=== PATIENT | female | born 1950 | race Caucasian/White ===

== ENCOUNTER 2018-03-22 09:50 | Outpatient (CLI) | payer MEDICARE, SELFPAY ==
[2018-03-22 13:23] LABS: TSH 0.12 uIU/mL (0.358-3.74)
== END 2018-03-22 10:10 ==
PROVIDERS: PCP Nurse Practitioner Family; Visit Provider Surgery
DX: E04.1 Nontoxic single thyroid nodule (principal)
CPT/HCPCS: 36415; 84443

== ENCOUNTER 2018-10-04 14:57 | Outpatient (REF) | payer OTHER, SELFPAY ==
[2018-10-04 23:00] LABS: Anion Gap 10.2 mmol/L (3-11); BUN 9 mg/dL (7-18); CO2 27.8 mmol/L (21.0-32.0); CREATININE 0.67 mg/dL (0.55-1.02); Calculated LDL 94 mg/dL; Chloride 99 mmol/L (98-107); Cholesterol 151 mg/dL (50-200); Glucose 87 mg/dL (70-100); HDL Cholesterol 42 mg/dL (40-60); Potassium 3.6 mmol/L (3.5-5.1); Sodium 137 mmol/L (136-145); Triglyceride 75 mg/dL (30-150)
[2018-10-04 23:23] LABS: TSH 0.35 uIU/mL (0.358-3.74)
== END 2018-10-04 15:17 ==
LOC: NCHCN 14:57
PROVIDERS: PCP Nurse Practitioner Family; Visit Provider Nurse Practitioner Family
DX: I10 Essential (primary) hypertension (principal); E78.5 Hyperlipidemia, unspecified; E89.0 Postprocedural hypothyroidism
CPT/HCPCS: 80048; 80061; 83721; 84443

== ENCOUNTER 2018-10-14 11:42 | Outpatient (CLI) | payer OTHER, SELFPAY ==
--- NOTE | 2018-10-14 12:14 | DI.MAMMO_ITS ---
SYMPTOM/DIAGNOSIS: SCREENING Z12.39 BILATERAL SCREENING MAMMOGRAMS: Mammograms were interpreted according to the usual protocol including computer analysis with CAD system, tomosynthesis and C view imaging. Comparison is made with exams from 2009 and 2010. The breasts are composed of scattered fibroglandular densities, breast density category B. No suspicious masses or suspicious microcalcifications are seen. There has been no significant change. IMPRESSION: Category 1, negative mammogram. Yearly screening mammography is recommended. Breast density category B. SA ASSESSMENT OF FINDINGS: Negative. Category 1. Patient will receive a letter notifying them of these results. BI-RADS category B. There are scattered areas of fibroglandular density.
== END 2018-10-14 12:02 ==
PROVIDERS: PCP Nurse Practitioner Family; Visit Provider Nurse Practitioner Family
DX: Z12.31 Encounter for screening mammogram for malignant neoplasm of breast (principal)
CPT/HCPCS: 77063; 77067

== ENCOUNTER 2018-12-03 10:45 | Outpatient (REF) | payer OTHER, SELFPAY ==
[2018-12-03 20:31] LABS: TSH 2.22 uIU/mL (0.36-3.74)
== END 2018-12-03 11:05 ==
LOC: NCHCN 10:45
PROVIDERS: PCP Nurse Practitioner Family; Visit Provider Nurse Practitioner Family
DX: E89.0 Postprocedural hypothyroidism (principal)
CPT/HCPCS: 84443

== ENCOUNTER 2019-11-11 08:51 | Outpatient (REF) | payer OTHER, SELFPAY ==
[2019-11-11 20:14] LABS: Anion Gap 8.7 mmol/L (3-11); BUN 22 mg/dL (7-18); CO2 29.3 mmol/L (21.0-32.0); CREATININE 0.78 mg/dL (0.55-1.02); Calcium 9.1 mg/dL (8.5-10.1); Calculated LDL 121 mg/dL (<100); Chloride 95 mmol/L (98-107); Cholesterol 181 mg/dL (<200); Glucose 102 mg/dL (74-106); HDL Cholesterol 35 mg/dL (40-60); Sodium 133 mmol/L (136-145); Triglyceride 125 mg/dL (<150)
== END 2019-11-11 09:11 ==
LOC: NCHCN 08:51
PROVIDERS: PCP Nurse Practitioner Family; Visit Provider Nurse Practitioner Family
DX: I10 Essential (primary) hypertension (principal); E78.5 Hyperlipidemia, unspecified
CPT/HCPCS: 80048; 80061

== ENCOUNTER 2020-01-11 15:01 | Outpatient (REF) | payer OTHER, SELFPAY ==
[2020-01-11 21:18] LABS: ALT 23 U/L (14-59); AST 17 U/L (15-37); HDL Cholesterol 44 mg/dL (40-60); LDL CHOLESTEROL 116 mg/dL (<100)
[2020-01-11 21:36] LABS: Creatine Kinase 91 U/L (26-192)
== END 2020-01-11 15:21 ==
LOC: NCHCN 15:01
PROVIDERS: PCP Nurse Practitioner Family; Visit Provider Nurse Practitioner Family
DX: E78.5 Hyperlipidemia, unspecified (principal)
CPT/HCPCS: 82550; 83721; 83718; 84450; 84460

== ENCOUNTER 2020-03-14 17:56 | Outpatient (REF) | payer OTHER, SELFPAY ==
[2020-03-15 23:52] LABS: COVID-19 RT-PCR UVMMC Result Negative (Negative)
== END 2020-03-14 18:16 ==
LOC: NCHCN 17:56
PROVIDERS: PCP Nurse Practitioner Family; Visit Provider Nurse Practitioner Family
DX: J06.9 Acute upper respiratory infection, unspecified (principal)
CPT/HCPCS: U0003

== ENCOUNTER 2020-05-01 14:17 | Outpatient (REF) | payer OTHER, SELFPAY ==
[2020-05-01 16:04] LABS: ALT 24 U/L (14-59); AST 17 U/L (15-37); Anion Gap 7.8 mmol/L (3-11); BUN 12 mg/dL (7-18); CO2 32.2 mmol/L (21.0-32.0); CREATININE 0.7 mg/dL (0.55-1.02); Calcium 9.4 mg/dL (8.5-10.1); Chloride 97 mmol/L (98-107); Glucose 121 mg/dL (74-106); HDL Cholesterol 39 mg/dL (40-60); LDL CHOLESTEROL 61 mg/dL (<100); Potassium 3.6 mmol/L (3.5-5.1); Sodium 137 mmol/L (136-145)
[2020-05-01 16:26] LABS: Creatine Kinase 71 U/L (26-192); FREE T4 1.35 ng/dL (0.76-1.46)
[2020-05-01 17:39] LABS: TSH 2.18 uIU/mL (0.36-3.74)
== END 2020-05-01 14:18 | disposition home or self-care (01) ==
LOC: NCHCN 14:17
PROVIDERS: PCP Nurse Practitioner Family; Visit Provider Nurse Practitioner Family
DX: E78.5 Hyperlipidemia, unspecified (principal); I10 Essential (primary) hypertension; E89.0 Postprocedural hypothyroidism; M85.89 Other specified disorders of bone density and structure, multiple sites
CPT/HCPCS: 80048; 82306; 82550; 83721; 83718; 84439; 84443; 84450; 84460

== ENCOUNTER 2020-11-12 01:40 | Outpatient (CLI) | payer OTHER, SELFPAY ==
--- NOTE | 2020-11-12 | DI.MAMMO_ITS ---
Exam(s) MAMMO SCREENING EXAM: MAMMO SCREENING CLINICAL HISTORY: SCREENING, Z12.39. TECHNIQUE: Bilateral full field digital CC and MLO mammographic images were obtained with 3D tomosyn thesis and utilizing computer aided detection (CAD). COMPARISON: Prior mammogram performed September 2018. There are no other prior mammograms available for comparison. FINDINGS: In the left breast there is an asymmetric density-possible nodule measuring 5 x 6 millimeters located medial of center, approximately 6 cm in from the nipple. Require spot view. In the right breast there is a microcalcification group located posteriorly up again suggest wall, no t evident on the prior study listed above. Requires spot Mag view. More anteriorly there are benign micro and macro calcifications noted both breasts which are unchanged. There is no significant architectural distortion nor skin thickening-retraction. IMPRESSION: 1. Asymmetric density-possible left breast nodule. Spot compression view and ultrasound recommended. 2. Microcalcification group posteriorly in the right breast. Spot Mag view recommended BI-RADS Category 0 - Assessment Incomplete: Need additional imaging evaluation Breast Density - Category B - Scattered areas of fibroglandular density Breast density Category C or D implies that the patient has dense breast tissue. Dense breast tissue can make it harder to find cancer on a mammogram. Dense breast tissue is also associated with an incr eased risk of breast cancer. This information about the result of the mammogram report was provided to the patient to raise their awareness. Use this report when you speak with the patient about their risks for breast cancer, which includes their family history. At that time, you may recommend additional screening tests (Ultrasoun d or MRI) as these tests may add significant information. A negative radiographic report should not delay biopsy if a dominant or clinically suspicious mass is present. Up to ten percent of cancers are not identified on mammography. A negative report may reinforce clinical impression. Adenosis and dense breasts may obscure an underlying neoplasm. False positive reports average 6 to 10%. Patient will receive a letter notifying them of these results.
== END 2020-11-12 02:00 ==
PROVIDERS: PCP Nurse Practitioner Family; Visit Provider Nurse Practitioner Family
DX: Z12.31 Encounter for screening mammogram for malignant neoplasm of breast (principal); R92.2 Inconclusive mammogram; R92.0 Mammographic microcalcification found on diagnostic imaging of breast
CPT/HCPCS: 77063; 77067

== ENCOUNTER 2020-11-29 02:13 | Outpatient (CLI) | payer OTHER, SELFPAY ==
--- NOTE | 2020-11-29 | DI.US_ITS ---
Exam(s) US BREAST LT COMPLETE EXAM: US BREAST LT COMPLETE CLINICAL HISTORY: F/U MAMMO, LT ASYMMETRIC DENSITY,? NODULE. TECHNIQUE: Complete ultrasound of the left breast was performed including all 4 quadrants, the retro areolar region, and the ipsilateral axilla. COMPARISON: Prior mammograms were reviewed. FINDINGS: At the 9 o'clock position there is a 3 millimeter round cyst. This benign cyst corresponds to the fi nding on the mammogram. No other focal findings in all 4 quadrants nor in the retroareolar region. No significant ipsilateral axillary adenopathy IMPRESSION: There is a benign 3 millimeter microcyst in the left breast as described above which corresponds to t he finding on the mammogram. No solid lesions evident in the left breast Appropriate follow-up is repeat right breast mammogram in 6 months to restudy the microcalcification group located very posteriorly up again suggest wall in the right breast.. Recommendations discussed by myself with the patient today. BI-RADS Category 3 - 6 month - Probably Benign Finding: Recommend follow-up mammography in 6 months Breast Density - Category B - Scattered areas of fibroglandular density Breast density Category C or D implies that the patient has dense breast tissue. Dense breast tissue can make it harder to find cancer on a mammogram. Dense breast tissue is also associated with an incr eased risk of breast cancer. This information about the result of the mammogram report was provided to the patient to raise their awareness. Use this report when you speak with the patient about their risks for breast cancer, which includes their family history. At that time, you may recommend additional screening tests (Ultrasoun d or MRI) as these tests may add significant information. A negative radiographic report should not delay biopsy if a dominant or clinically suspicious mass is present. Up to ten percent of cancers are not identified on mammography. A negative report may reinforce clinical impression. Adenosis and dense breasts may obscure an underlying neoplasm. False positive reports average 6 to 10%. Patient will receive a letter notifying them of these results.
--- NOTE | 2020-11-29 | DI.MAMMO_ITS ---
Exam(s) MG MAMMO SCREEN CALL BACK BI EXAM: MG MAMMO SCREEN CALL BACK BI CLINICAL HISTORY: F/U MAMMO, LT ASYMMETRIC DENSITY, ? NODULE, RT MICROCALCIFICATION. TECHNIQUE: Right breast spot mammographic images were obtained with 2D mag technique. Left breast spot views were performed with 3D technique COMPARISON: Prior mammograms were reviewed. This additional imaging was performed due to findings described on the recent screening mammogram of 11/12/2020. FINDINGS: Additional mammographic views performed todayrevealed the small nodular density in the left breast pe rsist.This was shown to be a benign microcyst on ultrasound performed following this mammogram today. Four attempts were made to perform Mag view of microcalcification group posteriorly in the right negrito st described on 11/12/2020. However, these were not able to be imaged despite numerous attempts. I feel there is possibly that these microcalcifications may been present previously but not included on prior mammograms because they are so far back. Nevertheless, recommend follow-up right breast mammo gram in 6 months to restudy these microcalcifications. IMPRESSION: 1. Right breast microcalcification group as described above. Recommend repeat right breast mammogram in 6 months to restudy this very posteriorly located microcalcification group. 2. The nodule in the left breast is shown to be a 3-4 millimeter microcyst on today's ultrasound. The patient was informed of these findings and recommendations prior to leaving the department today. BI-RADS Category 3 - 6 month - Probably Benign Finding: Recommend follow-up mammography in 6 months Breast Density - Category B - Scattered areas of fibroglandular density Breast density Category C or D implies that the patient has dense breast tissue. Dense breast tissue can make it harder to find cancer on a mammogram. Dense breast tissue is also associated with an incr eased risk of breast cancer. This information about the result of the mammogram report was provided to the patient to raise their awareness. Use this report when you speak with the patient about their risks for breast cancer, which includes their family history. At that time, you may recommend additional screening tests (Ultrasoun d or MRI) as these tests may add significant information. A negative radiographic report should not delay biopsy if a dominant or clinically suspicious mass is present. Up to ten percent of cancers are not identified on mammography. A negative report may reinforce clinical impression. Adenosis and dense breasts may obscure an underlying neoplasm. False positive reports average 6 to 10%. Patient will receive a letter notifying them of these results.
== END 2020-11-29 02:33 ==
PROVIDERS: PCP Nurse Practitioner Family; Visit Provider Nurse Practitioner Family
DX: Z12.31 Encounter for screening mammogram for malignant neoplasm of breast (principal); R92.8 Other abnormal and inconclusive findings on diagnostic imaging of breast; R92.0 Mammographic microcalcification found on diagnostic imaging of breast; N60.02 Solitary cyst of left breast
CPT/HCPCS: 76642; 77063; 77067

== ENCOUNTER 2021-02-26 09:56 | Outpatient (REF) | payer OTHER, SELFPAY ==
[2021-02-26 15:56] LABS: Anion Gap 6.4 mmol/L (3-11); BUN 13 mg/dL (7-18); CO2 32.6 mmol/L (21.0-32.0); CREATININE 0.6 mg/dL (0.55-1.02); Calcium 9.1 mg/dL (8.5-10.1); Chloride 97 mmol/L (98-107); FREE T4 1.38 ng/dL (0.76-1.46); Glucose 97 mg/dL (74-106); Potassium 3.5 mmol/L (3.5-5.1); Sodium 136 mmol/L (136-145); TSH 1.21 uIU/mL (0.36-3.74)
[2021-02-26 16:08] LABS: Calculated LDL 74 mg/dL (<100); Cholesterol 132 mg/dL (<200); HDL Cholesterol 45 mg/dL (40-60); Triglyceride 65 mg/dL (<150)
[2021-02-28 01:41] LABS: Vitamin D 25 Total 21.9 ng/mL (30-100)
== END 2021-02-26 09:57 | disposition home or self-care (01) ==
LOC: NCHCN 09:56
PROVIDERS: PCP Nurse Practitioner Family; Visit Provider Nurse Practitioner Family
DX: E89.0 Postprocedural hypothyroidism (principal); E78.5 Hyperlipidemia, unspecified; E55.9 Vitamin D deficiency, unspecified
CPT/HCPCS: 80048; 80061; 82306; 84439; 84443

== ENCOUNTER 2021-05-03 08:17 | Emergency (ER) | payer OTHER, SELFPAY ==
[2021-05-03 08:23] VITALS: BP 149/83; PULSE 67; RESP 16; TEMP 36.2; O2SAT 98
--- NOTE | 2021-05-03 08:36 | ED.GENADUL_ITS ---
Discharge Plan Disposition Patient Disposition: HOME Condition: Stable Discharge Details Clinical Impression: Mallet deformity of right ring finger Primary Care Provider: June Andrade ED Provider: Yong Dempsey Home Meds and New Rx's Prescriptions: Continued nitroglycerin 0.4 MG tablet, sublingual 0.4 mg Sublingual ONCE 0RF Label Comments: has never used ramipril [Altace] 5 MG capsule 10 mg PO DAILY 0RF atorvastatin [Lipitor] 20 MG tablet 20 mg PO DAILY 0RF citalopram 40 MG tablet 40 mg PO HS 0RF Label Comments: no longer takes atenolol 100 MG tablet 100 mg PO DAILY 0RF hydrochlorothiazide 50 MG tablet 50 mg PO DAILY 0RF aspirin,buffd-calcium carb-mag 325 MG tablet 325 mg PO DAILY 0RF Discontinued sulfamethoxazole-trimethoprim 1 TAB tablet 1 ea PO BID Qty: 20 0RF Discharge Instructions Instructions: Jose Finger (ED) Additional Instructions: You have a tendon injury to your right ring finger. Please use splinting as discussed and it is important that you follow-up with orthopedics. You may use [id number] pain medication as needed and take as directed on packaging or as previously directed by your primary care provider. If you have any new or worsening symptoms please return to the emergency department for reevaluation. Referrals: [facility] [Provider Group] (The office should contact you for arrangement of follow-up appointment.) Discharge Data Discharge Date/Time-TO BE ENTERED AT DEPARTURE: 05/03/21 08:54 Medical Decision Making Patient presenting to the emergency department for chief complaint of right ring finger injury. While talking in a comforter she felt a pop in her right ring finger. Physical exam shows an obvious mallet finger deformity. Exam is otherwise unremarkable and patient is without other complaint. Patient placed in appropriate splint and recommended [id number] pain medication as needed. Patient to follow-up with orthopedist for further reassessment and treatment. I do not feel that radiological imaging is needed at this time. After discussion of diagnosis and plan of care patient has no further needs, questions, or concerns and states clear understanding to return to the emergency department for any worsening symptoms. HPI General Date/Time Provider Initiated Documentation: 05/03/21 08:30 . History of Present Illness 71 year old F presents to the emergency department with the chief complaint of Right ring finger injury, described as moderate, with intensity rated at 5. Quality is described as aching, and is localized to the right and upper extremity. Patient extremity. Patient started experiencing this hour(s) (1) and it has been constant. improves with No relieving factors improve symptom(s), Movement worsens symptoms . Patient notes no other symptoms.. Patient did receive the following treatments prior to arrival, none Related Data Home Medications Medication Instructions Recorded Confirmed aspirin,buffered (calcium 325 mg PO DAILY 08/09/12 05/03/21 carbonate-magnesium) 325 mg tablet atenolol 100 mg tablet 100 mg PO DAILY 08/09/12 05/03/21 atorvastatin 20 mg tablet (Lipitor) 20 mg PO DAILY 08/09/12 05/03/21 citalopram 40 mg tablet 40 mg PO HS 08/09/12 05/03/21 hydrochlorothiazide 50 mg tablet 50 mg PO DAILY 08/09/12 05/03/21 nitroglycerin 0.4 mg sublingual 0.4 mg SUBLINGUAL ONCE tab-cap 03/28/13 05/03/21 tablet ramipril 5 mg capsule (Altace) 10 mg PO DAILY tab-cap 03/28/13 05/03/21 Allergies Allergy/AdvReac Type Severity Reaction Status Date / Time furosemide [From Lasix] Allergy Intermediate FACE SWELLS Verified 05/03/21 08:27 azithromycin [From Zithromax] AdvReac Intermediate VOMITS Verified 05/03/21 08:27 ketorolac tromethamine AdvReac Intermediate VOMITS Verified 05/03/21 08:27 [From Toradol] hydrocodone bitartrate AdvReac Mild GI UPSET Verified 05/03/21 08:27 [From Vicodin] General Stated Complaint: Orthopedic GERMAIN: 4 Review of Systems Cardiovascular Cardiovascular: Denies syncope Musculoskeletal Musculoskeletal: Reports as per HPI, Denies numbness and Denies tingling Integumentary/Breasts Skin/Breast: Denies rash, Denies sores and Denies wounds Neurologic Neurologic: Denies syncope, Denies numbness and Denies tingling PFSH All Active Problems (Updated 05/03/21 @ 08:37 by Yong Dempsey NP) Mallet deformity of right ring finger (Acute) Social History Smoking/Tobacco Use Status: Former Tobacco Use Smoking risk assessment performed?: Yes Alcohol Intake: current Alcohol Intake frequency: a few times a week Drug use: Never Substance use type: does not use Do you feel safe in your relationship?: Yes Exam Const General: cooperative and no acute distress Orientation: alert, awake and oriented x3 Resp Effort & Inspection: normal respiratory effort and able to speak in complete sentences Cardio Rate: regular rate Rhythm: regular rhythm Extrem General: normal exam except as noted Right upper extremity: hand Details: abnormal to inspection Details: a deformity Location: of the 3rd digit (Mallet deformity), normal capillary refill and neurosensory exam normal Course Vital Signs Vital signs: Vital Signs Temperature 36.2 C L 05/03/21 08:23 Pulse 67 05/03/21 08:23 Respiratory Rate 16 05/03/21 08:23 Blood Pressure 149/83 H 05/03/21 08:23 Pulse Oximetry 98 05/03/21 08:23 Temperature 36.2 C L 05/03/21 08:23 Temperature Source Skin 05/03/21 08:23 Pulse 67 05/03/21 08:23 Respiratory Rate 16 05/03/21 08:23 Respiratory Effort 05/03/21 08:23 Blood Pressure 149/83 H 05/03/21 08:23 Blood Pressure Position Sitting 05/03/21 08:23 Pulse Oximetry 98 05/03/21 08:23 Oxygen Delivery Method Room Air 05/03/21 08:23 Oxygen Flow Rate 0 05/03/21 08:23 Pain Level 5 05/03/21 08:29
== END 2021-05-03 08:54 | disposition home or self-care (01) ==
PROVIDERS: Emergency Provider Nurse Practitioner Family; PCP Nurse Practitioner Family
DX: M20.011 Mallet finger of right finger(s) (principal); X50.1XXA Overexertion from prolonged static or awkward postures, initial encounter
CPT/HCPCS: 29130; 99282

== ENCOUNTER → 2021-05-13 13:55 | Outpatient (BNVA) | payer MEDICARE, OTHER, SELFPAY | PROVIDERS: PCP Nurse Practitioner Family; Referring Provider Student in an Organized Health Care Education/Training Program | DX: M20.011 Mallet finger of right finger(s) (principal) | CPT/HCPCS: 99213 ==

== ENCOUNTER 2021-05-27 03:34 | Outpatient (CLI) | payer OTHER, SELFPAY ==
--- NOTE | 2021-05-27 14:00 | DI.MAMMO_ITS ---
Exam(s) MG MAMMO DIAGNOSTIC UNI EXAM: MAMMO DIAGNOSTIC UNI CLINICAL HISTORY: 6-MO F/U ABNL MAMMO, BREAST ABNL FINDINGS, N64.59. TECHNIQUE: Craniocaudal and mediolateral oblique Full Field Digital Mammography views of the right b reast with Computer Aided Diagnosis followed by Tomosynthesis. COMPARISON: 2018 and 12 November and 29 November 2020 FINDINGS: Mammography/Tomosynthesis: Masses/Architectural Distortion: None seen. Microcalcifictions: No suspicious pleomorphic-type are seen. Stable calcifications in the lower inner quadrant of the posterior right breast near the chest wall. The calcifications were only seen on th e spot CC view. Skin Thickening/Nipple Retraction: None. IMPRESSION: 1. No evidence of malignancy is noted. 2. Unless there is more urgent need, follow-up screening mammography is recommended, as per [place] [employer] guidelines. BI-RADS Category 2 - Benign Findings Breast Density - Category B - Scattered areas of fibroglandular density A negative radiographic report should not delay biopsy if a dominant or clinically suspicious mass is present. Up to ten percent of cancers are not identified on mammography. A negative report may reinforce clinical impression. Adenosis and dense breasts may obscure an underlying neoplasm. False positive reports average 6 to 10%. Patient will receive a letter notifying them of these results.
== END 2021-05-27 03:54 ==
PROVIDERS: PCP Nurse Practitioner Family; Visit Provider Nurse Practitioner Family
DX: R92.8 Other abnormal and inconclusive findings on diagnostic imaging of breast (principal); N60.81 Other benign mammary dysplasias of right breast
CPT/HCPCS: 77061; 77065; G0279

== ENCOUNTER → 2021-06-17 13:01 | Outpatient (BNVA) | payer MEDICARE, SELFPAY | PROVIDERS: PCP Nurse Practitioner Family; Referring Provider Nurse Practitioner Family; Visit Provider Student in an Organized Health Care Education/Training Program | DX: M20.011 Mallet finger of right finger(s) (principal) | CPT/HCPCS: 99212 ==

== ENCOUNTER → 2021-10-08 15:42 | Outpatient (CLI) | payer OTHER, SELFPAY ==
--- NOTE | 2021-10-08 | DI.RAD_ITS ---
Exam(s) XR LUMBAR SPINE COMPLETE EXAM: XR LUMBAR SPINE COMPLETE CLINICAL HISTORY: LOW BACK PAIN--M54.59. TECHNIQUE: 2D digital imaging was performed. COMPARISON: CR LUMBAR SPINE COMPLETE from 04/27/2014 FINDINGS: Six views No evidence compression fracture nor listhesis. There has been progression of disc space narrowing a t L1-2 and L2-3 levels. Moderate disc height loss L3-4 again noted. There has been progression of d isc height loss at L4-5 and L5-S1 levels. No scoliosis. Facet arthropathy noted. SI joints unremar kable. Impression progression of multilevel degenerative disc disease from 2015. Mild facet degener ative changes. No compression fractures. Calcified abdominal aorta again noted IMPRESSION: DATA REPOSITORY: RADIATION DOSE DELIVERED:
--- NOTE | 2021-10-08 | DI.RAD_ITS ---
Exam(s) XR THORACIC SPINE COMPLETE EXAM: XR THORACIC SPINE COMPLETE CLINICAL HISTORY: LOW BACK PAIN-M54.595. TECHNIQUE: 2D digital imaging was performed. COMPARISON: CR THORACIC SPINE from 04/27/2014 FINDINGS: 3 views No evidence of fracture or listhesis. No thoracic scoliosis nor abnormal widening of the paraspinal lines. Multilevel disc space narrowing noted. Minimal change from 2015. IMPRESSION: DATA REPOSITORY: RADIATION DOSE DELIVERED:
== END ==
PROVIDERS: PCP Nurse Practitioner Family; Visit Provider Nurse Practitioner Family
DX: M54.59 Other low back pain (principal); M51.37 Other intervertebral disc degeneration, lumbosacral region; M47.817 Spondylosis without myelopathy or radiculopathy, lumbosacral region; M51.34 Other intervertebral disc degeneration, thoracic region
CPT/HCPCS: 72072; 72110

== ENCOUNTER 2022-01-08 20:23 | Emergency (ER) | payer OTHER, SELFPAY ==
[2022-01-08 20:33] VITALS: BP 162/82; PULSE 69; RESP 16; TEMP 36.4; O2SAT 96
--- NOTE | 2022-01-08 21:09 | ED.GENADUL_ITS ---
Discharge Plan Disposition Patient Disposition: HOME Condition: Stable Discharge Details Clinical Impression: COVID-19, Diarrhea Primary Care Provider: June Andrade ED Provider: Laura Spencer Home Meds and New Rx's Prescriptions: Continued nitroglycerin 0.4 MG tablet, sublingual 0.4 mg Sublingual ONCE Label Comments: has never used ramipril [Altace] 5 MG capsule 10 mg PO DAILY atorvastatin [Lipitor] 20 MG tablet 40 mg PO DAILY atenolol 100 MG tablet 100 mg PO DAILY hydrochlorothiazide 50 MG tablet 50 mg PO DAILY aspirin,buffd-calcium carb-mag 325 MG tablet 325 mg PO DAILY levothyroxine 125 mcg tablet 125 mcg PO DAILY Label Comments: TAKE ONE TABLET BY MOUTH ONCE DAILY omeprazole 20 mg capsule,delayed release(DR/EC) 20 mg PO DAILY Label Comments: TAKE ONE CAPSULE BY MOUTH EVERY DAY ramipril 10 mg capsule 10 mg PO DAILY Label Comments: TAKE ONE CAPSULE BY MOUTH EVERY DAY ezetimibe 10 mg tablet 10 mg PO DAILY Label Comments: TAKE ONE TABLET BY MOUTH EVERY DAY Discharge Instructions Instructions: COVID-19 (Coronavirus Disease 2019) (ED) Additional Instructions: Your symptoms are likely secondary to COVID-19 or another viral illness. Drink plenty of fluids and get plenty of rest. Alternate tylenol and motrin as needed and directed for pain. Follow-up with your primary care doctor in 1 week. Return to the emergency department with any worsening or new concerning symptoms such as difficulty breathing, worsening diarrhea, persistent vomiting or any other concerns. Discharge Data Discharge Date/Time-TO BE ENTERED AT DEPARTURE: 01/08/22 21:27 Discharge Physician: Laura Spencer Medical Decision Making 71-year-old female with a history of tobacco smoking, hypertension and ND diagnosed with COVID last week and finished Paxlovid today presents with return of her symptoms including headaches, bodyaches, nausea, generalized weakness and fatigue now with diarrhea since this afternoon. Patient appears generally fatigued but nontoxic. Her blood pressure is hypertensive but remainder of vitals are within normal limits. She is afebrile with normal respiratory rate and oxygen saturation. She has a normal heart rate and denies any complaint of chest pain or shortness of breath so history of presentation does not appear consistent with PE or pneumonia. She is hemodynamically stable, so doo not see an indication for IV, labs or fluid bolus and patient is agreeable. Patient feels comfortable going home. She is advised to continue fluids, rest and to follow-up with her primary care doctor for reevaluation. Usual and customary return precautions given prior to discharge. Medical Records Medical records reviewed: Yes I reviewed the patient's medical records. HPI General Mode of arrival: ambulatory . Date/Time Provider Initiated Documentation: 01/08/22 20:25 . Limitations to Documentation: no limitations . Information obtained by: patient . HPI Narrative: Pt is a 71yo F with a h/o tobacco smoking, hypertension and ND who was diagnosed with Covid last week and finished her last dose of Paxlovid ricki presents for return of headaches, bodyaches, nausea, generalized weakness and fatigue now with diarrhea since this afternoon. She states she thought she was getting better and then symptoms returned and now with multiple episodes of diarrhea and she was concerned about dehydration. Related Data Home Medications Medication Instructions Recorded Confirmed aspirin,buffered (calcium 325 mg PO DAILY 08/09/12 01/08/22 carbonate-magnesium) 325 mg tablet atenolol 100 mg tablet 100 mg PO DAILY 08/09/12 01/08/22 atorvastatin 20 mg tablet (Lipitor) 40 mg PO DAILY 08/09/12 01/08/22 hydrochlorothiazide 50 mg tablet 50 mg PO DAILY 08/09/12 01/08/22 nitroglycerin 0.4 mg sublingual 0.4 mg sublingual ONCE 03/28/13 01/08/22 tablet ramipril 5 mg capsule (Altace) 10 mg PO DAILY 03/28/13 01/08/22 ezetimibe 10 mg tablet 10 mg PO DAILY 01/08/22 01/08/22 levothyroxine 125 mcg tablet 125 mcg PO DAILY 01/08/22 01/08/22 omeprazole 20 mg capsule,delayed 20 mg PO DAILY 01/08/22 01/08/22 release ramipril 10 mg capsule 10 mg PO DAILY 01/08/22 01/08/22 Allergies Allergy/AdvReac Type Severity Reaction Status Date / Time furosemide [From Lasix] Allergy Intermediate FACE SWELLS Verified 01/08/22 20:38 azithromycin [From Zithromax] AdvReac Intermediate VOMITS Verified 01/08/22 20:38 ketorolac tromethamine AdvReac Intermediate VOMITS Verified 01/08/22 20:38 [From Toradol] hydrocodone bitartrate AdvReac Mild GI UPSET Verified 01/08/22 20:38 [From Vicodin] General Stated Complaint: GenMedical GERMAIN: 3 Review of Systems All systems reviewed & are unremarkable except as noted in HPI and below Constitutional Constitutional: Reports as per HPI, Reports body ache(s), Denies chills, Denies fever(s), Reports headache(s) and Reports weakness Eyes Eyes: Denies blurry vision ENT Ears, Nose, Mouth, and Throat: Denies dizziness, Reports headache(s), Denies sore throat and Denies throat swelling Cardiovascular Cardiovascular: Denies chest pain and Denies dyspnea Respiratory Respiratory: Denies cough and Denies dyspnea Gastrointestinal Gastrointestinal: Denies abdominal pain, Reports diarrhea, Reports nausea and Denies vomiting Genitourinary Genitourinary: Denies hematuria and Denies dysuria Musculoskeletal Musculoskeletal: Denies back pain and Denies numbness Integumentary/Breasts Skin/Breast: Denies lesions and Denies rash Neurologic Neurologic: Denies dizziness, Reports headache(s), Denies localized weakness, Denies numbness and Reports weakness Allergic/Immunologic Allergic/Immunologic: Denies throat swelling PFSH All Active Problems (Updated 01/08/22 @ 21:43 by Laura Spencer DO) COVID-19 (Acute) Diarrhea (Acute) Medical History (Updated 01/08/22 @ 21:43 by Laura Spencer DO) HTN (hypertension) Myocardial infarction Surgical History (Updated 01/08/22 @ 21:13 by Laura Spencer DO) History of hysterectomy Social History Smoking/Tobacco Use Status: Current-Occasional Tobacco Type: cigarettes Smoking risk assessment performed?: Yes Alcohol Intake: current Alcohol Intake frequency: a few times a week Drug use: Never Substance use type: does not use Do you feel safe in your relationship?: Yes Exam Const General: cooperative and no acute distress Orientation: alert, awake and oriented x3 HENMT Head: normal to inspection Ears: hearing grossly normal bilaterally, external ears normal and TM's normal bilaterally General nose exam: external nose normal Face and sinus: normal facial exam Mouth: oral mucosae normal Throat: posterior oropharynx normal Eyes General: appearance normal, both eyes and all related structures EOM: EOM intact bilaterally Neck Neck: normal visual inspection Lymphatic: no lymphadenopathy noted Chest Chest: normal inspection of the chest and no tenderness Resp Effort & Inspection: normal respiratory effort and able to speak in complete sentences Auscultation: clear to auscultation bilaterally Cardio Rate: regular rate Rhythm: regular rhythm GI Inspection: normal to inspection Palpation: soft, not firm, not rigid and nontender Auscultation: hypoactive bowel sounds Skin General skin exam: no rashes or lesions noted Neuro General: patient alert, patient awake, patient oriented x3, moves all extremities and no meningeal signs Cognition: normal cognition Speech: speech normal Motor: muscle tone normal throughout Sensory Exam: no sensory deficits noted Extrem General: normal to inspection and full ROM Psych Appearance: grossly normal Mental Status: mental status grossly normal Speech and Movement: speech and movement normal Affect: normal affect Course Vital Signs Vital signs: Vital Signs Temperature 97.5 F L 01/08/22 20:33 Pulse 69 01/08/22 20:33 Respiratory Rate 16 01/08/22 20:33 Blood Pressure 162/82 H 01/08/22 20:33 Pulse Oximetry 96 01/08/22 20:33 Temperature 97.5 F L 01/08/22 20:33 Temperature Source Tympanic 01/08/22 20:33 Pulse 69 01/08/22 20:33 Respiratory Rate 16 01/08/22 20:33 Respiratory Effort 01/08/22 20:33 Blood Pressure 162/82 H 01/08/22 20:33 Blood Pressure Position Sitting 01/08/22 20:33 Pulse Oximetry 96 01/08/22 20:33 Oxygen Delivery Method Room Air 01/08/22 20:33 Oxygen Flow Rate 0 01/08/22 20:33 Pain Level 5 01/08/22 20:33
[2022-01-08 21:25] VITALS: RESP 16
== END 2022-01-08 21:27 | disposition home or self-care (01) ==
PROVIDERS: Emergency Provider Physician Assistant; PCP Nurse Practitioner Family
DX: U07.1 COVID-19 (principal); I10 Essential (primary) hypertension
CPT/HCPCS: 99281; 99284

== ENCOUNTER 2022-03-11 18:04 | Outpatient (REF) | payer OTHER, SELFPAY ==
[2022-03-11 16:33] LABS: ALT 24 U/L (14-59); AST 22 U/L (15-37); Alkaline Phosphatase 81 U/L (46-116); BUN 14 mg/dL (7-18); Bilirubin, Total 0.8 mg/dL (0.2-1.0); CREATININE 0.8 mg/dL (0.55-1.02); Calcium 9.6 mg/dL (8.5-10.1); Chloride 98 mmol/L (98-107); Estimated GFR 79.22 (mL/min/1.73m2); Glucose 102 mg/dL (74-106); HDL Cholesterol 45 mg/dL (40-60); LDL CHOLESTEROL 56 mg/dL (<100); Potassium 4.4 mmol/L (3.5-5.1); Sodium 136 mmol/L (136-145); TSH 5.39 uIU/mL (0.36-3.74); Total Protein 7.5 g/dL (6.4-8.2)
[2022-03-11 16:53] LABS: Creatine Kinase 99 U/L (26-192); FREE T4 1.37 ng/dL (0.76-1.46)
== END 2022-03-11 18:05 | disposition home or self-care (01) ==
LOC: NCHCN 18:04
PROVIDERS: PCP Nurse Practitioner Family; Visit Provider Nurse Practitioner Family
DX: E78.5 Hyperlipidemia, unspecified (principal); F41.9 Anxiety disorder, unspecified; I10 Essential (primary) hypertension; E89.0 Postprocedural hypothyroidism
CPT/HCPCS: 80053; 82550; 83721; 83718; 84439; 84443

== ENCOUNTER 2022-03-31 08:56 | Emergency (ER) | payer OTHER, SELFPAY ==
[2022-03-31 08:59] VITALS: BP 159/83; PULSE 68; RESP 17; TEMP 36.2; O2SAT 98
--- NOTE | 2022-03-31 09:20 | ED.GENADUL_ITS ---
Discharge Plan Disposition Patient Disposition: Home Condition: Stable Discharge Details Clinical Impression: Abscess of back Primary Care Provider: June Andrade ED Provider: Nkechi Edgar Home Meds and New Rx's Prescriptions: Continued nitroglycerin 0.4 MG tablet, sublingual 0.4 mg Sublingual ONCE Label Comments: has never used ramipril [Altace] 5 MG capsule 10 mg PO DAILY atorvastatin [Lipitor] 20 MG tablet 40 mg PO DAILY atenolol 100 MG tablet 100 mg PO DAILY hydrochlorothiazide 50 MG tablet 50 mg PO DAILY aspirin,buffd-calcium carb-mag 325 MG tablet 325 mg PO DAILY levothyroxine 125 mcg tablet 125 mcg PO DAILY Label Comments: TAKE ONE TABLET BY MOUTH ONCE DAILY omeprazole 20 mg capsule,delayed release(DR/EC) 20 mg PO DAILY Label Comments: TAKE ONE CAPSULE BY MOUTH EVERY DAY ramipril 10 mg capsule 10 mg PO DAILY Label Comments: TAKE ONE CAPSULE BY MOUTH EVERY DAY ezetimibe 10 mg tablet 10 mg PO DAILY Label Comments: TAKE ONE TABLET BY MOUTH EVERY DAY Discharge Instructions Instructions: Abscess (ED) Additional Instructions: Your imaging and labs were signficant for abscess on your back. This was localized to your skin. This was open and drained. Please keep your dressing in place until reevaluated by your primary care. If this comes off, wash and apply clean dressing. If you develop fevers/chills, increased pain, spreading of the redness or other new/worsening symptoms please seek care urgently once again. Please continue with the antibiotics. This has been sent to your local pharmacy. Please continue with tylenol and/or ibuprofen as needed for discomfort. If you develop fevers/chills, increased pain, redness spreading beyond the borders of the dressing or other new/worsening symptoms please seek care urgently once again. You have follow up with primary care on at 4pm. Referrals: June Andrade [Primary Care Provider] - 04/03/22 4:00 pm Discharge Data Discharge Date/Time-TO BE ENTERED AT DEPARTURE: 03/31/22 14:59 Medical Decision Making Patient is a pleasant 72 year old female presenting today with c/c of pain, redness, swelling to back. STates that she first noted some discomfort about 2 weeks ago. The area has been increasing in size. She has been using hydrogen peroxide and warm showers. Despite this, she has had worsening symptoms. States she has expressed some discharge but that it is intermittent. Low grade fevers. UTD on immunizations. No trauma. No radiattion of pain. No change in urinary or bowel habits. PMH signficant for HTN, [place]. On exam, patient appears nontoxic. She has 4cm abscess on midline thoracic spine. Erythema is localized to the area of swelling and fluctuance. She does have point tenderness over midline 2 veertebrae above and one below. No neurologic deficit. Lungs are clear. No nuchal rigidity. I am concerned that she has possible osteomyelitis associated with abscess spreading into the deeper tissues. Will begin on IV abx. Will obrtain MRI of spine. Labs reviewed. No leukocytosis. Appears concentrated on CBC. Lactate WNL. Spoke with radiologist about MRI. She advised that patient does have some enhancement but more consistent with known degenerative changes. Shee initially advised that osteomyelitis could not be ruled out completely with the MRI bu tthat the tissues under the visible abscess, between the bone and abscess, do not appear consistent with infection. This, coupled with the reassuring lab evaluation and lack of nuchal irritation, leads me to have very low suspicision for deep space infection. Discussed at length with the patient. She and I discussed risks/benefits, alternatives, and expected procedural steps associated with I&D of the abscess. She voices understanding and wishes to proceed. Please see proceed note. This was preformed using standard, sterile technique. Patient tolerated procedure well. Thick, purulunt, foul smelling discharge was expressed. Loculations broken up. Irrigated. Wound was packed. Patient and I discussed wound care at [facility]. She will continue on oral antibiotics. Called PCP, she has f/u scheduled in 2 days. Strict return precautions were discussed. All of her questions and concerns were addressed, she is in agreement with this plan. HPI General Mode of arrival: ambulatory . Date/Time Provider Initiated Documentation: 03/31/22 09:20 . Limitations to Documentation: no limitations . Information obtained by: patient, family (daughter) and RN notes reviewed . History of Present Illness 72 year old F presents to the emergency department with the chief complaint of oozing, swollen area on back, described as moderate, with intensity rated at 5. Quality is described as burning and aching, and is localized to the back. Patient reports no radiation. Patie nt started experiencing this week(s) (8 days) and it has been constant. Immobilization improves symptom(s), Movement worsens symptoms . Patient notes loss of appetite, malaise, nausea/vomiting (nausea, no vomiting) and rash; denies chest pain, cough, fever/chills (has been taking APAP Q6 for pain), shortness of breath and weakness. Patient did receive the following treatments prior to arrival, other (APAP, heating pad) Related Data Home Medications Medication Instructions Recorded Confirmed aspirin,buffered (calcium 325 mg PO DAILY 08/09/12 03/31/22 carbonate-magnesium) 325 mg tablet atenolol 100 mg tablet 100 mg PO DAILY 08/09/12 03/31/22 atorvastatin 20 mg tablet (Lipitor) 40 mg PO DAILY 08/09/12 03/31/22 hydrochlorothiazide 50 mg tablet 50 mg PO DAILY 08/09/12 03/31/22 nitroglycerin 0.4 mg sublingual 0.4 mg sublingual ONCE 03/28/13 03/31/22 tablet ramipril 5 mg capsule (Altace) 10 mg PO DAILY 03/28/13 03/31/22 ezetimibe 10 mg tablet 10 mg PO DAILY 01/08/22 03/31/22 levothyroxine 125 mcg tablet 125 mcg PO DAILY 01/08/22 03/31/22 omeprazole 20 mg capsule,delayed 20 mg PO DAILY 01/08/22 03/31/22 release ramipril 10 mg capsule 10 mg PO DAILY 01/08/22 03/31/22 Allergies Allergy/AdvReac Type Severity Reaction Status Date / Time furosemide [From Lasix] Allergy Intermediate FACE SWELLS Verified 03/31/22 09:05 azithromycin [From Zithromax] AdvReac Intermediate VOMITS Verified 03/31/22 09:05 ketorolac tromethamine AdvReac Intermediate VOMITS Verified 03/31/22 09:05 [From Toradol] hydrocodone bitartrate AdvReac Mild GI UPSET Verified 03/31/22 09:05 [From Vicodin] General Stated Complaint: RashLesion GERMAIN: 4 Review of Systems Constitutional Constitutional: Reports as per HPI and Denies headache(s) ENT Ears, Nose, Mouth, and Throat: Denies headache(s) Cardiovascular Cardiovascular: Denies chest pain and Denies dyspnea Respiratory Respiratory: Denies cough and Denies dyspnea Gastrointestinal Gastrointestinal: Denies abdominal pain, Denies change in bowel habits and Denies fecal incontinence Genitourinary Genitourinary: Reports as per HPI, Denies urinary incontinence and Denies urinary hesitancy Musculoskeletal Musculoskeletal: Reports as per HPI, Reports back pain, Denies muscle weakness, Denies numbness, Denies radiating pain into limb and Denies tingling Integumentary/Breasts Skin/Breast: Reports as per HPI Neurologic Neurologic: Reports as per HPI, Denies headache(s), Denies localized weakness, Denies numbness, Denies radicular pain, Denies sensory deficit, Denies tingling and Denies paresthesias PFSH All Active Problems (Updated 03/31/22 @ 14:40 by CARISA Green) Abscess of back (Acute) COVID-19 (Acute) Medical History (Updated 03/31/22 @ 14:40 by CARISA Green) HTN (hypertension) Myocardial infarction Surgical History (Updated 01/08/22 @ 21:13 by Laura Spencer DO) History of hysterectomy Social History Smoking/Tobacco Use Status: Current-Occasional Tobacco Type: cigarettes Smoking risk assessment performed?: Yes Alcohol Intake: current Alcohol Intake frequency: a few times a week Drug use: Never Substance use type: does not use Do you feel safe in your relationship?: Yes Exam Const General: cooperative, healthy appearing, uncomfortable, no acute distress, well developed and well groomed Nutritional Appearance: average body habitus and well nourished Orientation: alert and awake Eyes General: appearance normal, both eyes and all related structures Neck Neck: full ROM and no meningeal signs Resp Effort & Inspection: normal respiratory effort and able to speak in complete sentences Auscultation: clear to auscultation bilaterally, no rales, no rhonchi and no wheezes Cardio Rate: regular rate Rhythm: regular rhythm Heart Sounds: S1 normal and S2 normal Back/Spine/Pelvis Back/spine/pelvis image: 1. Area of pain, erythema, warmth, and fluctuance. Centrally, scabbing is noted with no discharge able to be expressed. Erythema is focal to the area of swelling/fluctuance. Point tender over the midline spine 2 above and one below area. No pain laterally. Skin General skin exam: no rashes or lesions noted Neuro General: patient alert and patient awake Cognition: normal cognition Speech: speech normal Gait: normal gait Motor: muscle tone normal throughout, strength 5/5 throughout, no movement abnormalities noted and no fasciculations Sensory Exam: no sensory deficits noted (no saddle paresthesias) DTR's: Rt Patellar: 2+, Lt Patellar: 2+, Rt Ankle: 2+ and Lt Ankle: 2+ Extrem General: normal to inspection, full ROM, capillary refill normal, no joint enlargement, no pedal edema, no calf tenderness and normal gait Psych Appearance: grossly normal and well kempt Mental Status: mental status grossly normal Speech and Movement: speech and movement normal Course Vital Signs Vital signs: Vital Signs Temperature 36.2 C L 03/31/22 08:59 Pulse 68 03/31/22 08:59 Respiratory Rate 17 03/31/22 08:59 Blood Pressure 159/83 H 03/31/22 08:59 Pulse Oximetry 98 03/31/22 08:59 Temperature 36.2 C L 03/31/22 08:59 Temperature Source Temporal Artery Scan 03/31/22 08:59 Pulse 68 03/31/22 08:59 Respiratory Rate 17 03/31/22 08:59 Respiratory Effort 03/31/22 09:03 Blood Pressure 159/83 H 03/31/22 08:59 Blood Pressure Position Sitting 03/31/22 08:59 Pulse Oximetry 98 03/31/22 08:59 Oxygen Delivery Method Room Air 03/31/22 08:59 Oxygen Flow Rate 0 03/31/22 08:59 Pain Level 5 03/31/22 08:59 Procedures Abscess I/D Site: Back Local Anesthetic: Lidocaine 1% and With Epi Amount of anesthesia used (mL): 8 Technique: Incised with #11 Blade Amount of fluid expressed (mL): 10 Irrigation: Yes Packing used?: None Complications: Other (none)
--- NOTE | 2022-03-31 09:45 | DI.MRI_ITS ---
Exam(s) MR THORACIC SPINE WO/W EXAM: MR THORACIC SPINE WO/W CLINICAL HISTORY: skin abscess, concern for deeper pain. TECHNIQUE: Multiplanar multisequence MRI of the Thoracic spine was performed. CONTRAST MATERIAL: IV Contrast: 17 mL of Dotarem contrast administered. COMPARISON: CR THORACIC SPINE from 04/27/2014 CT CHEST - LUNG CANCER SCREENING from 10/07/2017 CR XR THORACIC SPINE COMPLETE from 10/08/2021 FINDINGS: There is a superficial fluid collection within the subcutaneous fat at the lower thoracic level, T11- 12, in the midline with enhancing rim measuring 2.4 x 1.0 by 3.5 cm. There is no deep extension. There are degenerative disc changes T7-8, T8-9 and T9-10 there are mild disc osteophytes projecting c ircumferentially at T7-8. Are more prominent osteophytes at T8-9. There are prominent osteophytes a t T9-10 as well as a small focal disc protrusion slightly eccentric toward the right. There is no si gnificant central canal stenosis. There is no significant neural foraminal narrowing. The remaining disc levels show minimal degenerative changes. There are degenerative signal changes in the endplat es. There is some increased enhancement around these degenerative levels which may represent degener ative enhancement however osteomyelitis is not definitely excluded especially given the presence of a subcutaneous abscess. IMPRESSION: Superficial abscess, 3.5 cm maximal dimension, lower back. Prominent degenerative changes from T7 through T10. Small disc protrusion at T9-10. No impingement on the thoracic cord or significant central canal stenosis. Contrast enhancement is seen in these areas which may be degenerative. Osteomyelitis not completely excluded. DATA REPOSITORY:
[2022-03-31 09:49] LABS: Abs Immature Grans 0.02 10^3/uL (0.0-0.06); Absolute Basophil Count 0.06 10^3/uL (0.0-0.2); Absolute Eosinophil Count 0.14 10^3/uL (0.0-0.7); Absolute Lymphocyte Count 2.38 10^3/uL (1.2-3.4); Absolute Monocyte Count 0.88 10^3/uL (0.1-0.8); Absolute Neutrophil Count 6.49 10^3/uL (1.2-6.7); Basophils % 0.6; Eosinophils % 1.4; HCT 46.8 % (36.0-46.0); Immature Grans % 0.2; Lactate 1.4 mmol/L (0.6-1.4); Lymphocytes % 23.9; MCH 30.5 pg (27.0-33.0); MCHC 34.2 % (32.0-36.0); MCV 89 fL (80-95); MPV 10.6 fL (8.0-11.0); Monocytes % 8.8; Neutrophils % 65.1; Platelet Count 256 10^3/uL (130-400); RBC 5.25 10^6/uL (3.93-5.22); RDW 13.8 % (11.7-14.6); RDW-SD 45.7 fL; WBC 9.97 10^3/uL (4.4-10.8)
[2022-03-31] MEDS: Normal Saline 1,000 ML 500 ML IV (09:50)
[2022-03-31] MEDS: CLINDAMYCIN 600 MG/50 ML BAG 100 MG IVPB (09:55)
[2022-03-31] MEDS: ACETAMINOPHEN 1,000 MG/100 ML BTL 400 MG IVPB (09:59)
[2022-03-31 10:13] LABS: ALT 23 U/L (14-59); AST 18 U/L (15-37); Alkaline Phosphatase 82 U/L (46-116); Anion Gap 7.9 mmol/L (3-11); BUN 11 mg/dL (7-18); Bilirubin, Total 0.7 mg/dL (0.2-1.0); CO2 32.1 mmol/L (21.0-32.0); CREATININE 0.7 mg/dL (0.55-1.02); Calcium 9.2 mg/dL (8.5-10.1); Chloride 94 mmol/L (98-107); Estimated GFR 92.98 (mL/min/1.73m2); Glucose 104 mg/dL (74-106); Magnesium 1.8 mg/dL (1.8-2.4); Potassium 4.1 mmol/L (3.5-5.1); Sodium 134 mmol/L (136-145)
[2022-03-31] MEDS: Normal Saline Flush 10 ML SYR IVP (12:05)
[2022-03-31] MEDS: Gadoterate meglumine 20 ML SYRINGE 17 ML IVP (12:06)
== END 2022-03-31 14:59 | disposition home or self-care (01) ==
PROVIDERS: Emergency Provider Physician Assistant; PCP Nurse Practitioner Family
DX: L02.212 Cutaneous abscess of back [any part, except buttock and flank] (principal); I10 Essential (primary) hypertension; I25.2 Old myocardial infarction; Z79.82 Long term (current) use of aspirin
CPT/HCPCS: 10060; 36410; 36415; 80053; 87040; 96365; 96368; 99285; 72157; 83605; 83735; 85025; 99284; J0131

== ENCOUNTER 2022-04-03 16:40 | Outpatient (REF) | payer OTHER, SELFPAY | END 2022-04-03 16:41 | disposition home or self-care (01) | LOC: NCHCN 16:40 | PROVIDERS: PCP Nurse Practitioner Family; Visit Provider Nurse Practitioner Family | DX: L72.8 Other follicular cysts of the skin and subcutaneous tissue (principal) | CPT/HCPCS: 87070; 87205 ==

== ENCOUNTER 2022-04-10 11:11 | Outpatient (REF) | payer OTHER, SELFPAY ==
[2022-04-10 15:28] LABS: ESR 11 mm/hr (0-30)
[2022-04-10 15:52] LABS: C-Reactive Protein 0.21 mg/dL (0.0-0.3); TSH 2.11 uIU/mL (0.36-3.74)
== END 2022-04-10 11:12 | disposition home or self-care (01) ==
LOC: NCHCN 11:11
PROVIDERS: PCP Nurse Practitioner Family; Visit Provider Nurse Practitioner Family
DX: F41.8 Other specified anxiety disorders (principal); L02.212 Cutaneous abscess of back [any part, except buttock and flank]; E89.0 Postprocedural hypothyroidism; M85.89 Other specified disorders of bone density and structure, multiple sites
CPT/HCPCS: 85652; 84439; 84443; 86140

== ENCOUNTER 2022-09-24 16:21 | Emergency (ER) | payer OTHER, SELFPAY ==
[2022-09-24 16:26] VITALS: BP 179/89; PULSE 72; RESP 15; TEMP 36.2; O2SAT 97
[2022-09-24 16:46] LABS: Bilirubin Negative (Negative); Blood Large (Negative); Clarity Cloudy (Clear); Glucose Negative (Negative); Ketones Negative (Negative); Leukocyte Esterase Negative (Negative); Nitrite Negative (Negative); Urobilinogen 0.2 mg/dL (Up to 0.2)
[2022-09-24 16:59] LABS: Bacteria Few HPF (Negative); C & S Indicated? Yes; Casts Negative LPF (Negative); Crystals Negative HPF (Negative); Epithelial Cells Few HPF (Negative); Mucus Trace (Negative); RBC >50 HPF (0-2)
--- NOTE | 2022-09-24 17:45 | DI.CT_ITS ---
Exam(s) CT ABDOMEN PELVIS WO EXAM: CT ABDOMEN PELVIS WO CLINICAL HISTORY: Hematuria, Flank pain. TECHNIQUE: Imaging Protocol: Axial computed tomography images with coronal and sagittal reformatted images were created and reviewed. Oral:no COMPARISON: None FINDINGS: ABDOMEN: Lung Bases: Normal where visualized. Liver: Normal density. No measurable mass. Gallbladder and biliary tract: Status post cholecystectomy. No radiodense calculus or dilation. Pancreas: Normal density, no abnormal calcifications or inflammatory process. Spleen: Normal. Kidneys: Normal size, contour and axis. No radiodense stones or obstructive uropathy. No masses seen. Adrenal glands: No masses seen. Lymph nodes: Within normal limits. Abdominal Aorta: Abdominal portion non-dilated. Severe atherosclerotic changes. PELVIS: Bladder: Symmetric distention, no gross wall thickening. 10 millimeter rounded mass seen along the ri ght lateral bladder. No stones. Bowel: Severe lundberg diverticulosis. No obstruction or bowel wall thickening. Peritoneal cavity: No ascites, collection or mesenteric inflammatory response. Reproductive organs: Status post hysterectomy. Bones: Degenerative changes in the spine. Soft tissues: Fatty containing left inguinal hernia. IMPRESSION: 10 millimeter mass along the right bladder wall. Cystoscopy recommended. No hydronephrosis or urina ry tract calculi. Severe diverticulosis. No definite evidence of diverticulitis. RADIATION DOSE DELIVERED: 1,180.81mGy.cm Total DLP DATA REPOSITORY: All CT scans at this facility are submitted to the National Radiology Data Registry (NRDR) Dose Index Registry (DIR) with the [employer] (A[employer]). RADIATION OPTIMIZATION: All CT scans at this facility use at least one of these dose optimization te chniques: automated exposure control; mA and/or kV adjustment per patient size (includes targeted exa ms where dose is matched to clinical indication); or iterative reconstruction.
--- NOTE | 2022-09-24 17:48 | W.ED.GENAD ---
Discharge Plan Disposition Patient Disposition: Home Condition: Stable Discharge Details Clinical Impression: Bladder mass, Diverticulitis Primary Care Provider: June Andrade ED Provider: Saumya Broussard Home Meds and New Rx's Prescriptions: New amoxicillin-pot clavulanate 875-125 mg tablet 1 tab PO BID 7 Days Qty: 14 0RF Rx Instructions: Please take 1 tablet by mouth twice daily for the next 7 days. Continued nitroglycerin 0.4 MG tablet, sublingual 0.4 mg Sublingual ONCE Patient Comments: has never used ramipril [Altace] 5 MG capsule 10 mg PO DAILY atorvastatin [Lipitor] 20 MG tablet 40 mg PO DAILY atenolol 100 MG tablet 100 mg PO DAILY hydrochlorothiazide 50 MG tablet 50 mg PO DAILY aspirin,buffd-calcium carb-mag 325 MG tablet 325 mg PO DAILY levothyroxine 125 mcg tablet 125 mcg PO DAILY Patient Comments: TAKE ONE TABLET BY MOUTH ONCE DAILY omeprazole 20 mg capsule,delayed release(DR/EC) 20 mg PO DAILY Patient Comments: TAKE ONE CAPSULE BY MOUTH EVERY DAY ramipril 10 mg capsule 10 mg PO DAILY Patient Comments: TAKE ONE CAPSULE BY MOUTH EVERY DAY ezetimibe 10 mg tablet 10 mg PO DAILY Patient Comments: TAKE ONE TABLET BY MOUTH EVERY DAY Discharge Instructions Instructions: Diverticulitis (ED), Hematuria (ED), Diverticulitis Diet (ED) Additional Instructions: There are some concerning findings on the CT for a possible mass on the bladder wall. You do need close follow-up with urology. You were placed on the care management list to help get a follow-up with them. You may also consult urology at [facility]. They also note some infection in your bowels called diverticulitis. Please take the antibiotics for this. Take it with a yogurt or probiotic. Follow up with primary care provider in 3-5 days. Return to ED sooner if any worsening or concerns. Increase oral fluids. Referrals: Amanuel Gallegos MD [ [facility] STAFF PHYSICIAN] - 1 week June Andrade [Primary Care Provider] - 1 week Medical Decision Making 72-year-old female presents to the ER with a chief complaint of blood in her urine which began this morning. She also reports low back pain which she attributed to doing some yard work yesterday. She also reports she is has arthritis. She did not take anything other than her normal medications prior to arrival. She also endorses mild amount of nausea no vomiting no diarrhea no dysuria. Urinalysis shows large blood, 30 protein greater than 50 RBCs. Culture is pending. No leukocytes no nitrites. Due to the low back pain and slight nausea CT abdomen pelvis without contrast ordered to rule out kidney stone. I did offer patient analgesic which she denied at this time. Spoke with radiologist with [facility] your concern for possible mass on the right side of the bladder wall please see result of CT below. No evidence of kidney stone. This could explain the blood in her urine. Of note also has some diverticulitis. We will give patient some to go Zofran and antibiotics and discussed with her the findings and discussed that she needs close follow-up with urology. Patient was placed on the care management list to follow-up with urology here. I will also encourage follow-up with [facility]. Discussed CT results she verbalized understanding. This text was generated using [employer] dictation system, please disregard any oddities of phrase or misspellings. Medical Records Medical records reviewed: Yes I reviewed the patient's medical records. Imaging Data Radiologic Study: Imaging: CT Scan Radiologist's impression: FINDINGS: Lungs: Lung bases are clear with no consolidation. No suspicious pulmonary masses. Pleural spaces: No pleural effusion or pneumothorax. Heart: Heart size is normal. No pericardial effusion. Liver: Normal. No mass. Gallbladder and bile ducts: Cholecystectomy. Pancreas: Normal. No ductal dilation. Spleen: Normal. No splenomegaly. Adrenal glands: Normal. No mass. Kidneys and ureters: Kidneys appear normal with no masses or stones. There are no right or left ureteral stones or hydronephrosis. Stomach and bowel: Stomach, small bowel loops and colon demonstrate a nonobstructive bowel gas pattern. Scattered colonic diverticulosis. Scattered wall thickening in the colon, most severe in the rectosigmoid region with surrounding fat stranding consistent with diverticulitis. Appendix: The appendix is not seen. Intraperitoneal space: Unremarkable. No free air. No significant fluid collection. Vasculature: There is aortoiliac, mesenteric and renal vascular calcification but no visible aneurysm. There are bilateral pelvic phleboliths. Lymph nodes: Unremarkable. No enlarged lymph nodes. Urinary bladder: No bladder stones. Reproductive: Unremarkable as visualized. Bones/joints: Degenerative disc disease L1-L2 through L4-L5. Soft tissues: 10.2 x 9.5 mm soft tissue mass along the right lateral bladder wall, projecting into the lumen, seen best on series 3, image 68 and series 4, image 67. Small fat containing left femoral hernia measuring 2.5 x 1.5 cm. IMPRESSION: 1. 10.2 x 9.5 mm soft tissue mass along the right lateral bladder wall, projecting into the lumen, seen best on series 3, image 68 and series 4, image 67. Consider further workup to rule out a bladder carcinoma. 2. Scattered colonic diverticulosis. Scattered wall thickening in the colon, most severe in the rectosigmoid region with surrounding fat stranding consistent with diverticulitis. 3. No renal or ureteral stones or hydronephrosis. Thank you for allowing us to participate in the care of your patient. Dictated and Authenticated by: Casie Avitia MD Lab Data Lab results reviewed: Yes I reviewed the patient's lab results. Labs: 09/24/22 16:38 Urine - Reflex from Ua Urine Culture - Pending Laboratory Tests Range/Units 09/24/22 16:38 Urine Color (Yellow) [place] Urine Clarity (Clear) Cloudy Urine pH (5-8) 7.0 Ur Specific [place] (1.005-1.025) 1.010 Urine Protein (Negative) mg/dL 30 H Urine Ketones (Negative) mg/dL Negative Urine Blood (Negative) Large H Urine Nitrite (Negative) Negative Urine Bilirubin (Negative) Negative Urine Urobilinogen (Up to 0.2) mg/dL 0.2 Ur Leukocyte Esterase (Negative) Negative Urine RBC (0-2) HPF >50 H Urine WBC (0-5) HPF 3-5 Ur Epithelial Cells (Negative) HPF Few Urine Crystals (Negative) HPF Negative Urine Bacteria (Negative) HPF Few Urine Casts (Negative) LPF Negative Urine Mucus (Negative) Trace Ur Culture Indicated? Yes Urine Glucose (Negative) mg/dL Negative HPI General Mode of arrival: ambulatory. Date/Time Provider Initiated Documentation: 09/24/22 16:39. Limitations to Documentation: no limitations. Information obtained by: patient, RN notes reviewed and old records reviewed. HPI Narrative: 72-year-old female presents to the ER with a chief complaint of blood in her urine which began this morning. She also reports low back pain which she attributed to doing some yard work yesterday. She also reports she is has arthritis. She did not take anything other than her normal medications prior to arrival. She also endorses mild amount of nausea no vomiting no diarrhea no dysuria. Related Data Home Medications Medication Instructions Recorded Confirmed aspirin,buffered (calcium 325 mg PO DAILY 08/09/12 03/31/22 carbonate-magnesium) 325 mg tablet atenolol 100 mg tablet 100 mg PO DAILY 08/09/12 03/31/22 atorvastatin 20 mg tablet (Lipitor) 40 mg PO DAILY 08/09/12 03/31/22 hydrochlorothiazide 50 mg tablet 50 mg PO DAILY 08/09/12 03/31/22 nitroglycerin 0.4 mg sublingual 0.4 mg sublingual ONCE 03/28/13 03/31/22 tablet ramipril 5 mg capsule (Altace) 10 mg PO DAILY 03/28/13 03/31/22 ezetimibe 10 mg tablet 10 mg PO DAILY 01/08/22 03/31/22 levothyroxine 125 mcg tablet 125 mcg PO DAILY 01/08/22 03/31/22 omeprazole 20 mg capsule,delayed 20 mg PO DAILY 01/08/22 03/31/22 release ramipril 10 mg capsule 10 mg PO DAILY 01/08/22 03/31/22 amoxicillin 875 mg-potassium 1 tab PO BID Diverticulitis 7 days 09/24/22 clavulanate 125 mg tablet #14 tabs Previous Rx's Medication Instructions Recorded amoxicillin 875 mg-potassium 1 tab PO BID Diverticulitis 7 days 09/24/22 clavulanate 125 mg tablet #14 tabs Allergies Allergy/AdvReac Type Severity Reaction Status Date / Time furosemide [From Lasix] Allergy Intermediate FACE SWELLS Verified 03/31/22 09:05 azithromycin [From Zithromax] AdvReac Intermediate VOMITS Verified 03/31/22 09:05 ketorolac tromethamine AdvReac Intermediate VOMITS Verified 03/31/22 09:05 [From Toradol] hydrocodone bitartrate AdvReac Mild GI UPSET Verified 03/31/22 09:05 [From Vicodin] General Stated Complaint: Urinary GER[place]: 3 Review of Systems All systems reviewed & are unremarkable except as noted in HPI and below Genitourinary Genitourinary: Reports hematuria Musculoskeletal Musculoskeletal: Reports back pain PFSH All Active Problems (Updated 07/05/23 @ 18:43 by Saumya Broussard NP) Bladder mass (Acute) Diverticulitis (Chronic) COVID-19 (Acute) Medical History HTN (hypertension) Myocardial infarction Surgical History History of hysterectomy Social History Smoking/Tobacco Use Status: Current-Occasional Tobacco Type: cigarettes Smoking risk assessment performed?: Yes Alcohol Intake: current Alcohol Intake frequency: a few times a week Drug use: Never Substance use type: does not use Do you feel safe in your relationship?: Yes Exam Narrative Exam Narrative: Constitutional: Alert and oriented x3. Appears stated age. Normal body habitus. Head: Normocephalic, no trauma. Eyes: Pupils PERRL, Red reflex noted, EOM's intact. Eyelids symmetrical without lesions, discharge, or swelling. ENT: Bilateral TM's WNL, External ear normal to inspection, no mastoid TTP, swelling, or erythema, Nasal turbinates WNL, no nasal discharge. Normal dentition, Posterior pharynx WNL, no exudate. Chest: RRR, Normal S1, S2, distal pulses intact. Resp: Lungs clear to auscultation bilaterally, no wheezes, rales, or rhonchi. Abdomen: Soft, non-distended, Normoactive bowel sounds all 4 quads. Musculoskeletal: Normal gait, 5/5 strength to all four extremities. Skin: No suspicious rashes or lesions. Capillary refill less than 2 sec. Neurologic: Cranial nerves II-XII intact. Alert and oriented x 3. Motor: No deficits noted. Sensory: Intact bilaterally all 4 extremities. Reflexes: DTR's intact bilaterally.. Hematologic/Lymphatic: No ecchymosis, no lymphadenopathy. Course Vital Signs Vital signs: Vital Signs Temperature 36.2 C L 09/24/22 16:26 Pulse 72 09/24/22 16:26 Respiratory Rate 15 09/24/22 16:26 Blood Pressure 179/89 H 09/24/22 16:26 Pulse Oximetry 97 09/24/22 16:26 Temperature 36.2 C L 09/24/22 16:26 Temperature Source Temporal Artery Scan 09/24/22 16:26 Pulse 72 09/24/22 16:26 Respiratory Rate 15 09/24/22 16:26 Blood Pressure 179/89 H 09/24/22 16:26 Blood Pressure Position Sitting 09/24/22 16:26 Pulse Oximetry 97 09/24/22 16:26 Oxygen Delivery Method Room Air 09/24/22 16:26 Oxygen Flow Rate 0 09/24/22 16:26 Pain Level 0 09/24/22 16:26 Lab/Test Results Lab/Test Results: 09/24/22 16:38 Urine - Reflex from Ua Urine Culture - Pending Laboratory Tests Range/Units 09/24/22 16:38 Urine Color (Yellow) [place] Urine Clarity (Clear) Cloudy Urine pH (5-8) 7.0 Ur Specific [place] (1.005-1.025) 1.010 Urine Protein (Negative) mg/dL 30 H Urine Ketones (Negative) mg/dL Negative Urine Blood (Negative) Large H Urine Nitrite (Negative) Negative Urine Bilirubin (Negative) Negative Urine Urobilinogen (Up to 0.2) mg/dL 0.2 Ur Leukocyte Esterase (Negative) Negative Urine RBC (0-2) HPF >50 H Urine WBC (0-5) HPF 3-5 Ur Epithelial Cells (Negative) HPF Few Urine Crystals (Negative) HPF Negative Urine Bacteria (Negative) HPF Few Urine Casts (Negative) LPF Negative Urine Mucus (Negative) Trace Ur Culture Indicated? Yes Urine Glucose (Negative) mg/dL Negative
--- NOTE | 2022-09-24 18:32 | DI.VRAD_ITS ---
Addendum created by Casie Avitia MD on 09/24/2022 6:37:53 PM EDT: THIS REPORT CONTAINS FINDINGS THAT MAY BE CRITICAL TO PATIENT CARE. The findings were verbally communicated via telephone conference at 6:37 PM EDT on 09/24/2022 with CONOR SIM. The findings were acknowledged and understood. Initial report created on 09/24/2022 6:31:29 PM EDT: PROCEDURE INFORMATION: Exam: CT Abdomen And Pelvis Without Contrast Exam date and time: 09/24/2022 5:59 PM Age: 72 years old Clinical indication: Other: Hematuria, flank pain TECHNIQUE: Imaging protocol: Computed tomography of the abdomen and pelvis without contrast. Total images: 1247 COMPARISON: MR THORACIC SPINE WO/W 03/31/2022 11:53 AM FINDINGS: Lungs: Lung bases are clear with no consolidation. No suspicious pulmonary masses. Pleural spaces: No pleural effusion or pneumothorax. Heart: Heart size is normal. No pericardial effusion. Liver: Normal. No mass. Gallbladder and bile ducts: Cholecystectomy. Pancreas: Normal. No ductal dilation. Spleen: Normal. No splenomegaly. Adrenal glands: Normal. No mass. Kidneys and ureters: Kidneys appear normal with no masses or stones. There are no right or left ureteral stones or hydronephrosis. Stomach and bowel: Stomach, small bowel loops and colon demonstrate a nonobstructive bowel gas pattern. Scattered colonic diverticulosis. Scattered wall thickening in the colon, most severe in the rectosigmoid region with surrounding fat stranding consistent with diverticulitis. Appendix: The appendix is not seen. Intraperitoneal space: Unremarkable. No free air. No significant fluid collection. Vasculature: There is aortoiliac, mesenteric and renal vascular calcification but no visible aneurysm. There are bilateral pelvic phleboliths. Lymph nodes: Unremarkable. No enlarged lymph nodes. Urinary bladder: No bladder stones. Reproductive: Unremarkable as visualized. Bones/joints: Degenerative disc disease L1-L2 through L4-L5. Soft tissues: 10.2 x 9.5 mm soft tissue mass along the right lateral bladder wall, projecting into the lumen, seen best on series 3, image 68 and series 4, image 67. Small fat containing left femoral hernia measuring 2.5 x 1.5 cm. IMPRESSION: 1. 10.2 x 9.5 mm soft tissue mass along the right lateral bladder wall, projecting into the lumen, seen best on series 3, image 68 and series 4, image 67. Consider further workup to rule out a bladder carcinoma. 2. Scattered colonic diverticulosis. Scattered wall thickening in the colon, most severe in the rectosigmoid region with surrounding fat stranding consistent with diverticulitis. 3. No renal or ureteral stones or hydronephrosis. Dictated and Authenticated by: Casie Avitia MD. Ordering:ART Kerns MD
--- NOTE | 2022-09-24 18:41 | NUR.NOTE ---
Nursing Note:referral faxed to uro
[2022-09-24] MEDS: Amox. 875/Clav. 125, 2 TABS/BTL 1 TAB PO (19:05)
[2022-09-24] MEDS: Ondansetron O.D.T. 4 MG TABEF, 3 TABS/BTL PO (19:05)
== END 2022-09-24 19:09 | disposition home or self-care (01) ==
PROVIDERS: Emergency Provider Registered Nurse Emergency; PCP Nurse Practitioner Family
DX: N32.89 Other specified disorders of bladder (principal); K57.92 Diverticulitis of intestine, part unspecified, without perforation or abscess without bleeding; R31.9 Hematuria, unspecified
CPT/HCPCS: 99283; 74176; 81003; 81015; 87086; 99284

== ENCOUNTER 2022-09-29 14:55 | Outpatient (REF) | payer OTHER, SELFPAY ==
[2022-09-29 16:41] LABS: HCT 42.4 % (36.0-46.0); MCHC 35.4 % (32.0-36.0); MCV 85 fL (80-95); MPV 11.7 fL (8.0-11.0); Platelet Count 214 10^3/uL (130-400); RDW 14.8 % (11.7-14.6); RDW-SD 46.7 fL; WBC 10.55 10^3/uL (4.4-10.8)
[2022-09-29 17:03] LABS: ALT 20 U/L (14-59); AST 20 U/L (15-37); Albumin 3.7 g/dL (3.4-5.0); Alkaline Phosphatase 90 U/L (46-116); Anion Gap 6.6 mmol/L (3-11); BUN 10 mg/dL (7-18); Bilirubin, Total 1.1 mg/dL (0.2-1.0); CO2 31.4 mmol/L (21.0-32.0); CREATININE 0.8 mg/dL (0.55-1.02); Calcium 9.2 mg/dL (8.5-10.1); Chloride 92 mmol/L (98-107); Estimated GFR 78.72 (mL/min/1.73m2); Glucose 91 mg/dL (74-106); Potassium 3.4 mmol/L (3.5-5.1); Sodium 130 mmol/L (136-145); Total Protein 7.3 g/dL (6.4-8.2)
== END 2022-09-29 14:56 | disposition home or self-care (01) ==
LOC: NCHCN 14:55
PROVIDERS: PCP Nurse Practitioner Family; Visit Provider Nurse Practitioner Family
DX: K57.92 Diverticulitis of intestine, part unspecified, without perforation or abscess without bleeding (principal); N32.89 Other specified disorders of bladder; R19.09 Other intra-abdominal and pelvic swelling, mass and lump
CPT/HCPCS: 80053; 85027

== ENCOUNTER → 2022-09-29 15:03 | Outpatient (BNVA) | payer OTHER, SELFPAY | PROVIDERS: PCP Nurse Practitioner Family; Referring Provider Nurse Practitioner Family; Visit Provider Urology | DX: N32.89 Other specified disorders of bladder (principal); F17.210 Nicotine dependence, cigarettes, uncomplicated | CPT/HCPCS: 99215 ==

== ENCOUNTER 2022-10-09 06:00 | Day surgery (SDC) | payer OTHER, SELFPAY ==
[2022-10-09] VITALS (7 sets, daily range): BP systolic 93–152; BP diastolic 48–84; PULSE 56–65; RESP 16–27; TEMP 36.2–36.5; O2SAT 93–100; BMI 31.1
[2022-10-09] MEDS: Lactated Ringers 1,000 ML 80 ML IV (06:33)
--- NOTE | 2022-10-09 06:47 | HPE_ITS ---
Date of service: 10/09/22 Time of Service: 06:47 Assessment and Plan Assessment and plan (1) Bladder mass: Status: Acute Assessment and plan: For cystoscopy with TUR Bladder tumor History of Present Illness History of Present Illness Chief Complaint: Bladder mass Narrative: This is a 72-year-old woman who recently presented to the emergency department with gross hematuria.? She had a urine culture done which showed no bacterial growth.? She had a noncontrast CT of the abdomen and pelvis which showed no renal masses, no hydronephrosis but there did appear to be a bladder mass present. This was her first instance of gross hematuria.? She had no other urinary sympto ms.? She presents for cystoscopy with TURBT. She has been a fdc smoker (> 50 years) averaging 1 pack per day. Review of Systems Narrative: No fevers or chills No vision change or dysphasia Hypothyroidism. No diabetes No shortness of breath, cough or hemoptysis Hx DE. No palpitations GERD. No nausea, vomiting, hepatitis, ulcers, jaundice No seizures, strokes or peripheral neuropathy No bleeding disorders or anemia No gout PFSH All Active Problems COVID-19 (Acute) Bladder mass (Acute) Diverticulitis (Chronic) Medical History HTN (hypertension) Myocardial infarction Per pt. states it was 20+ years ago Surgical History H/O thyroidectomy History of cholecystectomy History of hysterectomy Social History Smoking/Tobacco Use Status: Current-Occasional Tobacco Type: cigarettes Smoking risk assessment performed?: Yes Alcohol Intake: current Alcohol Intake frequency: a few times a week Drug use: Never Substance use type: does not use Housing: house Do you feel safe at home: Yes Do you feel safe in your relationship?: Yes Meds Allergies and Home Medications Allergies Allergy/AdvReac Type Severity Reaction Status Date / Time furosemide [From Lasix] Allergy Intermediate FACE SWELLS Verified 10/09/22 06:34 azithromycin [From Zithromax] AdvReac Intermediate VOMITS Verified 10/09/22 06:34 ketorolac tromethamine AdvReac Intermediate VOMITS Verified 10/09/22 06:34 [From Toradol] hydrocodone bitartrate AdvReac Mild GI UPSET Verified 10/09/22 06:34 [From Vicodin] Home Medications Medication Instructions Recorded Confirmed Type aspirin,buffered (calcium 325 mg PO DAILY 08/09/12 10/08/22 History carbonate-magnesium) 325 mg tablet atenolol 100 mg tablet 200 mg PO BID 08/09/12 10/09/22 History atorvastatin 20 mg tablet (Lipitor) 40 mg PO DAILY 08/09/12 10/09/22 History hydrochlorothiazide 50 mg tablet 50 mg PO DAILY 08/09/12 10/09/22 History nitroglycerin 0.4 mg sublingual 0.4 mg sublingual ONCE 03/28/13 10/08/22 History tablet ezetimibe 10 mg tablet 10 mg PO DAILY 01/08/22 10/09/22 History omeprazole 20 mg capsule,delayed 20 mg PO DAILY 01/08/22 10/09/22 History release ramipril 10 mg capsule 10 mg PO DAILY 01/08/22 10/09/22 History buspirone 7.5 mg tablet 7.5 mg PO BID 09/29/22 10/09/22 History cholecalciferol (vitamin D3) 50 50 mcg PO DAILY 09/29/22 10/09/22 History mcg (2,000 unit) capsule levothyroxine 137 mcg capsule 137 mcg PO DAILY 09/29/22 10/09/22 History melatonin 10 mg capsule 10 mg PO HS PRN 09/29/22 10/09/22 History meloxicam 15 mg tablet 15 mg PO DAILY 09/29/22 10/09/22 History Exam Const General: cooperative and no acute distress Neck Neck: supple Resp Effort & Inspection: normal respiratory effort Auscultation: clear to auscultation bilaterally Cardio Rate: regular rate Rhythm: regular rhythm GI Palpation: soft and no masses Neuro General: patient alert, patient awake and patient oriented x3 Results Last Vital Signs Temp 36.5 C 10/09/22 06:18 Pulse 58 L 10/09/22 06:18 Resp 16 10/09/22 06:18 BP 152/84 H 10/09/22 06:18 Pulse Ox 100 10/09/22 06:18 Time Spent Time spent with Patient: <40 minutes Time was spent: other
--- NOTE | 2022-10-09 06:58 | ANES.PREOP_ITS ---
General Info Date of Service Date Performed: 10/09/22 Height: 5 ft 3 in Weight: 79.8 kg Body Mass Index (BMI): 31.1 Surgical Procedure: Operation Date: 10/09/22 07:40 Proposed Procedure Side Surgeon p Cystoscopy/Transurethral Resection Bladder Tumor Amanuel Gallegos MD Meds Allergies and Home Medications Allergies Allergy/AdvReac Type Severity Reaction Status Date / Time furosemide [From Lasix] Allergy Intermediate FACE SWELLS Verified 10/09/22 06:34 azithromycin [From Zithromax] AdvReac Intermediate VOMITS Verified 10/09/22 06:34 ketorolac tromethamine AdvReac Intermediate VOMITS Verified 10/09/22 06:34 [From Toradol] hydrocodone bitartrate AdvReac Mild GI UPSET Verified 10/09/22 06:34 [From Vicodin] Home Medication Medication Instructions Recorded aspirin,buffered (calcium 325 mg PO DAILY 08/09/12 carbonate-magnesium) 325 mg tablet atenolol 100 mg tablet 200 mg PO BID 08/09/12 atorvastatin 20 mg tablet (Lipitor) 40 mg PO DAILY 08/09/12 hydrochlorothiazide 50 mg tablet 50 mg PO DAILY 08/09/12 nitroglycerin 0.4 mg sublingual 0.4 mg sublingual ONCE 03/28/13 tablet ezetimibe 10 mg tablet 10 mg PO DAILY 01/08/22 omeprazole 20 mg capsule,delayed 20 mg PO DAILY 01/08/22 release ramipril 10 mg capsule 10 mg PO DAILY 01/08/22 buspirone 7.5 mg tablet 7.5 mg PO BID 09/29/22 cholecalciferol (vitamin D3) 50 50 mcg PO DAILY 09/29/22 mcg (2,000 unit) capsule levothyroxine 137 mcg capsule 137 mcg PO DAILY 09/29/22 melatonin 10 mg capsule 10 mg PO HS PRN 09/29/22 meloxicam 15 mg tablet 15 mg PO DAILY 09/29/22 Current Visit Medications: Current Medications Generic Name Dose Route Start Last Admin Trade Name Freq PRN Reason Stop Dose Admin Ringer's Solution 1,000 mls @ 80 mls/hr 10/09/22 06:00 10/09/22 06:33 IV 11/07/22 23:59 80 mls/hr INFUSION LILLIAN Administration Cefazolin Sodium/Dextrose 2 gm in 50 mls @ 100 mls/hr 10/09/22 06:00 Ancef Duplex IVPB 10/09/22 16:00 PREOP LILLIAN IV Miscellaneous Supplies 1 each 10/09/22 06:00 Iv Access IV 11/07/22 23:59 DIRECTED LILLIAN Sodium Chloride 0 ml 10/09/22 06:00 Normal Saline Flush 10 Ml Syr IV 11/07/22 23:59 PRN PRN Sodium Chloride 0 ml 10/09/22 06:00 Normal Saline 10 Ml Vial IJ 11/07/22 23:59 DIRECTED PRN Sterile Water 0 ml 10/09/22 06:00 Water,Injection,Sterile 10 Ml Vial IJ 11/07/22 23:59 DIRECTED PRN PFSH Active Problems Active Problems: Problem Status Onset Code COVID-19 U07.1 Bladder mass N32.89 Diverticulitis K57.92 Medical History Medical History HTN (hypertension) Myocardial infarction Per pt. states it was 20+ years ago Surgical History Surgical History H/O thyroidectomy History of cholecystectomy History of hysterectomy Tobacco Smoking/Tobacco Use Status: Current-Occasional Tobacco Type: cigarettes Alcohol Alcohol Intake: current Alcohol intake frequency: a few times a week Substance Use Substance use: Never Substance use type: does not use Vital Signs and Lab Results Vital Signs Most Recent Vital Signs in EMR: Most Recent Vital Signs Temp Pulse Resp BP Pulse Ox 36.5 C 58 L 16 152/84 H 100 10/09/22 06:18 10/09/22 06:18 10/09/22 06:18 10/09/22 06:18 10/09/22 06:18 Lab Results Blood Type / Crossmatch: No Data to Display Complete Blood Count: White Blood Count 10.55 10^3/uL (4.4-10.8) 09/29/22 12:00 Red Blood Count 5.00 10^6/uL (3.93-5.22) 09/29/22 12:00 Hemoglobin 15.0 g/dL (11.2-15.7) 09/29/22 12:00 Hematocrit 42.4 % (36.0-46.0) 09/29/22 12:00 Platelet Count 214 10^3/uL (130-400) 09/29/22 12:00 Complete Metabolic Panel: Sodium 130 mmol/L (136-145) L 09/29/22 12:00 Potassium 3.4 mmol/L (3.5-5.1) L 09/29/22 12:00 Chloride 92 mmol/L (98-107) L 09/29/22 12:00 Carbon Dioxide 31.4 mmol/L (21.0-32.0) 09/29/22 12:00 BUN 10 mg/dL (7-18) 09/29/22 12:00 Creatinine 0.8 mg/dL (0.55-1.02) 09/29/22 12:00 Est GFR (CKD-EPI 2020) 78.72 (mL/min/1.73m2) 09/29/22 12:00 Calcium 9.2 mg/dL (8.5-10.1) 09/29/22 12:00 Albumin 3.7 g/dL (3.4-5.0) 09/29/22 12:00 Glucose 91 mg/dL (74-106) 09/29/22 12:00 Liver Function Panel: Alanine Aminotransferase (ALT/SGPT) 20 U/L (14-59) 09/29/22 12: 00 Aspartate Amino Transf (AST/SGOT) 20 U/L (15-37) 09/29/22 12:00 Coagulation Panel: 2 No Data to Display Cardiac Panel: No Data to Display Arterial Blood Gas: No Data to Display Venous Blood Gas: No Data to Display Pancreas Panel: No Data to Display Thyroid Panel: No Data to Display Infectious Disease: No Data to Display Blood Cultures: No Data to Display Toxicology Panel: No Data to Display Anesthesia Assessment and Plan Anesthesia History Personal History: No History of Anesthesia Complications Family History: No Family History of Anesthesia Complications Exercise Tolerance Exercise Tolerance: Metabolic Equivalents>4 Cardiac & Pulmonary Exam Cardiac Exam: Normal S1/S2 Heart Sounds Pulmonary Exam: Clear Bilateral Breath Sounds Implantable Cardiac Device Does patient have a Pacemaker or an ICD?: No Airway Exam Known Difficult Airway: No Mallampati Class: 2 Mouth Opening: Normal (> 3cm) Thyromental Distance: Greater than 3 cm Neck Range of Motion: Full ROM Neck Circumference: Normal Teeth Condition: Generalized Poor Dentition ASA Classification ASA Score: ASA 2 Emergency Case?: No NPO Status NPO Status: NPO Clears >2 hours, Solids >8 hours Anesthesia Plan Resuscitation Status: Full Code Anesthesia Technique: General Anesthesia Airway Planned: LMA Monitors Used: Standard Monitors
[2022-10-09] MEDS: ceFAZolin 2 GM/50 ML BAG IVPB (07:34)
[2022-10-09] MEDS: Lidocaine 2% Jelly 6 ML SYR (08:00)
--- NOTE | 2022-10-09 08:12 | ROE_ITS ---
Date of service: 10/09/22 Time of Service: 08:12 Operative Note Operative Note DATE OF PROCEDURE: 10/09/22 PRE-OP DIAGNOSIS: Bladder mass POST-OP DIAGNOSIS: same PROCEDURE: cystoscopy with TUR Bladder tumor (less than 2 cm) SURGEON: Amanuel Gallegos ANESTHESIA TYPE: Local By Surgeon and General LMA/ETT Refer to Anesthesia Record ESTIMATED BLOOD LOSS: 10 PATHOLOGY: other (bladder tumor) COMPLICATIONS: None Patient was transported to: PACU Patient's condition: stable Implants: 16 Jordanian pinto catheter with 10 cc sterile water in balloon Indications: This is a 72-year-old woman who presented to the emergency room recently with gross hematuria. She was evaluated with a noncontrast CT and a mass in the bladder was identified. She presents now for cystoscopy and possible transurethral resection of any bladder mass Findings: 2 cm papillary mass right lateral bladder wall additional papillary mucosa right trigone Procedure Description: The patient was given preoperative IV antibiotics. She was then brought to the operating room. After successful induction of general anesthesia, she was placed in the dorsal lithotomy position. Her genitalia was prepped and draped. 2% Xylocaine jelly was instilled into the urethra to act as a local anesthetic. A 24 Jordanian resectoscope sheath was passed through the urethra into the bladder. The bladder was inspected with a 30 degree lens. Both ureteral orifices appeared normal. No blood was seen coming from either side. Posterior and lateral to the right ureteral orifice, there was a papillary lesion extending into the lumen of the bladder. The lesion measured approximately 2 cm in largest dimension. More medial to the right ureteral orifice there was a patch of mucosa that had papillary changes. The left side of the bladder showed no such mucosal abnormalities. The dome and bladder neck appeared normal. I then utilized an [employer] resectoscope and bipolar cautery to perform transurethral resection of both the 2 cm lesion and of the papillary appearing mucosa. All resected tissue was evacuated and sent to pathology for permanent section. All bleeding points were cauterized. The resection did not involve the right ureteral orifice. The bladder was then filled with irrigant and the resectoscope was removed. A 16 Jordanian Pinto catheter was passed back through the urethra into the bladder. The catheter balloon was inflated with 10 cc of sterile water and the catheter was hooked to gravity drainage. The patient tolerated the procedure well with no complications.
--- NOTE | 2022-10-09 08:15 | BLADDER_PTH ---
PATIENT: Bonnie Marks LOC: [facility] U#:[id number] AGE/SX: 72/F ROOM: RE10/09/[address]: Amanuel Gallegos MD : [id number] BED: DIS: 10/09/2022 SPEC #: [id number] RECD: 10/09/22 12:02 STATUS: [facility] #: [id number] KASSANDRA: 10/09/22 08:[address]: Amanuel Gallegos DEPT: Surgical Specimen RECD BY: Mary Levy ENTERED: 10/09/22 12:03 SP TYPE: Bladder OTHR DR: June Andrade Tissues: 1 - BLADDER BIOPSY Procedures: GROSS AND MICRO LEVEL 4 Comments: [id number]
--- NOTE | 2022-10-09 08:16 | W.PM.DSUDISC ---
Date of service: 10/09/22 Time of Service: 08:16 Discharge Plan Disposition Patient Disposition: Home Condition: Stable Discharge Details Reason For Visit: bladder mass Attending Provider: Amanuel Gallegos Primary Care Provider: June Anrdade Home Meds and New Rx's Prescriptions: No Action melatonin 10 mg capsule 10 mg PO HS PRN cholecalciferol (vitamin D3) 50 mcg (2,000 unit) capsule 50 mcg PO DAILY levothyroxine 137 mcg capsule 137 mcg PO DAILY buspirone 7.5 mg tablet 7.5 mg PO BID meloxicam 15 mg tablet 15 mg PO DAILY nitroglycerin 0.4 MG tablet, sublingual 0.4 mg Sublingual ONCE Patient Comments: has never used atorvastatin [Lipitor] 20 MG tablet 40 mg PO DAILY atenolol 100 MG tablet 200 mg PO BID hydrochlorothiazide 50 MG tablet 50 mg PO DAILY aspirin,buffd-calcium carb-mag 325 MG tablet 325 mg PO DAILY omeprazole 20 mg capsule,delayed release(DR/EC) 20 mg PO DAILY Patient Comments: TAKE ONE CAPSULE BY MOUTH EVERY DAY ramipril 10 mg capsule 10 mg PO DAILY Patient Comments: TAKE ONE CAPSULE BY MOUTH EVERY DAY ezetimibe 10 mg tablet 10 mg PO DAILY Patient Comments: TAKE ONE TABLET BY MOUTH EVERY DAY Discharge Instructions Additional Instructions: followup early next week for catheter removal followup 2 weeks for pathology results catheter to leg bag or larger drainage bag (pt preference) Activity:: Activity as Tolerated Shower/Bathe:: 24 hours Diet:: As Tolerated Discharge Orders Discharge Orders: Discharge Order (Routine); Ordered 10/09/22 Ordered By: Amanuel Gallegos DS: Diagnosis Discharge Diagnosis (1) Bladder mass: Status: Acute
[2022-10-09] MEDS: fentaNYL 100 MCG/2 ML VIAL IVP (08:33)
[2022-10-09] MEDS: Phenazopyridine 200 MG TAB PO (09:13)
--- NOTE | 2022-10-09 09:25 | W.ANESPOSTOP ---
Postoperative Evaluation Date, Time and Location Date Performed: 10/09/22 Time Performed: 09:15 Patient Location: Day Surgery Unit Vital Signs Most Recent Imported Vital Signs: Most Recent Vital Signs Temp Pulse Resp BP Pulse Ox 36.3 C L 59 L 16 107/66 94 10/09/22 09:00 10/09/22 09:00 10/09/22 09:00 10/09/22 09:00 10/09/22 09:00 Pain Score Most Recent Pain Score: Most Recent Pain Score Pain Level 3 10/09/22 09:00 Assessment Mental Status: Awake (Alert & Oriented to Patient Baseline) Airway and Respiratory Function: Patent airway with normal (patient baseline) respiratory exam Cardiovascular Function: Hemodynamically Stable Hydration Status: Adequately Hydrated Nausea & Vomiting: No Nausea or Vomiting Pain: Pain is tolerable per patient Peripheral Nerve Block: Patient did not receive a nerve block
== END 2022-10-09 10:05 | disposition home or self-care (01) ==
PROVIDERS: PCP Nurse Practitioner Family; Visit Provider Urology
PROC: 0TBB8ZZ Excision of Bladder, Via Natural or Artificial Opening Endoscopic (ICD-10-PCS; CPT 52234; principal; 2022-10-09 07:30)
DX: C67.9 Malignant neoplasm of bladder, unspecified (principal); R31.0 Gross hematuria; F17.210 Nicotine dependence, cigarettes, uncomplicated
CPT/HCPCS: 52234; 88305; J0690; J1100; J2001; J2250; J2405; J3010

== ENCOUNTER → 2022-10-14 07:46 | Outpatient (BNVA) | payer OTHER, SELFPAY | PROVIDERS: PCP Nurse Practitioner Family; Referring Provider Nurse Practitioner Family; Visit Provider Nurse Practitioner Gerontology | DX: Z48.816 Encounter for surgical aftercare following surgery on the genitourinary system (principal); Z96.0 Presence of urogenital implants ==

== ENCOUNTER 2022-10-15 10:57 | Outpatient (REF) | payer OTHER, SELFPAY ==
[2022-10-15 15:48] LABS: Anion Gap 6.8 mmol/L (3-11); BUN 11 mg/dL (7-18); CO2 31.2 mmol/L (21.0-32.0); CREATININE 0.7 mg/dL (0.55-1.02); Calcium 9.5 mg/dL (8.5-10.1); Chloride 92 mmol/L (98-107); Estimated GFR 92.41 (mL/min/1.73m2); Glucose 91 mg/dL (74-106); Potassium 3.4 mmol/L (3.5-5.1); Sodium 130 mmol/L (136-145)
== END 2022-10-15 10:58 | disposition home or self-care (01) ==
LOC: NCHCN 10:57
PROVIDERS: PCP Nurse Practitioner Family; Visit Provider Nurse Practitioner Family
DX: I10 Essential (primary) hypertension (principal)
CPT/HCPCS: 80048

== ENCOUNTER 2022-10-18 10:38 | Emergency (ER) | payer OTHER, SELFPAY ==
[2022-10-18 10:43] VITALS: BP 138/69; PULSE 70; RESP 18; TEMP 37.1; O2SAT 99
--- NOTE | 2022-10-18 11:00 | DI.CT_ITS ---
Exam(s) CT ABDOMEN PELVIS W EXAM: CT ABDOMEN PELVIS W CLINICAL HISTORY: LLQ pain, hx civertic, hx bladder ca. TECHNIQUE: Imaging Protocol: Axial computed tomography images with coronal and sagittal reformatted images were created and reviewed CONTRAST MATERIAL: Intravenous: Omnipaque-350 100cc Oral: None COMPARISON: CT CT ABDOMEN PELVIS WO from 09/24/2022 FINDINGS: VISUALIZED LUNG BASES: No nodules nor pleural effusions evident. ABDOMEN: There is no ascites. LIVER: There are no focal hepatic lesions evident. Fatty parenchymal replacement noted in the right hepatic lobe adjacent to the inter lobar fissure. No dilated intrahepatic ducts. GALLBLADDER/BILIARY: Gallbladder surgically absent. CBD is not dilated. PANCREAS: No evidence of pancreatic mass nor dilatation of the pancreatic duct. SPLEEN: Spleen is not enlarged. No obvious intrasplenic lesions. Splenic and portal veins are paten t. ADRENALS: There are no significant adrenal masses. KIDNEYS:Right kidney unremarkable. There is mild left-sided hydronephrosis and hydroureter. There i s also some mural opacification of the ureter. There appears to be an enhancing possible mass versus clot in the left ureteral pelvic junction-upper left ureter. There is also a very faint 2 millimete r density at the left ureteropelvic junction which may be a very faint calculus at this level. Howev er, there does not appear to be in a calculus in the left collecting system on the recent noninfused CT scan of 09/24/2022. The urinary bladder appears somewhat different than the recent CT scan. Suspect that the bladder wal l mass has been resected. The wall is presently uniformly thickened/trabeculated. ABDOMINAL AORTA: Heavily calcified but not enlarged. Iliac arteries not enlarged. LYMPH NODES:There is no retroperitoneal nor paraaortic adenopathy. ABDOMINAL WALL: No evidence of significant anterior abdominal wall nor inguinal hernia. GI: There is no evidence of bowel obstruction, free air, nor abscess. PELVIS: GI: No evidence of appendicitis.There is diverticulosis throughout the entire colon. Most severe at the level of the sigmoid where there is circumferential muscular hypertrophy over a distance of 10 cm again noted. No obvious acute diverticulitis. No free fluid. No abscess. LYMPH NODES: There is no intrapelvic nor inguinal adenopathy. REPRODUCTIVE: Uterus is surgically absent. No ovarian masses evident. URINARY BLADDER: As above. OSSEOUS: No fractures and no significant osseous lesions. Degenerative disc disease, most evident at L2-3 level. IMPRESSION: 1. Previous cholecystectomy and hysterectomy. There is no evidence of bowel obstruction. 2. Extensive diverticulosis of the entire colon, most prominent at the level of the sigmoid. There i s no evidence of obvious acute diverticulitis. Subtle case of diverticulitis of the sigmoid can be m issed given the extensive involvement. 3. There has been interval resection of the bladder mass. Mild left-sided hydronephrosis. There is a suggestion of a possible enhancing mass versus clot in the upper left ureter at the ureteropelvic junction level. There is also enhancement of the left ureter below this level. Extremely subtle den sity in the wall of the bladder a at the left ureterovesical junction may represent a tiny calculus o r clot although calculus at this level is somewhat doubtful given that there are no calculi seen in t he left collecting system on the recent noninfused CT in scan of 09/24/2022. The bladder wall is dif fusely trabeculated as described above. No diverticuli. Discussed by phone with ER physician. RADIATION DOSE DELIVERED: 1,102.13mGy.cm Total DLP DATA REPOSITORY: All CT scans at this facility are submitted to the National Radiology Data Registry (NRDR) Dose Index Registry (DIR) with the [employer] (ACR). RADIATION OPTIMIZATION: All CT scans at this facility use at least one of these dose optimization te chniques: automated exposure control; mA and/or kV adjustment per patient size (includes targeted exa ms where dose is matched to clinical indication); or iterative reconstruction.
--- NOTE | 2022-10-18 11:06 | ED.GENADUL_ITS ---
Discharge Plan Disposition Patient Disposition: Home Condition: Good Discharge Details Clinical Impression: Hematuria, Hydronephrosis, Acute pyelonephritis Primary Care Provider: June Andrade ED Provider: Judy Gallegos Home Meds and New Rx's Prescriptions: New ampicillin 500 mg capsule 1 g PO QID Qty: 56 0RF No Action melatonin 10 mg capsule 10 mg PO HS PRN cholecalciferol (vitamin D3) 50 mcg (2,000 unit) capsule 50 mcg PO DAILY levothyroxine 137 mcg capsule 137 mcg PO DAILY buspirone 7.5 mg tablet 7.5 mg PO BID meloxicam 15 mg tablet 15 mg PO DAILY oxybutynin chloride 5 mg tablet 5 mg PO Q8H PRN (Reason: bladder spasms) Qty: 15 0RF Patient Comments: PT stopped taking nitroglycerin 0.4 MG tablet, sublingual 0.4 mg Sublingual ONCE Patient Comments: has never used atorvastatin [Lipitor] 20 MG tablet 40 mg PO DAILY atenolol 100 MG tablet 200 mg PO BID hydrochlorothiazide 50 MG tablet 50 mg PO DAILY aspirin,buffd-calcium carb-mag 325 MG tablet 325 mg PO DAILY omeprazole 20 mg capsule,delayed release(DR/EC) 20 mg PO DAILY Patient Comments: TAKE ONE CAPSULE BY MOUTH EVERY DAY ramipril 10 mg capsule 10 mg PO DAILY Patient Comments: TAKE ONE CAPSULE BY MOUTH EVERY DAY ezetimibe 10 mg tablet 10 mg PO DAILY Patient Comments: TAKE ONE TABLET BY MOUTH EVERY DAY Discharge Instructions Instructions: Hematuria (ED) Additional Instructions: Call your urologist on Thursday to schedule an appointment to be seen as soon as possible to follow up on your visit here. Return to the emergency department for new or worsening symptoms including fever, abdominal pain, clots in your urine, inability to urinate, worsening pain, or if you have any other concerns. Referrals: UROLOGY,[facility] [OTHER] - June Andrade [Primary Care Provider] - Discharge Data Discharge Date/Time-TO BE ENTERED AT DEPARTURE: 10/18/22 15:02 Medical Decision Making 72yo F not on anticoagulation presenting with hx of diverticulitis presenting with left sided flank/abdominal pain and gross hematuria after recent bladder resection. History from patient and urology notes. On 09/29/22 had transurethral bladder resection for bladder mass; pinto catheter was left in place until 7/25 when it was removed. After pinto removal had some lower abdominal cramping and hematuria which resolved. This morning awoke with left sided flank/abdominal pain and scott hematuria. Vital signs reassuring, minimal LLQ abdominal tenderness on exam and + CVA tenderness on the left. Given IV morphine for pain. Labs as below, CBC with leukocytosis at 18.65, no anemia. CMP reassuring, Cr 0.9. UA with gross hematuria to the degree that it is otherwise unable to be interpreted. Urine sent for culture. Given CVA tenderness and leukocytosis in the setting of recent instrumentation/catheter, will treat empirically for pyelonephritis with ampicillin. CT abd/pelvis discussed with radiology; concerning for possible clot at the left UVJ with mild left sided hydrone prhosis. This may be the cause of the patient's pain. On reassessment she reports feeling much improved and is requesting discharge home. Vital signs remain reassuring, repeat abdominal exam with no LLQ tenderness, less concerned for diverticulitis. Discussed [facility] [place] on-call urology at [facility] Dr. Munoz who also reviewed CT imaging, no emergent urologic intervention indicated based on patient's symptoms, labs, or imaging. Advised outpatient followup, return precautions to include passage of clots, inability to urinate, or worsening pain. Discussed with patient who is amenable to this plan. Discharged home on PO antibitoics to close outpatient followup with urology. Discharge instructions including return precautions were reviewed with patient who verbalized understanding. All questi ons were answered and they are in full agreement with the plan. Medical Records Medical records reviewed: Yes I reviewed the patient's medical records. Medical records narrative: Reviewed available urology clinic visit notes Imaging Data Radiologic Study: Imaging: CT Scan Radiologist's impression: IMPRESSION: 1. Previous cholecystectomy and hysterectomy.? There is no evidence of bowel obstruction. 2. Extensive diverticulosis of the entire colon, most prominent at the level of the sigmoid.? There is no evidence of obvious acute diverticulitis.? Subtle case of diverticulitis of the sigmoid can be missed given the extensive involvement. 3.? There has been interval resection of the bladder mass.? Mild left-sided hydronephrosis.? There is a suggestion of a possible enhancing mass versus clot in the upper left ureter at the ureteropelvic junction level.? There is also enhancement of the left ureter below this level.? Extremely subtle density in the wall of the bladder a at the left ureterovesical junction may represent a tiny calculus or clot although calculus at this level is somewhat doubtful given that there are no calculi seen in the left collecting system on the recent noninfused CT in scan of 09/24/2022.? The bladder wall is diffusely trabeculated as described above.? No diverticuli. Lab Data Lab results reviewed: Yes I reviewed the patient's lab results. Labs: 10/18/22 10:50 Urine - Voided Urine Culture - Pending Laboratory Tests Range/Units 10/18/22 10/18/22 10/18/22 10:50 11:48 11:48 WBC (4.4-10.8) 10^3/uL 18.65 H RBC (3.93-5.22) 10^6/uL 4.94 Hgb (11.2-15.7) g/dL 14.8 Hct (36.0-46.0) % 41.8 MCV (80-95) fL 85 MCH (27.0-33.0) pg 30.0 MCHC (32.0-36.0) % 35.4 RDW (11.7-14.6) % 14.7 H Plt Count (130-400) 10^3/uL 280 MPV (8.0-11.0) fL 9.5 Immature Gran % 0.6 Neutrophils % 86.5 Lymphocytes % 6.8 Monocytes % 5.6 Eosinophils % 0.2 Basophils % 0.3 Nucleated RBC % (0.0-0.3) % 0.0 Absolute Neutrophils (1.2-6.7) 10^3/uL 16.13 H Absolute Lymphocytes (1.2-3.4) 10^3/uL 1.27 Absolute Monocytes (0.1-0.8) 10^3/uL 1.04 H Absolute Eosinophils (0.0-0.7) 10^3/uL 0.04 Absolute Basophils (0.0-0.2) 10^3/uL 0.06 Sodium (136-145) mmol/L 132 L Potassium (3.5-5.1) mmol/L 3.7 Chloride (98-107) mmol/L 92 L Carbon Dioxide (21.0-32.0) mmol/L 30.6 Anion Gap (3-11) mmol/L 9.4 BUN (7-18) mg/dL 14 Creatinine (0.55-1.02) mg/dL 0.9 Est GFR (CKD-EPI 2020) (mL/min/1.73m2) 68.35 Glucose (74-106) mg/dL 108 H Calcium (8.5-10.1) mg/dL 9.3 Total Bilirubin (0.2-1.0) mg/dL 1.1 H AST (15-37) U/L 16 ALT (14-59) U/L 23 Alkaline Phosphatase (46-116) U/L 91 Total Protein (6.4-8.2) g/dL 7.7 Albumin (3.4-5.0) g/dL 3.7 Urine Color (Yellow) Red Urine Clarity (Clear) Sl Cloudy Urine pH TNP Ur Specific [place] (1.005-1.025) 1.015 Urine Protein (Negative) mg/dL Color Interference Urine Ketones (Negative) mg/dL Color Interference Urine Blood (Negative) Color Interference Urine Nitrite (Negative) Color Interference Urine Bilirubin (Negative) Color Interference Urine Urobilinogen (Up to 0.2) mg/dL Color Interference Ur Leukocyte Esterase (Negative) Color Interference Urine RBC (0-2) HPF >50 H Urine WBC Not Applicable Ur Epithelial Cells Not Applicable Urine Crystals Not Applicable Urine Bacteria Not Applicable Urine Mucus Not Applicable Ur Culture Indicated? C&S Done As Ordered Urine Glucose (Negative) mg/dL Color Interference HPI General Mode of arrival: ambulatory . Date/Time Provider Initiated Documentation: 10/18/22 10:49 . Limitations to Documentation: no limitations . Information obtained by: patient and old records reviewed . HPI Narrative: 72yo F not on anticoagulation presenting with hx of diverticulitis presenting with left sided flank/abdominal pain and gross hematuria after recent bladder resection. Pain is dull, left flank and abdomen, no alleviating or aggravating factors. Pinto was removed earlier this week and she initially had abdominal cramping and hematuria, this initially improved. This morning woke with left sided pain and gross hematuria, no clots. Otherwise well with no fevers, chills, rash, nausea, vomiting, diarrhea, dysuria, lightheadedness, presycnope, palpatations, or other concerns. Related Data Home Medications Medication Instructions Recorded Confirmed aspirin,buffered (calcium 325 mg PO DAILY 08/09/12 10/18/22 carbonate-magnesium) 325 mg tablet atenolol 100 mg tablet 200 mg PO BID 08/09/12 10/18/22 atorvastatin 20 mg tablet (Lipitor) 40 mg PO DAILY 08/09/12 10/18/22 hydrochlorothiazide 50 mg tablet 50 mg PO DAILY 08/09/12 10/18/22 nitroglycerin 0.4 mg sublingual 0.4 mg sublingual ONCE 03/28/13 10/18/22 tablet ezetimibe 10 mg tablet 10 mg PO DAILY 01/08/22 10/18/22 omeprazole 20 mg capsule,delayed 20 mg PO DAILY 01/08/22 10/18/22 release ramipril 10 mg capsule 10 mg PO DAILY 01/08/22 10/18/22 buspirone 7.5 mg tablet 7.5 mg PO BID 09/29/22 10/18/22 cholecalciferol (vitamin D3) 50 50 mcg PO DAILY 09/29/22 10/18/22 mcg (2,000 unit) capsule levothyroxine 137 mcg capsule 137 mcg PO DAILY 09/29/22 10/18/22 melatonin 10 mg capsule 10 mg PO HS PRN 09/29/22 10/18/22 meloxicam 15 mg tablet 15 mg PO DAILY 09/29/22 10/18/22 oxybutynin chloride 5 mg tablet 5 mg PO Q8H PRN bladder spasms #15 10/09/22 10/14/22 tabs ampicillin 500 mg capsule 1 g PO QID #56 caps 10/18/22 Previous Rx's Medication Instructions Recorded oxybutynin chloride 5 mg tablet 5 mg PO Q8H PRN bladder spasms #15 10/09/22 tabs ampicillin 500 mg capsule 1 g PO QID #56 caps 10/18/22 Allergies Allergy/AdvReac Type Severity Reaction Status Date / Time furosemide [From Lasix] Allergy Intermediate FACE SWELLS Verified 10/18/22 10:46 azithromycin [From Zithromax] AdvReac Intermediate VOMITS Verified 10/18/22 10:46 ketorolac tromethamine AdvReac Intermediate VOMITS Verified 10/18/22 10:46 [From Toradol] hydrocodone bitartrate AdvReac Mild GI UPSET Verified 10/18/22 10:46 [From Vicodin] General Stated Complaint: Urinary GERMAIN: 3 Review of Systems Narrative: see HPI PFSH All Active Problems (Updated 10/18/22 @ 19:51 by Judy Gallegos MD) Hematuria (Acute) Hydronephrosis (Acute) Acute pyelonephritis (Acute) COVID-19 (Acute) Bladder mass (Acute) Diverticulitis (Chronic) Medical History (Updated 10/18/22 @ 19:51 by Judy Gallegos MD) HTN (hypertension) Myocardial infarction Per pt. states it was 20+ years ago Surgical History H/O thyroidectomy History of cholecystectomy History of hysterectomy Social History Smoking/Tobacco Use Status: Current-Occasional Tobacco Type: cigarettes Smoking risk assessment performed?: Yes Alcohol Intake: current Alcohol Intake frequency: a few times a week Drug use: Never Substance use type: does not use Housing: house Do you feel safe at home: Yes Do you feel safe in your relationship?: Yes Exam Narrative Exam Narrative: General: Alert, well appearing, well nourished, in no acute distress. Head: Normocephalic, atraumatic Neck: Trachea midline, Neck supple. ENT: MMM. No oropharygeal lesions or exudate. Cardiac: RRR, no murmurs appreciated Resp: No respiratory distress. CTAB. Abd: Soft, non-distended, mild LLQ tenderness with no peritoneal signs. : No suprapubic tenderness. Left CVA tenderness. Extremities: No deformities. No peripheral edema. Neurologic: GCS 15. Moves all extremities freely against gravity Course Vital Signs Vital signs: Vital Signs Temperature 37.1 C 10/18/22 10:43 Pulse 70 10/18/22 10:43 Respiratory Rate 18 10/18/22 10:43 Blood Pressure 138/69 10/18/22 10:43 Pulse Oximetry 99 10/18/22 10:43 Temperature 37.1 C 10/18/22 10:43 Temperature Source Skin 10/18/22 10:43 Pulse 70 10/18/22 10:43 Respiratory Rate 18 10/18/22 10:43 Respiratory Effort Normal 10/18/22 10:47 Blood Pressure 138/69 10/18/22 10:43 Blood Pressure Position Sitting 10/18/22 10:43 Pulse Oximetry 99 10/18/22 10:43 Oxygen Delivery Method Room Air 10/18/22 10:43 Oxygen Flow Rate 0 10/18/22 10:43 Pain Level 5 10/18/22 10:43 Comment Prior to tylenol pain was a 7 10/18/22 10:43
[2022-10-18 11:26] LABS: Clarity Sl Cloudy (Clear); Leukocyte Esterase Color Interference (Negative); Specific Gravity 1.015 (1.005-1.025)
[2022-10-18 11:27] LABS: Bilirubin Color Interference (Negative); Blood Color Interference (Negative); Glucose Color Interference mg/dL (Negative); Ketones Color Interference mg/dL (Negative); Nitrite Color Interference (Negative); Urobilinogen Color Interference mg/dL (Up to 0.2)
[2022-10-18 11:39] LABS: C & S Indicated? C&S Done As Ordered; RBC >50 HPF (0-2)
[2022-10-18 11:52] LABS: Abs Immature Grans 0.11 10^3/uL (0.0-0.06); Absolute Basophil Count 0.06 10^3/uL (0.0-0.2); Absolute Lymphocyte Count 1.27 10^3/uL (1.2-3.4); Absolute Monocyte Count 1.04 10^3/uL (0.1-0.8); Basophils % 0.3; Eosinophils % 0.2; HCT 41.8 % (36.0-46.0); HGB 14.8 g/dL (11.2-15.7); Immature Grans % 0.6; Lymphocytes % 6.8; MCHC 35.4 % (32.0-36.0); MCV 85 fL (80-95); MPV 9.5 fL (8.0-11.0); Monocytes % 5.6; Neutrophils % 86.5; Platelet Count 280 10^3/uL (130-400); RBC 4.94 10^6/uL (3.93-5.22); RDW 14.7 % (11.7-14.6); RDW-SD 45.5 fL; WBC 18.65 10^3/uL (4.4-10.8)
[2022-10-18 11:55] LABS: Absolute Eosinophil Count 0.04 10^3/uL (0.0-0.7); Absolute Neutrophil Count 16.13 10^3/uL (1.2-6.7)
[2022-10-18] MEDS: MORPHine 4 MG/ML SYR IVP (11:59)
[2022-10-18 12:08] LABS: ALT 23 U/L (14-59); AST 16 U/L (15-37); Albumin 3.7 g/dL (3.4-5.0); Alkaline Phosphatase 91 U/L (46-116); Anion Gap 9.4 mmol/L (3-11); BUN 14 mg/dL (7-18); Bilirubin, Total 1.1 mg/dL (0.2-1.0); CO2 30.6 mmol/L (21.0-32.0); CREATININE 0.9 mg/dL (0.55-1.02); Calcium 9.3 mg/dL (8.5-10.1); Chloride 92 mmol/L (98-107); Estimated GFR 68.35 (mL/min/1.73m2); Glucose 108 mg/dL (74-106); Potassium 3.7 mmol/L (3.5-5.1); Sodium 132 mmol/L (136-145); Total Protein 7.7 g/dL (6.4-8.2)
[2022-10-18 12:27] VITALS: BP 138/66; PULSE 71; RESP 14; TEMP 36.9; O2SAT 94; O2SAT 95
[2022-10-18 12:28] VITALS: BP 138/66; PULSE 69; O2SAT 94
[2022-10-18] MEDS: Normal Saline - Diluent 50 ML VIAL IJ (12:51)
[2022-10-18] MEDS: Omnipaque 350 MG/ML 100 ML BTL IJ (12:52)
[2022-10-18] MEDS: AMPICILLIN SODIUM 2 GM in Normal Saline 100 ML IVPB (13:11)
[2022-10-18 13:49] VITALS: BP 114/64; PULSE 72; RESP 14; TEMP 36.9; O2SAT 94
[2022-10-18 13:51] VITALS: BP 114/64; PULSE 72
[2022-10-18 14:55] VITALS: BP 114/64; PULSE 72; RESP 16; TEMP 36.7; O2SAT 94
== END 2022-10-18 15:02 | disposition home or self-care (01) ==
PROVIDERS: Emergency Provider Student in an Organized Health Care Education/Training Program; PCP Nurse Practitioner Family
DX: N10 Acute pyelonephritis (principal); K57.30 Diverticulosis of large intestine without perforation or abscess without bleeding; R31.9 Hematuria, unspecified; C67.9 Malignant neoplasm of bladder, unspecified; I10 Essential (primary) hypertension; I25.2 Old myocardial infarction; F17.210 Nicotine dependence, cigarettes, uncomplicated; Z90.710 Acquired absence of both cervix and uterus; Z90.49 Acquired absence of other specified parts of digestive tract
CPT/HCPCS: 36415; 80053; 87077; 96365; 96375; 99285; 74177; 81003; 81015; 85025; 87086; 87186; 99284; J0290; J2270; J3490

== ENCOUNTER → 2022-10-24 10:44 | Outpatient (BNVA) | payer OTHER, SELFPAY | PROVIDERS: PCP Nurse Practitioner Family; Referring Provider Nurse Practitioner Family; Visit Provider Urology | DX: D09.0 Carcinoma in situ of bladder (principal); C67.9 Malignant neoplasm of bladder, unspecified | CPT/HCPCS: 99214 ==

== ENCOUNTER 2022-10-27 13:04 | Emergency (ER) | payer OTHER, SELFPAY ==
[2022-10-27 13:13] VITALS: BP 144/90; PULSE 63; RESP 18; TEMP 36.7; O2SAT 97
--- NOTE | 2022-10-27 13:30 | DI.CT_ITS ---
Exam(s) CT ABDOMEN PELVIS W EXAM: CT ABDOMEN PELVIS W CLINICAL HISTORY: bilateral flank pain. TECHNIQUE: Imaging Protocol: Axial computed tomography images with coronal and sagittal reformatted images were created and reviewed CONTRAST MATERIAL: Intravenous: Omnipaque 350 Contrast volume:100 ml Oral: no COMPARISON: CT CT ABDOMEN PELVIS W from 10/18/2022 FINDINGS: ABDOMEN: Lung Bases: Normal where visualized. Liver: Normal density. No measurable mass. Gallbladder and biliary tract: Status post cholecystectomy. No radiodense calculus or dilation. Pancreas: Normal density, no abnormal calcifications or inflammatory process. Spleen: Normal. Kidneys: Normal size, contour and axis. No radiodense stones . No suspicious masses seen. Mild prom inence of the right renal collecting system, not changed from the prior exam. Decrease in prominence of the left renal collecting system previously noted urothelial enhancement is not evident on today' s exam. Adrenal glands: No masses seen. Abdominal Aorta: Abdominal portion non-dilated. Heavily calcified. Soft tissues: Small fatty containing left inguinal hernia. PELVIS: Bladder: Small bladder volume. Mild diffuse wall thickening. No calculi.No focal mass. Bowel: Diverticulosis. No obstruction. No bowel wall thickening. Appendix normal. Peritoneal cavity: No ascites, collection or mesenteric inflammatory response. Bones: Degenerative changes. Reproductive organs: Status post hysterectomy. Lymph nodes: Unremarkable. Impression: stable mild prominence of the right renal pelvis. No findings to suggest obstruction. Improvement i n the previously mild dilatation of the left collecting system and urothelial enhancement. Mild bladder wall thickening. RADIATION DOSE DELIVERED: 914.37mGy.cm Total DLP DATA REPOSITORY: All CT scans at this facility are submitted to the National Radiology Data Registry (NRDR) Dose Index Registry (DIR) with the [employer] ([employer]). RADIATION OPTIMIZATION: All CT scans at this facility use at least one of these dose optimization te chniques: automated exposure control; mA and/or kV adjustment per patient size (includes targeted exa ms where dose is matched to clinical indication); or iterative reconstruction.
[2022-10-27 13:31] VITALS: BP 112/75; PULSE 61
[2022-10-27 13:46] VITALS: BP 129/49; PULSE 58
[2022-10-27 14:01] VITALS: BP 123/74; PULSE 56
[2022-10-27] MEDS: HYDROmorphone 2 MG/ML SYR 0.5 MG IVP (14:01)
[2022-10-27] MEDS: Normal Saline 500 ML IV (14:02)
[2022-10-27] MEDS: Ondansetron 4 MG/2 ML VIAL IVP (14:02)
[2022-10-27 14:05] LABS: Abs Immature Grans 0.05 10^3/uL (0.0-0.06); Absolute Eosinophil Count 0.13 10^3/uL (0.0-0.7); Absolute Lymphocyte Count 0.96 10^3/uL (1.2-3.4); Absolute Monocyte Count 1.02 10^3/uL (0.1-0.8); Absolute Neutrophil Count 4.35 10^3/uL (1.2-6.7); Basophils % 1.5; HCT 40.8 % (36.0-46.0); HGB 14.7 g/dL (11.2-15.7); Immature Grans % 0.8; Lymphocytes % 14.5; MCH 29.8 pg (27.0-33.0); MCV 83 fL (80-95); Monocytes % 15.4; Neutrophils % 65.8; Platelet Count 184 10^3/uL (130-400); RBC 4.93 10^6/uL (3.93-5.22); RDW 14.5 % (11.7-14.6); RDW-SD 43.8 fL; WBC 6.61 10^3/uL (4.4-10.8)
[2022-10-27 14:16] VITALS: BP 137/59; PULSE 56
[2022-10-27 14:21] LABS: ALT 27 U/L (14-59); AST 22 U/L (15-37); Albumin 3.8 g/dL (3.4-5.0); Alkaline Phosphatase 91 U/L (46-116); Anion Gap 12.4 mmol/L (3-11); BUN 13 mg/dL (7-18); Bilirubin, Total 0.4 mg/dL (0.2-1.0); CO2 26.6 mmol/L (21.0-32.0); CREATININE 1.3 mg/dL (0.55-1.02); Calcium 9.1 mg/dL (8.5-10.1); Chloride 88 mmol/L (98-107); Estimated GFR 43.96 (mL/min/1.73m2); Glucose 90 mg/dL (74-106); Potassium 3.5 mmol/L (3.5-5.1); Sodium 127 mmol/L (136-145); Total Protein 7.7 g/dL (6.4-8.2)
[2022-10-27 14:31] VITALS: BP 135/98; PULSE 54
--- NOTE | 2022-10-27 14:57 | ED.GENADUL_ITS ---
Discharge Plan Disposition Patient Disposition: Home Discharge Details Clinical Impression: Hematuria Primary Care Provider: June Andrade ED Provider: George Church Meds and New Rx's Prescriptions: Continued melatonin 10 mg capsule 10 mg PO HS PRN cholecalciferol (vitamin D3) 50 mcg (2,000 unit) capsule 50 mcg PO DAILY levothyroxine 137 mcg capsule 137 mcg PO DAILY buspirone 7.5 mg tablet 7.5 mg PO BID meloxicam 15 mg tablet 15 mg PO DAILY oxybutynin chloride 5 mg tablet 5 mg PO Q8H PRN (Reason: bladder spasms) Qty: 15 0RF Patient Comments: PT stopped taking nitroglycerin 0.4 MG tablet, sublingual 0.4 mg Sublingual ONCE Patient Comments: has never used sulfamethoxazole-trimethoprim 800-160 mg tablet 1 tab PO BID Qty: 14 0RF atorvastatin [Lipitor] 20 MG tablet 40 mg PO DAILY atenolol 100 MG tablet 200 mg PO BID hydrochlorothiazide 50 MG tablet 50 mg PO DAILY aspirin,buffd-calcium carb-mag 325 MG tablet 325 mg PO DAILY omeprazole 20 mg capsule,delayed release(DR/EC) 20 mg PO DAILY Patient Comments: TAKE ONE CAPSULE BY MOUTH EVERY DAY ramipril 10 mg capsule 10 mg PO BID Patient Comments: TAKE ONE CAPSULE BY MOUTH EVERY DAY ezetimibe 10 mg tablet 10 mg PO DAILY Patient Comments: TAKE ONE TABLET BY MOUTH EVERY DAY Discharge Instructions Instructions: Hematuria (ED) Referrals: June Andrade [Primary Care Provider] - 1 week Discharge Data Discharge Date/Time-TO BE ENTERED AT DEPARTURE: 10/27/22 18:46 Discharge Physician: George Church Medical Decision Making Patient presenting the emergency department for worsening flank pain, nausea vomiting. Patient states recent diagnosis of bladder cancer with tumor removal then she developed a urinary tract infection that then became a kidney infection. She states that she had been feeling okay but then on Thursday she noticed significant worsening of flank pain and developed some nausea vomiting. Patient states she has been taking her antibiotic as prescribed and did not denies any chest pain shortness of breath or other symptoms. Physical exam shows stable but uncomfortable appearing patient with normal cardiac and respiratory exam, normal abdominal exam but patient does have significant CVA tenderness with more on the right than the left. Will plan on checking labs and CT imaging. Will give slight amount of fluids Zofran and hydromorphone pending results. Reviewed patient's labs and CBC is overall nondiagnostic with no significant leukocytosis or shift, CMP shows slightly low sodium at 127, chloride 88, increased anion gap at 12.4 and a creatinine of 1.3 with GFR is 43.96 today feel okay continuing with CT imaging. All other labs are nondiagnostic. Will give patient a dose of Rocephin because I am concerned about hydronephrosis given CT imaging that shows bladder wall thickening. We are still pending a urinalysis. Patient signed out pending reassessment and completion of antibiotics along with review of urinalysis. Imaging Data Radiologic Study: Imaging: CT Scan Radiologist's impression: EXAM: CT ABDOMEN PELVIS W CLINICAL HISTORY: bilateral flank pain. TECHNIQUE: Imaging Protocol: Axial computed tomography images with coronal and sagittal reformatted images were created and reviewed CONTRAST MATERIAL: Intravenous: Omnipaque 350 Contrast volume:100 ml Oral: no COMPARISON: CT CT ABDOMEN PELVIS W from 10/18/2022 FINDINGS: ABDOMEN: Lung Bases: Normal where visualized. Liver: Normal density. No measurable mass. Gallbladder and biliary tract: Status post cholecystectomy. No radiodense calculus or dilation. Pancreas: Normal density, no abnormal calcifications or inflammatory process. Spleen: Normal. Kidneys: Normal size, contour and axis. No radiodense stones . No suspicious masses seen. Mild prominence of the right renal collecting system, not changed from the prior exam. Decrease in prominence of the left renal collecting system previously noted urothelial enhancement is not evident on today's exam. Adrenal glands: No masses seen. Abdominal Aorta: Abdominal portion non-dilated. Heavily calcified. Soft tissues: Small fatty containing left inguinal hernia. PELVIS: Bladder: Small bladder volume. Mild diffuse wall thickening. No calculi.No focal mass. Bowel: Diverticulosis. No obstruction. No bowel wall thickening. Appendix normal. Peritoneal cavity: No ascites, collection or mesenteric inflammatory response. Bones: Degenerative changes. Reproductive organs: Status post hysterectomy. Lymph nodes: Unremarkable. Impression: stable mild prominence of the right renal pelvis. No findings to suggest obstruction. Improvement in the previously mild dilatation of the left collecting system and urothelial enhancement. Mild bladder wall thickening. Lab Data Lab results reviewed: Yes I reviewed the patient's lab results. HPI General Mode of arrival: ambulatory . Date/Time Provider Initiated Documentation: 10/27/22 13:27 . Limitations to Documentation: no limitations . Information obtained by: patient, family and RN notes reviewed . History of Present Illness 72 year old F presents to the emergency department with the chief complaint of Severe flank pain, nausea vomiting, described as moderate and severe, with intensity rated at 8. Quality is described as aching, and is localized to the back. Patient reports no radiation. Patient started expe riencing this day(s) (10) and it has been constant. No relieving factors improve symptom(s), No exacerbating factors reported . Patient notes nausea/vomiting. Patient did receive the following treatments prior to arrival, none Related Data Home Medications Medication Instructions Recorded Confirmed aspirin,buffered (calcium 325 mg PO DAILY 08/09/12 10/27/22 carbonate-magnesium) 325 mg tablet atenolol 100 mg tablet 200 mg PO BID 08/09/12 10/27/22 atorvastatin 20 mg tablet (Lipitor) 40 mg PO DAILY 08/09/12 10/27/22 hydrochlorothiazide 50 mg tablet 50 mg PO DAILY 08/09/12 10/27/22 nitroglycerin 0.4 mg sublingual 0.4 mg sublingual ONCE 03/28/13 10/27/22 tablet ezetimibe 10 mg tablet 10 mg PO DAILY 01/08/22 10/18/22 omeprazole 20 mg capsule,delayed 20 mg PO DAILY 01/08/22 10/27/22 release ramipril 10 mg capsule 10 mg PO BID 01/08/22 10/27/22 buspirone 7.5 mg tablet 7.5 mg PO BID 09/29/22 10/27/22 cholecalciferol (vitamin D3) 50 50 mcg PO DAILY 09/29/22 10/27/22 mcg (2,000 unit) capsule levothyroxine 137 mcg capsule 137 mcg PO DAILY 09/29/22 10/27/22 melatonin 10 mg capsule 10 mg PO HS PRN 09/29/22 10/27/22 meloxicam 15 mg tablet 15 mg PO DAILY 09/29/22 10/27/22 oxybutynin chloride 5 mg tablet 5 mg PO Q8H PRN bladder spasms #15 10/09/22 10/14/22 tabs sulfamethoxazole 800 1 tab PO BID #14 tabs 10/22/22 10/27/22 mg-trimethoprim 160 mg tablet Previous Rx's Medication Instructions Recorded oxybutynin chloride 5 mg tablet 5 mg PO Q8H PRN bladder spasms #15 10/09/22 tabs sulfamethoxazole 800 1 tab PO BID #14 tabs 10/22/22 mg-trimethoprim 160 mg tablet Allergies Allergy/AdvReac Type Severity Reaction Status Date / Time furosemide [From Lasix] Allergy Intermediate FACE SWELLS Verified 10/27/22 13:17 azithromycin [From Zithromax] AdvReac Intermediate VOMITS Verified 10/27/22 13 :17 ketorolac tromethamine AdvReac Intermediate VOMITS Verified 10/27/22 13:17 [From Toradol] hydrocodone bitartrate AdvReac Mild GI UPSET Verified 10/27/22 13:17 [From Vicodin] General Stated Complaint: FlankPain GERMAIN: 3 Review of Systems Constitutional Constitutional: Reports chills, Denies fever(s) and Reports malaise ENT Ears, Nose, Mouth, and Throat: Denies dizziness Cardiovascular Cardiovascular: Denies chest pain, Denies syncope and Denies dyspnea Respiratory Respiratory: Denies cough and Denies dyspnea Gastrointestinal Gastrointestinal: Reports abdominal pain, Reports nausea and Reports vomiting Genitourinary Genitourinary: Reports hematuria and Reports flank pain Musculoskeletal Musculoskeletal: Reports back pain Integumentary/Breasts Skin/Breast: Denies rash Neurologic Neurologic: Denies dizziness and Denies syncope PFSH All Active Problems (Updated 10/27/22 @ 18:32 by George Church MD) Bladder cancer (Acute) Carcinoma in situ of bladder (Acute) Hematuria (Acute) Hydronephrosis (Acute) Acute pyelonephritis (Acute) COVID-19 (Acute) Medical History Bladder mass HTN (hypertension) Myocardial infarction Per pt. states it was 20+ years ago Surgical History H/O thyroidectomy History of cholecystectomy History of hysterectomy Social History Smoking/Tobacco Use Status: Current-Occasional Tobacco Type: cigarettes Smoking risk assessment performed?: Yes Alcohol Intake: current Alcohol Intake frequency: a few times a week Drug use: Never Substance use type: does not use Housing: house Do you feel safe at home: Yes Do you feel safe in your relationship?: Yes Exam Const General: cooperative Orientation: alert, awake and oriented x3 Resp Effort & Inspection: normal respiratory effort and able to speak in complete sentences Auscultation: clear to auscultation bilaterally Cardio Rate: regular rate Rhythm: regular rhythm Heart Sounds: S1 normal and S2 normal GI Palpation: soft, no hepatosplenomegaly, not firm, no guarding, no masses, no pulsatile masses, not rigid, no splenomegaly and nontender Auscultation: normal bowel sounds General: CVA tenderness bilaterally (Worse on right than left) Back/Spine/Pelvis Back: CVA tenderness Neuro General: patient alert, patient awake, patient oriented x3, gait normal and moves all extremities Course Vital Signs Vital signs: Vital Signs Temperature 36.7 C 10/27/22 13:13 Pulse 63 10/27/22 13:13 Respiratory Rate 18 10/27/22 13:13 Blood Pressure 144/90 H 10/27/22 13:13 Pulse Oximetry 97 10/27/22 13:13 Temperature 36.7 C 10/27/22 13:13 Temperature Source Oral 10/27/22 13:13 Pulse 63 10/27/22 13:13 Respiratory Rate 18 10/27/22 13:13 Respiratory Effort Normal, Non-Labored 10/27/22 13:24 Blood Pressure 144/90 H 10/27/22 13:13 Blood Pressure Position Supine 10/27/22 13:13 Pulse Oximetry 97 10/27/22 13:13 Oxygen Delivery Method Room Air 10/27/22 13:13 Oxygen Flow Rate 0 10/27/22 13:13 Pain Level 5 10/27/22 13:13 Lab/Test Results Lab/Test Results: Laboratory Tests Range/Units 10/27/22 10/27/22 13:30 13:30 WBC (4.4-10.8) 10^3/uL 6.61 RBC (3.93-5.22) 10^6/uL 4.93 Hgb (11.2-15.7) g/dL 14.7 Hct (36.0-46.0) % 40.8 MCV (80-95) fL 83 MCH (27.0-33.0) pg 29.8 MCHC (32.0-36.0) % 36.0 RDW (11.7-14.6) % 14.5 Plt Count (130-400) 10^3/uL 184 MPV (8.0-11.0) fL 11.0 Immature Gran % 0.8 Neutrophils % 65.8 Lymphocytes % 14.5 Monocytes % 15.4 Eosinophils % 2.0 Basophils % 1.5 Nucleated RBC % (0.0-0.3) % 0.0 Absolute Neutrophils (1.2-6.7) 10^3/uL 4.35 Absolute Lymphocytes (1.2-3.4) 10^3/uL 0.96 L Absolute Monocytes (0.1-0.8) 10^3/uL 1.02 H Absolute Eosinophils (0.0-0.7) 10^3/uL 0.13 Absolute Basophils (0.0-0.2) 10^3/uL 0.10 Sodium (136-145) mmol/L 127 L Potassium (3.5-5.1) mmol/L 3.5 Chloride (98-107) mmol/L 88 L Carbon Dioxide (21.0-32.0) mmol/L 26.6 Anion Gap (3-11) mmol/L 12.4 H BUN (7-18) mg/dL 13 Creatinine (0.55-1.02) mg/dL 1.3 H Est GFR (CKD-EPI 2020) (mL/min/1.73m2) 43.96 Glucose (74-106) mg/dL 90 Calcium (8.5-10.1) mg/dL 9.1 Total Bilirubin (0.2-1.0) mg/dL 0.4 AST (15-37) U/L 22 ALT (14-59) U/L 27 Alkaline Phosphatase (46-116) U/L 91 Total Protein (6.4-8.2) g/dL 7.7 Albumin (3.4-5.0) g/dL 3.8 Sign Out Sign Out Data: Sign Out Comment: Patient pending urinalysis and disposition. Patient ordered Rocephin for suspected pyelonephritis. Not improving on oral antibiotics. Last updated by Yong Dempsey NP at 10/27/22 15:40
[2022-10-27] MEDS: Omnipaque 350 MG/ML 100 ML BTL IJ (15:06)
[2022-10-27] MEDS: Normal Saline - Diluent 50 ML VIAL IJ (15:06)
[2022-10-27] MEDS: cefTRIAXone 1 GM/50 ML BAG IVPB (15:58)
[2022-10-27 18:07] LABS: Bilirubin Negative (Negative); Blood Small (Negative); Clarity Clear (Clear); Glucose Negative (Negative); Ketones Negative (Negative); Leukocyte Esterase Small (Negative); Nitrite Negative (Negative); Specific Gravity <= 1.005 (1.005-1.025); Urobilinogen 0.2 mg/dL (Up to 0.2); pH 5.5 (5-8)
[2022-10-27 18:15] LABS: Bacteria Few HPF (Negative); Crystals Negative HPF (Negative); Epithelial Cells Moderate HPF (Negative)
[2022-10-27 18:16] LABS: C & S Indicated? No/Sq. Contamination; Casts Negative LPF (Negative); Mucus Negative (Negative)
--- NOTE | 2022-10-27 19:15 | W.EDPROG ---
Date of service: 10/27/22 Time of Service: 15:00 Medical Decision Making MDM: Summary: Patient was signed out to me by the previous provider who comes with bilateral flank pain. Patient had labs done which does not show a white count and a CT of the abdomen pelvis that was reported as improvement from previous study but no hydronephrosis or perinephric stranding seen. Patient was signed out to me to review the urinalysis. Urinalysis does improve with 3-5 white blood cells. Is currently on antibiotics and the previous urinalysis a week ago was worse in the sense that had more pyuria. Data Review Analysis All the data on this patient was reviewed by me including laboratory and imaging studies as well as bedside studies performed by me Independent review of Studies Imaging Lab: Urinalysis shows 3-5 white blood cells Risk Stratification: Patient who has a history of bladder cancer and had hydronephrosis previously on CAT scans who comes in with flank pain which has improved and almost resolved completely. Labs as advised by the patient Unremarkable CT scan does not show up hydronephrosis or progressive symptoms. There is no evidence of hydronephrosis and diarrhea has decreased that she will be continued with the antibiotics that she is supposed to finish in the next 5 days Differential Diagnosis: 1. Hematuria 2.pyuria 3.renal colic 4. 5. Consultants: Shared disposition: Patient states he feels better wants to be discharged home Impression: hematuria Medical Records Medical records reviewed: Yes I reviewed the patient's medical records. Lab Data Lab results reviewed: Yes I reviewed the patient's lab results. Exam Narrative Exam Narrative: Exam is unchanged as when done by the previous provider Sign Out Sign Out Data: Sign Out Comment: Patient pending urinalysis and disposition. Patient ordered Rocephin for suspected pyelonephritis. Not improving on oral antibiotics. Last updated by Yong Dempsey NP at 10/27/22 15:40 Discharge Plan Disposition Patient Disposition: Home Discharge Details Clinical Impression: Hematuria Primary Care Provider: June Andrade ED Provider: George Church Home Meds and New Rx's Prescriptions: Continued melatonin 10 mg capsule 10 mg PO HS PRN cholecalciferol (vitamin D3) 50 mcg (2,000 unit) capsule 50 mcg PO DAILY levothyroxine 137 mcg capsule 137 mcg PO DAILY buspirone 7.5 mg tablet 7.5 mg PO BID meloxicam 15 mg tablet 15 mg PO DAILY oxybutynin chloride 5 mg tablet 5 mg PO Q8H PRN (Reason: bladder spasms) Qty: 15 0RF Patient Comments: PT stopped taking nitroglycerin 0.4 MG tablet, sublingual 0.4 mg Sublingual ONCE Patient Comments: has never used sulfamethoxazole-trimethoprim 800-160 mg tablet 1 tab PO BID Qty: 14 0RF atorvastatin [Lipitor] 20 MG tablet 40 mg PO DAILY atenolol 100 MG tablet 200 mg PO BID hydrochlorothiazide 50 MG tablet 50 mg PO DAILY aspirin,buffd-calcium carb-mag 325 MG tablet 325 mg PO DAILY omeprazole 20 mg capsule,delayed release(DR/EC) 20 mg PO DAILY Patient Comments: TAKE ONE CAPSULE BY MOUTH EVERY DAY ramipril 10 mg capsule 10 mg PO BID Patient Comments: TAKE ONE CAPSULE BY MOUTH EVERY DAY ezetimibe 10 mg tablet 10 mg PO DAILY Patient Comments: TAKE ONE TABLET BY MOUTH EVERY DAY Discharge Instructions Instructions: Hematuria (ED) Referrals: June Andrade [Primary Care Provider] - 1 week Discharge Data Discharge Physician: George Church
== END 2022-10-27 18:46 | disposition home or self-care (01) ==
PROVIDERS: Nurse Practitioner Family; Emergency Provider Emergency Medicine Emergency Medical Services; PCP Nurse Practitioner Family
DX: R31.9 Hematuria, unspecified (principal)
CPT/HCPCS: 80053; 96361; 96365; 96375; 99285; 74177; 81003; 81015; 85025; 99284; J0696; J1170; J2405; J3490

== ENCOUNTER → 2022-11-14 10:40 | Outpatient (BNVA) | payer OTHER, SELFPAY | PROVIDERS: PCP Nurse Practitioner Family; Referring Provider Nurse Practitioner Family; Visit Provider Urology | DX: C67.9 Malignant neoplasm of bladder, unspecified (principal); D09.0 Carcinoma in situ of bladder | CPT/HCPCS: 51720; 81003; J9030 ==

== ENCOUNTER → 2022-11-21 14:38 | Outpatient (BNVA) | payer OTHER, SELFPAY | PROVIDERS: PCP Nurse Practitioner Family; Visit Provider Urology | DX: C67.9 Malignant neoplasm of bladder, unspecified (principal); D09.0 Carcinoma in situ of bladder | CPT/HCPCS: 51720; 81003; J9030 ==

== ENCOUNTER → 2022-11-26 12:24 | Outpatient (BNVA) | payer OTHER, SELFPAY | PROVIDERS: PCP Nurse Practitioner Family; Visit Provider Nurse Practitioner Gerontology | DX: C67.9 Malignant neoplasm of bladder, unspecified (principal); D09.0 Carcinoma in situ of bladder | CPT/HCPCS: 51720; 81003; J9030 ==

== ENCOUNTER → 2022-12-05 10:49 | Outpatient (BNVA) | payer OTHER, SELFPAY | PROVIDERS: PCP Nurse Practitioner Family; Visit Provider Urology | DX: C67.9 Malignant neoplasm of bladder, unspecified (principal); D09.0 Carcinoma in situ of bladder | CPT/HCPCS: 51720; 81003; J9030 ==

== ENCOUNTER → 2022-12-12 11:11 | Outpatient (BNVA) | payer OTHER, SELFPAY | PROVIDERS: PCP Nurse Practitioner Family; Visit Provider Urology | DX: C67.9 Malignant neoplasm of bladder, unspecified (principal) | CPT/HCPCS: 51720; 81003; J9030 ==

== ENCOUNTER → 2022-12-19 10:39 | Outpatient (BNVA) | payer OTHER, SELFPAY | PROVIDERS: PCP Nurse Practitioner Family; Visit Provider Urology | DX: C67.9 Malignant neoplasm of bladder, unspecified (principal) | CPT/HCPCS: 51720; 81003; J9030 ==

== ENCOUNTER 2023-01-28 16:00 | Emergency (ER) | payer OTHER, SELFPAY ==
[2023-01-28 16:05] VITALS: BP 200/88; PULSE 63; RESP 18; TEMP 36.3; O2SAT 99
--- NOTE | 2023-01-28 16:14 | W.ED.GENAD ---
Discharge Plan Disposition Patient Disposition: Home Discharge Details Clinical Impression: Enlarged aorta, Acute right flank pain, Hx of falling Primary Care Provider: June Andrade ED Provider: Robert Yeung Home Meds and New Rx's Prescriptions: New lidocaine [Lidoderm] 5 % adhesive patch,medicated 1 patch topical DAILY Qty: 15 0RF Rx Instructions: leave on most painful area for up to 12 hrs Continued melatonin 10 mg capsule 10 mg PO HS PRN cholecalciferol (vitamin D3) 50 mcg (2,000 unit) capsule 50 mcg PO DAILY levothyroxine 137 mcg capsule 137 mcg PO DAILY buspirone 7.5 mg tablet 7.5 mg PO BID meloxicam 15 mg tablet 15 mg PO DAILY nitroglycerin 0.4 MG tablet, sublingual 0.4 mg Sublingual ONCE Patient Comments: has never used atorvastatin [Lipitor] 20 MG tablet 40 mg PO DAILY atenolol 100 MG tablet 200 mg PO BID hydrochlorothiazide 50 MG tablet 50 mg PO DAILY aspirin,buffd-calcium carb-mag 325 MG tablet 325 mg PO DAILY omeprazole 20 mg capsule,delayed release(DR/EC) 20 mg PO DAILY Patient Comments: TAKE ONE CAPSULE BY MOUTH EVERY DAY ramipril 10 mg capsule 10 mg PO BID Patient Comments: TAKE ONE CAPSULE BY MOUTH EVERY DAY ezetimibe 10 mg tablet 10 mg PO DAILY Patient Comments: TAKE ONE TABLET BY MOUTH EVERY DAY Discharge Instructions Instructions: Flank Pain (ED) Additional Instructions: You are seen in the emergency department for your fall. Your CAT scan, as we discussed showed that you had a mildly enlarged aorta which is a blood vessel running through your stomach. A message has been sent to your primary care team requesting an outpatient ultrasound to ensure that this is not enlarging. If you develop sudden onset stomach pain or if you pass out please return to the emergency department. Your flank pain was most likely the result of your fall. If you develop any blood in your urine cannot eat or drink as result of nausea or vomiting or if you have any other concerns please return to the emergency department. For your pain please take medications as follows: 1. Take acetaminophen (Tylenol), 1,000 mg (two 500 mg tabs) every 6 hours A patch has been sent to your pharmacy which you can use as needed for flank pain. Discharge Data Discharge Date/Time-TO BE ENTERED AT DEPARTURE: 01/28/23 19:39 HPI General Date/Time Provider Initiated Documentation: 01/28/23 16:14. HPI Narrative: MDM This is an overall very well-appearing afebrile and not tachycardic 72-year-old female with history of bladder malignancy now with right flank pain concerning for advancement of her bladder cancer versus nephrolithiasis versus atypical diverticulitis. Patient has a history of remote appendectomy and so my suspicion for appendicitis is low. No right upper quadrant tenderness and remote cholecystectomy so doubt acute cholecystitis. No history of recent vomiting so doubt SBO. No rash to abdomen to suggest zoster. No pain out of proportion to suggest necrotizing soft tissue infection. No dysuria nor frequency so doubt UTI. No left upper quadrant tenderness to suggest splenic arterial aneurysm. Will complete CT urogram to assess for any nephrolithiasis and any recurrence of bladder malignancy. Patient is 5 weeks status postchemotherapy but has not febrile nor hypotensive and my suspicion for sepsis is extremely low so I did not empirically start IV antibiotics draw blood cultures nor check a lactate. We will treat pain with fentanyl. Patient is not hypotensive however does have a history of smoking 1 pack/day so AAA remains in the differential. 5 PM Urinalysis nitrite leukoesterase negative with no hematuria. CBC showing no anemia no thrombocytopenia no leukocytosis. 6 PM Comprehensive metabolic panel showing no RONNY. Very mild hyponatremia. Normal reassuring LFTs. 7:[address] scan showing extensive diverticulosis but no diverticulitis. Mildly dilated aorta but no rupture. I updated the patient on this incidental finding. I asked health refinery operator helper crude unit Sheyla to have the patient seen within the week by her primary care provider for follow-up for likely surveillance ultrasounds. Given only mild dilatation will defer vascular consultation at this point time. When I reassessed the patient she did recall that she had indeed fallen earlier this week from a truck landing on her right side. She had no midline thoracic nor lumbar spinal tenderness. I gave her a Lidoderm patch and advised acetaminophen. I advised that she return to the emergency department if she developed worsening pain nausea vomiting or any other concerns. We will proceed with empiric trial of expectant outpatient management. Chronic conditions affecting the care of the patient: Bladder malignancy History obtained from an outside historian: N/A [place] [facility] [place] [place] Medications: Acetaminophen & lidocaine Social determinants of health affecting disposition: N/A Management discussed with: Radiology Treatment/interventions considered: N/A Response to therapies provided: N/A HPI This is a 72-year-old female with a history of bladder malignancy 5 weeks status postchemotherapy arriving to the emergency department via private vehicle in the setting of right lower quadrant pain that began yesterday afternoon. Radiates up into her right flank. She has intermittently been nauseous but has not been vomiting or had any diarrhea. She denies taking any recent falls. She has no history of nephrolithiasis. She remotely had a hysterectomy and appendectomy and a cholecystectomy. She denies fevers chest pain and shortness of breath. She took acetaminophen at 1 PM this afternoon. She denies routine tobacco, ethanol, and illicits. She describes her pain as a constant ache. She has no prior history of similar symptoms. Exam General: Well-appearing in no acute distress speaking in complete sentences. Head: Normocephalic, atraumatic. Eye: Extraocular eye movements intact. No conjunctival injection. No scleral icterus. Ear, nose, mouth, throat: Grossly normal inspection. Normal voice, handling secretions normally. Neck: Trachea midline. Cardiovascular: Well-perfused distal extremities. Regular rate and rhythm Respiratory: Nonlabored respiration.Clear lungs bilaterally. Back: No midline thoracic or lumbar spinal tenderness. Gastrointestinal: Nondistended abdomen. Right lower quadrant tenderness. No rebound. No guarding. Right CVA tenderness. Musculoskeletal: No edema. Moving all 4 extremities spontaneously. Skin: Normal for age and race, grossly normal temperature and turgor. No acute rash. Neurologic: Alert and appropriate, no apparent acute deficits. Psychiatric: Mood and manner are appropriate. Grooming and personal hygiene are appropriate. Related Data Home Medications Medication Instructions Recorded Confirmed aspirin,buffered (calcium 325 mg PO DAILY 08/09/12 01/28/23 carbonate-magnesium) 325 mg tablet atenolol 100 mg tablet 200 mg PO BID 08/09/12 01/28/23 atorvastatin 20 mg tablet (Lipitor) 40 mg PO DAILY 08/09/12 01/28/23 hydrochlorothiazide 50 mg tablet 50 mg PO DAILY 08/09/12 01/28/23 nitroglycerin 0.4 mg sublingual 0.4 mg sublingual ONCE 03/28/13 01/28/23 tablet ezetimibe 10 mg tablet 10 mg PO DAILY 01/08/22 01/28/23 omeprazole 20 mg capsule,delayed 20 mg PO DAILY 01/08/22 01/28/23 release ramipril 10 mg capsule 10 mg PO BID 01/08/22 01/28/23 buspirone 7.5 mg tablet 7.5 mg PO BID 09/29/22 01/28/23 cholecalciferol (vitamin D3) 50 50 mcg PO DAILY 09/29/22 01/28/23 mcg (2,000 unit) capsule levothyroxine 137 mcg capsule 137 mcg PO DAILY 09/29/22 01/28/23 melatonin 10 mg capsule 10 mg PO HS PRN 09/29/22 01/28/23 meloxicam 15 mg tablet 15 mg PO DAILY 09/29/22 01/28/23 lidocaine 5 % topical patch 1 patch topical DAILY #15 ea 01/28/23 (Lidoderm) Previous Rx's Medication Instructions Recorded lidocaine 5 % topical patch 1 patch topical DAILY #15 ea 01/28/23 (Lidoderm) Allergies Allergy/AdvReac Type Severity Reaction Status Date / Time furosemide [From Lasix] Allergy Intermediate FACE SWELLS Verified 01/28/23 17:18 azithromycin [From Zithromax] AdvReac Intermediate VOMITS Verified 01/28/23 17:18 ketorolac tromethamine AdvReac Intermediate VOMITS Verified 01/28/23 17:18 [From Toradol] hydrocodone bitartrate AdvReac Mild GI UPSET Verified 01/28/23 17:18 [From Vicodin] General Stated Complaint: Abd Prob GERMAIN: 3 PFSH All Active Problems (Updated 01/28/23 @ 19:27 by Robert Yeung MD) Hx of falling (Acute) Acute right flank pain (Acute) Enlarged aorta (Acute) Bladder cancer (Acute) Carcinoma in situ of bladder (Acute) COVID-19 (Acute) Medical History Bladder mass HTN (hypertension) Myocardial infarction Per pt. states it was 20+ years ago Surgical History H/O thyroidectomy History of cholecystectomy History of hysterectomy Social History Smoking/Tobacco Use Status: Current-Occasional Tobacco Type: cigarettes Smoking risk assessment performed?: Yes Alcohol Intake: current Alcohol Intake frequency: a few times a week Drug use: Never Substance use type: does not use Housing: house Do you feel safe at home: Yes Do you feel safe in your relationship?: Yes Course Vital Signs Vital signs: Vital Signs Temperature 36.3 C L 01/28/23 16:05 Pulse 63 01/28/23 16:05 Respiratory Rate 18 01/28/23 16:05 Blood Pressure 200/88 H 01/28/23 16:05 Pulse Oximetry 99 01/28/23 16:05 Temperature 36.3 C L 01/28/23 16:05 Pulse 63 01/28/23 16:05 Respiratory Rate 18 01/28/23 16:05 Blood Pressure 200/88 H 01/28/23 16:05 Blood Pressure Position Sitting 01/28/23 16:05 Pulse Oximetry 99 01/28/23 16:05 Oxygen Delivery Method Room Air 01/28/23 16:05 Oxygen Flow Rate 0 01/28/23 16:05
--- NOTE | 2023-01-28 16:39 | DI.CT_ITS ---
Exam(s) CT ABDOMEN PELVIS WO/W EXAM: CT ABDOMEN PELVIS WO/W CLINICAL HISTORY: Right flank pain history of bladder malignancy. TECHNIQUE: Imaging Protocol: Axial computed tomography images with coronal and sagittal reformatted images were created and reviewed CONTRAST MATERIAL: Intravenous: Omnipaque-350 100cc Oral: None COMPARISON: CT CT ABDOMEN PELVIS W from 10/27/2022 FINDINGS: VISUALIZED LUNG BASES: No nodules nor pleural effusions evident. ABDOMEN: There is no ascites. LIVER: There are no focal hepatic lesions evident. No dilated intrahepatic ducts. GALLBLADDER/BILIARY: Gallbladder is again noted be surgically absent. CBD is not dilated. PANCREAS: No evidence of pancreatic mass nor dilatation of the pancreatic duct. SPLEEN: Spleen is not enlarged. No obvious intrasplenic lesions. Splenic and portal veins are paten t. ADRENALS: There are no significant adrenal masses. KIDNEYS:No cysts evident. No solid renal masses. No calculi nor hydronephrosis.. ABDOMINAL AORTA: Peripherally calcified. Mild fusiform enlargement. Calcified common iliac arteries without aneurysmal dilatation. LYMPH NODES:There is no retroperitoneal nor paraaortic adenopathy. ABDOMINAL WALL: Fat only containing left inguinal hernia is again noted. GI: There is no evidence of bowel obstruction, free air, nor abscess. PELVIS: GI: No evidence of appendicitis.There is diverticulosis throughout the entire colon but no evidence o f obvious acute diverticulitis. LYMPH NODES: There is no intrapelvic nor inguinal adenopathy. REPRODUCTIVE: Uterus is surgically absent. No abnormal adnexal masses. URINARY BLADDER: Unremarkable in appearance on today's study, significant improvement from previous b ladder wall thickening. OSSEOUS: No fractures and no significant osseous lesions. Chronic degenerative disc disease L1-2, L2-3 and L3-4 levels. Mild degenerative anterolisthesis L4 u cleo L5. IMPRESSION: 1. There is extensive diverticulosis throughout the entire length of the colon but no evidence of obv ious acute diverticulitis. 2. The urinary bladder appears unremarkable on today's study the previously present uniform abnormal thickening of the wall from probable prior cystitis appears to have resolved. 3. No significant findings in the kidneys. No hydronephrosis nor hydroureter. 4. Atherosclerotic and calcified abdominal aorta. Mild fusiform dilatation but maximum diameter is o nly 2.3 cm. Common iliac arteries are also calcified but not enlarged. Previous cholecystectomy and hysterectomy. Appendix is not seen and is also presumed to be surgicall y absent. Discussed with ER physician. RADIATION DOSE DELIVERED: Total DLP DATA REPOSITORY: All CT scans at this facility are submitted to the National Radiology Data Registry (NRDR) Dose Index Registry (DIR) with the [employer] (ACR). RADIATION OPTIMIZATION: All CT scans at this facility use at least one of these dose optimization te chniques: automated exposure control; mA and/or kV adjustment per patient size (includes targeted exa ms where dose is matched to clinical indication); or iterative reconstruction.
[2023-01-28 16:59] LABS: Bilirubin Negative (Negative); Blood Negative (Negative); Clarity Clear (Clear); Glucose Negative (Negative); Ketones Negative (Negative); Leukocyte Esterase Negative (Negative); Nitrite Negative (Negative); Urobilinogen 0.2 mg/dL (Up to 0.2); pH 6.5 (5-8)
[2023-01-28 17:01] LABS: Abs Immature Grans 0.04 10^3/uL (0.0-0.06); Absolute Basophil Count 0.04 10^3/uL (0.0-0.2); Absolute Eosinophil Count 0.14 10^3/uL (0.0-0.7); Absolute Monocyte Count 0.76 10^3/uL (0.1-0.8); Absolute Neutrophil Count 6.38 10^3/uL (1.2-6.7); Basophils % 0.4; Eosinophils % 1.4; HCT 43.6 % (36.0-46.0); HGB 14.9 g/dL (11.2-15.7); Immature Grans % 0.4; Lymphocytes % 26.8; MCHC 34.2 % (32.0-36.0); MCV 85 fL (80-95); MPV 10.2 fL (8.0-11.0); Monocytes % 7.6; Neutrophils % 63.4; Platelet Count 211 10^3/uL (130-400); RBC 5.13 10^6/uL (3.93-5.22); RDW 14.7 % (11.7-14.6); RDW-SD 46.4 fL; WBC 10.06 10^3/uL (4.4-10.8)
[2023-01-28 17:16] LABS: ALT 21 U/L (14-59); AST 16 U/L (15-37); Alkaline Phosphatase 81 U/L (46-116); BUN 13 mg/dL (7-18); Bilirubin, Total 0.8 mg/dL (0.2-1.0); CREATININE 0.9 mg/dL (0.55-1.02); Calcium 9.3 mg/dL (8.5-10.1); Chloride 95 mmol/L (98-107); Estimated GFR 68.35 (mL/min/1.73m2); Glucose 93 mg/dL (74-106); Potassium 3.8 mmol/L (3.5-5.1); Sodium 133 mmol/L (136-145); Total Protein 7.8 g/dL (6.4-8.2)
[2023-01-28 17:19] VITALS: BP 200/88; PULSE 63; RESP 18; TEMP 36.3; O2SAT 99
[2023-01-28] MEDS: fentaNYL 100 MCG/2 ML VIAL 50 MCG IVP (17:30)
[2023-01-28] MEDS: Normal Saline - Diluent 50 ML VIAL IJ (18:06)
[2023-01-28] MEDS: Omnipaque 350 MG/ML 100 ML BTL IJ (18:07)
[2023-01-28] MEDS: Normal Saline Flush 10 ML SYR IVP (18:18)
[2023-01-28 18:47] VITALS: BP 154/89; PULSE 67; RESP 18; O2SAT 97
[2023-01-28] MEDS: Acetaminophen 500 MG TAB 1000 MG PO (19:34)
[2023-01-28] MEDS: Lidocaine 5% Patch 1 PATCH TP (19:35)
--- NOTE | 2023-01-28 21:09 | NUR.NOTE ---
Referral faxed to [facility] June nAdrade to f/u within a week for mildly enlarged aorta.Nursing Note:
== END 2023-01-28 19:39 | disposition home or self-care (01) ==
PROVIDERS: Emergency Provider Emergency Medicine; PCP Nurse Practitioner Family
DX: R10.31 Right lower quadrant pain (principal); Z91.81 History of falling
CPT/HCPCS: 80053; 82962; 96374; 99284; 74178; 81003; 85025; J3010; J3490

== ENCOUNTER 2023-03-10 19:24 | Outpatient (REF) | payer OTHER, SELFPAY ==
[2023-03-10 15:44] LABS: Anion Gap 8.4 mmol/L (3-11); BUN 15 mg/dL (7-18); CO2 28.6 mmol/L (21.0-32.0); CREATININE 0.9 mg/dL (0.55-1.02); Calcium 9.4 mg/dL (8.5-10.1); Chloride 93 mmol/L (98-107); Estimated GFR 68.35 (mL/min/1.73m2); Glucose 107 mg/dL (74-106); Potassium 3.6 mmol/L (3.5-5.1); Sodium 130 mmol/L (136-145)
== END 2023-03-10 19:25 | disposition home or self-care (01) ==
LOC: NCHCN 19:24
PROVIDERS: PCP Nurse Practitioner Family; Visit Provider Nurse Practitioner Family
DX: I10 Essential (primary) hypertension (principal)
CPT/HCPCS: 80048

== ENCOUNTER → 2023-03-11 03:13 | Outpatient (CLI) | payer OTHER, SELFPAY ==
--- NOTE | 2023-03-11 | DI.US_ITS ---
Exam(s) US AAA SCREENING EXAM: US AAA SCREENING CLINICAL HISTORY: SCREENING FOR AAA,DISORDER OF ARTERIES,I77.9,ECTASIA ON CT 01/28/23 COMPARISON: CT CT ABDOMEN PELVIS WO/W from 01/28/2023 FINDINGS: Abdominal Aorta: Proximal: 2.5 x 2.1 cm Mid: 1.8 x 1.9 cm Distal: 1.7 x 1.9 cm Iliac's: Right: 0.8 x 1.1 cm Left: 1.1 x 1.3 cm Atherosclerosis is present. IMPRESSION: No evidence of abdominal aortic aneurysm. DATA REPOSITORY:
== END ==
PROVIDERS: PCP Nurse Practitioner Family; Visit Provider Nurse Practitioner Family
DX: Z13.6 Encounter for screening for cardiovascular disorders (principal)
CPT/HCPCS: 76706

== ENCOUNTER → 2023-05-01 08:39 | Outpatient (BNVA) | payer OTHER, SELFPAY | PROVIDERS: PCP Nurse Practitioner Family; Referring Provider Nurse Practitioner Family; Visit Provider Urology | DX: C67.9 Malignant neoplasm of bladder, unspecified (principal); D09.0 Carcinoma in situ of bladder | CPT/HCPCS: 52000; 81003 ==

== ENCOUNTER 2023-05-01 09:21 | Outpatient (REF) | payer OTHER, SELFPAY ==
--- NOTE | 2023-05-01 09:30 | PAPNONF_PTH ---
PATIENT: Bonnie Marks LOC: [facility] U#:[id number] AGE/SX: 73/F ROOM: RE05/01/[address]: Amanuel Gallegos MD : 1950 BED: DIS: 05/01/2023 SPEC #: [id number] RECD: 05/01/23 12:54 STATUS: RYAN RECamille #: [id number] KASSANDRA: 05/01/23 09:[address]: Amanuel Gallegos DEPT: [facility] Cytology RECD BY: Mary Levy ENTERED: 05/01/23 12:55 SP TYPE: AMBER TOBAR DR: June Andrade Tissues: 1 - BODY FLUID CYTO(SPUTUM/URINE)[facility] Procedures: BODY FLUID CYTO(URINE/SPUTUM) Comments: [id number] (TV = 40 ml, 30 ml CYTOLYT ADDED) (REFRIGERATED)
== END 2023-05-01 09:22 | disposition home or self-care (01) ==
LOC: LBN 09:21
PROVIDERS: PCP Nurse Practitioner Family; Visit Provider Urology
DX: R82.998 Other abnormal findings in urine (principal); Z85.51 Personal history of malignant neoplasm of bladder
CPT/HCPCS: 88104

== ENCOUNTER 2023-05-28 08:10 | Day surgery (SDC) | payer OTHER, SELFPAY ==
[2023-05-28] VITALS (8 sets, daily range): BP systolic 100–175; BP diastolic 67–94; PULSE 64–69; RESP 16–20; TEMP 36–36.5; O2SAT 97–100; BMI 31.4
--- NOTE | 2023-05-28 08:47 | W.ANESPRE ---
General Info Date of Service Date Performed: 05/28/23 Height: 5 ft 2 in Weight: 77.9 kg Body Mass Index (BMI): 31.4 Surgical Procedure: Operation Date: 05/28/23 09:40 Proposed Procedure Side Surgeon p Cystoscopy/ Bladder Biopsy w/Fulguration Amanuel Gallegos MD Actual Procedure Side Surgeon p Cystoscopy/ Bladder Biopsy w/Fulguration Not Applicable Amanuel Gallegos MD Meds Allergies and Home Medications Allergies Allergy/AdvReac Type Severity Reaction Status Date / Time furosemide [From Lasix] Allergy Intermediate FACE SWELLS Verified 05/28/23 08:30 azithromycin [From Zithromax] AdvReac Intermediate VOMITS Verified 05/28/23 08:30 ketorolac tromethamine AdvReac Intermediate VOMITS Verified 05/28/23 08:30 [From Toradol] hydrocodone bitartrate AdvReac Mild GI UPSET Verified 05/28/23 08:30 [From Vicodin] Home Medication Medication Instructions Recorded aspirin,buffered (calcium 325 mg PO DAILY 08/09/12 carbonate-magnesium) 325 mg tablet atenolol 100 mg tablet 200 mg PO BID 08/09/12 atorvastatin 20 mg tablet (Lipitor) 40 mg PO DAILY 08/09/12 hydrochlorothiazide 50 mg tablet 50 mg PO DAILY 08/09/12 nitroglycerin 0.4 mg sublingual 0.4 mg sublingual ONCE 03/28/13 tablet ezetimibe 10 mg tablet 10 mg PO DAILY 01/08/22 omeprazole 20 mg capsule,delayed 20 mg PO DAILY 01/08/22 release ramipril 10 mg capsule 10 mg PO BID 01/08/22 buspirone 7.5 mg tablet 7.5 mg PO BID 09/29/22 cholecalciferol (vitamin D3) 50 50 mcg PO DAILY 09/29/22 mcg (2,000 unit) capsule levothyroxine 137 mcg capsule 137 mcg PO DAILY 09/29/22 melatonin 10 mg capsule 10 mg PO HS PRN 09/29/22 meloxicam 15 mg tablet 15 mg PO DAILY 09/29/22 lidocaine 5 % topical patch 1 patch topical DAILY #15 ea 01/28/23 (Lidoderm) Current Visit Medications: Current Medications Generic Name Dose Route Start Last Admin Trade Name Freq PRN Reason Stop Dose Admin Ringer's Solution 1,000 mls @ 80 mls/hr 05/28/23 06:00 IV 05/28/23 23:59 INFUSION LILLIAN Cefazolin Sodium/Dextrose 2 gm in 50 mls @ 100 mls/hr 05/28/23 06:00 Ancef Duplex IVPB 05/28/23 23:59 PREOP LILLIAN IV Miscellaneous Supplies 1 each 05/28/23 06:00 Iv Access IV 05/28/23 23:59 DIRECTED LILLIAN Sodium Chloride 0 ml 05/28/23 06:00 Normal Saline Flush 10 Ml Syr IV 05/28/23 23:59 PRN PRN Sodium Chloride 0 ml 05/28/23 06:00 Normal Saline 10 Ml Vial IJ 05/28/23 23:59 DIRECTED PRN Sterile Water 0 ml 05/28/23 06:00 Water,Injection,Sterile 10 Ml Vial IJ 05/28/23 23:59 DIRECTED PRN PFSH Active Problems Active Problems: Problem Status Onset Code Bladder cancer C67.9 Carcinoma in situ of bladder D09.0 COVID-19 U07.1 Medical History Medical History Acid reflux High cholesterol Hx of anxiety disorder Bladder mass Myocardial infarction Per pt. states it was 20+ years ago HTN (hypertension) Medical History Comments:: States her daughter has an issue with anesthesia (pt. states she has MS), they have a hard time waking her up Surgical History Surgical History History of cholecystectomy H/O thyroidectomy History of hysterectomy Tobacco Smoking/Tobacco Use Status: Current every day Tobacco Type: cigarettes Alcohol Alcohol Intake: current Alcohol intake frequency: a few times a week Alcohol type: beer Substance Use Substance use: Never Substance use type: does not use Vital Signs and Lab Results Vital Signs Most Recent Vital Signs in EMR: Most Recent Vital Signs Temp Pulse Resp BP Pulse Ox 36 C L 64 16 175/87 H 97 05/28/23 08:20 05/28/23 08:20 05/28/23 08:20 05/28/23 08:20 05/28/23 08:20 Lab Results Blood Type / Crossmatch: No Data to Display Complete Blood Count: No Data to Display Complete Metabolic Panel: No Data to Display Liver Function Panel: No Data to Display Coagulation Panel: No Data to Display Cardiac Panel: No Data to Display Arterial Blood Gas: No Data to Display Venous Blood Gas: No Data to Display Pancreas Panel: No Data to Display Thyroid Panel: No Data to Display Infectious Disease: No Data to Display Blood Cultures: No Data to Display Toxicology Panel: No Data to Display Anesthesia Assessment and Plan Anesthesia History Personal History: No History of Anesthesia Complications Family History: Other Exercise Tolerance Exercise Tolerance: Metabolic Equivalents>4 Pertinent Negatives Pertinent Negatives: No Symptoms of GERD and No Major Pulmonary Symptoms or Complaints Cardiac & Pulmonary Exam Cardiac Exam: Normal S1/S2 Heart Sounds Pulmonary Exam: Clear Bilateral Breath Sounds Implantable Cardiac Device Does patient have a Pacemaker or an ICD?: No Airway Exam Known Difficult Airway: No Mallampati Class: 2 Mouth Opening: Normal (> 3cm) Thyromental Distance: Greater than 3 cm Neck Range of Motion: Full ROM Neck Circumference: Normal Teeth Condition: Generalized Poor Dentition ASA Classification ASA Score: ASA 3 Emergency Case?: No NPO Status NPO Status: NPO Clears >2 hours, Solids >8 hours Anesthesia Plan Resuscitation Status: Full Code Anesthesia Technique: General Anesthesia Airway Planned: Natural Airway Monitors Used: Standard Monitors
[2023-05-28] MEDS: Lactated Ringers 1,000 ML 80 ML IV (08:58)
--- NOTE | 2023-05-28 09:20 | HPE_ITS ---
Date of service: 05/28/23 Time of Service: 09:20 Assessment and Plan Assessment and plan (1) Bladder cancer: Status: Acute (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 Assessment and plan: For cystoscopy and bladder biopsy/resection/fulguration. Our followup will depend on the surgical pathology. History of Present Illness History of Present Illness Chief Complaint: Bladder cancer Narrative: This is a 73-year-old woman who has a history of bladder cancer. Her initial tumor was high-grade and involved the lamina propria. There was also carcinoma in situ associated with the initial specimen. She was treated with a tr ansurethral resection followed by intravesical BCG (both induction series and maintenance doses). On follow-up cystoscopy, we found an erythematous patch of mucosa on the right posterior bladder wall. Her urine cytology shows atypical cells. She presents now for cystoscopy, biopsy and fulguration of the area. Review of Systems Narrative: No fevers or chills No vision change or dysphasia Hypothyroidism. No diabetes No shortness of breath, cough or hemoptysis No chest pain or palpitations GERD. No hepatitis, ulcers, jaundice, diarrhea or constipation No seizures, strokes or peripheral neuropathy No bleeding disorders or anemia No gout PFSH All Active Problems Bladder cancer (Acute) Carcinoma in situ of bladder (Acute) COVID-19 (Acute) Medical History Acid reflux High cholesterol Hx of anxiety disorder Bladder mass Myocardial infarction Per pt. states it was 20+ years ago HTN (hypertension) Surgical History History of cholecystectomy H/O thyroidectomy History of hysterectomy Social History Smoking/Tobacco Use Status: Current every day Tobacco Type: cigarettes Smoking risk assessment performed?: Yes Alcohol Intake: current Alcohol Intake frequency: a few times a week Alcohol type: beer Drug use: Never Substance use type: does not use Housing: house Do you feel safe at home: Yes Do you feel safe in your relationship?: Yes Meds Allergies and Home Medications Allergies Allergy/AdvReac Type Severity Reaction Status Date / Time furosemide [From Lasix] Allergy Intermediate FACE SWELLS Verified 05/28/23 08:30 azithromycin [From Zithromax] AdvReac Intermediate VOMITS Verified 05/28/23 08:30 ketorolac tromethamine AdvReac Intermediate VOMITS Verified 05/28/23 08:30 [From Toradol] hydrocodone bitartrate AdvReac Mild GI UPSET Verified 05/28/23 08:30 [From Vicodin] Home Medications Medication Instructions Recorded Confirmed Type aspirin,buffered (calcium 325 mg PO DAILY 08/09/12 05/28/23 History carbonate-magnesium) 325 mg tablet atenolol 100 mg tablet 200 mg PO BID 08/09/12 05/28/23 History atorvastatin 20 mg tablet (Lipitor) 40 mg PO DAILY 08/09/12 05/28/23 History hydrochlorothiazide 50 mg tablet 50 mg PO DAILY 08/09/12 05/28/23 History nitroglycerin 0.4 mg sublingual 0.4 mg sublingual ONCE 03/28/13 05/28/23 History tablet ezetimibe 10 mg tablet 10 mg PO DAILY 01/08/22 05/28/23 History omeprazole 20 mg capsule,delayed 20 mg PO DAILY 01/08/22 05/28/23 History release ramipril 10 mg capsule 10 mg PO BID 01/08/22 05/28/23 History buspirone 7.5 mg tablet 7.5 mg PO BID 09/29/22 05/28/23 History cholecalciferol (vitamin D3) 50 50 mcg PO DAILY 09/29/22 05/28/23 History mcg (2,000 unit) capsule levothyroxine 137 mcg capsule 137 mcg PO DAILY 09/29/22 05/28/23 History melatonin 10 mg capsule 10 mg PO HS PRN 09/29/22 05/28/23 History meloxicam 15 mg tablet 15 mg PO DAILY 09/29/22 05/28/23 History lidocaine 5 % topical patch 1 patch topical DAILY #15 ea 01/28/23 05/28/23 Rx (Lidoderm) Exam Const General: cooperative and not in acute distress Neck Neck: supple Resp Effort & Inspection: normal respiratory effort Auscultation: clear to auscultation bilaterally Cardio Rate: regular rate Rhythm: regular rhythm GI Palpation: soft and no masses Neuro General: patient alert, patient awake and patient oriented x3 Results Last Vital Signs Temp 36 C L 05/28/23 08:20 Pulse 64 05/28/23 08:20 Resp 16 05/28/23 08:20 BP 175/87 H 05/28/23 08:20 Pulse Ox 97 05/28/23 08:20 Time Spent Time spent with Patient: <40 minutes Time was spent: other
[2023-05-28] MEDS: ceFAZolin 2 GM/50 ML BAG IVPB (09:37)
[2023-05-28] MEDS: Lidocaine 2% Jelly 6 ML SYR (09:53)
--- NOTE | 2023-05-28 10:00 | BLADDER_PTH ---
PATIENT: Bonnie Marks LOC: [facility] U#:[id number] AGE/SX: 73/F ROOM: RE05/28/[address]: Amanuel Gallegos MD : 1950 BED: DIS: 05/28/2023 SPEC #: [id number] RECD: 05/28/23 12:52 STATUS: RYAN REQ #: [id number] KASSANDRA: 05/28/23 10:[address]: Amanuel Gallegos DEPT: Surgical Specimen RECD BY: Mary Levy ENTERED: 05/28/23 12:53 SP TYPE: Bladder OTHR DR: June Andrade Tissues: 1 - BLADDER BIOPSY Procedures: GROSS AND MICRO LEVEL 4 Comments: [id number]
--- NOTE | 2023-05-28 10:10 | W.PM.DSUDISC ---
Date of service: 05/28/23 Time of Service: 10:10 Discharge Plan Disposition Patient Disposition: Home Discharge Details Reason For Visit: bladder biopsy Attending Provider: Amanuel Gallegos Primary Care Provider: June Andrade Home Meds and New Rx's Prescriptions: No Action melatonin 10 mg capsule 10 mg PO HS PRN cholecalciferol (vitamin D3) 50 mcg (2,000 unit) capsule 50 mcg PO DAILY levothyroxine 137 mcg capsule 137 mcg PO DAILY buspirone 7.5 mg tablet 7.5 mg PO BID meloxicam 15 mg tablet 15 mg PO DAILY nitroglycerin 0.4 MG tablet, sublingual 0.4 mg Sublingual ONCE Patient Comments: has never used atorvastatin [Lipitor] 20 MG tablet 40 mg PO DAILY atenolol 100 MG tablet 200 mg PO BID hydrochlorothiazide 50 MG tablet 50 mg PO DAILY aspirin,buffd-calcium carb-mag 325 MG tablet 325 mg PO DAILY omeprazole 20 mg capsule,delayed release(DR/EC) 20 mg PO DAILY Patient Comments: TAKE ONE CAPSULE BY MOUTH EVERY DAY ramipril 10 mg capsule 10 mg PO BID Patient Comments: TAKE ONE CAPSULE BY MOUTH EVERY DAY ezetimibe 10 mg tablet 10 mg PO DAILY Patient Comments: TAKE ONE TABLET BY MOUTH EVERY DAY lidocaine [Lidoderm] 5 % adhesive patch,medicated 1 patch topical DAILY Qty: 15 0RF Rx Instructions: leave on most painful area for up to 12 hrs Discharge Instructions Additional Instructions: followup 1 to 2 weeks for surgical pathology results Discharge Orders Discharge Orders: Discharge Order (Routine); Ordered 05/28/23 Ordered By: Amanuel Gallegos DS: Diagnosis Discharge Diagnosis (1) Bladder cancer: Status: Acute (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
--- NOTE | 2023-05-28 10:12 | ROE_ITS ---
Date of service: 05/28/23 Time of Service: 10:13 Operative Note Operative Note DATE OF PROCEDURE: 05/28/23 PRE-OP DIAGNOSIS: Bladder cancer POST-OP DIAGNOSIS: same Carcinoma in situ of the bladder PROCEDURE: cystoscopy with bladder biopsy and fulguration SURGEON: Amanuel Gallegos ANESTHESIA TYPE: Local By Surgeon and General:No Airway Refer to Anesthesia Record ESTIMATED BLOOD LOSS: 5 PATHOLOGY: other (bladder biopsies) COMPLICATIONS: None Patient was transported to: same day Patient's condition: stable Implants: none Indications: This is a 73-year-old woman who has a history of bladder cancer. She was initially treated with transurethral resection. Her tumor was identified as being high-grade and involving the lamina propria. There was also carcinoma in situ. She has completed her induction series of intravesical BCG. On her first surveillance cystoscopy, we did not see any papillary or nodular bladder tumors, but there was a flat erythematous area of mucosa on the right posterior bladder wall. We were concerned about the possibility of carcinoma in situ. She presents now for biopsy of the erythematous mucosa Findings: Erythematous, flat mucosa on the posterior bladder wall (right greater than left) Procedure Description: The patient was given preoperative antibiotics and brought to the operating room on 05/28/2023. After successful induction of general anesthesia without intubation, she was placed in the dorsal lithotomy position. Her genitalia was prepped and draped. 2% Xylocaine jelly was instilled into the urethra to act as a local anesthetic. A 22 [place]ian rigid cystoscope was then passed through the urethra into the bladder. The bladder was inspected using both a 30 and a 70 degree lens. Along the posterior bladder wall, the mucosa transition from a pink appearance to a more erythematous appearance. There was no sign of a papillary or nodular lesion. The erythema seemed greater on the right side of the bladder compared to the left. Both ureteral orifices appeared normal with no blood seen coming from either side. The remainder of the bladder showed no papillary or nodular lesions. We utilized cold cup biopsy forcep and took biopsies of the bladder mucosa through the cystoscope. Each of the biopsies was sent to pathology for permanent section. The cystoscope was then withdrawn and a 24 [place]ian resectoscope sheath was passed through the urethra into the bladder. Using a resectoscope loop and an North resectoscope, we cauterized all the erythematous mucosa in the biopsy sites. We used bipolar cautery. The bladder was then emptied and the resectoscope was removed. The patient tolerated the procedure well with no complications.
[2023-05-28] MEDS: Phenazopyridine 200 MG TAB PO (10:24)
[2023-05-28] MEDS: traMADol 50 MG TAB PO (10:49)
[2023-05-28] MEDS: fentaNYL 100 MCG/2 ML VIAL IVP ×3 (10:56→11:27)
--- NOTE | 2023-05-28 11:25 | W.ANESPOSTOP ---
Postoperative Evaluation Date, Time and Location Date Performed: 05/28/23 Time Performed: 11:25 Patient Location: Day Surgery Unit Vital Signs Most Recent Imported Vital Signs: Most Recent Vital Signs Temp Pulse Resp BP Pulse Ox 36.3 C L 66 16 167/67 H 97 05/28/23 11:13 05/28/23 11:13 05/28/23 11:13 05/28/23 11:13 05/28/23 11:13 Pain Score Most Recent Pain Score: Most Recent Pain Score Pain Level 3 05/28/23 11:13 Assessment Mental Status: Awake (Alert & Oriented to Patient Baseline) Airway and Respiratory Function: Patent airway with normal (patient baseline) respiratory exam Cardiovascular Function: Hemodynamically Stable Hydration Status: Adequately Hydrated Nausea & Vomiting: No Nausea or Vomiting Pain: Pain is tolerable per patient Peripheral Nerve Block: Patient did not receive a nerve block
[2023-05-28] MEDS: Acetaminophen 500 MG TAB 1000 MG PO (11:50)
== END 2023-05-28 12:50 | disposition home or self-care (01) ==
PROVIDERS: PCP Nurse Practitioner Family; Visit Provider Urology
PROC: 0TBB8ZX Excision of Bladder, Via Natural or Artificial Opening Endoscopic, Diagnostic (ICD-10-PCS; CPT 52204; principal; 2023-05-28 09:30)
DX: D09.0 Carcinoma in situ of bladder (principal); I25.2 Old myocardial infarction; E89.0 Postprocedural hypothyroidism; D09.19 Carcinoma in situ of other urinary organs
CPT/HCPCS: 52204; 88305; J0690; J1100; J2001; J2405; J2704; J3010

== ENCOUNTER → 2023-06-08 14:44 | Outpatient (BNVA) | payer OTHER, SELFPAY | PROVIDERS: PCP Nurse Practitioner Family; Referring Provider Nurse Practitioner Family; Visit Provider Urology | DX: D09.0 Carcinoma in situ of bladder (principal) | CPT/HCPCS: 99214 ==

== ENCOUNTER → 2023-07-14 08:40 | Outpatient (BNVA) | payer OTHER, SELFPAY | PROVIDERS: PCP Nurse Practitioner Family; Referring Provider Nurse Practitioner Family; Visit Provider Nurse Practitioner Gerontology | DX: C67.9 Malignant neoplasm of bladder, unspecified (principal); D09.0 Carcinoma in situ of bladder | CPT/HCPCS: 51720; 81003; J9201 ==

== ENCOUNTER → 2023-07-21 08:45 | Outpatient (BNVA) | payer OTHER, SELFPAY | PROVIDERS: PCP Nurse Practitioner Family; Visit Provider Nurse Practitioner Gerontology | DX: C67.9 Malignant neoplasm of bladder, unspecified (principal); D09.0 Carcinoma in situ of bladder | CPT/HCPCS: 51720; 81003; J9030 ==

== ENCOUNTER → 2023-07-28 08:53 | Outpatient (BNVA) | payer OTHER, SELFPAY | PROVIDERS: PCP Nurse Practitioner Family; Visit Provider Nurse Practitioner Gerontology | DX: C67.9 Malignant neoplasm of bladder, unspecified (principal); D09.0 Carcinoma in situ of bladder | CPT/HCPCS: 51720; 81003; J9201 ==

== ENCOUNTER → 2023-08-04 08:34 | Outpatient (BNVA) | payer OTHER, SELFPAY | PROVIDERS: PCP Nurse Practitioner Family; Visit Provider Nurse Practitioner Gerontology | DX: C67.9 Malignant neoplasm of bladder, unspecified (principal); D09.0 Carcinoma in situ of bladder | CPT/HCPCS: 51720; 81003; J9201 ==

== ENCOUNTER → 2023-08-11 08:38 | Outpatient (BNVA) | payer OTHER, SELFPAY | PROVIDERS: PCP Nurse Practitioner Family; Visit Provider Nurse Practitioner Gerontology | DX: C67.9 Malignant neoplasm of bladder, unspecified (principal); D09.0 Carcinoma in situ of bladder | CPT/HCPCS: 51720; 81003; J9201 ==

== ENCOUNTER → 2023-08-18 09:10 | Outpatient (BNVA) | payer OTHER, SELFPAY | PROVIDERS: PCP Nurse Practitioner Family; Visit Provider Urology | DX: D09.0 Carcinoma in situ of bladder (principal); C67.9 Malignant neoplasm of bladder, unspecified | CPT/HCPCS: 51720; 81003; J9201 ==

== ENCOUNTER → 2023-10-06 08:44 | Outpatient (BNVA) | payer OTHER, SELFPAY | PROVIDERS: PCP Physician Assistant Medical; Referring Provider Nurse Practitioner Family; Visit Provider Urology | DX: C67.9 Malignant neoplasm of bladder, unspecified (principal); D09.0 Carcinoma in situ of bladder | CPT/HCPCS: 52000; 81003 ==

== ENCOUNTER 2023-10-13 16:09 | Outpatient (REF) | payer OTHER, SELFPAY ==
[2023-10-13 16:05] LABS: ALT 30 U/L (14-59); AST 19 U/L (15-37); Albumin 3.7 g/dL (3.4-5.0); Alkaline Phosphatase 83 U/L (46-116); Anion Gap 8.7 mmol/L (3-11); BUN 12 mg/dL (7-18); CO2 31.3 mmol/L (21.0-32.0); CREATININE 0.9 mg/dL (0.55-1.02); Calcium 9.4 mg/dL (8.5-10.1); Calculated LDL 63 mg/dL (<100); Chloride 96 mmol/L (98-107); Cholesterol 123 mg/dL (<200); Estimated GFR 67.92 (mL/min/1.73m2); Glucose 107 mg/dL (74-106); HDL Cholesterol 47 mg/dL (40-60); Potassium 3.9 mmol/L (3.5-5.1); Sodium 136 mmol/L (136-145); TSH (W/Ref FT4) 1.43 uIU/mL (0.36-3.74); Total Protein 7.6 g/dL (6.4-8.2); Triglyceride 68 mg/dL (<150)
--- OUTSIDE RECORDS SUMMARY | 2023-10-13 16:10 | XMS_ITS | Encounter Summary ---
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 Name Role Phone None Primary Care Provider Unavailabl e Reason for Visit * Auth/Cert Specialty Diagnoses / Procedures Referred By Surekha t Referred To Contact Diagnoses Follicular neoplasm of thyroid THYROID NODULE Procedures PRO THYROID LOBECTOMY, UNILAT PRG EMG, LARYNX THYROIDECTOMY, LOBECTOMY, TOTAL, UNILATERAL (WRVU 11.19) FACIAL NERVE MONITORING, SETUP LARYNGEAL (WRVU 1.57) Referral ID Status Reason Start Date Expiration Date Visits Re quested Visits Authorized [id number] 1 Encounter Details Date Type Department Care Team (Late st Contact Info) Description 02/15/2018 2:06 PM EST - 02/15/2018 4:34 PM EST Surgery [place] [id number] Tobin Callaway MD [facility] [place] [address] THYROIDECTOMY, LOBECTOMY, TOTAL, UNILATERAL (WRVU 11.19) Social History Tobacco Use Types Packs/Day Years Used Date Smoking Tobacco: Every Day Cigarettes 1 30 Smokeless Tobacco: Never Alcohol Use Standard Drinks/Week Comments Yes 2 (1 standard drink = 0.6 oz pur e alcohol) Sex and Gender Information Value Date Recorded Sex Assigned at Not on file Gender Identity Not on file Sexual Orientation Not on file documented as of this encounter Last Filed Vital Signs Vital Sign Reading Time Taken Comments Blood Pressure 149/86 02/15/2018 1:47 PM EST Pulse 62 02/15/2018 1:47 PM EST Temperature 36.8 ??C (98.2 ??F) 02/15/2018 1:47 PM ES T Respiratory Rate 14 02/15/2018 1:47 PM EST Oxygen Saturation 98% 02/15/2018 1:47 PM EST Inhaled Oxygen Concentration - - Weight 84.8 kg (187 lb) 02/15/2018 1:47 PM EST Height 160 cm (5' 3) 02/15/2018 1:47 PM EST Body Mass Index 33.13 02/15/2018 1:47 PM EST documented in this encounter Discharge Summaries * Reyna Cortez MD - 02/16/2018 7:24 AM EST General Surgery Inpatient - Discharge Summary Patient Name: Bonnie Marks Patient Age: 67 y.o. Birthdate: 1950 Admit date: 02/15/2018 Discharge date: 02/16/18 Admitting Physician: Tobin Callaway MD Primary Diagnosis: follicular neoplasm of the thyroid Secondary Diagnosis: Active Hospital Problems Diagnosis ??? Follicular neoplasm of thyroid Resolved Hospital Problems No resolved problems to display. Active Non-Hospital Problems Diagnosis ??? Trigger finger (acquired) ??? Hand joint pain ??? CTS (carpal tunnel syndrome) ??? Hand arthritis HPI: Patient is a 67 year old female who was found to have a right thyroid nodule on exam, FNA demonstrated follicular tissue. Total thyroidectomy was elected. Operations/Major Procedures: Operations: 02/15/2018 Surgeon(s) and Role: * Tobin Callaway MD - Primary * Reyna Cortez MD - Resident-Surgeon Justin: Procedure(s): THYROIDECTOMY, LOBECTOMY, TOTAL, UNILATERAL (WRVU 11.19) FACIAL NERVE MONITORING, SETUP LARYNGEAL (WRVU 1.57) Operative Findings: Large R lobe nodule with small nodules in L lobe. Tan. RLN, LUBNA and RU PT glandsidentified and preserved. Hospital Course: Bonnie Marks was taken to the operating room where the above procedures were performed. She tolerated the operation well and without complication. She was admitted post-operatively for clinical monitoring and further management. The patient's hospital course was uncomplicated and she was deemed stable for discharge on post-operative day 1. Important Studies and Lab Data: See below. Pathology: pending Discharge Exam: Last value Range last 12 hrs Temperature Temp: 36.6 ??C (97.9 ??F) Temp: [36.5 ??C (97.7 ??F)-36.6 ??C (97.9 ??F)] Heart Rate Heart Rate: 83 Heart Rate: [76-88] Blood Pressure BP: 116/60 BP: (110-129)/(58-72) Respiratory Rate Resp: 20 Resp: [14-24] SpO2 SpO2: 97 % SpO2: [92 %-97 %] I/O last 3 completed shifts: In: 630 [P.O.:580; I.V.:50] Out: 465 [Urine:450; Other:15] No intake/output data recorded. Gen: NAD, alert & oriented x3 HEENT: no courtney-incisional ecchymosis, approximated by dermabond, drain removed at bedside this AM Pulm: CTAB, no crackles/wheezes Card: RRR, no m/r/g Wound: incision clean, dry, intact, no purulent drainage Discharge Plans: Discharge to: Home VNA: No Discharge Conditions/Prognosis: Stable Discharge Medications: The following medications have been prescribed for you. If you notice any adverse reactions to your medications, please contact your primary care physician immediately or go tothe nearest Emergency Department. Your Medications New Medications Dose Details calcium citrate 200 mg (950 mg) Tab Commonly known as: CALCITRATE Take 1 tablet by mouth 3 times daily. 950 mg Refills: 0 cholecalciferol (Vitamin D3) 400 unit Tab Take 2 tablets by mouth 3 times daily. 800 Units Quantity: 90 tablet Refills: 3 levothyroxine 137 mcg Tab Commonly known as: SYNTHROID Take 1 tablet by mouth every morning. 135 mcg Quantity: 90 tablet Refills: 0 oxyCODONE 5 mg Tab Commonly known as: ROXICODONE Take 1-2 tablets by mouth every 4 hours as needed for Pain (moderate pain (4-6)). 5-10 mg Quantity: 5 tablet Refills: 0 Continued medications, unchanged Dose Details aspirin 325 mg Tab Take 325 mg by mouth daily. 325 mg Refills: 0 atenolol 100 mg Tab Commonly known as: TENORMIN daily. Refills: 0 atorvastatin 20 mg Tab Commonly known as: LIPITOR Take 20 mg by mouth daily. 20 mg Refills: 0 citalopram 40 mg Tab Commonly known as: CeleXA daily. Refills: 0 FLEXERIL 10 mg Tab Take 10 mg by mouth 3 times daily as needed. Generic drug: cyclobenzaprine 10 mg Refills: 0 hydroCHLOROthiazide 50 mg Tab Commonly known as: HYDRODIURIL Take 50 mg by mouth daily. 50 mg Refills: 0 IBU 800 mg Tab take 1 tablet by mouth three times a day if needed Generic drug: ibuprofen Refills: 0 ramipril 10 mg Cap Commonly known as: ALTACE daily. Refills: 0 Updated Allergies/ADRs: No Known Allergies Scheduled Appointments: Future Appointments Date Time Provider Department Center 03/19/2018 12:30 PM LAB, THREE L Lab 3L [facility] 03/19/2018 1:30 PM Tobin Callaway MD [facility] Outpatient Services/Studies: No discharge procedures on file. Instructions Given to Patient at Discharge:. An After Visit Summary was printed and given to the patient. Patient Instructions TOTAL THYROIDECTOMY PATIENT DISCHARGE INSTRUCTIONS What to Expect Following Surgery: Swelling and/or bruising under and around the incision is normal. It is usually greatest on the second or third day following surgery. You may also feel the sensation of swelling or firmness that canlast for a month or more Your scar will be most visible for 1-2 months following your operation and will gradually fade overthe next 6-8 months. As it heals, a scar often looks more pink or red than the skin around it. You may feel a ???healing ridge?? directly under the incision. This is completely normal and is the result of swelling, healing, and scar formation. Usually, this will go away when healing is complete in 3-6 months. The skin just above and below your incision will feel numb. This will improve over several months but some patients may have a long-term decrease in sensation over these areas. You may notice minor difficulty in swallowing which will improve over time. Your voice may be hoarse or weak at first--this is normal and does not mean there was damage done to the nerves that make the vocal cords move. Your voice will usually go back to normal after severaldays to a few weeks. Incision Care: Neck incisions heal rapidly--usually within a week or two. The incision can get wet in the shower 24 hours after surgery. However, do not submerge the incision underwater (i.e. bath tub, swimming pool, hot tub, etc.) for at least 2 weeks after your operation. Pat the incision dry immediately following your shower. Do not scrub the area vigorously for the next 2 weeks. You have a skin glue closure. You may notice tiny pieces of yellow/white material on your washclothor there may be a thin clear or whitish crust around the edges of the incision. This is normal. Theglue will start to come off about a week after surgery. Do not pull off the skin glue in order to allow time for the incision to heal completely. Do not use any ointments/salves/Vitamin E on the incision until after your first follow-up appointment as these may impair early wound healing Incisions are sensitive to sunlight. For at least 1 year after surgery you should use sunscreen when outdoors for long periods of time to prevent permanent darkening of the scar. This includes tanning booths. Pain Management: You may apply ice or cold packs to the incision for 15-20 minutes several times a day for the first2-3 days following surgery to help with discomfort. You may feel some stiffness/soreness in your shoulders, back, and neck. This may take a few days orweeks to go away completely. You may use moist warm heat, a heating pad, or massage to these areas for 15-20 minutes several times a day. Do not be afraid to move your neck - gently flexing and stretching your neck muscles and light massage will help prevent stiffness NSAIDs (non-steroidal anti-inflammatory drugs) such as ibuprofen (Motrin, Advil) and naproxen (Naprosyn, Aleve) or acetaminophen (Tylenol) are most helpful for the pain experienced after surgery. Generally, these are even more effective than the stronger pain medications (narcotics or opioids) after thyroid surgery. Take NSAIDS and/or Tylenol every 6 hours [id number] for the first 3-5 days following surgery to help minimize pain. Use opioid (oxycodone) pain medications for severe pain, and never take with alcohol. Opioid medications typically cause constipation, so we suggest using a stool softener in addition (metamucil, colace...etc.). Diet & Activity: No restrictions in your diet are necessary. Activity as tolerated by your comfort level. You may return to work as soon as you would like. However, if your job requires heavy lifting or strenuous physical activity, your surgeon may ask you to wait to return to work for two weeks. NO DRIVING for at least 8 hours following any dose of an opioid pain medication if one was prescribed for you. Calcium Supplementation: Your body???s calcium levels may fall following a total thyroidectomy, which usually lasts only a few days. Therefore, you should take calcium supplementation if you had your entire thyroid removed. (If you had a thyroid lobectomy or hemithyroidectomy, you do not need to take calcium.) We recommend that you purchase your calcium supplement from a pharmacy or grocery store, as it is available [id number] and does not require a prescription. The cost is approximately $10-$15 perbottle. The calcium supplement we recommend is Citrical Maxium (calcium citrate 630mg with 500IU Vit pineda D3) or the generic equivalent. You need to take 2 tabs (to equal a dose of 630 mg calcium and 500 IU of Vitamin D3) three times daily unless instructed differently by your surgeon. You should start this tonight. When Dr. Toledo calls with your pathology report, she will discuss how to taper off the calcium. If you notice a tingling sensation in your hands, feet, around your mouth, or develop muscle spasms, please call the General Surgery nurse at [phone], since this may mean that you need more calcium. Thyroid Hormone: If you had a total thyroid operation, you will be prescribed thyroid hormone replacement (levothyroxine, synthroid, levothroid) to take daily. Take this at the same time each day. You should take your thyroid hormone on an empty stomach and by itself. If possible, avoid taking your calcium supplementation or any other medication within one hour of taking your thyroid hormone pill. A blood test will performed in 6-8 weeks (the same day as your follow-up visit) to ensure dosing iscorrect for you. Pathology Report: All specimens removed at surgery are analyzed by a pathologist. This report usually takes approximately 4-5 business days to be ready. Dr. Callaway will call you with this report as soon as it is available. Follow-up Appointment: Will be scheduled with Dr. Callaway in 6 weeks Date and time as well as any required labs will be mailed to you Please call [phone] to confirm the date and time of your appointment if you do not hear from us in the next 2 weeks Call Doctor for: Call if you have trouble talking or breathing (call 911 if this is severe) Call if you develop numbness or tingling around your mouth/lips or on the tips of your fingers or your hands, as this may mean your calcium is low. This may also be related to pain medication, where the breathing tube was positioned against your lips, the positioning of your arms and hands in the operating room, or how you were positioned when sleeping. If the sensation does not go away within a half hour, or if it worsens prior to that, call us immediately so we can discuss increasing your calcium if we think you need it. Call if your incision becomes red or begins to drain fluid. Call if you have fevers greater than 101 degrees F Call if you have persistent nausea or vomiting (this may be related to opioid pain medications). Call if you begin feeling worse, rather than better, several days after surgery. Phone number for questions: [phone] before 5 PM on weekdays [phone] after 5 PM and on weekends/holidays. Ask for the general surgery resident medical receptionist. General Instructions None Follow-up Recommendations for Providers: Standard post-operative care Signed: Reyna Cortez MD Surgical Oncology Service 02/16/2018, 7:25 AM documented in this encounter Discharge Instructions * Patient Instructions* Reyna Cortez MD - 02/16/2018 7:22 AM EST TOTAL THYROIDECTOMY PATIENT DISCHARGE INSTRUCTIONS What to Expect Following Surgery: Swelling and/or bruising under and around the incision is normal. It is usually greatest on the second or third day following surgery. You may also feel the sensation of swelling or firmness that canlast for a month or more Your scar will be most visible for 1-2 months following your operation and will gradually fade overthe next 6-8 months. As it heals, a scar often looks more pink or red than the skin around it. You may feel a ???healing ridge?? directly under the incision. This is completely normal and is the result of swelling, healing, and scar formation. Usually, this will go away when healing is complete in 3-6 months. The skin just above and below your incision will feel numb. This will improve over several months but some patients may have a long-term decrease in sensation over these areas. You may notice minor difficulty in swallowing which will improve over time. Your voice may be hoarse or weak at first--this is normal and does not mean there was damage done to the nerves that make the vocal cords move. Your voice will usually go back to normal after severaldays to a few weeks. Incision Care: Neck incisions heal rapidly--usually within a week or two. The incision can get wet in the shower 24 hours after surgery. However, do not submerge the incision underwater (i.e. bath tub, swimming pool, hot tub, etc.) for at least 2 weeks after your operation. Pat the incision dry immediately following your shower. Do not scrub the area vigorously for the next 2 weeks. You have a skin glue closure. You may notice tiny pieces of yellow/white material on your washclothor there may be a thin clear or whitish crust around the edges of the incision. This is normal. Theglue will start to come off about a week after surgery. Do not pull off the skin glue in order to allow time for the incision to heal completely. Do not use any ointments/salves/Vitamin E on the incision until after your first follow-up appointment as these may impair early wound healing Incisions are sensitive to sunlight. For at least 1 year after surgery you should use sunscreen when outdoors for long periods of time to prevent permanent darkening of the scar. This includes tanning booths. Pain Management: You may apply ice or cold packs to the incision for 15-20 minutes several times a day for the first2-3 days following surgery to help with discomfort. You may feel some stiffness/soreness in your shoulders, back, and neck. This may take a few days orweeks to go away completely. You may use moist warm heat, a heating pad, or massage to these areas for 15-20 minutes several times a day. Do not be afraid to move your neck - gently flexing and stretching your neck muscles and light massage will help prevent stiffness NSAIDs (non-steroidal anti-inflammatory drugs) such as ibuprofen (Motrin, Advil) and naproxen (Naprosyn, Aleve) or acetaminophen (Tylenol) are most helpful for the pain experienced after surgery. Generally, these are even more effective than the stronger pain medications (narcotics or opioids) after thyroid surgery. Take NSAIDS and/or Tylenol every 6 hours [id number] for the first 3-5 days following surgery to help minimize pain. Use opioid (oxycodone) pain medications for severe pain, and never take with alcohol. Opioid medications typically cause constipation, so we suggest using a stool softener in addition (metamucil, colace...etc.). Diet & Activity: No restrictions in your diet are necessary. Activity as tolerated by your comfort level. You may return to work as soon as you would like. However, if your job requires heavy lifting or strenuous physical activity, your surgeon may ask you to wait to return to work for two weeks. NO DRIVING for at least 8 hours following any dose of an opioid pain medication if one was prescribed for you. Calcium Supplementation: Your body???s calcium levels may fall following a total thyroidectomy, which usually lasts only a few days. Therefore, you should take calcium supplementation if you had your entire thyroid removed. (If you had a thyroid lobectomy or hemithyroidectomy, you do not need to take calcium.) We recommend that you purchase your calcium supplement from a pharmacy or grocery store, as it is available [id number] and does not require a prescription. The cost is approximately $10-$15 perbottle. The calcium supplement we recommend is Citrical Maxium (calcium citrate 630mg with 500IU Vit pineda D3) or the generic equivalent. You need to take 2 tabs (to equal a dose of 630 mg calcium and 500 IU of Vitamin D3) three times daily unless instructed differently by your surgeon. You should start this tonight. When Dr. Toledo calls with your pathology report, she will discuss how to taper off the calcium. If you notice a tingling sensation in your hands, feet, around your mouth, or develop muscle spasms, please call the General Surgery nurse at [phone], since this may mean that you need more calcium. Thyroid Hormone: If you had a total thyroid operation, you will be prescribed thyroid hormone replacement (levothyroxine, synthroid, levothroid) to take daily. Take this at the same time each day. You should take your thyroid hormone on an empty stomach and by itself. If possible, avoid taking your calcium supplementation or any other medication within one hour of taking your thyroid hormone pill. A blood test will performed in 6-8 weeks (the same day as your follow-up visit) to ensure dosing iscorrect for you. Pathology Report: All specimens removed at surgery are analyzed by a pathologist. This report usually takes approximately 4-5 business days to be ready. Dr. Callaway will call you with this report as soon as it is available. Follow-up Appointment: Will be scheduled with Dr. Callaway in 6 weeks Date and time as well as any required labs will be mailed to you Please call [phone] to confirm the date and time of your appointment if you do not hear from us in the next 2 weeks Call Doctor for: Call if you have trouble talking or breathing (call 911 if this is severe) Call if you develop numbness or tingling around your mouth/lips or on the tips of your fingers or your hands, as this may mean your calcium is low. This may also be related to pain medication, where the breathing tube was positioned against your lips, the positioning of your arms and hands in the operating room, or how you were positioned when sleeping. If the sensation does not go away within a half hour, or if it worsens prior to that, call us immediately so we can discuss increasing your calcium if we think you need it. Call if your incision becomes red or begins to drain fluid. Call if you have fevers greater than 101 degrees F Call if you have persistent nausea or vomiting (this may be related to opioid pain medications). Call if you begin feeling worse, rather than better, several days after surgery. Phone number for questions: [phone] before 5 PM on weekdays [phone] after 5 PM and on weekends/holidays. Ask for the general surgery resident medical receptionist. documented in this encounter Medications at Time of Discharge Medication Sig Dispensed Refills Start Date End Date calcium citrate (CALCITRATE) 200 mg (950 mg) Tablet Take 1 tablet by mouth 3 times daily. 02/16/2018 IBU 800 mg Tablet take 1 tablet by mouth three times a day if needed 0 12/14/2017 atenolol (TENORMIN) 100 mg Tablet daily. 0 08/12/2016 ramipril (ALTACE) 10 mg Capsule daily. 0 08/12/2016 hydrochlorothiazide (HYDRODIURIL) 50 mg tablet Take 50 mg by mouth daily. aspirin 325 mg tablet Take 325 mg by mouth daily. cholecalciferol, Vitamin D3, 400 unit Tablet Take 2 tablets by mouth 3 times daily. 90 tablet 3 02/16/2018 06/24/2021 levothyroxine (SYNTHROID) 137 mcg Tablet Take 1 tablet by mouth every morning. 90 tablet 02/17/2018 03/29/2018 oxyCODONE (ROXICODONE) 5 mg Tablet Take 1-2 tablets by mouth every 4 hours as needed for Pain (moderate pain (4-6)). 5 tablet 02/16/2018 06/24/2021 citalopram (CELEXA) 40 mg Tablet daily. 0 08/12/2016 06/24/2021 cyclobenzaprine (FLEXERIL) 10 mg tablet Take 10 mg by mouth 3 times daily as needed. 06/24/2021 atorvastatin (LIPITOR) 20 mg tablet Take 20 mg by mouth daily. 06/24/2021 documented as of this encounter Progress Notes * Homero Turcios MD - 02/15/2018 10:30 PM EST Post-Operative Check Bonnie Marks is a 67 y.o. female s/p Procedure(s): THYROIDECTOMY, LOBECTOMY, TOTAL, UNILATERAL (WRVU 11.19) FACIAL NERVE MONITORING, SETUP LARYNGEAL (WRVU 1.57) S: No nausea/vomiting, chest pain, SOB, pain reasonably well controlled. No parasthesias or voice changes. Offers no complaints O: Temp: [36.6 ??C (97.9 ??F)-36.9 ??C (98.4 ??F)] Heart Rate: [76-87] Resp: [14-24] BP: (110-129)/(58-71) SpO2: [92 %-97 %] Heart Rate from SPO2: -- No intake/output data recorded. I/O this shift: In: 250 [P.O.:200; I.V.:50] Out: 100 [Urine:100] Recent Results (from the past 24 hour(s)) Surgical Pathology Report Result Value Ref Range Surgical Pathology Report [id number] Location: OR; OR22; A The signing pathologist has (i) examined the relevant preparation(s) for the specimen(s) and (ii) rendered or confirmed the diagnosis(es). . Frozen Section FROZEN SECTION DIAGNOSIS AFS. Right lobe of thyroid lesion: Follicular lesion. 02/15/18 18:39 Electronically signed by: Janell Quintana MD Verified: 02/15/2018 Pathologist Performed at: [place] [place], [place], [place] This intraoperative consultation should be interpreted as a preliminary diagnosis pending review of the entire specimen and special studies, if any. Physical Exam Gen: A0x3, NAD, resting comfortably CVS: RRR, no murmurs/rubs/gallops Neck: CHRISSY drain in place, holding suction, and with minimal serosanguinous fluid. Incision is C/D/I without evidence of hematoma. Resp: CTAB, breathing comfortably on 2L NC Abd: soft, non-tender, non-distended Ext: SCDs in place, WWP AP Bonnie Marks is a 67 y.o. female s/p total thyroidectomy currently in stable condition and recovering well - continue post operative plan per primary team - pain well controlled - hemodynamically stable Homero Turcios MD General Surgery PGY-1 [id number] * Carlos, Aileen Jung RN - 02/15/2018 10:25 PM EST Patient Name: Bonnie Marks Patient Age: 67 y.o. Birthdate: 1950 Admit date: 02/15/2018 Attending Physician: Tobin Callaway MD Arrivied 2100 from PACU s/p total thyroidectomy. VSS. Anterior transverse neck incision CDI , dermabond and CHRISSY drain with drain dsg intact. CHRISSY patent output sanguinous WDL Pt's major complaint is pain. Pt treated in PACU and has been treated per MAR with oxycodone 5mg and ibuprofen. Swallow intact. Denies nausea at this time. Oriented to room/unit and call pena within reach. * Mary Lou Barrientos RN - 02/15/2018 8:16 PM EST 1944- Ice pack applied to pt's neck. Pt started on ice chips. documented in this encounter H&P Notes * Tobin Callaway MD - 02/15/2018 7:23 AM EST Patient Name: Bonnie Marks Patient Age: 67 y.o. Birthdate: 1950 Admit date: (Not on file) Attending Physician: Tobin Callaway MD H&P INTERVAL NOTE - 24 HOUR UPDATE I have reviewed the pre-procedure H&P completed by me on 02/12/18. Condition unchanged since H&P originally performed. documented in this encounter Miscellaneous Notes * Plan of Care - Leah Howell RN - 02/16/2018 12:52 PM EST Problem: Patient Care Overview Goal: Plan of Care Review Outcome: Outcome (s) achieved Date Met: 02/16/18 02/16/18 1243 Coping/Psychosocial Plan Of Care Reviewed With patient Plan of Care Review Progress improving OUTCOME EVALUATION NOTE: OUTCOME SUMMARY: Pt remained stable with good pain control, surgical site clean dry and intact with Dermabond; [employer]. Discharge instructions reviewed, questions answered, new prescriptions filled at out-pt pharmacy. PLAN MOVING FORWARD: Pt discharged to home. INDIVIDUALIZED FALL PREVENTION INTERVENTIONS: Patient-specific fall risk factors per assessment: [current deficits]: no Assistance [level of assistance required for transfers and ambulation]: Self. Supervision [direct monitoring required during toileting and ADLs]: no Surveillance [continuous indirect monitoring]: no Patient-specific fall prevention interventions for sensory deficits provided, if applicable: [X] N/A Goal: Individualization & Mutuality Outcome: Outcome (s) achieved Date Met: 02/16/18 02/16/18 124 Individualization Patient Specific Goals discharge to home Patient Specific Interventions assess surgical site, pain management, mobilize, d/c teaching. Goal: Fall Prevention-Safe Patient Handling Outcome: Outcome (s) achieved Date Met: 02/16/18 02/15/18 2300 02/16/18 0900 02/16/18 0945 Daily Care Interventions Self-Care Promotion -- -- independence encouraged Crow Fall Risk History of Falling -- 0 -- Secondary Diagnosis -- 15 -- Ambulatory Aids -- 0 -- Intravenous Therapy/Heparin/Saline Lock -- 0 -- Gait/Transferring -- 0 -- Mental Status -- 0 -- Score -- 15 -- OTHER Crow Fall Risk Low -- -- Restraint Interventions Safety Promotion/Fall Prevention -- fall prevention program maintained;nonskid shoes/slippers when out of bed;safety round/check completed;toileting scheduled;activity supervised -- Positioning Body Position -- supine, head elevated -- Activity Activity Type -- -- ambulated in martinez Activity Assistance Provided -- -- assistance, 1 person Assistive Device Utilized -- -- standard walker Goal: Infection Control Outcome: Outcome (s) achieved Date Met: 02/16/18 02/16/18 0900 Safety Interventions Isolation Precautions standard precautions maintained Infection Prevention personal protective equipment utilized;rest/sleep promoted Coping Strategies Supportive Measures active listening utilized;decision-making supported;positive reinforcement provided;self-care encouraged;self-responsibility promoted;verbalization of feelings encouraged Goal: Discharge Needs Assessment Outcome: Outcome (s) achieved Date Met: 02/16/18 02/16/18 0144 02/16/18 124 Discharge Needs Assessment Concerns To Be Addressed no discharge needs identified -- Readmission Within The Last 30 Days no previous admission in last 30 days -- Provider Choice List(s) Given yes -- Equipment Needed After Discharge none -- Discharge Disposition -- home or self-care Current Health Anticipated Changes Related to Illness none -- Activity/Self Care Review of Systems Equipment Currently Used at Home none -- Living Environment Transportation Available family or friend will provide -- * Plan of Care - Aileen Gonzalez RN - 02/16/2018 1:54 AM EST Problem: Patient Care Overview Goal: Plan of Care Review Outcome: Ongoing (Interventions Implemented as Appropriate) 02/16/18 0148 Coping/Psychosocial Plan Of Care Reviewed With patient Plan of Care Review Progress progress toward functional goals as expected S/P: Thyroidectomy - anterior transverse neck incision - dermabond. CHRISSY drain in place Outcome Summary: VSS. Surg site CDI. CHRISSY intact, patent, has been stripped. CHRISSY output sanguinous amtWDL, see I;O. Pt states high level of pain since arriving from PACU. MD notified and pain med adjusted. Pt's swallow intact, throat sore, asad small amts liquid sips/chips. Denies nausea. Denies numbness/tingling around mouth, or hands/fingers. Ambulated in SSU martinez with one assist. Voiding WDL. Plan: Ongoing monitoring / assessments. I/O. Continue to mobilize. Pain tx. Encourage PO. INDIVIDUALIZED FALL PREVENTION: 1 Assist Assistance: Assisted with bed mobility to find comfortable position, will assist when OOB as needed. Supervision: Stand-by assist with initial ambulation and supervised activity as needed. Surveillance: Continuous pulse ox, call pena within reach, purposeful rounding * Op Note - Reyna Cortez MD - 02/15/2018 7:37 PM EST [facility] [place] Patient Name: Bonnie Marks : [id number] MR#: [id number] Case Date: 02/15/2018 Surgeon: Surgeon(s) and Role: * Tobin Callaway MD - Primary * Reyna Cortez MD - Resident-Surgeon Justin Preoperative diagnosis: THYROID NODULE Postoperative diagnosis: THYROID NODULE Procedure(s) (LRB): THYROIDECTOMY, LOBECTOMY, TOTAL, UNILATERAL (WRVU 11.19) (Right) FACIAL NERVE MONITORING, SETUP LARYNGEAL (WRVU 1.57) (N/A) Findings: Large R lobe nodule with small nodules in L lobe. Tan. RLN, LUBNA and RU PT glands identified and preserved. Anesthesia: General Estimated Blood Loss: * No values recorded between 02/15/2018 4:48 PM and 02/15/2018 7:20 PM * Specimens removed during surgery: right lobe of thyroid, left lobe of thyroid Drains: kassy rios in paratracheal space Surgical Closure: Primary Closure - skin incision is completely closed without any wires, toan, drains or other devices Disposition: awakened from anesthesia, extubated and taken to the recovery room in a stable condition, having suffered no apparent untoward event. Condition: doing well without problems (Please see the Surgical Encounter Summary for any Implant and Specimen details pertinent to this patient.) HPI/Surgical Indications: Patient is a 67 year old female who was found to have a right thyroid nodule on exam, FNA demonstrated follicular tissue. Total thyroidectomy was elected. Procedure Description: The patient was correctly identified in the preoperative holding area. The risks, benefits, and indications of a thyroidectomy were reviewed with the patient. She was then taken to the operating roomand placed on the operating table in the supine position and an identification procedure was performed. Adequate general anesthesia was achieved by anesthesiology with the [employer] recurrent laryngeal nerve monitoring system. A natural crease in the anterior neck was marked with a marking pen. This area was infiltrated with 0.25% Sensorcaine with epinephrine. The patient's anterior neck was thenprepped and draped in sterile fashion. A timeout procedure was done and all members of the OR team were in agreement. We made a curvilinear incision along the previously marked crease with a scalpel. The incision was carried down through the subcutaneous tissue and platysma muscle using electrocautery. Subplatysmal flaps were created in the cranial and caudal directions. The median raphe of the strap muscles was id entified and this was divided in vertical fashion using electrocautery. This exposed the thyroid gland, which was from its lateral attachments to the strap muscles on the right side using electrocautery. The middle thyroidal veins were ligated with silk sutures and Harmonic scalpel. The inferior thyroid vessels were identified and divided using a combination of hand ties and harmonic scalpel. We then identified the recurrent laryngeal nerve as it ran in the tracheoesophageal groove and followed this up to ligament of Preciado, ligating vessels to expose the nerve's anterior surface. Yoni took down the upper pole thyroid vessels with a combination of silk sutures and Harmonic scalpel. The right upper parathyroid glands were seen and preserved on their vascular pedicles. We then divided the attachments of the ligament of Preciado with sharp dissection and silk sutures and divided the attachments of the thyroid off the pretracheal fascia past the midline with electrocautery. We divided the thyroid through its isthmus using the Harmonic scalpel, marked it and sent the specimen topathology. The recurrent laryngeal nerve remained intact throughout. Upon palpation of the left lobe, there were multiple hard nodules and the decision was made to proceed with a total thyroidectomy and remove the left lobe. Again, the left upper parathyroid glands were identified and preserved. The recurrent laryngeal nerve was fully functional upon completion. Thethyroid specimen was removed and sent to pathology. A Valsalva to 30 millimeters of mercury was accomplished by Anesthesia. Hemostasis was assured. A kassy rios drain was placed in the paratracheal space and secured at the level of the skin. We then closed the strap muscles using running, locked, monocryl suture, the platysma with running, locked monocryl suture, and the skin with running 5-0 Prolene subcuticular suture, followed by placement of Dermabond and removal of the Prolene suture. The patient tolerated the procedure well. Sponge and needle counts were correct upon completion of the procedure. Dr. Callaway was present and scrubbed throughout the entire procedure Infection Bundle used? No Reyna Cortez MD 02/15/2018 * Brief Op Note - Tobin Callaway MD - 02/15/2018 7:25 PM EST Brief Operative Note Patient Name: Bonnie Marks : [id number] MR#: [id number] Case Date: 02/15/2018 Surgeon: Surgeon(s) and Role: * Tobin Callaway MD - Primary * Reyna Cortez MD - Resident-Surgeon Justin Preoperative diagnosis: THYROID NODULE Postoperative diagnosis: THYROID NODULE Procedure(s) (LRB): THYROIDECTOMY, LOBECTOMY, TOTAL, UNILATERAL (WRVU 11.19) (Right) FACIAL NERVE MONITORING, SETUP LARYNGEAL (WRVU 1.57) (N/A) Anesthesia: General Findings: Large R lobe nodule with small nodules in L lobe. Tan. RLN, LUBNA and RU PT glands identified and preserved. Complications: none Intake: Intraprocedure Crystalloid Total None Transfusion No data found. Output: Estimated Blood Loss: * No values recorded between 02/15/2018 4:48 PM and 02/15/2018 7:20 PM * Urine Output:: (no urine output recorded) Other Output: (no other output recorded) Drains: 7mm CHRISSY Specimens removed during surgery: Order Name Source Comment Collection Info Order Time SPECIMEN TO PATHOLOGY Please call OR 22 with results (ext: [id number]). Thank you. Thyroid nodule Right lobe of thyroid excision YES, Please perform frozen section No 02/15/2018 6:01 PM Number of tissue samples (in container) 1 Time specimen removed from patient: 6:00 PM Biospecimen to store? No SPECIMEN TO PATHOLOGY THYROID NODULE left lobe of thyroid excision 02/15/2018 6:57 PM Number of tissue samples (in container) 1 Time specimen removed from patient: 6:57 PM Disposition: awakened from anesthesia, extubated and taken to the recovery room in a stable condition, having suffered no apparent untoward event. Condition: doing well without problems Attestation: Case Date: 02/15/2018 I was present and I participated during the entire procedure (does not need to include opening and closing). (Please see the Surgical Encounter Summary for any Implant and Specimen details pertinent to this patient.) documented in this encounter Plan of Treatment Not on file documented as of this encounter Procedures Procedure Name Priority Date/Time Associated Diagnosis Comments SPECIMEN TO PATHOLOGY Routine 02/15/2018 6:58 PM EST SPECIMEN TO PATHOLOGY STAT 02/15/2018 6:01 PM EST SURGICAL PATHOLOGY REPORT Routine 02/15/2018 6:00 PM EST FACIAL NERVE MONITORING, SETUP LARYNGEAL (WRVU 1.57) Yes 02/15/2018 4:22 PM EST THYROID NODULE THYROIDECTOMY, LOBECTOMY, TOTAL, UNILATERAL (WRVU 11.19) Yes 02/15/2018 4:22 PM EST THYROID NODULE documented in this encounter Results * Specimen to Pathology (02/15/2018 6:58 PM EST) AP Specimen 02/15/2018 6:58 PM EST 02/15/2018 7:03 PM EST Narrative [facility] - 02/15/2018 7:03 PM EST Specimen requisition ordered. ??Separate Pathology report to follow Resulting Agency Comment Spec In Lab Tobin Callaway MD PATHOLOGY/CYTOLOGY ORDERABLES Performing Organization Address [facility] [place] [address] * Specimen to Pathology (02/15/2018 6:01 PM EST) AP Specimen 02/15/2018 6:01 PM EST 02/15/2018 6:01 PM EST Narrative [facility] - 02/15/2018 6:01 PM EST Specimen requisition ordered. ??Separate Pathology report to follow Tobin Callaway MD PATHOLOGY/CYTOLOGY ORDERABLES Performing Organization Address [facility] [place] [address] * Surgical Pathology Report (02/15/2018 6:00 PM EST) FINAL DIAGNOSIS (AP) [id number] ? Location: [facility]; [facility]; A The signing pathologist has (i) examined the relevant preparation(s) for the specimen(s) and (ii) rendered or confirmed the diagnosis(es). . 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 B - Thryoid, left hemithyroidectomy : Multiple adenomatous nodules, up to 0.4 cm. Electronically signed by: ??Linda Miller MD Verified: ??02/24/2018 ?Pathologist Performed at: ??[facility] [place], [place], [place] CLINICAL INFORMATION Specimen Submitted: A - Right lobe of thyroid for frozen section B - Left lobe of thyroid Clinical History and Diagnosis: Thyroid nodule SPECIMEN PROCESSING A - Labeled/Fixative: Right lobe of thyroid, fresh for frozen section. Quantity/Size/Jacky ght: Single, 4.5 x 4.3 x 2.5 cm, 19 g. SPECIMEN DESCRIPTION: Resection Specimen: Intact, mack-thyroidectom y, consisting of right thyroid lobe External Surface: Focally cauterized. Symmetrical/Asymm etrical Enlargement: Asymmetrical. ??LESION ?Location: Mid-pole, lateral. ?Description: Nodule with heterogenous cut surfaces demonstrating white, yellow, and brown areas. ?Size: 3.7 x 2.5 x 2.0 cm. ?Contour/capsule : Well-circumscribe d but unencapsulated, abuts the capsule. Parenchyma: Red-brown. Inking: The isthmic margin is inked blue, the thyroid capsule is inked black. Sections/Processi ng: The following tissue is submitted for frozen section: A apparel trimmings sales representative section of the nodule. Industrial Designer sections in 15 cassettes as follows: ? A1: ??Frozen section remnant, apparel trimmings sales representative nodule ? A2-A14: ??Remaining nodule submitted entirely from superior to inferior ? A15: ??Uninvolved parenchyma B - Labeled/Fixative: Left lobe of thyroid, fresh. Quantity/Size/Jacky ght: Single, 4.1 x 3.5 x 2.1 cm, 7.8 g. SPECIMEN DESCRIPTION: Resection Specimen: Intact, mack-thyroidectom y, consisting of left thyroid lobe External Surface: Focally cauterized. Symmetrical/Asymm etrical Enlargement: Asymmetrical. Parenchyma: Firm, red-brown, with multiple scattered colloid nodules up to 0.4 cm in greatest dimension. Inking: The isthmic margin is inked blue, the thyroid capsule is inked black. Sections/Processi ng: Industrial Designer sections are submitted sequentially from superior to inferior in 5 cassettes labeled B1-B5. . SPECIMEN PROCESSING ??vishal ?Frozen Section FROZEN SECTION DIAGNOSIS AFS. Right lobe of thyroid lesion: Follicular lesion. 02/15/18 18:39 Electronically signed by: ??Janell Quintana MD Verified: ??02/15/2018 ?Pathologist Performed at: ??[facility] [place], [place], [place] This intraoperative consultation should be interpreted as a preliminary diagnosis pending review of the entire specimen and special studies, if any. 02/24/2018 1:29 PM EST [facility] 02/15/2018 6:00 PM EST Tobin Callaway MD PATHOLOGY/CYTOLOGY ORDERABLES Performing Organization Address City/State/[facility] Co de Phone Number [facility] [place] [address] documented in this encounter Visit Diagnoses Not on filedocumented in this encounter Administered Medications Inactive Administered Medications - up to 3 most recent administrations Medication Order MAR Action Action Date Dose Rate Site acetaminophen (TYLENOL) tablet 1,000 mg 1,000 mg, Oral, ONCE, 1 dose, On Thu02/15/18 at 1415, Administer with SIP of H2O only., Day of Surgery (Day of Procedure), Routine Given 02/15/2018 1:55 PM EST 1,000 mg acetaminophen (TYLENOL) tablet 1,000 mg 1,000 mg, Oral, EVERY 6 HOURS, First dose on Thu02/15/18 at 2045, Until Discontinued, Do not exceed 4,000 mg in 24 hours, Routine Given 02/16/2018 10:04 AM EST 1,000 mg Given 02/16/2018 3:14 AM EST 1,000 mg Given 02/15/2018 8:26 PM EST 1,000 mg aspirin tablet 325 mg 325 mg, Oral, DAILY, First dose on Thu02/15/18 at 2045, Until Discontinued, Routine Given 02/16/2018 8:4 6 AM EST 325 mg Given 02/15/2018 8:26 PM EST 325 mg atenolol (TENORMIN) tablet 100 mg 100 mg, Oral, DAILY, First dose on Thu02/16/18 at 0900, Until Discontinued, Routine Given 02/16/2018 8:45 AM EST 100 mg atorvastatin (LIPITOR) tablet 20 mg 20 mg, Oral, DAILY, First dose on Thu02/16/18 at 0900, Until Discontinued, Routine Given 02/16/2018 8:46 AM EST 20 mg BUpivacaine-EPINEPHrine 0.25 %-1:200,000 injection ONCE PRN, Starting on Thu02/15/18 at 1635, Until Thu02/16/18 at 1540, Intra-Operative (Intra-Procedure), Routine Given 02/15/2018 4:35 PM EST 8 mLs 19- Surgical Site calcium citrate (CALCITRATE) tablet 950 mg 950 mg, Oral, 3 TIMES DAILY, First dose on Thu02/15/18 at 2145, Until Discontinued, Routine Given 02/16/2018 10:03 AM EST 950 mg Given 02/15/2018 9:45 PM EST 950 mg cholecalciferol (Vitamin D3) tablet 800 Units 800 Units, Oral, 3 TIMES DAILY, First dose on Thu02/15/18 at 2145, Until Discontinued, Routine Given 02/16/2018 8:45 AM EST 800 Units Given 02/15/2018 10:06 PM EST 800 Units citalopram (CeleXA) tablet 40 mg 40 mg, Oral, DAILY, First dose on Thu02/16/18 at 0900, Until Discontinued, Routine Given 02/16/2018 8:4 6 AM EST 40 mg hydroCHLOROthiazide (HYDRODIURIL) tablet 50 mg 50 mg, Oral, DAILY, First dose on Thu02/16/18 at 0900, Until Discontinued, Routine Given 02/16/2018 8:4 6 AM EST 50 mg HYDROmorphone (DILAUDID) injection 0.2-0.4 mg 0.2-0.4 mg, Intravenous, EVERY 5 MIN PRN, Starting on Thu02/15/18 at 1917, Until Thu02/15/18 at 2046, Pain, Give 0.2 mg every 5 minutes PRN for mild to moderate pain (1-5) Give 0.4 mg every 5 minutes PRN for moderate to severe pain (6-10). Hold for respiratory rate less than 10 per minute. Maximum dose 4 mg over one hour. If multiple pain medications are ordered, start with hydromorphone or morphine and use fentanyl for breakthrough pain., PACU Recovery, Routine Given 02/15/2018 8:15 PM EST 0.4 mg Given 02/15/2018 8:06 PM EST 0.4 mg Given 02/15/2018 8:01 PM EST 0.4 mg ibuprofen (ADVIL;MOTRIN) tablet 800 mg 800 mg, Oral, EVERY 6 HOURS, First dose on Thu02/15/18 at 2200, Until Discontinued, Do not administer with ketorolac, Routine Given 02/15/2018 10:00 PM EST 8 00 mg lactated Ringers infusion 1,000 mL 1,000 mL, at 100 mL/hr, Intravenous, CONTINUOUS, Starting on Thu02/15/18 at 1415, Until Thu02/15/18 at 2047, Day of Surgery (Day of Procedure) New Bag 02/15/2018 4:23 PM EST New Bag 02/15/2018 2:09 PM EST 1,000 mLs 100 mL/hr levothyroxine (SYNTHROID) tablet 137 mcg 137 mcg (rounded from 135 mcg), Oral, EVERY MORNING, First dose on Thu02/16/18 at 0600, Until Discontinued, Routine Given 02/16/2018 6:11 AM EST 137 mcg ondansetron (ZOFRAN) injection 4 mg 4 mg, Intravenous, EVERY 8 HOURS PRN, Starting on Thu02/15/18 at 2119, Until Thu02/16/18 at 1540, Nausea, May repeat times one in 30 minutes if ineffective. If multiple antiemetics are ordered, use ondansetron first, Recovery (Recovery-Hospital Unit) ondansetron (ZOFRAN) tablet 4 mg 4 mg, Oral, EVERY 8 HOURS PRN, Starting on Thu02/15/18 at 2119, Until Thu02/16/18 at 1540, Nausea, Vomiting, If multiple antiemetics are ordered, use ondansetron first. PO Preferred. If patient unable to take PO, may give IV if ordered. May repeat times one in 45 minutes if ineffective., Recovery (Recovery-Hospital Unit), Routine oxyCODONE (ROXICODONE) immediate release tablet 10-15 mg 10-15 mg, Oral, EVERY 3 HOURS PRN, Starting on Thu02/16/18 at 0005, Until Thu02/16/18 at 1540, Pain, severe pain (7-10), Initial dose 10mg. If pain control not adequate in 60 minutes, give additional 5mg, Routine oxyCODONE (ROXICODONE) immediate release tablet 5 mg 5 mg, Oral, EVERY 4 HOURS PRN, Starting on Thu02/15/18 at 2119, Until Thu02/16/18 at 0005, Pain, for MILD pain, Start with 5 mg. If pain control not adequate in 60 minutes, may give additional 5 mg., Routine Given 02/15/2018 9:46 PM EST 5 mg oxyCODONE (ROXICODONE) immediate release tablet 5-10 mg 5-10 mg, Oral, EVERY 3 HOURS PRN, Starting on Thu02/16/18 at 0005, Until Thu02/16/18 at 1540, Pain, moderate pain (4-6), Initial dose 5mg. If pain control not adequate in 60 minutes, give additional 5mg, Routine Given 02/16/2018 8:50 AM EST 10 mg Given 02/16/2018 3:14 AM EST 10 mg Given 02/16/2018 12:15 AM EST 10 mg ramipril (ALTACE) capsule 10 mg 10 mg, Oral, DAILY, First dose on Thu02/16/18 at 0900, Until Discontinued Given 02/16/2018 8:45 AM EST 10 mg sodium chloride 0.9 % flush 5 mL 5 mL, Intravenous, 2 TIMES DAILY, First dose on Thu02/15/18 at 2145, Until Discontinued, Recovery (Recovery-Hospital Unit), Routine Given 02/15/2018 9:54 PM EST 5 mLs documented in this encounter Active and Recently Administered Medications Times are shown in EST. Scheduled Medication Order 02/14/2018 02/15/2018 02/16/2018 acetaminophen (TYLENOL) tablet 1,000 mg (COMPLETED) 1,000 mg, Oral, ONCE, 1 dose, On Thu02/15/18 at 1415, Administer with SIP of H2O only., Day of Surgery (Day of Procedure), Routine 1355 (Given - Provider: Delmy Juan RN) acetaminophen (TYLENOL) tablet 1,000 mg 1,000 mg, Oral, EVERY 6 HOURS, First dose on Thu02/15/18 at 204, Until Discontinued, Do not exceed 4,000 mg in 24 hours, Routine 2025 (Given - Provider: Mary Lou Barrientos RN) 0314 (Given - Provider: Aileen Gonzalez RN)1004 (Given - Provider: Leah Howell RN) aspirin tablet 325 mg 325 mg, Oral, DAILY, First dose on Thu02/15/18 at 2045, Until Discontinued, Routine 2025 (Given - Provider: Mary Lou Barrientos RN) 0846 (Given - Provider: Leah Howell RN) atenolol (TENORMIN) tablet 100 mg 100 mg, Oral, DAILY, First dose on Thu02/16/18 at 0900, Until Discontinued, Routine 0845 (Given - Provid er: Leah Howell RN) atorvastatin (LIPITOR) tablet 20 mg 20 mg, Oral, DAILY, First dose on Thu02/16/18 at 0900, Until Discontinued, Routine 0846 (Given - Provid er: Leah Howell RN) calcium citrate (CALCITRATE) tablet 950 mg(Linked Group 1) 950 mg, Oral, 3 TIMES DAILY, First dose on Thu02/15/18 at 2145, Until Discontinued, Routine 2144 (Given - Provider: Aileen Gonzalez RN) 1003 (Given - Provider: Leah Howell RN) cholecalciferol (Vitamin D3) tablet 800 Units(Linked Group 1) 800 Units, Oral, 3 TIMES DAILY, First dose on Thu02/15/18 at 2145, Until Discontinued, Routine 2205 (Given - Provider: Aileen Gonzalez RN) 0845 (Given - Provider: Leah Howell RN) citalopram (CeleXA) tablet 40 mg 40 mg, Oral, DAILY, First dose on Thu02/16/18 at 0900, Until Discontinued, Routine 0846 (Given - Provid er: Leah Howell RN) hydroCHLOROthiazide (HYDRODIURIL) tablet 50 mg 50 mg, Oral, DAILY, First dose on Thu02/16/18 at 0900, Until Discontinued, Routine 0846 (Given - Provid er: Leah Howell RN) ibuprofen (ADVIL;MOTRIN) tablet 800 mg 800 mg, Oral, EVERY 6 HOURS, First dose on Thu02/15/18 at 2200, Until Discontinued, Do not administer with ketorolac, Routine 2200 (Given - Provider: Aileen Gonzalez RN) 0400 (Not Given - Provider: Aileen Gonzalez RN - Reason: Patient/family refused - Comment: very hard to swallow)1000 (Not Given - Provider: Leah Howell RN - Reason: Patient/family refused) levothyroxine (SYNTHROID) tablet 137 mcg 137 mcg (rounded from 135 mcg), Oral, EVERY MORNING, First dose on Thu02/16/18 at 0600, Until Discontinued, Routine 0611 (Given - Provid er: Aileen Gonzalez RN) ramipril (ALTACE) capsule 10 mg 10 mg, Oral, DAILY, First dose on Thu02/16/18 at 0900, Until Discontinued 0845 (Given - Provid er: Leah Howell RN) sodium chloride 0.9 % flush 5 mL 5 mL, Intravenous, 2 TIMES DAILY, First dose on Thu02/15/18 at 2145, Until Discontinued, Recovery (Recovery-Hospital Unit), Routine 2154 (Given - Provider: Aileen Gonzalez RN) 0900 (Not Given - Provider: Leah Howell RN - Reason: Loss of access) Continuous Medication Order 02/14/2018 02/15/2018 02/16/2018 lactated Ringers infusion 1,000 mL (CANCELED) 1,000 mL, at 100 mL/hr, Intravenous, CONTINUOUS, Starting on Thu02/15/18 at 1415, Until Thu02/15/18 at 2047, Day of Surgery (Day of Procedure) 1409 (New Bag - Provider: Delmy Juan, TRAY)1623 (New Bag - Provider: Priyanka Cid) PRN Medication Order 02/14/2018 02/15/2018 02/16/2018 BUpivacaine-EPINEPHrine 0.25 %-1:200,000 injection (CANCELED) ONCE PRN, Starting on Thu02/15/18 at 1635, Until Thu02/16/18 at 1540, Intra-Operative (Intra-Procedure), Routine 1635 (Given - Provider: Tobin Callaway MD) cyclobenzaprine (FLEXERIL) tablet 10 mg 10 mg, Oral, 3 TIMES DAILY PRN, Starting on Thu02/16/18 at 0000, Until Thu02/16/18 at 1540, Muscle spasms, Routine HYDROmorphone (DILAUDID) injection 0.2-0.4 mg (CANCELED) 0.2-0.4 mg, Intravenous, EVERY 5 MIN PRN, Starting on Thu02/15/18 at 1917, Until Thu02/15/18 at 2047, Pain, Give 0.2 mg every 5 minutes PRN for mild to moderate pain (1-5) Give 0.4 mg every 5 minutes PRN for moderate to severe pain (6-10). Hold for respiratory rate less than 10 per minute. Maximum dose 4 mg over one hour. If multiple pain medications are ordered, start with hydromorphone or morphine and use fentanyl for breakthrough pain., PACU Recovery, Routine 1955 (Given - Provider: Mary Lou Barrientos RN)2000 (Given - Provider: Mary Lou Barrientos RN)2005 (Given - Provider: Mary Lou Barrientos, RN)2014 (Given - Provider: Mary Lou Barrientos, RN) lidocaine (XYLOCAINE) 10 mg/mL (1 %) injection 3 mg 3 mg (0.3 mL), Subcutaneous, ONCE PRN, 1 dose, Starting on Thu02/15/18 at 2119, Until Thu02/16/18 at 1540, for discomfort with PIV insertion, Recovery (Recovery-Hospital Unit), Routine ondansetron (ZOFRAN) injection 4 mg(Linked Group 2) 4 mg, Intravenous, EVERY 8 HOURS PRN, Starting on Thu02/15/18 at 2119, Until Thu02/16/18 at 1540, Nausea, May repeat times one in 30 minutes if ineffective. If multiple antiemetics are ordered, use ondansetron first, Recovery (Recovery-Hospital Unit) ondansetron (ZOFRAN) tablet 4 mg(Linked Group 2) 4 mg, Oral, EVERY 8 HOURS PRN, Starting on Thu02/15/18 at 2119, Until Thu02/16/18 at 1540, Nausea, Vomiting, If multiple antiemetics are ordered, use ondansetron first. PO Preferred. If patient unable to take PO, may give IV if ordered. May repeat times one in 45 minutes if ineffective., Recovery (Recovery-Hospital Unit), Routine oxyCODONE (ROXICODONE) immediate release tablet 10-15 mg(Linked Group 3) 10-15 mg, Oral, EVERY 3 HOURS PRN, Starting on Thu02/16/18 at 0005, Until Thu02/16/18 at 1540, Pain, severe pain (7-10), Initial dose 10mg. If pain control not adequate in 60 minutes, give additional 5mg, Routine 0015 (See Alternativ e - Provider: Aileen Gonzalez RN)031 (See Alternative - Provider: Aileen Gonzalez RN)0850 (See Alternative - Provider: Leah Howell, TRAY) oxyCODONE (ROXICODONE) immediate release tablet 5 mg (CANCELED) 5 mg, Oral, EVERY 4 HOURS PRN, Starting on Thu02/15/18 at 2119, Until Thu02/16/18 at 0005, Pain, for MILD pain, Start with 5 mg. If pain control not adequate in 60 minutes, may give additional 5 mg., Routine 2145 (Given - Provider: Aileen Gonzalez, TRAY) oxyCODONE (ROXICODONE) immediate release tablet 5-10 mg(Linked Group 3) 5-10 mg, Oral, EVERY 3 HOURS PRN, Starting on Thu02/16/18 at 0005, Until Thu02/16/18 at 1540, Pain, moderate pain (4-6), Initial dose 5mg. If pain control not adequate in 60 minutes, give additional 5mg, Routine 0015 (Given - Provid er: Aileen Gonzalez RN)0314 (Given - Provider: Aileen Gonzalez, RN)0850 (Given - Provider: Leah Howell, TRAY) sodium chloride 0.9 % flush 5-20 mL 5-20 mL, Intravenous, EVERY 1 MIN PRN, Starting on Thu02/15/18 at 2119, Until Thu02/16/18 at 1540, flush, Flush pertains to all indwelling lines. Flush per protocol found in the job aid using the link provided on this medication record., Recovery (Recovery-Hospital Unit), Routine Linked Groups Order Group 1: calcium citrate (CALCITRATE) tablet 950 mgJump to med 950 mg, Oral, 3 TIMES DAILY, First dose on Thu02/15/18 at 2145, Until Discontinued, Routine And cholecalciferol (Vitamin D3) tablet 800 UnitsJump to med 800 Units, Oral, 3 TIMES DAILY, First dose on Thu02/15/18 at 2145, Until Discontinued, Routine Group 2: ondansetron (ZOFRAN) tablet 4 mgJump to med 4 mg, Oral, EVERY 8 HOURS PRN, Starting on Thu02/15/18 at 2119, Until Thu02/16/18 at 1540, Nausea, Vomiting, If multiple antiemetics are ordered, use ondansetron first. PO Preferred. If patient unable to take PO, may give IV if ordered. May repeat times one in 45 minutes if ineffective., Recovery (Recovery-Hospital Unit), Routine Or ondansetron (ZOFRAN) injection 4 mgJump to med 4 mg, Intravenous, EVERY 8 HOURS PRN, Starting on Thu02/15/18 at 2119, Until Thu02/16/18 at 1540, Nausea, May repeat times one in 30 minutes if ineffective. If multiple antiemetics are ordered, use ondansetron first, Recovery (Recovery-Hospital Unit) Group 3: oxyCODONE (ROXICODONE) immediate release tablet 5-10 mgJump to med 5-10 mg, Oral, EVERY 3 HOURS PRN, Starting on Thu02/16/18 at 0005, Until Thu02/16/18 at 1540, Pain, moderate pain (4-6), Initial dose 5mg. If pain control not adequate in 60 minutes, give additional 5mg, Routine Or oxyCODONE (ROXICODONE) immediate release tablet 10-15 mgJump to med 10-15 mg, Oral, EVERY 3 HOURS PRN, Starting on Thu02/16/18 at 0005, Until Thu02/16/18 at 1540, Pain, severe pain (7-10), Initial dose 10mg. If pain control not adequate in 60 minutes, give additional 5mg, Routine documented in this encounter Care Teams Brake Operator Heavy Duty Relationship Specialty Start Date End Date None None PCP - General 02/12/18 04/09/22 documented as of this encounter
--- OUTSIDE RECORDS SUMMARY | 2023-10-13 16:10 | XMS_ITS | Encounter Summary ---
Author Organization [facility] Address [address] [place] [address] Care Team Providers Care Speck Dyer Name Role Phone Unknown, Provider Primary Care Provider [phone] Encounter Details Date Type Department Care Team (Late st Contact Info) Description 05/28/[address] [facility] Pathology & Laboratory Medicine - [address] [address] Amanuel Gallegos MD [address] [place] [address] [place] [address] Carcinoma in situ of bladder; Malignant neoplasm of bladder, unspecified ([facility]) Social History Tobacco Use Types Packs/Day Years Used Date Smoking Tobacco: Never Assessed Interpersonal Safety Answer Date Record ed Physically Hurt Never 10/23/2019 Verbally Threaten Not on file 10/23/2019 Sex and Gender Information Value Date Recorded Sex Assigned at Not on file Gender Identity Not on file Sexual Orientation Not on file documented as of this encounter Plan of Treatment Not on file documented as of this encounter Procedures Procedure Name Priority Date/Time Associated Diagnosis Comments SURGICAL PATHOLOGY Today 05/28/2023 10 :00 EST 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 Please allow time for your provider to receive these results and explore management options, if applicable. 06/01/2023 9:09 EDT [facility] Final Diagnosis A. 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 - Muscularis propria is present, and is uninvolved by tumor. - See synoptic report. - Deeper levels examined. 06/01/2023 9:09 [facility] Diagnosis Comment Deeper sections have been examined. 06/01/2023 9:09 [facility] Attestation There was significant resident/fellow involvement in the diagnostic evaluation of this case. By the signature below, the attending physician certifies that they have personally conducted a gross and/or microscopic examination of the described specimens and rendered or confirmed the above diagnosis. 06/01/2023 9:09 [facility] at 0909 Synoptic URINARY BLADDER: Biopsy and Transurethral Resection of Bladder Tumor (TURBT) URINARY BLADDER: BIOPSY AND TRANSURETHRAL RESECTION OF BLADDER TUMOR (TURBT) - All Specimens Protocol posted: 12/10/2022 SPECIMEN ?? Procedure: ?Biopsy TUMOR ?? Tumor Site: ?Not specified ?? Histologic Type: ?Urothelial carcinoma, in situ ?? Histologic Grade: ?High-grade ?? Tumor Extent: ?Flat carcinoma in situ ?? Lymphatic and / or Vascular Invasion: ?Not identified ?? Tumor Configuration: ?Flat ?? Muscularis Propria (detrusor muscle): ?Present in specimen ADDITIONAL FINDINGS ?? Additional Findings: ?Inflammation / regenerative changes 06/01/2023 9:09 [facility] Clinical History Bladder CA; clinical diagnosis code: C67.9, D09.0 06/01/2023 9:09 [facility] Gross Description A. Received in formalin labelled with proper patient identification (initials S, N) and bladder Bx are 3 anderson-brown tissues (0.4 x 0.2 x 0.1 cm to 0.2 x 0.2 x 0.1 cm). Entirely submitted in in A1. Jenny Moraes 05/29/2023 7:49 06/01/2023 9:09 [facility] Resident/Stuart w: Rebeca Franklin MD 06/01/2023 9:09 EDT [facility] Performing Lab [facility] 06/01/2023 9:09 EDT [facility] Scanned Images 06/01/2023 9:09 EDT [facility] Tissue SPECIMEN FROM URINARY BLADDER / Unknown 05/28/2023 10:00 EST 05/28/2023 16:41 EST Amanuel Gallegos MD PATHOLOGY ORDERAB LES [facility] [address] [place] [address] documented in this encounter Visit Diagnoses Diagnosis 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
--- OUTSIDE RECORDS SUMMARY | 2023-10-13 16:10 | XMS_ITS | Encounter Summary ---
Author Organization [facility] Address [facility] [place] [address] Care Team Providers Care Child Custody Evaluator Name Role Phone None Primary Care Provider Unavailabl e Encounter Details Date Type Department Care Team (Late st Contact Info) Description 03/17/2018 Telephone [place] [phone] Fabiola Alvarado Social History Tobacco Use Types Packs/Day Years Used Date Smoking Tobacco: Every Day Cigarettes 1 30 Smokeless Tobacco: Never Alcohol Use Standard Drinks/Week Comments Yes 2 (1 standard drink = 0.6 oz pur e alcohol) Sex and Gender Information Value Date Recorded Sex Assigned at Not on file Gender Identity Not on file Sexual Orientation Not on file documented as of this encounter Miscellaneous Notes * Telephone Encounter - Fabiola Alvarado - 03/17/2018 9:13 AM EST Bonnie called to reschedule her post op appointment with Dr Callwaay from 03/12, which was cancelled due to the weather. She said she is feeling well, incision looks good and not having any concerns from surgery. She asked if her labs could be done locally? I have mailed the lab order to her. I said either Dr Callawayor Dr Toledo would be in touch with her about the results once available. documented in this encounter Plan of Treatment Not on file documented as of this encounter Visit Diagnoses Not on filedocumented in this encounter Care Teams Child Custody Evaluator Relationship Specialty Start Date End Date None None PCP - General 02/12/18 04/09/22 documented as of this encounter
--- OUTSIDE RECORDS SUMMARY | 2023-10-13 16:10 | XMS_ITS | Encounter Summary ---
Author Organization [facility] Address [facility] [place] [address] Care Team Providers Care Product Test Engineer Name Role Phone None Primary Care Provider Unavailabl e Encounter Details Date Type Department Care Team (Late st Contact Info) Description 03/30/2018 Orders Only [place] [address] Dalia Herr, RN Social History Tobacco Use Types Packs/Day Years [...] on filedocumented in this encounter Care Teams Product Test Engineer Relationship Specialty Start Date End Date None None PCP - General 02/12/18 04/09/22 documented as of this encounter
--- OUTSIDE RECORDS SUMMARY | 2023-10-13 16:10 | XMS_ITS | Encounter Summary ---
Author Organization [facility] Address [facility] [place] [address] Care Team Providers Care Manufacturing Technology Professor Name Role Phone June Andrade APRN Primary Care Provider [phone] Encounter Details Date Type Department Care Team (Late st Contact Info) Description 10/18/2022 Telephone Urology at [facility] [place] [phone] Chante Munoz MD [facility] [place] [address] Social History Tobacco Use Types Packs/Day Years [...] encounter Miscellaneous Notes * Telephone Encounter - Chante Munoz MD - 10/18/2022 2:36 PM EDT Received a call from [facility] emergency department regarding patient there is status post TURBT for bladder tumor with local urologist a few weeks ago with blood-tinged urine and left flank pain. No associated fevers or chills. She is afebrile with normal vital signs, UA is notable for blood, CBC witha white blood cell count of 18 otherwise hemoglobin within normal limits, BMP notable for normal creatinine. A CT of the abdomen pelvis was obtained demonstrating mild left hydronephrosis to the level of the bladder, symmetric nephrograms, there is no obvious stone, question of blood clot at the UVJ. Additionally notable for inflammation in sigmoid colon, she does have a history of diverticulitis. Her flank pain is now controlled. Recommend continue observation for now, she has follow-up with her local urologist. Additionally recommend evaluation by general surgery versus gastroenterology fordiverticulitis. Recommend counseling that she should be transferred to a facility with urology should she develop uncontrolled flank pain or flank pain with fevers. All questions answered. They will call back with additional. Ms. documented in this encounter Plan of Treatment Not on file documented as of this encounter Visit Diagnoses Not on filedocumented in this encounter Care Teams Manufacturing Technology Professor Relationship Specialty Start Date End Date June Andrade APRN PCP - General Family Medicine 04/10/22 documented as of this encounter
--- OUTSIDE RECORDS SUMMARY | 2023-10-13 16:10 | XMS_ITS | Encounter Summary ---
Author Organization [facility] Address [address] [place] [address] Care Team Providers Care Online Communications Manager Name Role Phone Unknown, Provider Primary Care Provider [phone] Encounter Details Date Type Department Care Team (Latest Contact Info) Description 01/26/2018 13:23 EST - 01/26/2018 23:59 EST Hospital Encounter [address] [address] Unknown, Provider, Discharge Disposition: Home or Self Care Social History Tobacco Use Types Packs/Day Years Used Date Smoking Tobacco: Never Assessed Sex and Gender Information Value Date Recorded Sex Assigned at Not on file Gender Identity Not on file Sexual Orientation Not on file documented as of this encounter Discharge Disposition Disposition Code Departure Means Destination Home or Self [facility] documented in this encounter Plan of Treatment Not on file documented as of this encounter Visit Diagnoses Not on filedocumented in this encounter Care Teams Online Communications Manager Relationship Specialty Start Date End Date Unknown, Provider, PCP - General 01/25/15 documented as of this encounter
--- OUTSIDE RECORDS SUMMARY | 2023-10-13 16:10 | XMS_ITS | Encounter Summary ---
Author Organization [facility] Address [address] [place] [address] Care Team Providers Care Mental Hygienist Name Role Phone Unknown, Provider Primary Care Provider [phone] Encounter Details Date Type Department Care Team (Late st Contact Info) Description 03/15/2020 Lab Requisition [facility] Pathology & Laboratory Medicine - [address] [address] Outr Resulting Lab, Provider Social History Tobacco Use Types Packs/Day Years [...] Procedure Name Priority Date/Time Associated Diagnosis Comments ZZCOVID-19 TEST [facility] PCR Today 03/14/2020 13:05 EST COVID-19 TESTING Routine 03/14/2020 13:0 5 EST documented in this encounter Results * COVID-19 TEST [facility] PCR (03/14/2020 13:05 EST) Swab ENTIRE NASOPHARYNX / Unknown 03/14/2020 13:05 EST 03/15/2020 18:41 EST Provider Outr Resulting Lab MICROBIOLOGY - GENERAL ORDERABLES [facility] [address] [place] [address] * COVID-19 TESTING (03/14/2020 13:05 EST) COVID-19 rt-PCR Result Negative Negative 03/15/2020 23:48 EST [facility] Comment: This test has not been FDA cleared or approved. This test has been authorized by FDA under an EUA for use by authorized laboratories. This test has been authorized only for detection of nucleic acid from 2019-nCoV, not for any other viruses or pathogens. This test is only authorized for the duration of the declaration that circumstances exist justifying the authorization of emergency use of in vitro diagnostic tests for detection and/or diagnosis of 2019-nCoV under section 564(b)(1) of Act, 21 U.S.C ?? 360bbb-3(b) (1), unless the authorization is terminated or revoked sooner. Negative results do not preclude 2019-nCoV infection and should not be used as the sole basis for treatment or other patient management decisions. Negative results must be combined with clinical observations, patient history, and epidemiological information. Performed on the [employer] Fusion instrument Performing Lab [facility] 03/15/2020 23:48 EST [facility] Swab 03/14/2020 13:0 5 EST 03/15/2020 18:41 EST Provider Outr Resulting Lab MICROBIOLOGY - GENERAL ORDERABLES [facility] [address] [place] [address] documented in this encounter Visit Diagnoses Not on filedocumented in this encounter Care Teams Mental Hygienist Relationship Specialty Start Date End Date Unknown, Provider, PCP - General 01/25/15 documented as of this encounter
--- OUTSIDE RECORDS SUMMARY | 2023-10-13 16:10 | XMS_ITS | Encounter Summary ---
Author Organization [facility] Address [address] [place] [address] Care Team Providers Care Railroad Crane Operator Name Role Phone Unavailable Primary Care Provider Unavailabl e Encounter Details Date Type Department Care Team (Late st Contact Info) Description 06/16/2008 Before PRISM Converted Visit (Maple) [facility] - Maple conversion [address] [place] [address] Kimberley Armando MD [address] [place], [place] [id number] Social History Tobacco Use Types Packs/Day Years Used Date Smoking Tobacco: Never Assessed Sex and Gender Information Value Date Recorded Sex Assigned at Not on file Gender Identity Not on file Sexual Orientation Not on file documented as of this encounter Plan of Treatment Not on file documented as of this encounter Procedures Procedure Name Priority Date/Time Associated Diagnosis Comments SURGICAL PATHOLOGY Routine 06/16/2008 0:00 EDT documented in this encounter Results * SURGICAL PATHOLOGY (06/16/2008 0:00 EDT) Pathology Report: SURGICAL PATHOLOGY REPORT ? Reports generated via electronic interface contain original data; ? however they are lacking the format of the original report. ? Caution should be taken when reading/interpreti ng unformatted reports. ? Name: ? STONE, XIOMARA J ? Accession #: ? [id number] ? : ? 1950 (Age: 58) ??F ? Collect Date: ? 06/16/2008 ? Location: ? [facility] ? Receive Date: ? 06/19/2008 ? Provider: KIMBERLEY BERRIAN MD ? Copy to: MEAGHAN VEGA MINE ENGINEERING SUPERINTENDENT ? Final Pathologic Diagnosis: ? A. ?Skin of breast, right, shave biopsy: ? 1. ?Seborrheic keratosis. ? B. ?Skin of forehead, left, shave biopsy: ? 1. ?Melanocytic nevus, intradermal type. ? Microscopic Description: ? (A) ??The stratum corneum is thickened by compact and basketweave ? orthokeratosis with formation of horn pseudocysts. ??The epidermis is acanthotic with formation of broad and anastomosing trabeculae. ??The trabeculae are ? composed of basaloid keratinocytes with round uniform nuclei. ??The keratinocytes have a variable amount of melanin pigment. ? (B) ??Sections are of a papule with mild epidermal hyperplasia and ? hyperkeratosis. ??There is a proliferation of melanocytes within the dermis. ??The proliferation consists of nests, cords, and strands that diminish in size with ?? descent into the dermis. ??The melanocytes are slightly enlarged but generally ?? have round-oval nuclei and a moderate amount of cytoplasm. ??The melanocytes show acute care nursing assistant maturation. ??There is neurotization of the melanocytes at the depth of ?? the proliferation. ??The papule is associated with fat infiltration of the ? dermis. ??(Dr. Rowan)/[facility] ? Document reviewed and electronically signed by: ? Noemy Rowan MD ? Report ??Date: 06/21/2008 16:52 ? By the signature above, the attending physician certifies that he/she has ? personally conducted a gross and/or microscopic examination of the described ? specimens and rendered or confirmed the above diagnosis. ? Specimen(s) Received: ? A. ?R breast ? B. ? L forehead ? Clinical History: ? A. Seborrheic keratosis approximately 1.2 cm in diameter; B. pedunculated ?? fleshy mole (part approximately 1 cm diameter of it - part lost somehow) ? Gross Description: ? Received in formalin labelled Kendrick, Xiomara and mole under R breast is a shave biopsy of a anderson-marsh, smooth, slightly lobular skin lesion which measure ?? 1.8 x 1.2 x 0.5 cm. ??The margin is black-inked. ??The specimen is sectioned into 6 parts and entirely submitted as (A1) and (A2). ? Received in formalin labelled Kendrick, Xiomara and mole face is a shave biopsy ?? of a anderson-white, firm, smooth to wrinkled nodule which measures 0.6 x 0.6 x 0.4 ?? cm. ??The margins are black-inked. ??Also received in the container is a ? anderson-white, irregular soft tissue measuring 0.3 x 0.2 x 0.2 cm. ??The nodule is ?? trisected and submitted entirely as (B1). ??The irregular tissue is submitted ? intact as (B2). ??(Jody. Mireles)/mpl ? End of Report ? RICHIE KOEHLER 06/16/2008 06/19/2008 9:0 1 EDT Kimberley Armando MD PATHOLOGY ORDERABLES RICHIE KOEHLER [address] [place] [address] documented in this encounter Visit Diagnoses Not on filedocumented in this encounter
--- OUTSIDE RECORDS SUMMARY | 2023-10-13 16:10 | XMS_ITS | Clinical Summary ---
Author Organization [facility] Address [address] [place] [address] Care Team Providers Care Gate Supervisor Name Role Phone Unknown, Provider Primary Care Provider Social History Tobacco Use Types Packs/Day Years Used Date Smoking Tobacco: Never Assessed Interpersonal Safety Answer Date Record ed Physically Hurt Never 10/23/2019 Verbally Threaten Not on file 10/23/2019 Sex and Gender Information Value Date Recorded Sex Assigned at Not on file Gender Identity Not on file Sexual Orientation Not on file Plan of Treatment Health Maintenance Due Date Last Done Comments Hepatitis C Screen 1950 RSV Immunization ( o r 60+ Years) (1 - 1-dose 60+ series) 2011 Fall Risk Screening 2016 COVID-19 Vaccine (24 season) 2022 Care Teams Gate Supervisor Relationship Specialty Start Date End Date Unknown, Provider, PCP - General 01/25/15
--- OUTSIDE RECORDS SUMMARY | 2023-10-13 16:10 | XMS_ITS | Encounter Summary ---
Author Organization [facility] Address [facility] [place] [address] Care Team Providers Care Production Zone Leader Name Role Phone June Andarde APRN Primary Care Provider [phone] Encounter Details Date Type Department Care Team (Late st Contact Info) Description 10/18/2022 2:05 PM EDT Ancillary Procedure Radiology Library at [facility] [place] [address] [address] Mun[address] MD [facility] [place] [address] Social History Tobacco Use Types Packs/Day Years [...] Procedure Name Priority Date/Time Associated Diagnosis Comments FILM LIBRARY STORAGE ONLY CT ABDOMEN AND PELVIS Routine 10/18/2022 2:02 PM EDT documented in this encounter Results * Film Library- Storage Only CT Abdomen & Pelvis (10/18/2022 2:02 PM EDT) Narrative [facility] - 10/18/2022 2:02 PM EDT This exam is auto-finalizing. It's purpose is for storage only. Chante Munoz MD IMG FILM LIBRARY ORD ERABLES [place], [place] documented in this encounter Visit Diagnoses Not on filedocumented in this encounter Care Teams Production Zone Leader Relationship Specialty Start Date End Date June Andrade APRN PCP - General Family Medicine 04/10/22 documented as of this encounter
--- OUTSIDE RECORDS SUMMARY | 2023-10-13 16:10 | XMS_ITS | Encounter Summary ---
Author Organization [facility] Address [address] [place] [address] Care Team Providers Care Lunchroom Monitor Name Role Phone Unavailable Primary Care Provider Unavailabl e Encounter Details Date Type Department Care Team (Late st Contact Info) Description 06/11/2005 Results Only [facility] - Maple conversion [address] [place] [address] Demetra Vega, PRINTING MECHANIST [facility] [address] [place], [place] [id number] Social History Tobacco Use Types Packs/Day Years Used Date Smoking Tobacco: Never Assessed Sex and Gender Information Value Date Recorded Sex Assigned at Not on file Gender Identity Not on file Sexual Orientation Not on file documented as of this encounter Plan of Treatment Not on file documented as of this encounter Procedures Procedure Name Priority Date/Time Associated Diagnosis Comments CYTOPATHOLOGY Routine 06/11/2005 0:00 EST documented in this encounter Results * CYTOPATHOLOGY (06/11/2005 0:00 EST) Pathology Report: CYTOPATHOLOGY REPORT Reports generated via electronic interface contain original data; however they are lacking the format of the original report. Caution should be taken when reading/interpreti ng unformatted reports. Name: ? BETTINA XIOMARA J ? Accession #: ? [id number] : ? 1950 (Age: 55) ??F ?Collect Date: ? 06/11/2005 Location: ? [facility] ? Receive Date: ? 06/13/2005 Provider: ?DEMETRA VEGA PRINTING MECHANIST Copy to: ? Specimen/Source: ?ThinPrep Pap Test, Cervix,Scar ??processed on StupeflixPrep Imaging System, with manual evaluation Last Menstrual Period: ? Treatment History: ? Hysterectomy ? SPECIMEN ADEQUACY ? Satisfactory for Evaluation - assessment of transformation zone component not applicable ( e.g. atrophy, vaginal sample, hysterectomy) GENERAL CATEGORIZATION ? Negative for Intraepithelial Lesion or Malignancy INTERPRETATION ? Shift in tres present suggestive of bacterial vaginosis. ? Document reviewed and electronically signed by: ? RANULFO Clemente(ASCP) ? Report Date: ??06/16/2005 13:48 End of Report RICHIE KOEHLER 06/11/2005 06/13/2005 Demetra Vega NP PATHOLOGY ORDERABLES RICHIE KOEHLER [address] [place] [address] documented in this encounter Visit Diagnoses Not on filedocumented in this encounter
--- OUTSIDE RECORDS SUMMARY | 2023-10-13 16:10 | XMS_ITS | Encounter Summary ---
Author Organization [facility] Address [facility] [place] [address] Care Team Providers Care Diver'S Tender Name Role Phone None Primary Care Provider Unavailabl e Encounter Details Date Type Department Care Team (Late st Contact Info) Description 03/29/2018 Telephone [place] [address] Judy Shaffer RN Social History Tobacco Use Types Packs/Day [...] encounter Miscellaneous Notes * Telephone Encounter - Judy Shaffer RN - 03/29/2018 12:37 PM EST Ms. Marks is s/p thyroidectomy on 02/15/[address] Callaway. She cancelled her f/u appt d/t weather conditions and had her TSH checked locally at [facility]. She calls today to ask about results. Call [facility] lab and got faxed TSH = 0.12. Per Dr. Callaway, pt to remain on current dose of levothyroxineand have this checked annually by her PCP. Advised pt, and she agrees. Will call in script to get her to 1 yr post-op. documented in this encounter Plan of Treatment Not on file documented as of this encounter Visit Diagnoses Not on filedocumented in this encounter Care Teams Diver'S Tender Relationship Specialty Start Date End Date None None PCP - General 02/12/18 04/09/22 documented as of this encounter
--- OUTSIDE RECORDS SUMMARY | 2023-10-13 16:10 | XMS_ITS | Encounter Summary ---
Author Organization [facility] Address [facility] [place] [address] Care Team Providers Care Informix Developer Name Role Phone None Primary Care Provider Unavailabl e Encounter Details Date Type Department Care Team (Late st Contact Info) Description 03/31/2022 Ancillary Procedure Radiology Library at [facility] [place] [phone] June Andrade, EUSE[place] [address] [place] [address] Social History Tobacco Use Types Packs/Day Years [...] Associated Diagnosis Comments FILM LIBRARY STORAGE ONLY MR SPINE Routine 03/31/2022 12:00 AM EST documented in this encounter Results * Film Library- Storage Only MR Spine (03/31/2022 12:00 AM EST) Narrative [facility] - 04/10/2022 2:40 PM EST This exam is auto-finalizing. It's purpose is for storage only. June Andrade PAN PUSHER IMG FILM LIBRARY ORD ERABLES [facility] [place] documented in this encounter Visit Diagnoses Not on filedocumented in this encounter Care Teams Informix Developer Relationship Specialty Start Date End Date None None PCP - General 02/12/18 04/09/22 documented as of this encounter
--- OUTSIDE RECORDS SUMMARY | 2023-10-13 16:10 | XMS_ITS | Encounter Summary ---
Author Organization [facility] Address [address] [place] [address] Care Team Providers Care Auto Damage Estimator Name Role Phone Unknown, Provider Primary Care Provider [phone] Encounter Details Date Type Department Care Team (Late st Contact Info) Description 05/04/2023 Lab Requisition [facility] Pathology & Laboratory Medicine - [address] [address] Amanuel Gallegos MD [address] [place] [address] [place] [phone] Malignant neoplasm of bladder, unspecified (HCC-CMS) Social History Tobacco Use Types Packs/Day Years [...] Procedure Name Priority Date/Time Associated Diagnosis Comments NON KNIFE CHANGER/FNA CYTOLOGY Today 05/01/2023 9:30 EST Malignant neoplasm of bladder, unspecified (HCC-CMS) documented in this encounter Results * NON KNIFE CHANGER/FNA CYTOLOGY (05/01/2023 9:30 EST) Note to Patient The following pathology results have been interpreted by your pathologist and may be available to you before your health provider has had the opportunity to review them. Please allow time for your provider to receive these results and explore management options, if applicable. 05/04/2023 16:[address] [facility] Final Diagnosis A. URINE, BARBOTAGE, CYTOLOGIC EVALUATION: - Atypical urothelial cells. See comment. 05/04/2023 16:00 [facility] Diagnosis Comment In the background of degenerated urothelial cells are rare single cells with high nuclear to cytoplasmic ratios, hyperchromatic chromatin and nuclear membrane irregularities. Based on these atypical findings, a significant urologic abnormality cannot be excluded. Plant Mechanic slides of this case were reviewed at the intradepartmental consultation conference. 05/04/2023 16:00 [facility] Attestation There was significant resident/fellow involvement in the diagnostic evaluation of this case. By the signature below, the attending physician certifies that they have personally conducted a gross and/or microscopic examination of the described specimens and rendered or confirmed the above diagnosis. 05/04/2023 16:00 [facility] at 1600 Clinical History Bladder cancer. C67.9 05/04/2023 16:00 [facility] Gross Description A. 80cc's of clear yellow fluid (Cytolyt added) were received and processed by selective cellular enhancement technique. 05/04/2023 16:00 [facility] Resident/Fell ow: Carolyn Hansen MD 05/04/2023 16:00 [facility] Performing Lab [facility] 05/04/2023 16:00 [facility] Scanned Images 05/04/2023 16:00 [facility] Urine URINE / Unknown 05/01/2023 9 :30 EST 05/04/2023 7:31 EST Amanuel Gallegos MD PATHOLOGY ORDERAB LES [facility] [address] [place] [address] documented in this encounter Visit Diagnoses Diagnosis Malignant neoplasm of bladder, unspecified (HCC-CMS) documented in this encounter Care Teams Auto Damage Estimator Relationship Specialty Start Date End Date Unknown, Provider, PCP - General 01/25/15 documented as of this encounter
--- OUTSIDE RECORDS SUMMARY | 2023-10-13 16:10 | XMS_ITS | Encounter Summary ---
Author Organization [facility] Address [address] [place] [address] Care Team Providers Care Tipple Greaser Name Role Phone Unknown, Provider Primary Care Provider [phone] Encounter Details Date Type Department Care Team (Late st Contact Info) Description 01/26/2018 Results Only [facility] [phone] Chapincito Thompson MD [address] [place] [address] Social History Tobacco Use Types Packs/Day Years Used Date Smoking Tobacco: Never Assessed Sex and Gender Information Value Date Recorded Sex Assigned at Not on file Gender Identity Not on file Sexual Orientation Not on file documented as of this encounter Plan of Treatment Not on file documented as of this encounter Procedures Procedure Name Priority Date/Time Associated Diagnosis Comments SURGICAL PATHOLOGY Routine 01/26/2018 21 :32 EST documented in this encounter Results * SURGICAL PATHOLOGY (01/26/2018 21:32 EST) Pathology Report: SURGICAL PATHOLOGY REPORT Reports generated via electronic interface contain original data; however they are lacking the format of the original report. Caution should be taken when reading/interpretin g unformatted reports. Name: ? KENDRICK XIOMARA Erich ? Accession #: ? [id number] ? : ? 1950 (Age: 67) ??F ? Collect Date: ? 01/26/2018 ? Location: ? [facility] ? Receive Date: ? 01/26/2018 ? Provider: CHAPINCITO THOMPSON MD Copy to: ? Final Pathologic Diagnosis: THYROID, RIGHT, NODULE, CORE NEEDLE BIOPSY: - Thyroid tissue with mild interfollicular fibrosis. See comment. Comment: Sections feature thyroid tissue with a slightly microfollicular architecture and interfollicular fibrosis/sclerosis. Nuclear features of papillary thyroid carcinoma are not appreciated. This may represent a benign hyperplastic nodule, but a follicular neoplasm cannot be excluded. Definitive characterization is deferred to resection. Dr. Strange 01/28/2018 8:34 AM Document reviewed and electronically signed by: ILANA PINON MD Report ??Date: 01/28/2018 13:26 By the signature above, the attending physician certifies that he/she has personally conducted a gross and/or microscopic examination of the described specimens and rendered or confirmed the above diagnosis. Specimen(s) Received: Rt thyroid nodule core bx Clinical History: Not listed Gross Description: ? Received in formalin labelled with proper patient identification (initials S, N) and Rt thyroid bx are two anderson-white tissue cores (0.2 cm and 0.5 cm in length, and each 0.1 cm in diameter). Entirely submitted in 1. CARISA Lizama (ASCP) 01/27/2018 8:24 AM End of Report [facility] 01/26/2018 21:3 2 EST 01/26/2018 21:32 EST Chapincito Thompson MD PATHOLOGY ORDERABLES [facility] [address] [place] [address] documented in this encounter Visit Diagnoses Not on filedocumented in this encounter Care Teams Tipple Greaser Relationship Specialty Start Date End Date Unknown, Provider, PCP - General 01/25/15 documented as of this encounter
--- OUTSIDE RECORDS SUMMARY | 2023-10-13 16:10 | XMS_ITS | Encounter Summary ---
Author Organization [facility] Address [address] [place] [address] Care Team Providers Care Welder Plastic Name Role Phone Unavailable Primary Care Provider Unavailabl e Encounter Details Date Type Department Care Team (Late st Contact Info) Description 09/08/2007 Results Only [facility] - Maple conversion [address] [place] [address] Demetra Vega, COMMERCIAL CENSUS TAKER [facility] [address] [place], [place] [address] Social History Tobacco Use Types Packs/Day Years Used Date Smoking Tobacco: Never Assessed Sex and Gender Information Value Date Recorded Sex Assigned at Not on file Gender Identity Not on file Sexual Orientation Not on file documented as of this encounter Plan of Treatment Not on file documented as of this encounter Procedures Procedure Name Priority Date/Time Associated Diagnosis Comments CYTOPATHOLOGY Routine 09/08/2007 0:00 EDT documented in this encounter Results * CYTOPATHOLOGY (09/08/2007 0:00 EDT) Pathology Report: CYTOPATHOLOGY REPORT Reports generated via electronic interface contain original data; however they are lacking the format of the original report. Caution should be taken when reading/interpreti ng unformatted reports. Name: ? XIOMARA DUNBAR ? Accession #: ? [id number] : ? 1950 (Age: 57) ??F ?Collect Date: ? 09/08/2007 Location: ? [facility] ? Receive Date: ? 09/10/2007 Provider: ?DEMETRA VEGA COMMERCIAL CENSUS TAKER Copy to: ? Specimen/Source: ?ThinPrep Pap Test, Vagina, processed on BluespecPrep Imaging System, with manual evaluation Last Menstrual Period: ? 30 yrs Treatment History: ? Hysterectomy: 30 yrs ago ? SPECIMEN ADEQUACY ? Satisfactory for Evaluation - assessment of transformation zone component not applicable ( e.g. atrophy, vaginal sample, hysterectomy) GENERAL CATEGORIZATION ? Negative for Intraepithelial Lesion or Malignancy INTERPRETATION ? Shift in tres present suggestive of bacterial vaginosis. ? Document reviewed and electronically signed by: ? RANULFO Clemente(ASCP) ? Report Date: ??09/13/2007 14:14 End of Report RICHIE KOEHLER 09/08/2007 09/10/2007 Demetra Vega NP PATHOLOGY ORDERABLES RICHIE KOEHLER [address] [place] [address] documented in this encounter Visit Diagnoses Not on filedocumented in this encounter
--- OUTSIDE RECORDS SUMMARY | 2023-10-13 16:10 | XMS_ITS | Referral Summary ---
Author Organization [facility] Address [address] [place] [address] Care Team Providers Care Tray Packer Name Role Phone Unknown, Provider Primary Care Provider [phone] Social History Tobacco Use Types Packs/Day Years Used Date Smoking Tobacco: Never Assessed Interpersonal Safety Answer Date Record ed Physically Hurt Never 10/23/2019 Verbally Threaten Not on file 10/23/2019 Sex and Gender Information Value Date Recorded Sex Assigned at Not on file Gender Identity Not on file Sexual Orientation Not on file Plan of Treatment Not on file Care Teams Tray Packer Relationship Specialty Start Date End Date Unknown, ProviderMD PCP - General 01/25/15
--- OUTSIDE RECORDS SUMMARY | 2023-10-13 16:10 | XMS_ITS | Encounter Summary ---
Author Organization [facility] Address [address] [place] [address] Care Team Providers Care Fabrication And Assembly Supervisor Name Role Phone Unknown, Provider Primary Care Provider [phone] Encounter Details Date Type Department Care Team (Late st Contact Info) Description 10/09/2022 Lab Requisition [facility] Pathology & Laboratory Medicine - [address] [address] Amanuel Gallegos MD [address] [place] [address] [place] [address] Other specified disorders of bladder Social History Tobacco Use Types Packs/Day Years [...] Date/Time Associated Diagnosis Comments SURGICAL PATHOLOGY Today 10/09/2022 8:15 EDT Other specified disorders of bladder documented in this encounter Results * SURGICAL PATHOLOGY (10/09/2022 8:15 EDT) Note to Patient The following pathology results have been interpreted by your pathologist and may be available to you before your health provider has had the opportunity to review them. Please allow time for your provider to receive these results and explore management options, if applicable. 10/17/2022 15:37 EDT [facility] Final Diagnosis A. URINARY BLADDER, MASS, TRANSURETHRAL RESECTION (TURBT): - Papillary urothelial carcinoma, suspicious for subepithelial lamina propria involvement, high-grade. - Negative for lymph-vascular invasion. - Muscularis propria identified; negative for tumor involvement. 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 - Cautery changes. 10/17/2022 15:37 [facility] Diagnosis Comment Deeper levels of (A1) and (A2) have been examined. 10/17/2022 15:37 [facility] Attestation There was significant resident/fellow involvement in the diagnostic evaluation of this case. By the signature below, the attending physician certifies that they have personally conducted a gross and/or microscopic examination of the described specimens and rendered or confirmed the above diagnosis. 10/17/2022 15:37 [facility] at 1537 Synoptic URINARY BLADDER: Biopsy and Transurethral Resection of Bladder Tumor (TURBT) URINARY BLADDER: BIOPSY AND TURBT - All Specimens 8th Edition - Protocol posted: 09/19/2020 SPECIMEN ?? Procedure: ?Transurethral resection of bladder (TURBT) TUMOR ?? Tumor Site: ?Not specified ?? Histologic Type: ?Papillary urothelial carcinoma, invasive ?? Histologic Type: ?Urothelial carcinoma, in situ ?? Histologic Grade: ?High-grade ?? Tumor Extent: ?Invades lamina propria (subepithelial connective tissue) ?? Lymphovascular Invasion: ?Not identified ?? Tumor Configuration: ?Papillary ?? Muscularis Propria (detrusor muscle): ?Present ADDITIONAL FINDINGS ?? Additional Findings: ?Inflammation / regenerative changes ?? Additional Findings: ?Cautery artifact 10/17/2022 15:37 [facility] Clinical History Bladder mass 10/17/2022 15:37 [facility] Gross Description A. Received in formalin labelled with proper patient identification (initials S, N) and bladder are multiple anderson-marsh soft tissue fragments (0.8 g, 1.7 x 1.4 x 0.5 cm in aggregate). The specimen is entirely submitted as A1-A2. Flora Jones MD 10/10/2022 14:45 10/17/2022 15:37 EDT [facility] Resident/Stuart w: Flora Jones MD 10/17/2022 15:37 EDT [facility] Performing Lab [facility] 10/17/2022 15:37 EDT [facility] Scanned Images 10/17/2022 15:37 EDT [facility] Tissue URINARY BLADDER BIOPSY SPECIMEN / Unknown 10/09/2022 8:15 EDT 10/09/2022 20:16 EDT Amanuel Gallegos MD PATHOLOGY ORDERAB LES [facility] [address] [place] [address] documented in this encounter Visit Diagnoses Diagnosis Other specified disorders of bladder documented in this encounter Care Teams Fabrication And Assembly Supervisor Relationship Specialty Start Date End Date Unknown, Provider, PCP - General 01/25/15 documented as of this encounter
--- OUTSIDE RECORDS SUMMARY | 2023-10-13 16:10 | XMS_ITS | Encounter Summary ---
Author Organization [facility] Address [address] [place] [address] Care Team Providers Care Roller Man Name Role Phone Unknown, Provider Primary Care Provider [phone] Encounter Details Date Type Department Care Team (Latest Contact Info) Description 12/15/2017 15:54 EDT - 12/15/2017 23:59 EDT Hospital Encounter [address] [address] Unknown, Provider, Discharge Disposition: Home or Self Care Social History Tobacco Use Types Packs/Day Years Used Date Smoking Tobacco: Never Assessed Sex and Gender Information Value Date Recorded Sex Assigned at Not on file Gender Identity Not on file Sexual Orientation Not on file documented as of this encounter Discharge Disposition Disposition Code Departure Means Destination Home or Self Longterm documented in this encounter Plan of Treatment Not on file documented as of this encounter Visit Diagnoses Not on filedocumented in this encounter Care Teams Roller Man Relationship Specialty Start Date End Date Unknown, Provider, PCP - General 01/25/15 documented as of this encounter
--- OUTSIDE RECORDS SUMMARY | 2023-10-13 16:10 | XMS_ITS | Encounter Summary ---
Author Organization [facility] Address [facility] [place] [address] Care Team Providers Care Pension Adviser Name Role Phone None Primary Care Provider [...] Expiration Date Visits Re quested Visits Authorized [id number] 1 Encounter Details Date Type Department Care Team (Latest Contact Info) Description 02/15/2018 10:59 AM EST - 02/16/2018 1:15 PM EST Hospital Encounter [place] [id number] Tobin Callaway MD [facility] [place] [address] Discharge Disposition: Home Social History Tobacco Use Types Packs/Day Years [...] Sign Reading Time Taken Comments Blood Pressure 118/64 02/16/2018 7:52 AM EST Pulse 83 02/16/2018 3:21 AM EST Temperature 37 ??C (98.6 ??F) 02/16/2018 7:52 AM EST Respiratory Rate 18 02/16/2018 7:52 AM EST Oxygen Saturation 94% 02/16/2018 7:52 AM EST Inhaled Oxygen Concentration - - Weight [...] PM LAB, THREE L Lab 3L TAMIKA MENDEZMO 03/19/2018 1:30 PM Tobin Callaway MD [facility] Outpatient Services/Studies: No discharge procedures on [...] Take NSAIDS and/or Tylenol every 6 hours [id number] for the first 3-5 days following surgery [...] or grocery store, as it is available yzis-hne-hmnrhpr and does not require a prescription. The [...] please call the General Surgery nurse at [phone], since this may mean that you need [...] will be mailed to you Please call [phone] to confirm the date and time of [...] days after surgery. Phone number for questions: [phone] before 5 PM on weekdays [phone] after 5 PM and on weekends/holidays. Ask for the general surgery resident cone picker. General Instructions None Follow-up Recommendations for Providers: [...] Take NSAIDS and/or Tylenol every 6 hours trdxhw-ews-ugvje for the first 3-5 days following surgery [...] or grocery store, as it is available xkaz-zyc-iqoreiz and does not require a prescription. The [...] please call the General Surgery nurse at [phone], since this may mean that you need [...] will be mailed to you Please call [phone] to confirm the date and time of [...] days after surgery. Phone number for questions: [phone] before 5 PM on weekdays [phone] after 5 PM and on weekends/holidays. Ask for the general surgery resident cone picker. documented in this encounter Medications at Time [...] Result Value Ref Range Surgical Pathology Report [id number] Location: OR; OR22; A The signing pathologist has (i) examined the relevant preparation(s) for the specimen(s) and (ii) rendered or confirmed the diagnosis(es). . Frozen Section FROZEN SECTION DIAGNOSIS AFS. Right lobe of thyroid lesion: Follicular lesion. 02/15/18 18:39 Electronically signed by: Janell Quintana MD Verified: 02/15/2018 Pathologist Performed at: -[facility] Dept. of Pathology, [place], [place] This intraoperative consultation should be interpreted [...] Turcios MD General Surgery PGY-1 [id number] * Power, Aileen Jung RN - 02/15/2018 10:25 PM [...] Barrientos RN - 02/15/2018 8:16 PM EST 194- Ice pack applied to pt's neck. Pt [...] site clean dry and intact with Dermabond; KWAKU. Discharge instructions reviewed, questions answered, new prescriptions [...] (s) achieved Date Met: 02/16/18 02/16/18 1243 Individualization Patient Specific Goals discharge to home [...] achieved Date Met: 02/16/18 02/16/18 0144 02/16/18 1243 Discharge Needs Assessment Concerns To Be Addressed [...] -- * Plan of Care - Aileen Goznalez RN - 02/16/2018 1:54 AM EST Problem: [...] Cortez MD - 02/15/2018 7:37 PM EST [facility] Operative Note Patient Name: Bonnie Marks : [id number] MR#: [id number] Case Date: 02/15/2018 Surgeon: Surgeon(s) and Role: [...] anesthesia was achieved by anesthesiology with the GrouPAYtronic recurrent laryngeal nerve monitoring system. A natural [...] tracheoesophageal groove and followed this up to Dimitry, ligating vessels to expose the nerve's anterior [...] Operative Note Patient Name: Bonnie Marks : [id number] MR#: [id number] Case Date: 02/15/2018 Surgeon: Surgeon(s) and Role: [...] Please call OR 22 with results (ext: [id number]). Thank you. Thyroid nodule Right lobe of [...] PM EST 02/15/2018 7:[address] [facility] - 02/15/2018 7:03 PM EST Specimen requisition ordered. ??Separate Pathology report to follow Resulting Agency Comment Spec In Lab Tobin Callaway MD PATHOLOGY/CYTOLOGY ORDERABLES Performing Organization Address [facility] Co de Phone Number [facility] [place] [address] * Specimen to Pathology (02/15/2018 6:01 PM EST) AP Specimen 02/15/2018 6:01 PM EST 02/15/2018 6:[address] [facility] - 02/15/2018 6:01 PM EST Specimen requisition ordered. ??Separate Pathology report to follow Tobin Callaway MD PATHOLOGY/CYTOLOGY ORDERABLES Performing Organization Address [facility] Co de Phone Number [facility] [place] [phone] * Surgical Pathology Report (02/15/2018 6:00 PM EST) FINAL DIAGNOSIS (AP) [id number] ? Location: [facility]; The signing pathologist has (i) examined the relevant preparation(s) for the specimen(s) and (ii) rendered or confirmed the diagnosis(es). . 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 B - Thryoid, left hemithyroidectomy : Multiple adenomatous nodules, up to 0.4 cm. Electronically signed by: ??Linda Mliler MD Verified: ??02/24/2018 ?Pathologist Performed at: ??-[facility] Dept. of Pathology, [place], [place] CLINICAL INFORMATION Specimen Submitted: A - [...] tissue is submitted for frozen section: A airport representative section of the nodule. Detonator Maker sections in 15 cassettes as follows: ? A1: ??Frozen section remnant, airport representative nodule ? A2-A14: ??Remaining nodule submitted [...] thyroid capsule is inked black. Sections/Processi ng: Detonator Maker sections are submitted sequentially from superior to inferior in 5 cassettes labeled B1-B5. . SPECIMEN PROCESSING ??vishal ?Frozen Section FROZEN SECTION DIAGNOSIS AFS. Right lobe of thyroid lesion: Follicular lesion. 02/15/18 18:39 Electronically signed by: ??Janell Quintana MD Verified: ??02/15/2018 ?Pathologist Performed at: ??-[facility] Dept. of Pathology, [place], [place] This intraoperative consultation should be interpreted as a preliminary diagnosis pending review of the entire specimen and special studies, if any. 02/24/2018 1:[address] [facility] 02/15/2018 6:00 PM EST Tobin Callaway MD PATHOLOGY/CYTOLOGY ORDERABLES Performing Organization Address City/State/[facility] Co de Phone Number [facility] [place] [address] documented in this encounter Visit Diagnoses Diagnosis Follicular neoplasm of thyroid Neoplasm of unspecified nature of endocrine glands and other parts of nervous system documented in this encounter Administered Medications Inactive Administered [...] Given 02/16/2018 8:46 AM EST 20 mg calcium citrate (CALCITRATE) tablet 950 mg 950 [...] exceed 4,000 mg in 24 hours, Routine 2026 (Given - Provider: Mary Lou Barrientos RN) [...] Discontinued, Do not administer with ketorolac, Routine 220 (Given - Provider: Aileen Gonzalez RN) 0400 [...] Discontinued 0845 (Given - Provid er: Leah Howell, TRAY) sodium chloride 0.9 % flush 5 mL [...] Procedure) 1409 (New Bag - Provider: Delmy Juan RN)1623 (New Bag - Provider: Priyanka Cid) PRN [...] Routine 1955 (Given - Provider: Mary Lou Barrientos, RN)2000 (Given - Provider: Mary Lou Barrientos, RN)2005 (Given - Provider: Mary Lou Barrientos, [...] (See Alternativ e - Provider: Aileen Gonzalez RN)0314 (See Alternative - Provider: Aileen Gonzalez RN)0850 (See Alternative - Provider: Leah Howell RN) oxyCODONE (ROXICODONE) immediate release tablet 5 mg (CANCELED) 5 mg, Oral, EVERY 4 HOURS PRN, Starting on Thu02/15/18 at 2119, Until Thu02/16/18 at 0005, Pain, for MILD pain, Start with 5 mg. If pain control not adequate in 60 minutes, may give additional 5 mg., Routine 2145 (Given - Provider: Aileen Gonzalez RN) oxyCODONE (ROXICODONE) immediate release tablet 5-10 mg(Linked Group 3) 5-10 mg, Oral, EVERY 3 HOURS PRN, Starting on Thu02/16/18 at 0005, Until Thu02/16/18 at 1540, Pain, moderate pain (4-6), Initial dose 5mg. If pain control not adequate in 60 minutes, give additional 5mg, Routine 0015 (Given - Provid er: Aileen Gonzalez RN)0314 (Given - Provider: Aileen Gonzalez RN)0850 (Given - Provider: Leah Howell RN) sodium chloride 0.9 % flush 5-20 mL [...] Routine documented in this encounter Care Teams Pension Adviser Relationship Specialty Start Date End Date None None PCP - General 02/12/18 04/09/22 documented as of this encounter
--- OUTSIDE RECORDS SUMMARY | 2023-10-13 16:10 | XMS_ITS | Encounter Summary ---
Author Organization [facility] Address [address] [place] [address] Care Team Providers Care Carton Making Machinist Name Role Phone Unknown, Provider Primary Care Provider [phone] Encounter Details Date Type Department Care Team (Late st Contact Info) Description 12/15/[address] [facility] [phone] Chapincito Thompson MD [address] [place] [id number] Social History Tobacco Use Types Packs/Day Years Used Date Smoking Tobacco: Never Assessed Sex and Gender Information Value Date Recorded Sex Assigned at Not on file Gender Identity Not on file Sexual Orientation Not on file documented as of this encounter Plan of Treatment Not on file documented as of this encounter Procedures Procedure Name Priority Date/Time Associated Diagnosis Comments CYTOPATHOLOGY Routine 12/15/2017 0:00 EDT documented in this encounter Results * CYTOPATHOLOGY (12/15/2017 0:00 EDT) Pathology Report: CYTOPATHOLOGY REPORT Reports generated via electronic interface contain original data; however they are lacking the format of the original report. Caution should be taken when reading/interpret ing unformatted reports. Name: ? XIOMARA DUNBAR ? Accession #: ? [id number] : ? 1950 (Age: 67) ??F ?Collect Date: ? 12/15/2017 Location: ? [facility] ? Receive Date: ? 12/16/2017 Provider: ? CHAPINCITO THOMPSON MD Copy to: ? CYTOLOGIC DIAGNOSIS: THYROID, RIGHT, FINE NEEDLE ASPIRATION: - Nondiagnostic; insufficient cellularity. ??See comment. ? COMMENT: The specimen consists of blood and only rare follicular cells. ??A repeat aspiration following an appropriate interval may be clinically indicated. Document reviewed and electronically signed by: ? MAG CARY MD Report Date: ??12/16/2017 17:22 By the signature above, the attending physician certifies that he/she has personally conducted a gross and/or microscopic examination of the described specimens and rendered or confirmed the above diagnosis. Specimen Type: ? Thyroid, Fine Needle Aspiration, Right Clinical History: ? Clinical diagnosis code: ??E04.1. ? Gross Description: ? One vial of Cytolyt was received and processed by selective cellular enhancement technique. ? End of Report [facility] 12/15/2017 12/16/2017 6:5 7 EDT Chapincito Thompson MD PATHOLOGY ORDERABLES Performing Organization Address City/State/[facility] Co de Phone Number [facility] [address] [place] [address] documented in this encounter Visit Diagnoses Not on filedocumented in this encounter Care Teams Carton Making Machinist Relationship Specialty Start Date End Date Unknown, Provider, PCP - General 01/25/15 documented as of this encounter
--- OUTSIDE RECORDS SUMMARY | 2023-10-13 16:10 | XMS_ITS | Clinical Summary ---
Author Organization [facility] Address [facility] [place] [address] Care Team Providers Care Learning Solutions Specialist Name Role Phone June Andrade APRN Primary Care Provider [phone] Allergies No known active allergies Medications Medication Sig Dispensed Refills Start Date End Date Status hydrochlorothiazide (HYDRODIURIL) 50 mg tablet Take 50 mg by mouth daily. Active aspirin 325 mg tablet Take 325 mg by mouth daily. Active atenolol (TENORMIN) 100 mg Tablet daily. 0 08/12/2016 Active ramipril (ALTACE) 10 mg Capsule daily. 0 08/12/2016 Active IBU 800 mg Tablet take 1 tablet by mouth three times a day if needed 0 12/14/2017 Active calcium citrate (CALCITRATE) 200 mg (950 mg) Tablet Take 1 tablet by mouth 3 times daily. 02/16/2018 Active ezetimibe (Zetia) 10 mg Tablet Take 10 mg by mouth daily. 05/28/2021 Active omeprazole (PriLOSEC) 20 mg Capsule, Delayed Release(E.C.) Take 20 mg by mouth daily. 06/12/2021 Active atorvastatin (Lipitor) 40 mg Tablet Take 40 mg by mouth nightly. 05/28/2021 Active cholecalciferol, Vitamin D3, (Vitamin D3) 1,000 unit Tablet Take 2,000 Units by mouth daily. 03/04/2021 Active citalopram (CeleXA) 20 mg Tablet Take 20 mg by mouth daily. 06/01/2021 Active levothyroxine (Synthroid) 125 mcg Tablet 06/23/2021 Active Active Problems Problem Noted Date Diagnosed Date Follicular neoplasm of thyroid 02/15/2018 Trigger finger (acquired) 08/27/2010 Hand joint pain 07/01/2010 CTS (carpal tunnel syndrome) 07/01/2010 Hand arthritis 07/01/2010 Social History Tobacco Use Types Packs/Day Years Used Date Smoking Tobacco: Every Day Cigarettes 1 30 Smokeless Tobacco: Never Tobacco Cessation:Ready to Q uit: Yes Alcohol Use Standard Drinks/Week Comments Yes 2 (1 standard drink = 0.6 oz pur e alcohol) Sex and Gender Information Value Date Recorded Sex Assigned at Not on file Gender Identity Not on file Sexual Orientation Not on file Last Filed Vital Signs Vital Sign Reading [...] Mass Index 33.13 02/15/2018 1:47 PM EST Plan of Treatment Health Maintenance Due Date Last Done Comments CT Colonography 1950 Colonoscopy 1950 Colorectal Cancer Screening 1950 FIT DNA 1950 FIT 1950 Sigmoidoscopy (10 year) with FIT yearly 1950 Sigmoidoscopy 1950 Pneumoccocal Vaccine: 65+ (1 of 2 - PCV) 1957 Hepatitis C Screening 1969 Tdap adult 1970 Tetanus vaccine 1970 Breast Cancer Share Decision Needed 1991 Breast Cancer screening 1991 Zoster vaccine (1 of 2) 2001 Advance Directive 2006 Bone Density Scan 2016 Covid-19 Vaccine ( - 2022-24 season) 2022 Influenza (Flu) vaccine (1 o f 1 - Influenza standard series) 11/22/2023 Advance Directives * Full Code (Latest Code Status on File) Date Activated Date Inactivated Comments 02/15/2018 8:22 PM 02/16/2018 3:40 PM Question Answer Comments Does patient have capacity to make decision: Yes * Full Code Date Activated Date Inactivated Comments 02/15/2018 7:28 PM 02/15/2018 8:22 PM Question Answer Comments Does patient have capacity to make decision: Yes Care Teams Learning Solutions Specialist Relationship Specialty Start Date End Date June Andrade APRN PCP - General Family Medicine 04/10/22
--- OUTSIDE RECORDS SUMMARY | 2023-10-13 16:10 | XMS_ITS | Encounter Summary ---
Author Organization [facility] Address [facility] [place] [address] Care Team Providers Care Advertising Sales Associate Name Role Phone None Primary Care Provider Unavailabl e Reason for Visit * Reason Comments Follow-up Encounter Details Date Type Department Care Team (Late st Contact Info) Description 06/24/2021 2:30 PM EDT Office Visit Dermatology at [address] [phone] Zach Meek MD [address] [place] [address] [place] [address] Verruca vulgaris; Seborrheic keratosis Social History Tobacco Use Types Packs/Day Years Used Date Smoking Tobacco: Every Day Cigarettes 1 30 Smokeless Tobacco: Never Alcohol Use Standard Drinks/Week Comments Yes 2 (1 standard drink = 0.6 oz pur e alcohol) Sex and Gender Information Value Date Recorded Sex Assigned at Not on file Gender Identity Not on file Sexual Orientation Not on file documented as of this encounter Progress Notes * Zach Meek MD - 06/24/2021 2:30 PM EDT Problem: 1. Scalp lesion 2. History of verruca vulgaris posterior parietal scalp 2017 Bonnie follows up and is now 71. She states that she has a recurrence of the previously treated wartsite on her mid parietal scalp, and additionally has noted to further sites that have developed. Her hairdresser noted these and urged her to have these sites checked. Physical examination reveals a pleasant 71-year-old woman who has a verrucous keratotic papule on the posterior parietal scalp, 1 on the mid parietal scalp, and 1 in the anterior parietal scalp, all 3 in a line for anterior/anterior. There is no underlying erythema. They are not tender to palpation. Assessment and plan: Verrucous keratoses, scalp 1. Probable verruca vulgaris right 2. Patient reassured about their benign nature. 3. LN 2 x 2 applied each of the sites 4. Return to clinic as needed for new lesions concerns, or if lesions do not resolve from today's LN2 therapy documented in this encounter Plan of Treatment Not on file documented as of this encounter Visit Diagnoses Diagnosis Verruca vulgaris Viral warts, unspecified Seborrheic keratosis Other seborrheic keratosis documented in this encounter Care Teams Advertising Sales Associate Relationship Specialty Start Date End Date None None PCP - General 02/12/18 04/09/22 documented as of this encounter
--- OUTSIDE RECORDS SUMMARY | 2023-10-13 16:10 | XMS_ITS | Encounter Summary ---
[place] [address] Care Team Providers Care Or Manager Name Role Phone June Andrade APRN Primary Care Provider [phone] Reason for Referral * Consultation (Urgent) - Canceled Specialty Diagnoses / Procedures Referred By Surekha khan Referred To Contact Neurosurgery Diagnoses Abscess of back June Andrade APRN [address] [place] [address] [facility] [address] [place] [phone] Referral ID Status Reason Start Date Expiration Date Visits Requested Visits Authorized [id number] Canceled Consult, Test & Treat PCP Updated and/or Approved 04/10/2022 04/10/2023 12 12 Encounter Details Date Type Department Care Team (Late st Contact Info) Description 04/10/2022 Transcribe Orders eD Incoming Referrals [phone] June Andrade APRN [address] [place], [place] [id number] Abscess of back Social History Tobacco Use Types Packs/Day Years [...] as of this encounter Plan of Treatment Scheduled Referrals Name Type Priority Associated Diagnoses Order Schedule Referral to Neurosurgery Outpatient Referral Urgent Abscess of back Ordered: 04/10/2022 documented as of this encounter Visit Diagnoses Diagnosis Abscess of back Cellulitis and abscess of trunk documented in this encounter Care Teams Or Manager Relationship Specialty Start Date End Date June Andrade APRN PCP - General Family Medicine 04/10/22 documented as of this encounter
--- OUTSIDE RECORDS SUMMARY | 2023-10-13 16:10 | XMS_ITS | Encounter Summary ---
Author Organization [facility] Address [facility] [place] [address] Care Team Providers Care Communication Clerk Name Role Phone None Primary Care Provider [...] Expiration Date Visits Re quested Visits Authorized [id number] 1 1 Encounter Details Date Type Department Care Team (Late st Contact Info) Description 02/15/2018 4:24 PM EST Anesthesia Event [place] [id number] David Tijerina MD [facility] [place] [address] Priyanka Cid MD [facility] [place] [address] Anesthesia Record Procedure Summary Procedure Name Responsible Anesthesiologist Anesthesia Start Time Anesthesia Stop Time THYROIDECTOMY, LOBECTOMY, TOTAL, UNILATERAL (WRVU 11.19) (Right: Neck) David Tijerina MD 02/15/18 1624 02/15/18 1945 Events Date Time Event Comment 02/15/2018 1345 1623 AN Verify 1624 Start 1624 An Start Data 1627 An Induction 1631 An Intubation 1636 Anesthesia Ready 1647 Quick Note ETT suctioned, white secretions 1649 Procedure Start 1707 Handoff Intra-procedure anesthesia care was transferred after review of the patient's history, current anesthetic/surgical status and plan, according to the ANES Provider Handoff Checklist. 183 Break/Relief In Shannan Piña om, MD 1857 Quick Note Left lobe out 1901 Break/Relief Out 1917 Extubation/LMA Out 1941 an stop data 1944 Recovery or ICU Handoff Jessica ent care was transferred to the destination unit staff after review of the patient's medical history, current anesthetic/surgical status and plan, according to the Provider Handoff Checklist. 1944 Stop Meds Name Total fentaNYL 150 mcg Propofol 250 mg Rocuronium 25 mg ePHEDrine 35 mg Dexamethasone 4 mg Propofol INF 910.33 mg Dexmedetomidine 12 mcg lactated Ringers infusion 1,000 mL 0 mL * Agents Name O2 Air N2O Sevoflurane (et) * Blood No blood administrations on file. Lines, Drains, and Airways Type Details Placement Removal Incision 1035; wrist; 8; 191609/04/10 1035 by 02/15/181916 by Mary Lou Barrientos, TRAY (RETIRED) Peripheral IV Line - Single Lumen 02/15/18; 1409; cephalic vein (lateral side of arm), right; [id number]-[id number] catheter system; 20 gauge; intradermal injection, tolerated well; no longer indicated; 02/16/18; 1230 02/15/18 1409 by Delmy Juan RN 02/16/18 1230 by Denisse Dickerson RN ETT Mask Ventilation: Ea sy (1); ETT Type: Cuffed, NIM; ETT Size: 6 mm; Mac Blade: 3; Notes: Asleep, Pre-O2, Cricoid Pressure, Stylette; Attempts: 1; Laryngoscopy Grade: 1; ETT Placement Verified By: Auscultation, Capnometry, Visual; Secured at Teeth: 20 cm; Inserted by: eleno; Removal Date: 02/15/18; Removal Time: 191702/15/18 163 by Priyanka Cid MD 02/15/181917 by Luciano Sarkar MD Incision 02/15/18; 1648; neck ; 11/18/21 (LDA cleanup utility RA#[id number]); 1715 (LDA cleanup utility RA#[id number]) 02/15/18 1648 by Denisse Stephens RN 11/18/21 1715 by Veronica Marshall Drain/Device Site 02/15/18; 1852; neck ; (Bard 7 mm hubless silicone drain); Dr. Callaway; (pt under general anesthesia); 02/16/18; 0630 02/15/18 1852 by Lakia Nettles RN 02/16/18 0630 by Leah Howell RN documented in this encounter Social History Tobacco Use Types Packs/Day Years Used Date Smoking Tobacco: Every Day Cigarettes 1 30 Smokeless Tobacco: Never Alcohol Use Standard Drinks/Week Comments Yes 2 (1 standard drink = 0.6 oz pur e alcohol) Sex and Gender Information Value Date Recorded Sex Assigned at Not on file Gender Identity Not on file Sexual Orientation Not on file documented as of this encounter OR Notes * Anesthesia Postprocedure Evaluation - David Tijerina MD - 02/16/2018 2:09 AM EST [facility] Department of Anesthesiology Post-procedure Note Patient: Bonnie Marks Procedure Summary Date: 02/15/18 Room / Location: [address] MAIN OR Anesthesia Start: 1623 Anesthesia Stop: 1944 Procedures: THYROIDECTOMY, LOBECTOMY, TOTAL, UNILATERAL (WRVU 11.19) (Right Neck) FACIAL NERVE MONITORING, SETUP LARYNGEAL (WRVU 1.57) (N/A Neck) Diagnosis: (THYROID NODULE) Surgeon: Tobin Callaway MD Responsible Provider: David Tijerina MD Anesthesia Type: general ASA Status: 2 All Anesthesia Providers: Anesthesiologist: David Tijerina MD Lens Grinder And Polisher: Priyanka Cid MD; Shannan Gonzalez MD Most Recent Vitals: 02/16/18 0100 BP: Pulse: Resp: Temp: SpO2: 94% Pain 4 (02/16/18 0115) Patient Location: PACU/[facility] Level of Consciousness: Awake and Alert Pain Management: Satisfactory Analgesia PONV: None Cardiovascular Status: At Baseline and Hemodynamically Stable Respiratory Status: At Baseline and Room Air Postoperative Fluid Status: Intravascular EUvolemia Possible Anesthetic Complications: NONE apparent at time of evaluation Final Primary Anesthesia Type: General (The anesthetic type performed was the same as planned.) Comments: David Tijerina MD * Anesthesia Preprocedure Evaluation - Robert Ashley MD - 02/14/2018 2:51 PM EST Pre-Anesthesia Evaluation for: Bonnie Marks a 67 y.o. female. Procedure(s): THYROIDECTOMY, LOBECTOMY, TOTAL, UNILATERAL (WRVU 11.19) FACIAL NERVE MONITORING, SETUP LARYNGEAL (WRVU 1.57) Patient Active Problem List Diagnosis ??? Trigger finger (acquired) ??? Hand joint pain ??? CTS (carpal tunnel syndrome) ??? Hand arthritis Past Medical History: Diagnosis Date ??? Antiplatelet or antithrombotic long-term use aspirin ??? Gastroesophageal reflux ??? High blood pressure ??? Myocardial infarction treated here at [facility]-greater than 20 yeears ago Past Surgical History: Procedure Laterality Date ??? PRO INCISE FINGER TENDON SHEATH 09/04/2010 TENDON SHEATH INCISION (TRIGGER FINGER) performed by YURI ZHANG at [facility] ??? PRO WRIST ARTHROSCOP, RELEASE XVERS LIG 09/04/2010 ENDOSCOPY WRIST W/ RELEASE TRANSVERSE CARPAL LIGAMENT performed by YURI ZHANG at [facility] ??? PRO WRIST ARTHROSCOP, RELEASE XVERS LIG 10/16/2010 ENDOSCOPY WRIST W/ RELEASE TRANSVERSE CARPAL LIGAMENT-LULI performed by YURI ZHANG at [facility] Social History Tobacco Use ??? Smoking status: Current Every Day Smoker Packs/day: 1.00 Years: 30.00 Pack years: 30.00 Types: Cigarettes ??? Smokeless tobacco: Never Used Substance Use Topics ??? Alcohol use: Yes Alcohol/week: 1.2 oz Types: 2 Cans of beer per week Social History Substance and Sexual Activity Drug Use No No Known Allergies Medications: MAR and/or home medications have been reviewed. Physical Exam: There were no vitals filed for this visit. There is no height or weight on file to calculate BMI. Airway Assessment: Mallampati: I TM distance: >3 FB Neck ROM: full Cardiovascular Assessment: cardiovascular exam normal Pulmonary Assessment: pulmonary exam normal Dental Assessment: (+) upper dentures Misc Assessment: IV access: Peripheral line Anesthesia Plan: ASA 2 general, with a(n) intravenous induction 67 y.o., 85 kg female with thyroid nodule presenting for RIGHT thyroidectomy PMH significant for - GERD - HTN on HCTZ, atenolol, ramipril - prior CA (?) - depression on celexa - current smoker Anesthetic hx: No reported prior complications with anesthesia. Has tolerated propofol MAC in the past Airway hx: no records EKG 2018 - Normal sinus rhythm No results for input(s): ABORH in the last 7068 hours. Allergies: No Known Allergies NPO Status: Appropriate Anesthetic Plan: GA with Nim tube Region - Other Informed Consent: Anesthetic plan and risks discussed with patient. Plan discussed with resident. PAT Staff Note documented in this encounter Plan of Treatment Not on file documented as of this encounter Visit Diagnoses Not on filedocumented in this encounter Administered Medications Inactive Administered Medications - up to 3 most recent administrations Medication Order MAR Action Action Date Dose Rate Site dexamethasone (DECADRON) injection PRN, Starting on Thu02/15/18 at 1627, Until Thu02/15/18 at 1945, Anesthesia Intra-op, Routine Given 02/15/2018 4:27 PM EST 4 mg dexmedetomidine (PRECEDEX) injection PRN, Starting on Thu02/15/18 at 1705, Until Thu02/15/18 at 1945, Anesthesia Intra-op, Routine Given 02/15/2018 7:04 PM EST 4 mcg Given 02/15/2018 6:16 PM EST 4 mcg Given 02/15/2018 5:05 PM EST 4 mcg ePHEDrine 5 mg/mL multi-dose injection PRN, Starting on Thu02/15/18 at 1636, Until Thu02/15/18 at 1945, Anesthesia Intra-op, Routine Given 02/15/2018 6:21 PM EST 5 mg Given 02/15/2018 5:14 PM EST 10 mg Given 02/15/2018 4:58 PM EST 5 mg fentaNYL 50 mcg/mL multi-dose injection PRN, Starting on Thu02/15/18 at 1627, Until Thu02/15/18 at 1945, Anesthesia Intra-op, Routine Given 02/15/2018 7:13 PM EST 25 mcg Given 02/15/2018 7:10 PM EST 25 mcg Given 02/15/2018 4:50 PM EST 50 mcg lactated Ringers infusion 1,000 mL 1,000 mL, at 100 mL/hr, Intravenous, CONTINUOUS, Starting on Thu02/15/18 at 1415, Until Thu02/15/18 at 2047, Day of Surgery (Day of Procedure) New Bag 02/15/2018 4:23 PM EST New Bag 02/15/2018 2:09 PM EST 1,000 mLs 100 mL/hr propofol (DIPRIVAN) 10 mg/mL bolus injection (Anesthesia) PRN, Starting on Thu02/15/18 at 1627, Until Thu02/15/18 at 1945, Anesthesia Intra-op Given 02/15/2018 7:00 PM EST 30 mg Given 02/15/2018 5:04 PM EST 20 mg Given 02/15/2018 4:27 PM EST 200 mg propofol (DIPRIVAN) infusion CONTINUOUS PRN, Starting on Thu02/15/18 at 1636, Until Thu02/15/18 at 1945, Anesthesia Intra-op, Routine Rate/Dose Change 02/15/2018 7:05 PM EST 10 mcg/kg/min 5.1 mL/hr Rate/Dose Change 02/15/2018 7:02 PM EST 25 mcg/kg/min 12.7 mL/hr Rate/Dose Change 02/15/2018 5:36 PM EST 75 mcg/kg/min 38.2 mL/hr rocuronium (ZEMURON) multi-dose injection PRN, Starting on Thu02/15/18 at 1627, Until Thu02/15/18 at 1945, Anesthesia Intra-op, Routine Given 02/15/2018 4:27 PM EST 25 mg documented in this encounter Care Teams Communication Clerk Relationship Specialty Start Date End Date None None PCP - General 02/12/18 04/09/22 documented as of this encounter
--- OUTSIDE RECORDS SUMMARY | 2023-10-13 16:11 | XMS_ITS | Encounter Summary ---
Author Organization [facility] Address [facility] [place] [address] Care Team Providers Care Dj Instructor Name Role Phone Manuel Elkins MD Primary Care Provider [phone] Encounter Details Date Type Department Care Team (Late st Contact Info) Description 06/28/2010 [place] [address] Eren Holley MD [facility] [place] [address] Social History Tobacco Use Types Packs/Day Years Used Date Smoking Tobacco: Never Assessed Sex and Gender Information Value Date Recorded Sex Assigned at Not on file Gender Identity Not on file Sexual Orientation Not on file documented as of this encounter Plan of Treatment Not on file documented as of this encounter Visit Diagnoses Not on filedocumented in this encounter Care Teams Dj Instructor Relationship Specialty Start Date End Date Manuel Elkins MD PCP - General 02/12/10 06/30/10 documented as of this encounter
--- OUTSIDE RECORDS SUMMARY | 2023-10-13 16:11 | XMS_ITS | Encounter Summary ---
Author Organization [facility] Address [facility] [place] [address] Care Team Providers Care Supervisor Respiratory Name Role Phone Demetra Vega EUSEBIA Primary Care Provider [phone] Encounter Details Date Type Department Care Team (Late st Contact Info) Description 09/04/2010 10:45 AM EDT - 09/04/2010 11:43 AM EDT Surgery [facility] [place] [id number] Yuri Holley MD [facility] DR [place] [address] ENDOSCOPY WRIST W/ RELEASE TRANSVERSE CARPAL LIGAMENT (WRVU 6.39) Social History Tobacco Use Types Packs/Day Years Used Date Smoking Tobacco: Every Day Cigarettes Smokeless Tobacco: Never Alcohol Use Standard Drinks/Week Comments Yes 1.7 (1 standard drink = 0.6 oz p ure alcohol) Sex and Gender Information Value Date Recorded Sex Assigned at Not on file Gender Identity Not on file Sexual Orientation Not on file documented as of this encounter Last Filed Vital Signs Vital Sign Reading Time Taken Comments Blood Pressure 124/62 09/04/2010 11:16 AM EDT Pulse 71 09/04/2010 11:16 AM EDT Temperature 36.4 ??C (97.5 ??F) 09/04/2010 11:16 AM E DT Respiratory Rate 20 09/04/2010 11:16 AM EDT Oxygen Saturation 97% 09/04/2010 9:02 AM EDT Inhaled Oxygen Concentration - - Weight 83.9 kg (185 lb) 09/04/2010 9:02 AM EDT Height 160 cm (5' 3) 09/04/2010 9:02 AM EDT Body Mass Index 32.77 09/04/2010 9:02 AM EDT documented in this encounter Discharge Instructions * Discharge Instructions* Lizette Vilchis RN - 09/04/2010 11:30 AM EDT Moderate Sedation You may have received medication before and/or during your procedure, which affects judgement and reaction time. Do not drive, operate machinery, drink alcoholic beverages, or make important decisions for 24 hours. Be careful on stairs, as you may be unsteady on your feet. You mat eat a regular diet as tolerated. Do not smoke if you are alone. IV site -- slight redness, or tenderness is normal, you can use a warm compress. If tenderness and redness increases or foul drainage occurs, please contact your M. D. * Patient Instructions* Amarilys Holland MD - 09/04/2010 10:38 AM EDT ORTHOPAEDIC SURGERY DISCHARGE INSTRUCTIONS Activity: Do not bear weight through your right wrist and hand. Keep the affected extremity elevated and use ice as needed. Driving: No driving while you are on narcotic pain medication. No driving until you are instructed by your orthopedic physician. Call the office if you have questions. Medications: Vicodin 1-2 tabs every 6 hours as needed for pain. You may also take Acetaminophen as needed for pain. Do not take more than 3000 mg of Acetaminophen per day. Dressing: Keep the compression wrap in place for 72 hours then remove with the white surgical dressing. You may shower then. Replace with waterproof bandaids. Keep the incision clean and dry until you are seen in follow-up. When you bathe, protect the incision with a plastic bag and secured with adhesive tape. DO NOT submerge the wound until sutures removed. CALL YOUR SURGEON IF YOU HAVE: Fevers greater than 101.5* Fahrenheit Chills or night sweats Nausea or vomiting Wound redness or discharge Numbness or tingling Increased pain Calf pain or swelling Any questions or concerns Follow up: [facility], in the Orthopaedic Department clinic 3A, on 09/16/2010 at 1:00PM. Contact Information: Your orthopaedic surgeon:Yuri Holley MD: [phone] If it is after 5:00PM on a weekday or a weekend and it is of an urgent nature please call [phone] and ask for the on-call orthopaedic resident. Your Primary Care Physician: DEMETRA VEGA, ALL SOURCE INTELLIGENCE ANALYST [phone] documented in this encounter Medications at Time of Discharge Medication Sig Dispensed Refills Start Date End Date hydrochlorothiazide (HYDRODIURIL) 50 mg tablet Take 50 mg by mouth daily. aspirin 325 mg tablet Take 325 mg by mouth daily. hydroCODone-acetaminoph en (NORCO) 5-325 mg per tablet Take 1-2 tablets by mouth every 6 hours as needed for Pain. 30 tablet 0 09/04/2010 10/16/2010 ramipril (ALTACE) 5 mg capsule Take 10 mg by mouth daily. 09/17/2016 atorvastatin (LIPITOR) 20 mg tablet Take 20 mg by mouth daily. 06/24/2021 atenolol (TENORMIN) 50 mg tablet Take 100 mg by mouth daily. 09/17/2016 citalopram (CELEXA) 20 mg tablet Take 20 mg by mouth daily. 09/17/2016 documented as of this encounter Miscellaneous Notes * Miscellaneous - Provider, Scanning - 09/04/2010 10:12 PM EDT * Miscellaneous - Provider, Scanning - 09/04/2010 1:47 PM EDT * OR Attestation - Yuri Holley MD - 09/04/2010 11:26 AM EDT I was present and I participated during all portions of this procedure. YURI HOLLEY * Op Note - Yuri Holley MD - 09/04/2010 11:20 AM EDT [facility] [place] [place] Operative Note Patient Name: Bonnie Marks : [id number] MR#: [id number] Case Date: 09/04/2010 Surgeon: Surgeon(s) and Role: * YURI HOLLEY MD - Primary * AMARILYS HOLLAND MD - Surgeon Justin Preoperative diagnosis: carpal tunnel syndrome right and right long trigger finger Postoperative diagnosis: carpal tunnel syndrome right and right long trigger finger Procedure(s): ENDOSCOPY WRIST W/ RELEASE TRANSVERSE CARPAL LIGAMENT TENDON SHEATH INCISION (TRIGGER FINGER) MAC PREOPERATIVE DIAGNOSIS: Right carpal tunnel syndrome and right long trigger finger. POSTOPERATIVE DIAGNOSIS: Right carpal tunnel syndrome and right long trigger finger. PROCEDURE PERFORMED: Endoscopic right carpal tunnel decompression and A1 soha release right long finger. ANESTHESIA: Local with sedation. OPERATIVE INDICATION: The patient is a 60 y.o.-year-old Female with EMG proven right carpal syndrome and a right long trigger finger. They were refractory to conservative treatment. She was brought to the operating room for endoscopic right carpal tunnel decompression and A1 soha release of her right long finger. SUMMARY OF PROCEDURE: After 1 gm of intravenous Vancomycin was administered, the patient's right upper extremity was prepped with Hibiclens scrub and ChloraPrep. Her right arm was draped in a sterilefashion. A preoperative time-out was performed as per [facility] [place] [place] protocol. 11 mL of 1% lidocaine with epinephrine buffered with sodium bicarbonate was injected over the median nerve at the level of the wrist as well as over the palmar side of the patient's right hand over the A1 Soha of the long finger. Her right arm was then exsanguinated with an Esmarch bandage. A brachial tourniquet was inflated to 250 mmHg. A transverse incision was made at the palmar wrist crease in line with the ring finger ray. Subcutaneous spreading was performed in a blunt fashion down to the level of the investing fascia of the palmar surface of the forearm. Throughout this dissection, care was taken to avoid injury to subcutaneous neurovascular structures. The investing fascia was incised. It was elevated as a distally based flap which allowed for entry into the carpal tunnel. A synovial elevator was then used to dissect synovium from the undersurface of the transverse carpal ligament. Small and large hamate finders were inserted into the carpal tunnel to confirm the proper level of entry. The Mateo endoscopic carpal tunnel release device was inserted into the carpal tunnel. It was passed distally until the distal edge of the transverse carpal ligament was well visualized. The blade was elevated. The device was withdrawn, transecting the transverse carpal ligament. The device was reinserted and complete release of the transverse carpal ligament was confirmed. Under direct vision, the investing fascia at of the palmar surface of forearm was released well proximal to the wrist incision site using tenotomy scissors. The incision was irrigated and was closed with 4-0 nylon suture. An incision was made through an existing crease overlying the A1 soha of her right long finger. Subcutaneous spreading was performed in the palmar midline over the flexor sheath at the A1 soha level. Great care was taken throughout this procedure to avoid injury to the digital neurovascular bundles. The A1 soha was exposed. It was sharply transected over its entire course under direct vision with tenotomy scissors. The FDP and FDS tendons were brought into the incision site. Synovium was debrided from the flexor tendons. The site was now copiously irrigated. The patient was asked to move the long finger and she could do so freely without triggering or locking. The incision site was photocopy operator iously irrigated. The skin was closed with 4-0 nylon suture. A sterile soft dressing was applied. The tourniquet was released with a total tourniquet time of 16minutes. All digits rapidly became pink and warm with brisk capillary refill. She was then transferred to the recovery room in stable condition. Estimated blood loss was minimal. IV fluid replacement was 400 mL of crystalloid. She tolerated the procedure well without apparent complications. * Brief Op Note - Yuri Holley MD - 09/04/2010 11:19 AM EDT Brief Operative Note Patient Name: Bonnie Marks : [id number] MR#: [id number] Case Date: 09/04/2010 Surgeon: Surgeon(s) and Role: * YURI HOLLEY MD - Primary * AMARILYS HOLLAND MD - Surgeon Justin Preoperative diagnosis: carpal tunnel syndrome right and right long trigger finger Postoperative diagnosis: carpal tunnel syndrome right and right long trigger finger Procedure(s): ENDOSCOPY WRIST W/ RELEASE TRANSVERSE CARPAL LIGAMENT TENDON SHEATH INCISION (TRIGGER FINGER) MAC Estimated Blood Loss: None Disposition: aroused from sedation, and taken to the recovery room in a stable condition Condition: doing well without problems documented in this encounter Plan of Treatment Not on file documented as of this encounter Procedures Procedure Name Priority Date/Time Associated Diagnosis Comments TENDON SHEATH INCISION (TRIGGER FINGER) Routine 09/05/2010 8:19 AM EDT TENDON SHEATH INCISION (TRIGGER FINGER) (WRVU 3.11) 09/04/2010 10:36 AM EDT carpal tunnel syndrome right and right long trigger finger ENDOSCOPY WRIST W/ RELEASE TRANSVERSE CARPAL LIGAMENT (WRVU 6.39) 09/04/2010 10:36 AM EDT carpal tunnel syndrome right and right long trigger finger documented in this encounter Visit Diagnoses Not on filedocumented in this encounter Administered Medications Inactive Administered Medications - up to 3 most recent administrations Medication Order MAR Action Action Date Dose Rate Site fentaNYL 50mcg/mL injection 25-50 mcg, Intravenous, EVERY 5 MIN PRN, Starting on Thu09/04/10 at 1128, Until Thu09/04/10 at 1421, Pain, for breakthrough pain, Hold for respiratory rate less than 10 per minute. Maximum dose: 250 mcg over one hour., PACU Recovery, Routine Given 09/04/2010 11:39 AM EDT 50 mcg Given 09/04/2010 11:33 AM EDT 50 mcg Given 09/04/2010 11:25 AM EDT 50 mcg hydroCODone-acetaminophen (VICODIN) 5-500 mg per tablet 1 tablet 1 tablet, Oral, EVERY 6 HOURS PRN, Starting on Thu09/04/10 at 1115, Until Thu09/04/10 at 1421, Pain, Maximum dose of acetaminophen is 4000 mg from all sources in 24 hours., Routine Given 09/04/2010 11:47 AM EDT 2 tablets lidocaine-epiNEPHrine 1 %-1:200,000 injection ONCE PRN, 1 dose, Starting on Thu09/04/10 at 1049, Until Thu09/04/10 at 1049, Intra-Operative (Intra-Procedure), Routine Given 09/04/2010 10:49 AM EDT 10 mLs 19- Surgical Site documented in this encounter Active and Recently Administered Medications Times are shown in EDT. PRN Medication Order 09/02/2010 09/03/2010 09/04/2010 fentaNYL 50mcg/mL injection (CANCELED) 25-50 mcg, Intravenous, EVERY 5 MIN PRN, Starting on Thu09/04/10 at 1128, Until Thu09/04/10 at 1421, Pain, for breakthrough pain, Hold for respiratory rate less than 10 per minute. Maximum dose: 250 mcg over one hour., PACU Recovery, Routine 1125 (Given - Provid er: Lizette Vilchis RN)1133 (Given - Provider: Lizette Vilchis RN)1139 (Given - Provider: Lizette Vilchis RN) hydroCODone-acetaminophen (VICODIN) 5-500 mg per tablet 1 tablet (CANCELED) 1 tablet, Oral, EVERY 6 HOURS PRN, Starting on Thu09/04/10 at 1115, Until Thu09/04/10 at 1421, Pain, Maximum dose of acetaminophen is 4000 mg from all sources in 24 hours., Routine 1147 (Given - Provid er: Lizette Vilchis RN) lidocaine-epiNEPHrine 1 %-1:200,000 injection (COMPLETED) ONCE PRN, 1 dose, Starting on Thu09/04/10 at 1049, Until Thu09/04/10 at 1049, Intra-Operative (Intra-Procedure), Routine 1049 (Given - Provid er: Yuri Holley MD) documented in this encounter Care Teams Supervisor Respiratory Relationship Specialty Start Date End Date Demetra Vega APRN PCP - General 07/01/10 02/11/18 documented as of this encounter
--- OUTSIDE RECORDS SUMMARY | 2023-10-13 16:11 | XMS_ITS | Encounter Summary ---
Author Organization [facility] Address [facility] [place] [address] Care Team Providers Care Manpower Development Specialist Manager Name Role Phone Demetra Bear APRN Primary Care Provider [phone] Encounter Details Date Type Department Care Team (Late st Contact Info) Description 02/08/2018 External Results Medical Records [facility] [place] [id number] Provider, Scanning Social History Tobacco Use Types Packs/Day Years [...] Priority Date/Time Associated Diagnosis Comments SURGICAL PATHOLOGY SCAN Routine 02/08/2018 documented in this encounter Results * Scan Doc: Surgical Pathology (02/08/2018) Tobin Callaway MD MEDIA MGR SCAN EXT ORDR/RSLT documented in this encounter Visit Diagnoses Not on filedocumented in this encounter Care Teams Manpower Development Specialist Manager Relationship Specialty Start Date End Date Demetra Bear APRN PCP - General 07/01/10 02/11/18 documented as of this encounter
--- OUTSIDE RECORDS SUMMARY | 2023-10-13 16:11 | XMS_ITS | Encounter Summary ---
Author Organization [facility] Address [facility] [place] [address] Care Team Providers Care Clinical Operations Specialist Name Role Phone Demetra Bear APRN Primary Care Provider [phone] Encounter Details Date Type Department Care Team (Late st Contact Info) Description 08/02/2012 Telephone [place] [address] Layton Corral, OT [facility] [place] [address] Social History Tobacco Use Types Packs/Day Years Used Date Smoking Tobacco: Former Cigarettes Q uit: 05/03/2012 Smokeless Tobacco: Never Alcohol Use Standard Drinks/Week Comments Yes 2 (1 standard drink = 0.6 oz pur e alcohol) Sex and Gender Information Value Date Recorded Sex Assigned at Not on file Gender Identity Not on file Sexual Orientation Not on file documented as of this encounter Miscellaneous Notes * Telephone Encounter - Layton Corral, OT - 08/02/2012 5:17 PM EDT Contacted patient regarding [facility] referral [facility]. Bonnie reports that she needsthe Assessment to show that her thumb arthritis was caused by her work. She was informed that and FCE can not show that nor can I state that on the report. She declined the FCE considering this. documented in this encounter Plan of Treatment Not on file documented as of this encounter Visit Diagnoses Not on filedocumented in this encounter Care Teams Clinical Operations Specialist Relationship Specialty Start Date End Date Demetra Bear APRN PCP - General 07/01/10 02/11/18 documented as of this encounter
--- OUTSIDE RECORDS SUMMARY | 2023-10-13 16:11 | XMS_ITS | Encounter Summary ---
Author Organization [facility] Address [facility] [place] [address] Care Team Providers Care Associate Professor Of Forestry Name Role Phone DeshaDemetra brewer Albert LAWS Primary Care Provider [phone] Encounter Details Date Type Department Care Team (Late st Contact Info) Description 05/31/2012 1:25 PM EDT - 05/31/2012 11:59 PM EDT Hospital Encounter XRay at [address] [place] [address] Hand arthritis Social History Tobacco Use Types Packs/Day Years Used Date Smoking Tobacco: Former Cigarettes Q uit: 05/03/2012 Smokeless Tobacco: Never Alcohol Use Standard Drinks/Week Comments Yes 2 (1 standard drink = 0.6 oz pur e alcohol) Sex and Gender Information Value Date Recorded Sex Assigned at Not on file Gender Identity Not on file Sexual Orientation Not on file documented as of this encounter Medications at Time of Discharge Medication Sig Dispensed Refills Start Date End Date hydrochlorothiazide (HYDRODIURIL) 50 mg tablet Take 50 mg by mouth daily. aspirin 325 mg tablet Take 325 mg by mouth daily. cyclobenzaprine (FLEXERIL) 10 mg tablet Take 10 mg by mouth 3 times daily as needed. 06/24/2021 ramipril (ALTACE) 5 mg capsule Take 10 mg by mouth daily. 09/17/2016 atorvastatin (LIPITOR) 20 mg tablet Take 20 mg by mouth daily. 06/24/2021 atenolol (TENORMIN) 50 mg tablet Take 100 mg by mouth daily. 09/17/2016 citalopram (CELEXA) 20 mg tablet Take 20 mg by mouth daily. 09/17/2016 documented as of this encounter Procedure Notes * Elizabeth Acosta MD - 05/31/2012 5:20 PM EDTProcedure(s): ARTHROCENTESIS,DRAIN/INJECT JOINT/BURSA Pre-Procedure Diagnose(s): Thumb pain Bonnie Marks [id number] HISTORY: Pain bilaterally 1 CMC joint 1 CMC JOINT INJECTION UNDER FLUOROSCOPY TECHNIQUE: After an extensive conversation with the patient regarding risks and benefits, oral and written consent were obtained. The patient was placed supine on the fluoroscopic table. The same technique was used for both thumbs. The left thumb was first injected. The skin overlying the 1 CMC joint was prepped and draped in the usual aseptic manner. 1% Lidocainewas used to achieve local anesthesia. Under fluoroscopic guidance, a 25 gauge needle was advanced into the joint space. Small amount of contrast was injected to the document needle placement. A mixture of Ropivacaine, Lidocaine and depomedrol was injected. All needles removed at end of procedure. FINDINGS: 1. Small amount of injected contrast in the 1 CMC joint space. 2. PAIN SCORE: Left Before: 5 /10 After: 3 /10 Right Before: 3 /10 After: 3 /10 3. Medications (total amount for both joints): Lidocaine 1% - <5 ml, for subcutaneous anesthesia Ropivacaine HCL 0.5% - 2 cc (5mg), vial size= 30 ml; discarded 28ml Depomedrol: 30 mg, vial size 40 mg discarded 10 mg Omnipaque 300 - 1ml; vial size : 10 ml discarded: 9ml Fluoroscopy time: 31 sec COMPLICATIONS: None immediate. POST-PROCEDURE CARE: Information regarding monitor of infection, post- procedural pain and management of steroid flare were reviewed with patient. IMPRESSION: Uneventful bilateral 1 CMC joint injection under fluoroscopy. Attending: ELIZABETH Kirk MD , was present for the entire procedure and Reagan performed the procedure. documented in this encounter Miscellaneous Notes * Miscellaneous - Provider, Scanning - 06/04/2012 9:57 AM EDT documented in this encounter Plan of Treatment Not on file documented as of this encounter Procedures Procedure Name Priority Date/Time Associated Diagnosis Comments XR FLUORO INJECTION FL DRAIN SMALL MARCELLA Routine 05/31/2012 4:16 PM EDT Hand arthritis documented in this encounter Results * XR Fluoro injection FL drain small MARCELLA (05/31/2012 4:16 PM EDT) Anatomical Region Laterality Modality N/A Radiographic Shanelle ging 05/31/2012 4:16 PM EDT Impressions 06/01/2012 1:19 PM EDT IMPRESSION: ?? Uneventful bilateral 1 CMC joint injection under fluoroscopy. ?? Attending: I, ELIZABETH ACOSTA MD , was present for the entire procedure and I performed the procedure. Narrative 06/01/2012 1:19 PM EDT HISTORY: Pain bilaterally 1 CMC joint ?? 1 CMC JOINT INJECTION UNDER FLUOROSCOPY ?? TECHNIQUE: ?? After an extensive conversation with the patient regarding risks and benefits, oral and written consent were obtained. The patient was placed supine on the fluoroscopic table. ?? The same technique was used for both thumbs. The left thumb was first injected. ?? The skin overlying the 1 CMC joint was prepped and draped in the usual aseptic manner. 1% Lidocaine was used to achieve local anesthesia. Under fluoroscopic guidance, a 25 gauge needle was advanced into the joint space. Small amount of contrast was injected to the document needle placement. A mixture of Ropivacaine, Lidocaine and depomedrol was injected. All needles removed at end of procedure. ?? FINDINGS: ?? 1. Small amount of injected contrast in the 1 CMC joint space. ?? 2. PAIN SCORE: ?? Left ?? Before: 5 /10 ?? After: 3 /10 ?? Right ?? Before: 10 ?? After: ?? 3. Medications (total amount for both joints): ?? Lidocaine 1% - <5 ml, for subcutaneous anesthesia ?? Ropivacaine HCL 0.5% - 2 cc (5mg), vial size= 30 ml; discarded 28ml ?? Depomedrol: 30 mg, vial size 40 mg discarded 10 mg ?? Omnipaque 300 - 1ml; vial size : 10 ml discarded: 9ml ?? Fluoroscopy time: 31 sec ?? COMPLICATIONS: None immediate. ?? POST-PROCEDURE CARE: Information regarding monitor of infection, post- procedural pain and management of steroid flare were reviewed with patient. ?? Procedure Note Elizabeth Acosta MD - 06/01/2012 HISTORY: Pain bilaterally 1 CMC joint 1 CMC JOINT INJECTION UNDER FLUOROSCOPY TECHNIQUE: After an extensive conversation with the patient regarding risks andbenefits, oral and written consent were obtained. The patient was placed supine onthe fluoroscopic table. The same technique was used for both thumbs. The left thumb was firstinjected. The skin overlying the 1 CMC joint was prepped and draped in the usualaseptic manner. 1% Lidocaine was used to achieve local anesthesia. Underfluoroscopic guidance, a 25 gauge needle was advanced into the joint space. Smallamount of contrast was injected to the document needle placement. A mixture of Ropivacaine, Lidocaine and depomedrol was injected. All needles removed atend of procedure. FINDINGS: 1. Small amount of injected contrast in the 1 CMC joint space. 2. PAIN SCORE: Left Before: 5 /10 After: 3 /10 Right Before: 3 /10 After: 3 /10 3. Medications (total amount for both joints): Lidocaine 1% - <5 ml, for subcutaneous anesthesia Ropivacaine HCL 0.5% - 2 cc (5mg), vial size= 30 ml; discarded 28ml Depomedrol: 30 mg, vial size 40 mg discarded 10 mg Omnipaque 300 - 1ml; vial size : 10 ml discarded: 9ml Fluoroscopy time: 31 sec COMPLICATIONS: None immediate. POST-PROCEDURE CARE: Information regarding monitor of infection, post- procedural pain and management of steroid flare were reviewed withpatient. IMPRESSION IMPRESSION: Uneventful bilateral 1 CMC joint injection under fluoroscopy. Attending: ELIZABETH Kirk MD , was present for the entire procedureand I performed the procedure. Eren Holley MD IMG FLUORO ORDERABLE S documented in this encounter Visit Diagnoses Diagnosis Hand arthritis Unspecified arthropathy, hand documented in this encounter Administered Medications Inactive Administered Medications - up to 3 most recent administrations Medication Order MAR Action Action Date Dose Rate Site ropivacaine (PF) 5 mg/mL (0.5 %) 8 mL with methylPREDNISolone acetate 80 mg, iohexol 8 mL injection Intra-articular, ONCE, 1 dose, On 05/31/12 at 1645 Given 05/31/2012 4:15 PM EDT documented in this encounter Care Teams Associate Professor Of Forestry Relationship Specialty Start Date End Date Demetra Bear APRN PCP - General 07/01/10 02/11/18 documented as of this encounter
--- OUTSIDE RECORDS SUMMARY | 2023-10-13 16:11 | XMS_ITS | Encounter Summary ---
Author Organization [facility] [place] [address] Care Team Providers Care Breed To Wean Production Technician Name Role Phone None Primary Care Provider Unavailabl e Encounter Details Date Type Department Care Team (Late st Contact Info) Description 02/12/2018 11:00 AM EST Clinical [place] [address] Social History Tobacco Use Types Packs/Day Years [...] on filedocumented in this encounter Care Teams Breed To Wean Production Technician Relationship Specialty Start Date End Date None None PCP - General 02/12/18 04/09/22 documented as of this encounter
--- OUTSIDE RECORDS SUMMARY | 2023-10-13 16:11 | XMS_ITS | Encounter Summary ---
Author Organization [facility] Address [facility] [place] [address] Care Team Providers Care Senior Industrial Engineer Name Role Phone AlbanyDemetra brewer Albert LAWS Primary Care Provider [phone] Encounter Details Date Type Department Care Team (Late st Contact Info) Description 11/19/2011 1:54 PM EDT - 11/19/2011 11:59 PM EDT Hospital Encounter XRay at [address] [place] [id number] Hand pain Social History Tobacco Use Types Packs/Day Years [...] tablet Take 325 mg by mouth daily. ramipril (ALTACE) 5 mg capsule Take 10 mg by mouth daily. 09/17/2016 atorvastatin (LIPITOR) 20 mg tablet Take 20 mg by mouth daily. 06/24/2021 atenolol (TENORMIN) 50 mg tablet Take 100 mg by mouth daily. 09/17/2016 citalopram (CELEXA) 20 mg tablet Take 20 mg by mouth daily. 09/17/2016 documented as of this encounter Plan of Treatment Not on file documented as of this encounter Procedures Procedure Name Priority Date/Time Associated Diagnosis Comments XR HANDS MIN 3 VIEWS BILAT Routine 11/19/2011 2:12 PM EDT Pain in limb documented in this encounter Results * XR HANDS BILATERAL (11/19/2011 2:12 PM EDT) Anatomical Region Laterality Modality Hand Bilateral Radiographic Shanelle ging 11/19/2011 2:12 PM EDT Narrative 11/19/2011 4:51 PM EDT Examination BILATERAL HANDS/BILAT Clinical History Reason for exam and clinical history: BILAT HAND/THUMB PAIN; Comparison Outside examinations from April 2010. Technique Findings The bone mineralization is normal.There is soft tissue swelling around the left 2nd and 4th and the right 4th PIP joints. Joints: ? 1. Interphalangeal joints-scattered DIP and PIP joint osteoarthropathy characterized by joint space narrowing and osteophyte formation. ?No erosions, ankylosis or periostitis. ? 2. MCP joints- osteoarthropathy of both of 1st MCP joints with prominent osteophyte formation. ??No erosions. ? 3. Basal joints-osteoarthropathy more severe on the left than the right. ? 4. Radial carpal joints-no erosions and normal joint spaces. Impression ? 1. 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 ? 2. Scattered IP joint osteoarthropathy. ? 3. No erosions. Procedure Note Elizabeth Boyer MD - 11/19/2011 Examination BILATERAL HANDS/BILAT Clinical History Reason for exam and clinical history: BILAT HAND/THUMB PAIN; Comparison Outside examinations from April 2010. Technique Findings The bone mineralization is normal.There is soft tissue swelling around theleft 2nd and 4th and the right 4th PIP joints. Joints: 1. Interphalangeal joints-scattered DIP and PIP jointosteoarthropathy characterized by joint space narrowing and osteophyte formation. No erosions, ankylosis or periostitis. 2. MCP joints- osteoarthropathy of both of 1st MCP joints withprominent osteophyte formation. No erosions. 3. Basal joints-osteoarthropathy more severe on the left than theright. 4. Radial carpal joints-no erosions and normal joint spaces. Impression 1. Bilateral basal, MCP and IP joint osteoarthropathy of boththumbs. 2. Scattered IP joint osteoarthropathy. 3. No erosions. Eren Holley MD IMG DX ORDERABLES documented in this encounter Visit Diagnoses Diagnosis Hand pain Pain in limb documented in this encounter Care Teams Senior Industrial Engineer Relationship Specialty Start Date End Date Demetra Bear APRN PCP - General 07/01/10 02/11/18 documented as of this encounter
--- OUTSIDE RECORDS SUMMARY | 2023-10-13 16:11 | XMS_ITS | Encounter Summary ---
Author Organization [facility] Address [facility] [place] [address] Care Team Providers Care Research Methods Instructor Name Role Phone Demetra Bear EUSEBIA Primary Care Provider [phone] Reason for Visit * Reason Comments Bilateral Hand Pain Bilateral thumb pain Encounter Details Date Type Department Care Team (Late st Contact Info) Description 08/02/2012 8:00 AM EDT Office [place] [phone] Eren Holley MD [facility] [place] [address] Hand arthritis (Primary Dx) Discharge Disposition: Home Social History Tobacco Use [...] Sign Reading Time Taken Comments Blood Pressure 121/72 08/02/2012 8:06 AM EDT Pulse 67 08/02/2012 8:06 AM EDT Temperature - - Respiratory Rate - - Oxygen Saturation - - Inhaled Oxygen Concentration - - Weight - - Height - - Body Mass Index - - documented in this encounter Progress Notes * José Márquez PA - 08/02/2012 8:26 AM EDT Bonnie returns for followup of her bilateral basal joint osteoarthritis, please see my previous notes regarding this very pleasant patient. Today, she returns after approximately one month after a bilateral basal joint cortisone injection done under fluoroscopic guidance, she tolerated that well and had excellent improvement for approximately one month, but has had a recurrence of her pain. She does use both hard and soft splints at home. She continues to be employed at [employer] requiring a great deal of tension/torque causing increased aggravation of her pain. She denies re-injury, fevers, chills, nausea, or vomiting. Her previously known paresthesias secondary to carpal tunnel syndrome have resolved. PHYSICAL EXAMINATION: Today on physical exam, she is awake, alert, oriented, no acute distress. Resting comfortably in the exam room. She has some clear Heberden's nodes and subluxation of the basal first MCP secondary to her osteoarthritis. She is tender over the bilateral basal joints, right greater than left today. She is able to form a fist and fan her fingers. FDS, FDP, EPL, FPL are intact. Previous imaging studies are reviewed revealing significant and severe osteoarthritis, bilateral basal joints. ASSESSMENT: Bilateral basal joint arthritis aggravated by work. PLAN: Treatment options from least to most invasive were discussed in detail to include repeat cortisone injections after several months versus antiinflammatories and splinting versus possible basal joint arthroplasty. She understands her options. She would like give them all some consideration and we will see her back in approximately six weeks for followup. Questions, otherwise, solicited and answered. documented in this encounter Plan of Treatment Not on file documented as of this encounter Visit Diagnoses Diagnosis Hand arthritis- Primary Unspecified arthropathy, hand documented in this encounter Care Teams Research Methods Instructor Relationship Specialty Start Date End Date Demetra Bear APRN PCP - General 07/01/10 02/11/18 documented as of this encounter
--- OUTSIDE RECORDS SUMMARY | 2023-10-13 16:11 | XMS_ITS | Encounter Summary ---
Author Organization [facility] Address [facility] [place] [address] Care Team Providers Care Shiatsu Therapist Name Role Phone Demetra Bear APRN Primary Care Provider [phone] Encounter Details Date Type Department Care Team (Late st Contact Info) Description 10/29/2011 Orders [place] [address] Eren Holley MD [facility] [place] [address] Hand pain (Primary Dx) Social History Tobacco Use Types Packs/Day Years [...] of this encounter Visit Diagnoses Diagnosis Hand pain- Primary Pain in limb documented in this encounter Care Teams Shiatsu Therapist Relationship Specialty Start Date End Date Demetra Bear APRN PCP - General 07/01/10 02/11/18 documented as of this encounter
--- OUTSIDE RECORDS SUMMARY | 2023-10-13 16:11 | XMS_ITS | Encounter Summary ---
Author Organization [facility] Address [facility] [place] [address] Care Team Providers Care Traffic Assistant Name Role Phone Demetra Bear EUSEBIA Primary Care Provider [phone] Reason for Visit * Reason Comments Bilateral Carpal Tunnel Syndrome R>L Encounter Details Date Type Department Care Team (Late st Contact Info) Description 08/27/2010 2:30 PM EDT Follow-[place] [phone] Eren Holley MD [facility] [place] [address] CTS (carpal tunnel syndrome); Trigger finger (acquired) Discharge Disposition: Home Social History Tobacco Use [...] as of this encounter Progress Notes * Eren Holley MD - 08/27/2010 3:09 PM EDT Bonnie Marks returns following electrodiagnostic studies. These show bilateral carpal tunnel syndrome, right worse than left. These correlate with her symptoms. She has fairly significant numbness, tingling in the fingers of both hands, right worse than left. She also has triggering and locking at the A1 soha level of her right long finger. Her fingers are hypesthetic on the right to light touch in the median nerve distribution digits. There is no thenar atrophy. There is triggering at the A1 soha level of her right long finger. I have offered the options of steroid injection versus carpal tunnel release and A1 soha release of her right long finger. She has opted to proceed with surgery. She is aware that surgery has riskswhich include but are not limited to infection, neurovascular or tendon injury, incomplete or no relief of her neurogenic symptoms, pillar pain, director of corporate sponsorships weakness, recurrence or recurrent triggering, and recurrence of carpal tunnel syndrome. She understands and wishes to proceed. We will schedule this to be done at a time that is convenient for her. documented in this encounter Miscellaneous Notes * Miscellaneous - [place] Cash Application Clerk - 09/05/2010 2:41 PM EDT documented in this encounter Plan of Treatment Not on file documented as of this encounter Procedures Procedure Name Priority Date/Time Associated Diagnosis Comments ARTHROSCOPY WRIST W/ RELEASE TRANSVERSE CARPAL LIGAMENT Routine 08/27/2010 3:11 PM EDT documented in this encounter Visit Diagnoses Diagnosis CTS (carpal tunnel syndrome) Carpal tunnel syndrome Trigger finger (acquired) documented in this encounter Care Teams Traffic Assistant Relationship Specialty Start Date End Date Demetra Bear APRN PCP - General 07/01/10 02/11/18 documented as of this encounter
--- OUTSIDE RECORDS SUMMARY | 2023-10-13 16:11 | XMS_ITS | Encounter Summary ---
Author Organization [facility] Address [facility] [place] [address] Care Team Providers Care Equalizing Saw Operator Name Role Phone None Primary Care Provider Unavailabl e Encounter Details Date Type Department Care Team (Late st Contact Info) Description 02/12/2018 Orders Only [place] [address] Tobin Callaway MD [facility] [place] [address] S/P thyroidectomy (Primary Dx); Thyroid nodule Social History Tobacco Use Types Packs/Day Years [...] as of this encounter Visit Diagnoses Diagnosis S/P thyroidectomy- Primary Other postprocedural status Thyroid nodule Nontoxic uninodular goiter documented in this encounter Care Teams Equalizing Saw Operator Relationship Specialty Start Date End Date None None PCP - General 02/12/18 04/09/22 documented as of this encounter
--- OUTSIDE RECORDS SUMMARY | 2023-10-13 16:11 | XMS_ITS | Encounter Summary ---
Author Organization [facility] Address [facility] [place] [address] Care Team Providers Care Clubhouse Attendant Name Role Phone None Primary Care Provider Unavailabl e Encounter Details Date Type Department Care Team (Latest Contact Info) Description 02/12/2018 12:17 PM EST - 02/12/2018 11:59 PM [facility] Hospital Encounter XRay at [address] [place] [address] Tobin Callaway MD [facility] [place] [address] Thyroid nodule Discharge Disposition: Home Social History Tobacco Use [...] daily. 06/24/2021 documented as of this encounter Plan of Treatment Not on file documented as of this encounter Procedures Procedure Name Priority Date/Time Associated Diagnosis Comments XR CHEST PA AND LATERAL Routine 02/12/2018 12:26 PM EST Thyroid nodule documented in this encounter Results * XR Chest PA & Lateral (Generic) (02/12/2018 12:26 PM EST) Anatomical Region Laterality Modality Chest N/A Digital Radiogra phy Impressions 02/12/2018 1:05 PM EST Peribronchial thickening, consistent with chronic bronchitis. No acute cardiopulmonary pathology identified. Narrative 02/12/2018 1:05 PM EST EXAMINATION: XR CHEST PA AND LATERAL (GENERIC) CLINICAL HISTORY: preop - smoker TECHNIQUE: PA and lateral views of the chest. COMPARISON: None. FINDINGS: Mild peribronchial thickening consistent with chronic bronchitis. Otherwise, the lungs appear clear. The cardiomediastinal silhouette, shon, pulmonary vessels, and pleura are within normal limits. Degenerative disc disease changes of the midthoracic spine and imaged portion of the upper lumbar spine. Procedure Note Shalonda Harrington MD - 02/12/2018 EXAMINATION: XR CHEST PA AND LATERAL (GENERIC) CLINICAL HISTORY: preop - smoker TECHNIQUE: PA and lateral views of the chest. COMPARISON: None. FINDINGS: Mild peribronchial thickening consistent with chronicbronchitis. Otherwise, the lungs appear clear. The cardiomediastinal silhouette,shon, pulmonary vessels, and pleura are within normal limits. Degenerativedisc disease changes of the midthoracic spine and imaged portion of the upperlumbar spine. IMPRESSION Peribronchial thickening, consistent with chronic bronchitis. No acute cardiopulmonary pathology identified. Tobin Callaway MD IMG DX ORDERABLES documented in this encounter Visit Diagnoses Diagnosis Thyroid nodule Nontoxic uninodular goiter documented in this encounter Care Teams Clubhouse Attendant Relationship Specialty Start Date End Date None None PCP - General 02/12/18 04/09/22 documented as of this encounter
--- OUTSIDE RECORDS SUMMARY | 2023-10-13 16:11 | XMS_ITS | Encounter Summary ---
Author Organization [facility] Address [facility] [place] [address] Care Team Providers Care Flour Inspector Name Role Phone Demetra Bear EUSEBIA Primary Care Provider [phone] Reason for Visit * Reason Comments Bilateral Wrist Pain Encounter Details Date Type Department Care Team (Late st Contact Info) Description 08/27/2010 12:45 PM EDT [place] [address] Roldan Narvaez MD [facility] 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 Over the last several months has been bothered by bilateral hand paresthesias worse on the right than the left. Work seems to aggravate her symptoms. She has a hard time sleeping at night because her hands go numb. She did go to OT and received some splints that she wears with some benefit. She denies any radicular symptoms from her neck. She denies any lower extremity paresthesias. Other than some moderate obesity and smoking she is in relatively good health. She does have some osteoarthritis. Family History: Noncontributory. Review of Systems: Otherwise unremarkable. On exam the patient is overweight, pleasant female in no obvious distress. Her cranial nerves 2-12 are intact. Sensory exam is normal. Deep tendon reflexes are normal and symmetric throughout with no signs of myopathy. She has some 4/5 weakness in the right abductor pollicis brevis and opponens pollicis with no associated atrophy. She has normal tone in all four extremities and her gait and stance are normal. She has a positive Tinel's over both carpal tunnels and a positive Phalen's maneuver on the right. The patient underwent electrical studies to sort evidence of right greater than left median nerve entrapment at the wrist. EMG showed no active denervation in the right abductor pollicis brevis but a moderate decrease in recruitment. The patient appears to be suffering from right greater than left carpal tunnel syndrome. She has not responded substantially to conservative management. She has an appointment to see Dr. Holley later this afternoon to address possible surgical intervention. Thank you for this consultation. documented in this encounter Procedure Notes * Provider, Scanning - 09/18/2010 12:34 PM EDTAssociated Order(s): SCAN DOC: NERVE CONDUCTION documented in this encounter Miscellaneous Notes * Miscellaneous - [place] [employer]ter[employer] Workroom Supervisor - 09/09/2010 11:52 AM EDT documented in this encounter Plan of Treatment Not on file documented as of this encounter Procedures Procedure Name Priority Date/Time Associated Diagnosis Comments NERVE CONDUCTION SCAN 09/18/2010 12:34 PM EDT EMG SCAN 08/27/2010 12:00 AM EDT documented in this encounter Results * SCAN DOC: NERVE CONDUCTION (09/18/2010 12:34 PM EDT) Narrative 09/18/2010 12:34 PM EDT Procedure Note Provider, Scanning - 09/18/2010 12:34 PM EDT Scanning Provider MEDIA MGR SCAN EXT O RDR/RSLT * SCAN DOC: EMG (08/27/2010 12:00 AM EDT) Narrative 08/27/2010 12:00 AM EDT Ordered by an unspecified provider. Scanning Provider MEDIA MGR SCAN EXT O RDR/RSLT documented in this encounter Visit Diagnoses Diagnosis Carpal tunnel syndrome- Primary documented in this encounter Care Teams Flour Inspector Relationship Specialty Start Date End Date Demetra Bear APRN PCP - General 07/01/10 02/11/18 documented as of this encounter
--- OUTSIDE RECORDS SUMMARY | 2023-10-13 16:11 | XMS_ITS | Encounter Summary ---
Author Organization [facility] Address [facility] [place] [address] Care Team Providers Care Ballet Company Artistic Director Name Role Phone Manuel Elkins MD Primary Care Provider [phone] Encounter Details Date Type Department Care Team (Late st Contact Info) Description 05/14/2010 Orders Only Orthopaedics at [facility] [place] [address] Eren Holley MD [facility] [place] [address] Social History Tobacco Use Types Packs/Day Years [...] Associated Diagnosis Comments FILM LIBRARY STORAGE ONLY DX HAND Routine 05/14/2010 2:34 PM EST documented in this encounter Results * FILM LIBRARY- STORAGE ONLY DX HAND (05/14/2010 2:34 PM EST) Anatomical Region Laterality Modality Other 05/14/2010 2:34 PM EST Narrative 05/12/2013 11:44 PM EST This is a non-reportable exam. Procedure Note Isauro Lott - 05/12/2013 This is a non-reportable exam. Eren Holley MD IMG FILM LIBRARY ORD ERABLES documented in this encounter Visit Diagnoses Not on filedocumented in this encounter Care Teams Ballet Company Artistic Director Relationship Specialty Start Date End Date Manuel Elkins MD PCP - General 02/12/10 06/30/10 documented as of this encounter
--- OUTSIDE RECORDS SUMMARY | 2023-10-13 16:11 | XMS_ITS | Encounter Summary ---
Author Organization [facility] Address [facility] [address] Care Team Providers Care Glass Cylinder Flanger Name Role Phone Demetra Bear EUSEBIA Primary Care Provider [phone] Encounter Details Date Type Department Care Team (Latest Contact Info) Description 10/16/2010 8:37 AM EDT - 10/16/2010 11:00 AM EDT Hospital Encounter [place] [id number] Yuri Holley MD [facility] [place] [address] Discharge Disposition: Home Social History Tobacco Use [...] Sign Reading Time Taken Comments Blood Pressure 132/59 10/16/2010 10:30 AM EDT Pulse 61 10/16/2010 10:30 AM EDT Temperature 36.7 ??C (98.1 ??F) 10/16/2010 10:30 AM E DT Respiratory Rate 18 10/16/2010 10:30 AM EDT Oxygen Saturation 97% 10/16/2010 10:30 AM EDT Inhaled Oxygen Concentration - - Weight 84.8 kg (187 lb) 10/16/2010 8:48 AM EDT Height 160 cm (5' 3) 10/16/2010 8:48 AM EDT Body Mass Index 33.13 10/16/2010 8:48 AM EDT documented in this encounter Discharge Instructions * Discharge Instructions* Demetra Hannah RN - 10/16/2010 10:38 AM EDT General Anesthesia Discharge Instructions Go home and rest. You may be sleepy for several hours. Take it easy as sudden position changes may cause nausea. Be careful on stairs, as you may be unsteady on your feet. Do not smoke if you are alone. Follow a light to regular diet as tolerated today. If nausea occurs, start with clear liquids, and progress slowly to a regular diet. Do not drive, operate machinery, drink alcoholic beverages, or make important decisions for 24 hours after having general anesthesia. The medications given may change your reaction time or judgement without your awareness. IV site -- slight redness is normal, you can use warm compresses. If tenderness and redness increases or foul drainage occurs, please contact your M.D. Patients who have had endotracheal tubes. (this tube, used by the anesthesia department, is passed down your throat after you are asleep, to ensure safe air passage during your operation). A sore throat is normal due to the tube. Cold liquids or soothing lozenges will help ease the discomfort. The generalized muscle aches are due to the medication given to you just before the tube is inserted. As the medication wears off, you may develop muscle soreness, which usually goes away in 12 - 24 hours. [facility] 8:00-5:30 [facility] 13/10 ask for your doctor hotel operations manager * Patient Instructions* Roly Santamaria - 10/16/2010 9:53 AM EDT Surgery: Endoscopic Left Carpal Tunnel Release You may have received medication before and/or during your procedure, which affects judgment and reaction time. Do not drive, operate machinery, drink alcoholic beverages, or make important decisions for 24 hours. Keep operative hand clean and dry, do not submerge in water until follow-up. You may remove the dressing in 48 hours and then apply a bandaid until follow-up. Light activity only in the operative hand. Be careful on stairs, as you may be unsteady on your feet. You may eat a regular diet as tolerated. Protect your extremity from injury until sensation and reflexes have returned. IV site - slight redness or tenderness is normal, you can use warm compresses. If tenderness and redness increases, or foul drainage occurs, please contact your M.D. Follow-up Appointment: 10/31/2010 10:30 AM Upper Extremity Nurse [facility], 3A. WHERE TO CALL WITH QUESTIONS [facility] Ask for the resident hotel operations manager for your provider [facility] (7:00am - 5:00pm) documented in this encounter Medications at Time of Discharge Medication Sig Dispensed Refills Start Date End Date hydrochlorothiazide (HYDRODIURIL) 50 mg tablet Take 50 mg by mouth daily. aspirin 325 mg tablet Take 325 mg by mouth daily. hydroCODone-acetaminoph en (NORCO) 5-325 mg per tablet Take 1-2 tablets by mouth every 6 hours as needed for Pain. 30 tablet 0 10/16/2010 11/19/2011 ramipril (ALTACE) 5 mg capsule Take 10 mg by mouth daily. 09/17/2016 atorvastatin (LIPITOR) 20 mg tablet Take 20 mg by mouth daily. 06/24/2021 atenolol (TENORMIN) 50 mg tablet Take 100 mg by mouth daily. 09/17/2016 citalopram (CELEXA) 20 mg tablet Take 20 mg by mouth daily. 09/17/2016 documented as of this encounter H&P Notes * Yuri Holley MD - 10/16/2010 9:47 AM EDT I interviewed and examined Bonnie Marks. There have been no apparent interval changes in her health status since the most recent history and physical was done. YURI HOLLEY documented in this encounter Miscellaneous Notes * Miscellaneous - Provider, Deon - 10/16/2010 10:11 PM EDT * Miscellaneous - Provider, Scanning - 10/16/2010 10:01 PM EDT * Miscellaneous - Provider, Scanning - 10/16/2010 1:47 PM EDT * Op Note - Yuri Holley MD - 10/16/2010 10:30 AM EDT [facility] Operative Note Patient Name: Bonnie Marks : [id number] MR#: [id number] Case Date: 10/16/2010 Surgeon: Surgeon(s) and Role: * YURI HOLLEY MD - Primary * AZUCENA NOLAN MD - Resident-Lesser Role PREOPERATIVE DIAGNOSIS: Left carpal tunnel syndrome. POSTOPERATIVE DIAGNOSIS: Left carpal tunnel syndrome. PROCEDURE PERFORMED: Endoscopic left carpal tunnel decompression. ANESTHESIA: Local with sedation. OPERATIVE INDICATION: The patient is a 60 y.o.-year-old Female with EMG proven left carpal syndrome. It was refractory to conservative treatment. She was brought to the operating room for endoscopic left carpal tunnel decompression. SUMMARY OF PROCEDURE: After 2 gm of intravenous Kefzol was administered, the patient's left upper extremity was prepped with Hibiclens scrub and ChloraPrep. Her left arm was draped in a sterile fashion. A preoperative time-out was performed as per [facility] protocol. 8 mL of 1% lidocaine with epinephrine buffered with sodium bicarbonate was injected over the median nerve at the level of the wrist as well as over the palmar side of the patient's left hand. Her left arm was then exsanguinated with an Esmarch [...] and was closed with 4-0 nylon suture. A sterile soft dressing was applied. The tourniquet was released with a total tourniquet time of 10minutes. All digits rapidly became pink and warm with brisk capillary refill. She was then transferred to the recovery room in stable condition. Estimated blood loss was minimal. IV fluid replacement was 250 mL of crystalloid. She tolerated the procedure well without apparent complications. * OR Attestation - Yuri Holley MD - 10/16/2010 10:30 AM EDT I was present and I participated during all portions of this procedure. YURI HOLLEY * Brief Op Note - Yuri Holley MD - 10/16/2010 10:29 AM EDT Brief Operative Note Patient Name: Bonnie Marks : [id number] MR#: [id number] Case Date: 10/16/2010 Surgeon: Surgeon(s) and Role: * YURI HOLLEY MD - Primary * AZUCENA NOLAN MD - Resident-Lesser Role Preoperative diagnosis: left carpal tunnel syndrome Postoperative diagnosis: left carpal tunnel syndrome Procedure(s): ENDOSCOPY WRIST W/ RELEASE TRANSVERSE CARPAL LIGAMENT-Left Anesthesia:MAC Estimated Blood Loss: none Disposition: aroused from sedation, and taken to the recovery room in a stable condition Condition: doing well without problems documented in this encounter Plan of Treatment Not on file documented as of this encounter Procedures Procedure Name Priority Date/Time Associated Diagnosis Comments ENDOSCOPY WRIST W/ RELEASE TRANSVERSE CARPAL LIGAMENT-LULI (WRVU 6.39) 10/16/2010 9:59 AM EDT left carpal tunnel syndrome documented in this encounter Visit Diagnoses Not on filedocumented in this encounter Administered Medications Inactive Administered Medications - up to 3 most recent administrations Medication Order MAR Action Action Date Dose Rate Site hydroCODone-acetaminophen (VICODIN) 5-500 mg per tablet 1 tablet 1 tablet, Oral, EVERY 6 HOURS PRN, Starting on Thu10/16/10 at 1053, Until Thu10/16/10 at 1317, Pain, Maximum dose of acetaminophen is 4000 mg from all sources in 24 hours., PACU Recovery, Routine Given 10/16/2010 10:54 AM EDT 1 tablet documented in this encounter Active and Recently Administered Medications Times are shown in EDT. PRN Medication Order 10/14/2010 10/15/2010 10/16/2010 hydroCODone-acetaminophen (VICODIN) 5-500 mg per tablet 1 tablet (CANCELED) 1 tablet, Oral, EVERY 6 HOURS PRN, Starting on Thu10/16/10 at 1053, Until Thu10/16/10 at 1317, Pain, Maximum dose of acetaminophen is 4000 mg from all sources in 24 hours., PACU Recovery, Routine 1054 (Given - Provid er: Demetra Hannah RN) lidocaine-epiNEPHrine 1 %-1:200,000 injection (COMPLETED) ONCE PRN, 1 dose, Starting on Thu10/16/10 at 1011, Until Thu10/16/10 at 1011, Intra-Operative (Intra-Procedure), Routine 1011 (Given - Provid er: Yuri Holley MD) documented in this encounter Care Teams Glass Cylinder Flanger Relationship Specialty Start Date End Date Demetra Bear APRN PCP - General 07/01/10 02/11/18 documented as of this encounter
--- OUTSIDE RECORDS SUMMARY | 2023-10-13 16:11 | XMS_ITS | Encounter Summary ---
Author Organization [facility] Address [facility] [place] [address] Care Team Providers Care [employer]erox Machine Assembler Name Role Phone Chicot, Demetra Albert LAWS Primary Care Provider [phone] Encounter Details Date Type Department Care Team (Latest Contact Info) Description 02/05/2018 3:14 PM EST - 02/05/2018 11:59 PM [email or web address] Hospital Encounter Laboratory [facility] [place] [address] Discharge Disposition: Home Social History Tobacco Use [...] Sig Dispensed Refills Start Date End Date IBU 800 mg Tablet take 1 tablet by mouth three times a day if needed 0 12/14/2017 atenolol (TENORMIN) 100 mg Tablet daily. 0 08/12/2016 ramipril (ALTACE) 10 mg Capsule daily. 0 08/12/2016 hydrochlorothiazide (HYDRODIURIL) 50 mg tablet Take 50 mg by mouth daily. aspirin 325 mg tablet Take 325 mg by mouth daily. citalopram (CELEXA) 40 mg Tablet daily. 0 08/12/2016 06/24/2021 cyclobenzaprine (FLEXERIL) 10 mg tablet Take 10 mg by mouth 3 times daily as needed. 06/24/2021 atorvastatin (LIPITOR) 20 mg tablet Take 20 mg by mouth daily. 06/24/2021 documented as of this encounter Plan of Treatment Not on file documented as of this encounter Procedures Procedure Name Priority Date/Time Associated Diagnosis Comments SURGICAL PATHOLOGY REPORT Routine 02/05/2018 3:16 PM EST documented in this encounter Results * Surgical Pathology Report (02/05/2018 3:16 PM EST) FINAL DIAGNOSIS (AP) [id number] ? Location: OPW The signing pathologist has (i) examined the relevant preparation(s) for the specimen(s) and (ii) rendered or confirmed the diagnosis(es). . ?Surgical Pathology DIAGNOSIS CONSULTATION CASE Outside slide(s) labeled [id number], collection date 01/26/2018. Thyroid, right, ??nodule , core needle biopsy: Follicular patterned thyroid tissue. ?? (see Discussion.) Electronically signed by: ??Karen Celaya DO Verified: ??02/08/2018 ?Pathologist Performed at: ??-[facility] [place], [place], [place] DISCUSSION No nuclei with features of PTC are seen. The clinical history of nodule is noted. The differential includes a follicular patterned neoplasm. CLINICAL INFORMATION CONSULTATION CASE A - 1 slide(s) labeled [id number], collection date 01/26/2018. [id number] Report to: [facility] Surgical Pathology Department [facility], [facility], [address]nd Floor [address] [place] [address] ??[id number] SPECIMEN PROCESSING [facility] ([facility]) pathology slide(s) are reviewed. ??Refer to Diagnosis and Specimen Submitted for specific case information. For the full text of the [facility] ([facility]) report(s) please refer to Non- Documentation Pathology in the electronic health record (eDH). 02/08/2018 4:03 PM EST [facility] 02/05/2018 3:16 PM EST Tobin Callaway MD PATHOLOGY/CYTOLOGY ORDERABLES Performing Organization Address City/State/[facility] Co de Phone Number [facility] [place] [address] documented in this encounter Visit Diagnoses Not on filedocumented in this encounter Care Teams Xerox Machine Assembler Relationship Specialty Start Date End Date Demetra Bear APRN PCP - General 07/01/10 02/11/18 documented as of this encounter
--- OUTSIDE RECORDS SUMMARY | 2023-10-13 16:11 | XMS_ITS | Encounter Summary ---
Author Organization [facility] Address [facility] [place] [address] Care Team Providers Care Utility Repairer Name Role Phone Demetra Bear EUSEBIA Primary Care Provider [phone] Reason for Visit * Reason Comments Follow-up marjorie hernandez'd with ln2 Encounter Details Date Type Department Care Team (Late st Contact Info) Description 10/07/2016 10:30 AM EDT Office Visit Dermatology at [address] [phone] Zach Meek MD [address] [facility] [place] [address] Viral warts, unspecified type Social History Tobacco Use Types Packs/Day Years [...] Progress Notes * Zach Meek MD - 10/07/2016 10:30 AM EDT PROBLEM: Follow-up verruca vulgaris, posterior parietal scalp. Bonnie follows up and the verruca has resolved. Physical examination confirms resolution of this 6-8 mm verrucous papule. A/P: 1. Verruca vulgaris, resolved. a. No treatment necessary. b. Patient congratulated. c. Return to clinic p.r.n. CC: Robby Diaz PA-C documented in this encounter Plan of Treatment Not on file documented as of this encounter Visit Diagnoses Diagnosis Viral warts, unspecified type documented in this encounter Care Teams Utility Repairer Relationship Specialty Start Date End Date Demetra Bear APRN PCP - General 07/01/10 02/11/18 documented as of this encounter
--- OUTSIDE RECORDS SUMMARY | 2023-10-13 16:11 | XMS_ITS | Encounter Summary ---
Author Organization [facility] Address [facility] [place] [address] Care Team Providers Care Oil Refinery Process Technician Name Role Phone Demetra Bear APRN Primary Care Provider [phone] Encounter Details Date Type Department Care Team (Late st Contact Info) Description 08/27/2010 [place] [address] Roldan Narvaez MD [facility] DR NEUROLOGY DEPT. [place] [id number] Social History Tobacco Use Types Packs/Day Years [...] Procedure Name Priority Date/Time Associated Diagnosis Comments EMG SCAN Routine 08/27/2010 documented in this encounter Results * Scan Doc: EMG (08/27/2010) Roldan Narvaez MD MEDIA MGR SCAN EXT O RDR/RSLT documented in this encounter Visit Diagnoses Not on filedocumented in this encounter Care Teams Oil Refinery Process Technician Relationship Specialty Start Date End Date Demetra Bear APRN PCP - General 07/01/10 02/11/18 documented as of this encounter
--- OUTSIDE RECORDS SUMMARY | 2023-10-13 16:11 | XMS_ITS | Encounter Summary ---
Author Organization [facility] Address [facility] [place] [address] Care Team Providers Care Paper Folder Name Role Phone Demetra Bear APRN Primary Care Provider [phone] Reason for Visit * Reason Comments Left Carpal Tunnel Syndrome L CTR , dos 10/16/10 Encounter Details Date Type Department Care Team (Late st Contact Info) Description 11/26/2010 2:45 PM EDT [place] [address] Yuri Holley MD [facility] [place] [address] S/P endoscopic carpal tunnel release (Primary Dx) Discharge Disposition: Home Social History [...] as of this encounter Progress Notes * Yuri Holley MD - 12/02/2010 10:36 PM EDT I examined Bonnie Marks and I agree with Dr. Gayle's note. YURI HOLLEY MD * Husam Gayle - 11/26/2010 2:56 PM EDT ATTENDING PHYSICIAN: Yuri Holley M.D. The patient is seen today in conjunction with Dr. Holley. Ms. Marks returns to clinic. She is now approximately six weeks status post left endoscopic carpal tunnel release. She also is status post right endoscopic carpal tunnel release approximately four weeks prior to that. She states that overall she has done very well postoperatively. She states the numbness and tingling has decreased significantly and she has very minimal nighttime symptoms compared to preoperatively. She sates that she does still have residual weakness in both of her hands and also has significant thumb pain which she believes is due to her arthritis. She has not had any fevers or chills, but does describe having an instance where her dogs scratched her incision on the left wrist. She says that after this she noticed that it got red and inflamed, and even drain some green purulent material. She did not take any antibiotics for this, however, she did soak it in peroxide and it soon resolved. OBJECTIVE: Generally awake alert in no acute distress. Left upper extremity shows a well healing incision with minimal amount of courtney-incisional erythema. There is no active drainage nor there appeared to be any subcutaneous abscesses or fluid collection. There is no fluctuant at the level of the incision. She does have some tenderness to palpation over the palmar aspect of the carpus. She has sensation intact to light touch in median, radial, ulnar distributions and throughout the hands. She does not have any areas of decreased sensation. She has motor intact to AIN, PIN, FPL and interossei. She does not have full range of motion of her thumb. Right upper extremity shows a well healed endoscopic carpal tunnel incision on the wrist on the palmar aspect. She has sensation intact to light touch in the median, radial, and ulnar distributions. She has full strength intact. She does have limited range of motion of her thumb. She has brisk capillary refill and 2+ palpable radial pulse as on the left side. ASSESSMENT AND PLAN: Ms. Marks is healing quite well status post bilateral carpal tunnel release endoscopically and is ready to return to work full strength. We will return her to full duty tomorrow, 11/27/2010, and we will see her in followup only on a p.r.n. basis. documented in this encounter Miscellaneous Notes * Miscellaneous - [place], Shoe Maker - 12/03/2010 1:38 PM EDT documented in this encounter Plan of Treatment Not on file documented as of this encounter Visit Diagnoses Diagnosis S/P endoscopic carpal tunnel release- Primary Other postprocedural status documented in this encounter Care Teams Paper Folder Relationship Specialty Start Date End Date Demetra Bear APRN PCP - General 07/01/10 02/11/18 documented as of this encounter
--- OUTSIDE RECORDS SUMMARY | 2023-10-13 16:11 | XMS_ITS | Encounter Summary ---
Author Organization [facility] [place] [address] Care Team Providers Care Senior Research Associate Name Role Phone Demetra Bear APRN Primary Care Provider [phone] Encounter Details Date Type Department Care Team (Late st Contact Info) Description 09/16/2010 1:00 PM EDT Office Visit Orthopaedics at [facility] [place] [address] CL[address], DR BALL Discharge Disposition: Home Social History Tobacco Use [...] on filedocumented in this encounter Care Teams Senior Research Associate Relationship Specialty Start Date End Date Demetra Bear APRN PCP - General 07/01/10 02/11/18 documented as of this encounter
--- OUTSIDE RECORDS SUMMARY | 2023-10-13 16:11 | XMS_ITS | Encounter Summary ---
Author Organization [facility] Address [facility] [address] Care Team Providers Care Tire Recapping Machine Operator Name Role Phone Demetra Bear EUSEBIA Primary Care Provider [phone] Reason for Visit * Reason Onset Date Comments Incisional Pain 09/05/2010 Encounter Details Date Type Department Care Team (Late st Contact Info) Description 09/05/2010 [place] [phone] Eren Holley MD [facility] [place] [address] Incisional Pain Social History Tobacco Use Types Packs/Day Years [...] encounter Miscellaneous Notes * Telephone Encounter - Dayana Henderson RN - 09/05/2010 2:20 PM EDT Postoperative call/ Request for Pain Medication Procedure/date: 09/04/2010 R endo CTR/ R hand D3 trigger finger release Caller: Daughter Reason for call: Called ~1200 to report that Bonnie had a bad night, with a lot of pain. On arising this AM, she had difficulty moving her finger. Called subsequently to say that Bonnie's pain had muchimproved with elevation and she could move her hand well, although was still having difficulty moving that finger. Assessment: Improving. Plan/Instructions: 1. Bonnie will keep her hand above her heart faithfully, and she or her daughter will call me in theAM with an update. Will bring her in to Ortho if she is not continuing to improve. 2. documented in this encounter Plan of Treatment Not on file documented as of this encounter Visit Diagnoses Not on filedocumented in this encounter Care Teams Tire Recapping Machine Operator Relationship Specialty Start Date End Date Demetra Bear APRN PCP - General 07/01/10 02/11/18 documented as of this encounter
--- OUTSIDE RECORDS SUMMARY | 2023-10-13 16:11 | XMS_ITS | Encounter Summary ---
Author Organization [facility] Address [facility] [place] [address] Care Team Providers Care Education Instructor Name Role Phone Demetra Bear APRN Primary Care Provider [phone] Encounter Details Date Type Department Care Team (Late st Contact Info) Description 09/04/2010 10:31 AM EDT Anesthesia Event Outpatient [place] [address] Jessica Scott MD [facility] DR [place] [address] Iona Ndiaye MD [facility] DR [place] [address] Anesthesia Record Procedure Summary Procedure Name Responsible Anesthesiologist Anesthesia Start Time Anesthesia Stop Time ENDOSCOPY WRIST W/ RELEASE TRANSVERSE CARPAL LIGAMENT (WRVU 6.39) (Right: Wrist) Jessica Scott MD 09/04/10 1031 09/04/10 1117 Events Date Time Event Comment 09/04/2010 1031 Start 1117 Stop 1203 Meds * Agents No agents on file. * Blood No blood administrations on file. Lines, Drains, and Airways Type Details Placement Removal (RETIRED) Peripheral IV Line - Single Lumen 09/04/10; 0929; 09/04/10; 1201 09/04/10 0929 by Lizette Vilchis RN 09/04/10 1201 by Lizette Vilchis, RN Incision 1035; wrist; 02/15/18; 1917 09/04/10 1035 by 02/15/18 1917 by Mary Lou Barrientos RN documented in this encounter Social History [...] OR Notes * Anesthesia Postprocedure Evaluation - Jessica Scott MD - 09/04/2010 12:01 PM EDT Patient: Bonnie Jung Stone Procedure(s) Performed: ENDOSCOPY WRIST W/ RELEASE TRANSVERSE CARPAL LIGAMENT - Additional CPT Codes: 75789 and 13340 Equipment Needs: Mictoaire ECTR equip Estimated case duration: 30 min Return visit for consent: no H&P w/PCP: no Add'l Preop Consults (Add Order in eDH): Position: Supine Post-op: 10-14 days with Yue If you need post-op x-rays, please add them at the end of the SmartSet or as an Add Order; TENDON SHEATH INCISION (TRIGGER FINGER) Patient location: PACU Post-op pain: Pain needs to be addressed - receiving iv fentanyl -- will be given po Post-op nausea: no nausea or vomiting Last Vitals: Filed Vitals: 09/04/10 1116 BP: 124/62 Pulse: 71 Temp: 36.4 ??C (97.5 ??F) Resp: 20 Post-op cardiovascular and respiratory status: is stable Level of consciousness: awake, alert and oriented Complications: no apparent complications and tolerated the procedure well Fluid Status: normal * Anesthesia Preprocedure Evaluation - Jessica Scott MD - 09/04/2010 9:25 AM EDT Anesthesia Evaluation Patient summary reviewed and Nursing notes reviewed No hx of anesthetic complications Airway Mallampati: II TM distance: >3 FB Neck ROM: full Dental Pulmonary ROS comment: Smoker Cardiovascular - negative ROS Exercise tolerance: good Neuro/Psych - negative ROS GI/Hepatic/Renal - negative ROS Endo/Other - negative ROS Abdominal Anesthesia Plan ASA 2 MAC with intravenous induction Local by surgeon, sedation Anesthetic plan and risks discussed with patient. documented in this encounter Miscellaneous Notes * Addendum Note - Christina Parekh CRNA - 09/05/2010 12:49 PM EDT Addendum created 09/05/10 1249 by Christina Parekh CRNA Modules edited:Flowsheet VN Flowsheet [id number] Questions; [id number] Complete * Addendum Note - Maite Centeno - 09/05/2010 11:17 AM EDT Addendum created 09/05/10 1117 by Maite Centeno Modules edited:Anesthesia Events, Anesthesia Responsible Staff documented in this encounter Plan of Treatment Not on file documented as of this encounter Visit Diagnoses Not on filedocumented in this encounter Care Teams Education Instructor Relationship Specialty Start Date End Date Demetra Bear APRN PCP - General 07/01/10 02/11/18 documented as of this encounter
--- OUTSIDE RECORDS SUMMARY | 2023-10-13 16:11 | XMS_ITS | Encounter Summary ---
Author Organization [facility] Address [facility] [place] [address] Care Team Providers Care Wood Craftsman Name Role Phone Demetra Bear APRN Primary Care Provider [phone] Reason for Referral * Occupational Therapy (Routine) - Declined by Patient Specialty Diagnoses / Procedures Referred By Surekha khan Referred To Contact Occupational Therapy Diagnoses Hand arthritis [facility] [address] [place] [address] [facility] [place] [address] Referral ID Status Reason Start Date Expiration Date Visits Requested Visits Authorized [id number] Declined by Patient Evaluate and Treat 07/26/2012 01/22/2013 1 1 Encounter Details Date Type Department Care Team (Late st Contact Info) Description 07/26/2012 Orders [place] [address] José Márquez PA [facility] DR [place] [address] Hand arthritis (Primary Dx) Social History Tobacco Use Types [...] Priority Associated Diagnoses Order Schedule Referral to Occupational Therapy Outpatient Referral Routine Hand arthritis Ordered: 07/26/2012 documented as of this encounter Visit Diagnoses Diagnosis Hand arthritis- Primary Unspecified arthropathy, hand documented in this encounter Care Teams Wood Craftsman Relationship Specialty Start Date End Date Demetra Bear APRN PCP - General 07/01/10 02/11/18 documented as of this encounter
--- OUTSIDE RECORDS SUMMARY | 2023-10-13 16:11 | XMS_ITS | Encounter Summary ---
Author Organization [facility] [place] [address] Care Team Providers Care Director Card Name Role Phone Demetra Bear APRN Primary Care Provider Reason for Referral * Consultation (Routine) - Closed Specialty Diagnoses / Procedures Referred By Surekha khan Referred To Contact Neurology Diagnoses CTS (carpal tunnel syndrome) Eren Holley MD [facility] [place] [address] [facility] Neu[facility] [address] [place] [address] Referral ID Status Reason Start Date Expiration Date V isits Requested Visits Authorized [id number] Closed Consult & Test 07/01/2010 07/02/2010 1 1 Reason for Visit * Reason Comments Bilateral Hand Pain DOI 05/10/2010 Encounter Details Date Type Department Care Team (Late st Contact Info) Description 07/01/2010 10:20 AM EDT Office [place] [phone] Eren Holley MD [facility] [place] [address] CTS (carpal tunnel syndrome) (Primary Dx); Trigger finger, right; Arthritis pain, hand Discharge Disposition: Home Social History Tobacco Use Types Packs/Day Years Used Date Smoking Tobacco: Never Assessed Sex and Gender Information Value Date Recorded Sex Assigned at Not on file Gender Identity Not on file Sexual Orientation Not on file documented as of this encounter Progress Notes * Eren Holley MD - 07/01/2010 10:44 AM EDT Subjective: Patient ID: Bonnie Marks is a 60 y.o. female. HPI Review of Systems Constitutional: Negative. Musculoskeletal: Positive for joint pain. Skin: Negative. Neurological: Positive for tingling and sensory change. Bonnie Marks is a 60-year-old female, who is sent in for consultation by OMAR Hoang for problems with both hands. 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 She has developed bilateral hand pain and numbness, right side worse than the left, over a long period. She has tried treating this with splints and topical ointments, but still has problems. She describes nocturnal dysesthesias and has noted triggering of her right long finger. 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 She believes that her symptoms have been exacerbated by repetition while working at [employer]. She smokes about a pack of cigarettes per day. She drinks alcohol socially. She does not exercise on a regular basis. Mrs Marks is a pleasant, alert and oriented female in no apparent distress. She has triggering at the A1 soha level of the right long finger. Her hands are well perfused bilaterally. She is minimally hypesthetic to light touch in the right median > left nerve distributions. She has a positive Tinel over the median nerve at carpal tunnels bilaterally. There is no thenar atrophy in either hand. She has no dermatologic lesions in either hand. Her diagnoses are likely bilateral carpal tunnel syndrome and trigger finger of the right long finger. These were exacerbated by her job at [employer]. I recommended electrodiagnostic studies to confirm the diagnosis and will see her back after these are completed. She will continue to work. Cc. OMAR Hoang documented in this encounter Procedure Notes * Provider, Scanning - 07/04/2010 11:22 AM EDTAssociated Order(s): DIAGNOSTIC RADIOLOGY SCAN documented in this encounter Miscellaneous Notes * Miscellaneous - [place], Bullet Swaging Machine Operator - 07/05/2010 8:51 AM EDT documented in this encounter Plan of Treatment Scheduled Referrals Name Type Priority Associated Diagnoses Orde r Schedule REFERRAL TO NEUROLOGY Outpatient Referral Routine CTS (carpal tunnel syndrome) Ordered: 07/01/2010 documented as of this encounter Procedures Procedure Name Priority Date/Time Associated Diagnosis Comments DIAGNOSTIC RADIOLOGY SCAN 07/04/2010 11:22 AM EDT documented in this encounter Results * DIAGNOSTIC RADIOLOGY SCAN (07/04/2010 11:22 AM EDT) Anatomical Region Laterality Modality Other Narrative 07/05/2010 8:51 AM EDT Procedure Note Provider, Scanning - 07/04/2010 11:22 AM EDT Scanning Provider MEDIA MGR SCAN EXT O RDR/RSLT documented in this encounter Visit Diagnoses Diagnosis CTS (carpal tunnel syndrome)- Primary Carpal tunnel syndrome Trigger finger, right Trigger finger (acquired) Arthritis pain, hand Unspecified arthropathy, hand documented in this encounter Care Teams Director Card Relationship Specialty Start Date End Date Demetra Bear APRN PCP - General 07/01/10 02/11/18 documented as of this encounter
--- OUTSIDE RECORDS SUMMARY | 2023-10-13 16:11 | XMS_ITS | Encounter Summary ---
Author Organization [facility] Address [facility] [place] [address] Care Team Providers Care Gang Investigator Name Role Phone Demetra Bear EUSEBIA Primary Care Provider [phone] Encounter Details Date Type Department Care Team (Late st Contact Info) Description 10/16/2010 9:50 AM EDT Anesthesia Event Outpatient [place] [address] Jessica Scott MD [facility] DR [place]ESTHESIOLOGY [place] [address] Cameron Armenta MD [facility] DR [place]ESIOLOGY [place] [address] Anesthesia Record Procedure Summary Procedure Name Responsible Anesthesiologist Anesthesia Start Time Anesthesia Stop Time ENDOSCOPY WRIST W/ RELEASE TRANSVERSE CARPAL LIGAMENT-LULI (WRVU 6.39) (Left: Wrist) Jessica Scott MD 10/16/10 0950 10/16/10 1030 Events Date Time Event Comment 10/16/2010 0939 0950 Start 1030 Stop Meds * Agents No agents on file. * Blood No blood administrations on file. Lines, Drains, and Airways Type Details Placement Removal Incision 1035; wrist; 02/15/18; 19109/04/10 1035 by 02/15/181916 by Mary Lou Barrientos, RN (RETIRED) Peripheral IV Line - Single Lumen 10/16/10; 0909; 10/16/10; 1106 10/16/10 0909 by Demetra Hannah RN 10/16/10 1106 by Demetra Hannah RN documented in this encounter Social History [...] Postprocedure Evaluation - Jessica Scott MD - 10/16/2010 1:57 PM EDT Patient: Bonnie Jung Stone Procedure(s) Performed: ENDOSCOPY WRIST W/ RELEASE TRANSVERSE CARPAL LIGAMENT- LULI - Additional CPT Codes: Equipment Needs: Implants: Estimated case duration: Return visit for consent: no Does patient need to go to [facility] for testing?: no H&P w/PCP: no Add'l Preop Consults (Add Order in eDH): Add'l Preop Imaging (Add Order in eDH): Position: supine Post-op: 10-14 days with UE nurse If you need post-op x-rays, please add them at the end of the SmartSet or as an Add Order Patient location: PACU Post-op pain:L PO regimen initiated. Post-op nausea: no nausea or vomiting Last Vitals: Filed Vitals: 10/16/10 1030 BP: 132/59 Pulse: 61 Temp: 36.7 ??C (98.1 ??F) Resp: 18 Post-op cardiovascular and respiratory status: is stable Level of consciousness: awake, alert and oriented Complications: no apparent complications and tolerated the procedure well Fluid Status: normal * Anesthesia Preprocedure Evaluation - Jessica Scott MD - 10/16/2010 9:33 AM EDT Anesthesia Evaluation Patient summary reviewed and Nursing notes reviewed No hx of anesthetic complications Airway Mallampati: II TM distance: >3 FB Neck ROM: full Dental (+) upper dentures Pulmonary (+) COPD mild, Cardiovascular - negative ROS Exercise tolerance: good (+) hypertension well controlled, past [place], Neuro/Psych - negative ROS GI/Hepatic/Renal - negative ROS Endo/Other - negative ROS Abdominal Anesthesia Plan ASA 2 MAC with intravenous induction Plan for MAC with GA back up. Anesthetic plan and risks discussed with patient and spouse. Plan discussed with WAITER AND CASHIER and attending. documented in this encounter Miscellaneous Notes * Addendum Note - Irwin Cuba CRNA - 10/17/2010 11:50 AM EDT Addendum created 10/17/10 1150 by Irwin Cuba CRNA Modules edited:Flowsheet VN Flowsheet [id number] Questions; [id number] Complete * Addendum Note - Maite Centeno - 10/17/2010 9:44 AM EDT Addendum created 10/17/10 0944 by Maite Centeno Modules edited:Anesthesia Events, Anesthesia Responsible Staff documented in this encounter Plan of Treatment Not on file documented as of this encounter Visit Diagnoses Not on filedocumented in this encounter Care Teams Gang Investigator Relationship Specialty Start Date End Date Demetra Bear APRN PCP - General 07/01/10 02/11/18 documented as of this encounter
--- OUTSIDE RECORDS SUMMARY | 2023-10-13 16:11 | XMS_ITS | Encounter Summary ---
Author Organization [facility] Address [facility] [place] [address] Care Team Providers Care Commercial Real Estate Lender Name Role Phone Demetra Bear Albert LAWS Primary Care Provider [phone] Reason for Visit * Reason Comments Bilateral Hand Pain with thumb pain Encounter Details Date Type Department Care Team (Late st Contact Info) Description 11/19/2011 2:45 PM EDT Office [place] [phone] Eren Holley MD [facility] [place] [address] Akil King PA [facility] [place] [address] Hand arthritis (Primary Dx) Discharge Disposition: Home [...] Sign Reading Time Taken Comments Blood Pressure 141/91 11/19/2011 2:38 PM EDT Pulse - - Temperature - - Respiratory Rate - - Oxygen Saturation - - Inhaled Oxygen Concentration - - Weight 83 kg (183 lb) 11/19/2011 2:38 PM EDT Height 160 cm (5' 3) 11/19/2011 2:38 PM EDT Body Mass Index 32.42 11/19/2011 2:38 PM EDT documented in this encounter Progress Notes * Akil King PA - 11/19/2011 3:24 PM EDT PATIENT NAME: Bonnie Marks AGE: 61 y.o. MR#: [id number] DATE OF VISIT: 11/19/2011 DATE OF INJURY/ONSET: Chronic STAFF: Dr. Holley CHIEF COMPLAINT: Bilateral thumb and wrist pain HISTORY OF PRESENT ILLNESS Ms. Kendrick dowling 61 y.o. year old female comes into clinic today for evaluation of bilateral thumb and wrist pain. The patient is known to Dr. Holley's clinic for bilateral endoscopic carpal tunnel releases. The patient states she is doing extremely well in regards to her carpal tunnel releases. She states she no longer has significant numbness or pain in the median nerve distribution. The patient's main complaint at today's visit is CMC joint discomfort bilaterally of the thumbs. The patient states that her left thumb is worse than the right. Patient has the most difficulty with gripping, twisting, and fine motor skills. 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 The patient states that these activities significantly causes her discomfort. Patient is currently working light-duty. Patient describes the pain as a constant ache with occasional sharp discomfort. The patient states that the pain changes depending on her activity. The patient states the intensity of discomfort also varies and is most of the time moderate. Patient has great difficulty sleeping when she exacerbates her thumb discomfort. Patient describes radiation of discomfort up the radial aspect of her forearm mostly in the left. Patient has tried ice, bio feeze, light duty at work, soft thumbster splints during the day, hard braces at night, and naproxen. The patient states that all these interventions give her some relief of her discomfort, however she continues to have discomfort that affects her daily life as well asactivities. The patient has not had a cortisone injection in either thumb. PHYSICAL EXAM: Ms. Kendrick dowling 61 y.o. is alert and oriented. She appears in no acute discomfort and isresting comfortably in a chair in the exam room. Inspection: On inspection of the patient's thumbs bilaterally there is obvious joint effusion at the CMC joint of the thumb as well as arthritic deformity at the patient's MCP and IP joints. Palpation: The patient has exquisite tenderness to palpation over the CMC joint of her thumbs bilaterally. The patient's thumb FDS, FDP, EPL, APL are all intact and functioning. 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 Marks's radiologic findings and physical exam findings. I also discussed with the patient causation in regards to her basilar joint arthritis. 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 I discussed with the patient that this incorporates repetitive fine motor motion as well as torquing. These activities may contribute to her arthritic changes over time. I discussed with the patient her treatment options beginning with anti-inflammatory medication, splinting followed by cortisone injection. I discussed with the patient that the final step would be surgical intervention. I discussed with the patient that sometimes the pain in the CMC joint will burn itself out over time. I also discussed that cortisone injectionsor not healthy for muscle tendon or for cartilage and response to the injection varies between patient's. The patient was offered a cortisone injection into the CMC joint of her left thumb. The patient stated that she would like to push this injection off at this time. I discussed with the patient that she should continue with splinting, anti-inflammatory medication, and activity modification. The patient's workers compensation form was filled out at today's visit. The patient will followup with occupational medicine unless she would like an intervention from orthopedics including cortisone injection or surgical intervention. We will plan to followup with the patient as needed at this time.The patient understands to contact us if she has any other questions or concerns. documented in this encounter Plan of Treatment Not on file documented as of this encounter Visit Diagnoses Diagnosis Hand arthritis- Primary Unspecified arthropathy, hand documented in this encounter Care Teams Commercial Real Estate Lender Relationship Specialty Start Date End Date Demetra Bear APRN PCP - General 07/01/10 02/11/18 documented as of this encounter
--- OUTSIDE RECORDS SUMMARY | 2023-10-13 16:11 | XMS_ITS | Encounter Summary ---
Author Organization [facility] Address [facility] [place] [address] Care Team Providers Care Padding Gluer Name Role Phone Demetra Bear EUSEBIA Primary Care Provider [phone] Reason for Visit * Reason Comments Right Carpal Tunnel Syndrome R CTR/long trig fing rel, DOS 09/04/10 Encounter Details Date Type Department Care Team (Late st Contact Info) Description 10/03/2010 11:20 AM EDT Follow-[place] [phone] José Márquez PA [facility] [address] [place] [address] CTS (carpal tunnel syndrome) (Primary Dx) Discharge Disposition: Home Social History [...] Sign Reading Time Taken Comments Blood Pressure 128/84 10/03/2010 11:09 AM EDT Pulse 64 10/03/2010 11:09 AM EDT Temperature - - Respiratory Rate - - Oxygen Saturation - - Inhaled Oxygen Concentration - - Weight 77.1 kg (170 lb) 10/03/2010 11:09 AM EDT Height 157.5 cm (5' 2) 10/03/2010 11:09 AM EDT Body Mass Index 31.09 10/03/2010 11:09 AM EDT documented in this encounter Progress Notes * José Márquez PA - 10/03/2010 11:26 AM EDT Subjective: Patient ID: Bonnie Marks is a 60 y.o. female. HPI Bonnie is here for f/u of her right carpal tunnel release and long trigger finger release. She is pleased and doing well. She would like to schedule her left wrist release today. Her right DOS is 09/04/10. Her symptom resolution is very good and she has no triggering in her right hand - and none in the left. Review of Systems Constitutional: Negative. All other systems reviewed and are negative. Denies fever, chills, nausea, vomiting, diahrrhea, pain is negative. Paresthesias in the left median distribution. Objective: Physical Exam Constitutional: She is oriented to person, place, and time and well-developed, well-nourished, and in no distress. HENT: Head: Normocephalic and atraumatic. Eyes: Conjunctivae and EOM are normal. Pupils are equal, round, and reactive to light. Neck: Normal range of motion. Neck supple. Cardiovascular: Normal rate, regular rhythm, normal heart sounds and intact distal pulses. Exam reveals no gallop and no friction rub. No murmur heard. Pulmonary/Chest: Effort normal and breath sounds normal. No respiratory distress. She has no wheezes. She has no rales. She exhibits no tenderness. Musculoskeletal: Normal range of motion. Neurological: She is alert and oriented to person, place, and time. She displays normal reflexes. No cranial nerve deficit. She exhibits normal muscle tone. Gait normal. Coordination normal. Skin: Skin is warm and dry. No rash noted. No erythema. No pallor. Psychiatric: Mood, memory, affect and judgment normal. Awake, alert, oriented to person, place, time, NAD, afebrile, hemodynamically stable. Comfortable in the exam room. Ortho Exam right hand - all incisions healed, No erythema, edema, bogginess, fluctuance, drainage, induration, or ecchymosis. ROM is full, FDS/FDP, EPL/FPL intact. Some residual stiffness in the right hand, improving per Bonnie. -tinels - positive left, negative right, phalen and durkan positive left, negative right. No triggering. Neurologic Exam Mental Status Oriented to person, place, and time. Cranial Nerves CN II Visual mcnair full to confrontation. Visual acuity: normal Right visual field deficit: none Left visual field deficit: none CN III, IV, Pupils are equal, round, and reactive to light. Extraocular motions are normal. CN V Right facial sensation deficit: none Left facial sensation deficit: none CN VII Facial expression full, symmetric. CN VIII CN VIII normal. CN IX, X CN IX normal. CN XI CN XI normal. CN XII CN XII normal. Motor Exam Muscle bulk: normal Overall muscle tone: normal Right arm tone: normal Left arm tone: normal Sensory Exam Right arm light touch: normal Left arm light touch: normal Gait, Coordination, and Reflexes Gait Gait: normal Hand is sensate, with some diminishment in the median N distribution of the left hand, otherwise well perfused, distal pulses are 2+ and equal. Assessment and Plan: No problem-specific visit notes found for this encounter. A: 1 month s/p right carpal tunnel and long trigger finger release, doing well. Left carpal tunnel syndrome. P: schedule left carpal tunnel release. Follow up. Pt agrees, questions solicited/answered, will return as scheduled and as needed for concerns or questions. Pt understands they may also call us prn for above. documented in this encounter Miscellaneous Notes * Miscellaneous - Ino Storey - 10/08/2010 8:25 AM EDT documented in this encounter Plan of Treatment Not on file documented as of this encounter Procedures Procedure Name Priority Date/Time Associated Diagnosis Comments ENDOSCOPY,WRIST,W\RELEA SE TRANSVERS CARPAL LIGAMENT,BILATERAL Routine 10/03/2010 11:18 AM EDT documented in this encounter Visit Diagnoses Diagnosis CTS (carpal tunnel syndrome)- Primary Carpal tunnel syndrome documented in this encounter Care Teams Padding Gluer Relationship Specialty Start Date End Date Demetra Bear APRN PCP - General 07/01/10 02/11/18 documented as of this encounter
--- OUTSIDE RECORDS SUMMARY | 2023-10-13 16:11 | XMS_ITS | Encounter Summary ---
Author Organization [facility] Address [facility] [place] [address] Care Team Providers Care Insurance Agency Sales Manager Name Role Phone Demetra Bear APRN Primary Care Provider Reason for Referral * Occupational Therapy (Routine) - Closed Specialty Diagnoses / Procedures Referred By Surekha khan Referred To Contact Occupational Therapy Diagnoses Hand arthritis [facility] [address] [place] [address] [facility] [place] [address] Referral ID Status Reason Start Date Expiration Date V isits Requested Visits Authorized [id number] Closed Evaluate and Treat 05/31/2012 11/27/2012 1 1 Reason for Visit * Reason Comments Thumb Pain bilat thumb pain Encounter Details Date Type Department Care Team (Late st Contact Info) Description 05/31/2012 1:10 PM EDT Office [place] [address] Eren Holley MD [facility] [place] [address] José Márquez PA [facility] [place] [address] Hand arthritis (Primary Dx) Discharge Disposition: Home [...] Sign Reading Time Taken Comments Blood Pressure 128/72 05/31/2012 12:53 PM EDT Pulse 72 05/31/2012 12:53 PM EDT Temperature - - Respiratory Rate - - Oxygen Saturation - - Inhaled Oxygen Concentration - - Weight 83.9 kg (185 lb) 05/31/2012 12:53 PM EDT pt reported Height 160 cm (5' 3) 05/31/2012 12:53 PM EDT Body Mass Index 32.77 05/31/2012 12:53 PM EDT documented in this encounter Progress Notes * José Márquez PA - 05/31/2012 1:07 PM EDT Bonnie is here for followup evaluation of bilateral basal joint arthritis. Please see Akil King's previous notes. In short, Bonnie has been evaluated for this compliant in the past with extended workup. Again, she was considering cortisone injections, but had some other issues that she needed to address prior to having those injections done. She has not done any therapy nor had any splinting. She does not tolerate antiinflammatories. 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 On physical exam, she is awake, alert, and oriented in no acute distress. Resting comfortably in the exam room. Pleasant woman with an appropriate affect and demeanor for today's visit. Bilateral hands are warm and dry. No lesion. No erythema, edema, ecchymosis, bogginess, fluctuance, drainage, or break in the skin. She is sensate and well perfused. She does have positive tenderness over the basal joint. Positive grind test. Negative circumduction. Her imaging studies shows near [id number] bilateral basal joint arthritis without STT arthritis. ASSESSMENT: Bilateral basal joint osteoarthritis. PLAN: Treatment options from least to most invasive were discussed in detail. She would like to trial bilateral cortisone injections as well as hard and soft splinting and home therapy with modalities. I think this is reasonable first step and approach. We will see her back in followup on an as needed basis. As we move forward, she will meet with our therapist today and we will have her schedule for the cortisone injections. Her questions today are otherwise solicited and answered. documented in this encounter Plan of Treatment Scheduled Referrals Name Type Priority Associated Diagnoses Order Schedule Referral to Occupational Therapy Outpatient Referral Routine Hand arthritis Ordered: 05/31/2012 documented as of this encounter Results * XR Fluoro injection [...] 2. PAIN SCORE: ?? Left ?? Before: ?? After: ?? Right ?? Before: ?? After: ?? 3. Medications (total amount [...] in this encounter Visit Diagnoses Diagnosis Hand arthritis- Primary Unspecified arthropathy, hand Hand arthritis Unspecified arthropathy, hand documented in this encounter Care Teams Insurance Agency Sales Manager Relationship Specialty Start Date End Date Demerta Bear APRN PCP - General 07/01/10 02/11/18 documented as of this encounter
--- OUTSIDE RECORDS SUMMARY | 2023-10-13 16:11 | XMS_ITS | Encounter Summary ---
Author Organization [facility] Address [facility] [place] [address] Care Team Providers Care Injector Assembler Name Role Phone Demetra Bear APRN Primary Care Provider [phone] Encounter Details Date Type Department Care Team (Late st Contact Info) Description 05/31/2012 1:00 PM EDT Office [place] [address] Krunal Menezes, OT [facility] PHYSICAL MEDICINE & [place] [address] Demetra Bear APRN [address] [place] [address] Eren Holley MD [facility] [place] [address] Hand arthritis (Primary Dx); Hand joint pain Discharge Disposition: Home Social History Tobacco Use [...] as of this encounter Progress Notes * Krunal Menezes, OT - 05/31/2012 4:31 PM EDT OCCUPATIONAL THERAPY SPLINTING EVALUATION CERTIFICATION PERIOD: One time visit. REFERRAL SOURCE: Eren Holley MD, José DANIELC DIAGNOSIS: 1. Hand arthritis 2. Hand joint pain DATE OF INJURY: Symptoms for greater than 3 months DATE OF SURGERY: History of trigger finger release and bilateral carpal tunnel release. NEXT MD FOLLOW UP: 08.02.12 TOTAL TREATMENT TIME: 44 Minutes TIMED CODE TREATMENT TIME: Ortho management and training x 44 minutes CURRENT HISTORY: Bonnie Marks is a 62 y.o. year old female who has a history of bilateral thumb CMC joint pain and osteoarthritis. Bonnie Marks was seen by José Márquez PA-C for check today in hand clinic. Bnonie Marks is referred to Occupational Therapy for evaluation and treatment to include splinting and education on modalities at home. She is scheduled for injection today as well. Patient presents today alone. Mechanism of Injury: Patient's symptoms come from use without acute trauma. Current Symptoms/functional impairments: Patient presents with pain, swelling, stiffness and limited mobility/range of motion, with noted shouldering of her basal joints bilaterally. 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 HAND DOMINANCE: Right PAIN: At Rest: 5/10 With Activity: 7/10 FUNCTIONAL LIMITATIONS: Bonnie Marks identifies difficulty with the following functional activities using the Patient Specific Functional Scale (PSFS): 0/10 (unable to perform) to 10/10 (Able to perform without difficulty) Activity At Evaluation 1.) Work tasks 5 2.) Home management 5 TREATMENT TODAY: Fabricated bilateral custom forearm based thumb spica splints, fit with bilateral neoprene comfort cool splints. Instructed in splint wear and care, custom splints at night, and if needed for immobilization during the day, soft splints for activities when needed. Educated on home exercise program, For light range of motion and moist heat including paraffin use at home if available. ASSESSMENT: Bonnie Marks presents today with functional limitations due to bilateral thumb pain. Patient has well fitting splints post therapy. Bonnie Marks is able to demonstrate her home exercises today. she has less than full motion today as expected due to pain and arthritic changes. Bonnie Marks has fair potential for gains with therapy, but should benefit from injection in addition to home program. Patient knows to call with any questions or concerns. Short Term Goals (to be met by end of the visit today): Date Goal Met: 05.31.12 1. Bonnie Marks will be independent with home exercises as evident with demonstration in therapy. Goal Status: Meets today with demonstration today. 05.31.12 2. Bonnie Marks will demonstrate independence with donning and doffing of splint and verbalizationof splinting purpose. Goal Status: Meets today with demonstration today. PLAN: Splinting to provide support and protection to the joints, discharge to home program. (X) Bonnie Marks participated in the evaluation, collaborated on treatment goals, and agrees to the treatment plan . documented in this encounter Plan of Treatment Not on file documented as of this encounter Visit Diagnoses Diagnosis Hand arthritis- Primary Unspecified arthropathy, hand Hand joint pain Pain in joint, hand documented in this encounter Care Teams Injector Assembler Relationship Specialty Start Date End Date Demetra Bear APRN PCP - General 07/01/10 02/11/18 documented as of this encounter
--- OUTSIDE RECORDS SUMMARY | 2023-10-13 16:11 | XMS_ITS | Encounter Summary ---
Author Organization [facility] Address [facility] [place] [address] Care Team Providers Care Combatant Diver Officer Name Role Phone Demetra Bear EUSEBIA Primary Care Provider [phone] Encounter Details Date Type Department Care Team (Late st Contact Info) Description 10/16/2010 10:15 AM EDT - 10/16/2010 10:56 AM EDT Surgery Outpatient [place] [phone] Yuri Holley MD [facility] [place] [address] ENDOSCOPY WRIST W/ RELEASE TRANSVERSE CARPAL LIGAMENT-LULI (WRVU 6.39) Social History Tobacco Use Types [...] goes away in 12 - 24 hours. [facility] Surgery [place] 8:00-5:30 [facility] 13/10 ask for your doctor construction ironworker helper * Patient Instructions* Roly Santamaria - 10/16/2010 [...] Orthopaedics, 3A. WHERE TO CALL WITH QUESTIONS [facility] Ask for the resident construction ironworker helper for your provider [facility] (7:00am [...] Notes * Miscellaneous - Provider, Scanning - 10/16/2010 10:11 PM EDT * Miscellaneous - Provider, Scanning - 10/16/2010 10:01 PM EDT * Miscellaneous - Provider, Scanning - 10/16/2010 1:47 PM EDT * Op Note - Yuri Holley MD - 10/16/2010 10:30 AM EDT [facility] Operative Note Patient Name: Bonnie Marks : [id number] MR#: [id number] Case Date: 10/16/2010 Surgeon: Surgeon(s) and Role: [...] A preoperative time-out was performed as per [facility] protocol. 8 mL of 1% lidocaine with [...] Operative Note Patient Name: Bonnie Marks : [id number] MR#: [id number] Case Date: 10/16/2010 Surgeon: Surgeon(s) and Role: [...] Given 10/16/2010 10:54 AM EDT 1 tablet lidocaine-epiNEPHrine 1 %-1:200,000 injection ONCE PRN, 1 dose, Starting on Thu10/16/10 at 1011, Until Thu10/16/10 at 1011, Intra-Operative (Intra-Procedure), Routine Given 10/16/2010 10:11 AM EDT 8 mLs 19- Surgical Site documented in this [...] MD) documented in this encounter Care Teams Combatant Diver Officer Relationship Specialty Start Date End Date Demetra Bear, MANAGER ACCESS PCP - General 07/01/10 02/11/18 documented as of this encounter
--- OUTSIDE RECORDS SUMMARY | 2023-10-13 16:11 | XMS_ITS | Encounter Summary ---
Author Organization [facility] Address [facility] [place] [address] Care Team Providers Care Rcp Name Role Phone Demetra Vega EUSEBIA Primary Care Provider [phone] Encounter Details Date Type Department Care Team (Latest Contact Info) Description 09/04/2010 8:55 AM EDT - 09/04/2010 12:03 PM EDT Hospital Encounter Outpatient [place] [phone] Yuri Holley MD [facility] [place] [address] Discharge Disposition: Home Social History Tobacco Use [...] Contact Information: Your orthopaedic surgeon:Yuri Holley MD: [phone] If it is after 5:00PM on a weekday or a weekend and it is of an urgent nature please call [phone] and ask for the on-call orthopaedic resident. Your Primary Care Physician: DEMETRA VEGA, SHUT OFF WORKER [phone] documented in this encounter Medications at Time [...] Holley MD - 09/04/2010 11:20 AM EDT [facility] [place] Patient Name: Bonnie Marks : [id number] MR#: [id number] Case Date: 09/04/2010 Surgeon: Surgeon(s) and Role: [...] A preoperative time-out was performed as per [facility] protocol. 11 mL of 1% lidocaine with [...] triggering or locking. The incision site was copper etcher iously irrigated. The skin was closed with [...] Operative Note Patient Name: Bonnie Marks : [id number] MR#: [id number] Case Date: 09/04/2010 Surgeon: Surgeon(s) and Role: [...] Given 09/04/2010 11:47 AM EDT 2 tablets documented in this encounter Active and Recently [...] MD) documented in this encounter Care Teams Rcp Relationship Specialty Start Date End Date Demetra Vega APRN PCP - General 07/01/10 02/11/18 documented as of this encounter
--- OUTSIDE RECORDS SUMMARY | 2023-10-13 16:11 | XMS_ITS | Encounter Summary ---
Author Organization [facility] Address [facility] [place] [address] Care Team Providers Care Information Systems Consultant Name Role Phone Demetra Bear APRN Primary Care Provider [phone] Reason for Visit * Reason Onset Date Comments Post Procedure Call 09/06/2010 Encounter Details Date Type Department Care Team (Late st Contact Info) Description 09/06/2010 Telephone [place] [id number] Eren Holley MD [facility] [place] [address] Post Procedure Call Social History Tobacco Use Types Packs/Day Years [...] encounter Miscellaneous Notes * Telephone Encounter - Eren Holley MD - 09/06/2010 10:34 AM EDT I spoke to Bonnie Marks this morning. She reports that her hand pain is much better today. Her numbness is much improved compared to preop. documented in this encounter Plan of Treatment Not on file documented as of this encounter Visit Diagnoses Diagnosis CTS (carpal tunnel syndrome) Carpal tunnel syndrome Trigger finger (acquired) documented in this encounter Care Teams Information Systems Consultant Relationship Specialty Start Date End Date Demetra Bear APRN PCP - General 07/01/10 02/11/18 documented as of this encounter
--- OUTSIDE RECORDS SUMMARY | 2023-10-13 16:11 | XMS_ITS | Encounter Summary ---
Author Organization [facility] Address [facility] [place] [address] Care Team Providers Care Display Decorator Name Role Phone None Primary Care Provider Unavailabl e Reason for Visit * Reason Comments Thyroid Nodule Establish Care * Consultation (Routine) - Closed Specialty Diagnoses / Procedures Referred By Surekha khan Referred To Contact General Surgery Diagnoses large right thyroid nodule Chapincito Thompson MD [address] [place] [address] [address] [place] [address] Tobin Callaway MD [facility] [place] [address] Referral ID Status Reason Start Date Expiration Date V isits Requested Visits Authorized [id number] Closed Consult, Test & Treat 02/03/2018 02/03/2019 1 1 Encounter Details Date Type Department Care Team (Late st Contact Info) Description 02/12/2018 10:30 AM EST Office [place] [address] Tobin Callaway MD [facility] [place] [address] Thyroid nodule Social History Tobacco Use Types [...] Sign Reading Time Taken Comments Blood Pressure 150/77 02/12/2018 10:16 AM EST Pulse 71 02/12/2018 10:16 AM EST Temperature 36.9 ??C (98.4 ??F) 02/12/2018 10:[address] Respiratory Rate 12 02/12/2018 10:16 AM EST Oxygen Saturation 98% 02/12/2018 10:16 AM EST Inhaled Oxygen Concentration - - Weight 85 kg (187 lb 6.4 oz) 02/12/2018 10:16 AM EST Height 160 cm (5' 3) 02/12/2018 10:16 AM EST Body Mass Index 33.2 02/12/2018 10:16 AM EST documented in this encounter Progress Notes * Tobin Callaway MD - 02/12/2018 10:30 AM EST Reason for Visit: Bonnie Marks is a 67 y.o. female who is seen in consultation per Tracey Cazares PA-C and Courtney Thompson MD because of a right thyroid nodule. History of Present Illness: She was nted to have a right thyroid nodule on routine exam by her pcp. TFT's were performed and were normal. US noted a right thyroid nodule. She was referred for first a core needle biopsy, and then an FNA. Results from both were inconclusive. She has a family history of thyroid disease with a daughter who underwent thyroidectomy for a benign tumor. She has no history of head or neck irradiation. She has no dysphagia or dysphonia. This has been felt on physical exam. ROS: No H/O asthma, DE, stroke, pulmonary embolus or phlebitis. Comprehensive review of 12 systems otherwise negative and non-contributory. PMSH: Surgical history: Past Surgical History: Procedure Laterality Date ??? PRO INCISE FINGER TENDON SHEATH 09/04/2010 TENDON SHEATH INCISION (TRIGGER FINGER) performed by YURI ZHANG at [facility] ??? PRO WRIST ARTHROSCOP, RELEASE XVERS LIG 09/04/2010 ENDOSCOPY WRIST W/ RELEASE TRANSVERSE CARPAL LIGAMENT performed by YURI ZHANG at [facility] ??? PRO WRIST ARTHROSCOP, RELEASE XVERS LIG 10/16/2010 ENDOSCOPY WRIST W/ RELEASE TRANSVERSE CARPAL LIGAMENT-LULI performed by YURI ZHANG at [facility] MERNA/BSO, tubal; open cholecystectomy; appendectomy Active medical problems: Past Medical History: Diagnosis Date ??? Antiplatelet or antithrombotic long-term use aspirin ??? Gastroesophageal reflux ??? High blood pressure ??? Myocardial infarction treated here at [facility]-greater than 20 yeears ago hyperlipidemia Tobacco: (x) Current smoker, < 1 PPD, >40 Pack-years ETOH: < daily I have reviewed the relevant laboratory tests and imaging studies. Allergies as of 02/12/2018 ??? (No Known Allergies) Current Outpatient Medications on File Prior to Visit Medication Sig Dispense Refill ??? IBU 800 mg Tablet take 1 tablet by mouth three times a day if needed 0 ??? atenolol (TENORMIN) 100 mg Tablet 0 ??? citalopram (CELEXA) 40 mg Tablet 0 ??? ramipril (ALTACE) 10 mg Capsule 0 ??? cyclobenzaprine (FLEXERIL) 10 mg tablet Take 10 mg by mouth 3 times daily as needed. ??? atorvastatin (LIPITOR) 20 mg tablet Take 20 mg by mouth daily. ??? hydrochlorothiazide (HYDRODIURIL) 50 mg tablet Take 50 mg by mouth daily. ??? aspirin 325 mg tablet Take 325 mg by mouth daily. No current facility-administered medications on file prior to visit. PE: General: Well developed, well nourished 67 y.o. female in [facility]. Skin: warm, dry, good turgor, nonicteric. Neck: She has a dominant, movable, nontender nodule in the right lobe of the thyroid measuring 4 cmin greatest dimension with no adenopathy. HEENT: MEME, EOM's full, sclera nonicteric, otherwise unremarkable. Back: no tenderness to AP or lateral compression. Lungs: Clear BS bilaterally without wheezes, rales or rhonchi. Card: Heart sounds normal, no murmurs, gallops, rubs or S3. Extremities: warm, no edema. Neuro: Awake, alert and oriented x 3., [place] negative bilaterally. 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 Plan: Recommend proceeding with Right thyroid lobectomy with FS and possible total thyroidectomy with RLNM. She understands the implications, indications, potential complications and agrees to proceed. Will sign in through [facility]. Consent is signed. Send copy to Dr. Thompson and Tracey YOUNGER. documented in this encounter Plan of Treatment Not on file documented as of this encounter Procedures Procedure Name Priority Date/Time Associated Diagnosis Comments EKG 12-LEAD Routine 02/12/2018 11:50 AM EST Thyroid nodule documented in this encounter [...] identified. Tobin Callaway MD IMG DX ORDERABLES * EKG 12 Lead (02/12/2018 11:50 AM EST) Ventricular rate 61 BPM MUSE SYSTEM Atrial Rate 61 BPM MUSE SYSTEM P-R Interval 204 ms MUSE SYSTEM QRS Duration 102 ms MUSE SYSTEM Q-T Interval 436 ms MUSE SYSTEM QTC Calculated (Bezet) 438 ms MUSE SYSTEM Calculated P Chester 35 degrees MUSE SYSTEM Calculated R Chester -3 degrees MUSE SYSTEM Calculated T Chester 23 degrees MUSE SYSTEM INTERPRETATION Normal sinus rhythm Poor R wave progression Abnormal ECG When compared with ECG of 03-AUG-1996 07:16, No significant change was found Confirmed by MD Wil, Herb ([id number]) on 02/12/2018 2:19:46 PM MUSE SYSTEM 02/12/2018 11:5 0 AM EST 02/12/2018 2:19 PM EST Tobin Callaway MD ECG ORDERABLES MUSE SYSTEM documented in this encounter Visit Diagnoses Diagnosis Thyroid nodule Nontoxic uninodular goiter Thyroid nodule Nontoxic uninodular goiter documented in this encounter Care Teams Display Decorator Relationship Specialty Start Date End Date None None PCP - General 02/12/18 04/09/22 documented as of this encounter
--- OUTSIDE RECORDS SUMMARY | 2023-10-13 16:11 | XMS_ITS | Encounter Summary ---
Author Organization [facility] Address [facility] [place] [address] Care Team Providers Care Financial Dealers Name Role Phone Manuel Elkins MD Primary Care Provider [phone] Encounter Details Date Type Department Care Team (Late st Contact Info) Description 06/28/2010 [place] [address] Eren Holley MD [facility] [place] [address] Social History Tobacco Use Types Packs/Day Years Used Date Smoking Tobacco: Never Assessed Sex and Gender Information Value Date Recorded Sex Assigned at Not on file Gender Identity Not on file Sexual Orientation Not on file documented as of this encounter Plan of Treatment Not on file documented as of this encounter Visit Diagnoses Not on filedocumented in this encounter Care Teams Financial Dealers Relationship Specialty Start Date End Date Manuel Elkins MD PCP - General 02/12/10 06/30/10 documented as of this encounter
--- OUTSIDE RECORDS SUMMARY | 2023-10-13 16:11 | XMS_ITS | Encounter Summary ---
Author Organization [facility] Address [facility] [place] [address] Care Team Providers Care Physical Therapy Aide Name Role Phone Demetra Bear APRN Primary Care Provider [phone] Encounter Details Date Type Department Care Team (Late st Contact Info) Description 11/17/2012 Telephone [place] [phone] Eren Holley MD [facility] DR ORTHOPAED[place] [address] Social History Tobacco Use Types Packs/Day Years [...] encounter Miscellaneous Notes * Telephone Encounter - Kayla Grove - 11/17/2012 8:57 AM EDT Patient was restricted to light duty at her last appointment on 08/02/12. She would like to be released to full duty, no restrictions. She needs a letter faxed to her employer [employer] [phone] Attirene Aguirre. documented in this encounter Plan of Treatment Not on file documented as of this encounter Visit Diagnoses Not on filedocumented in this encounter Care Teams Physical Therapy Aide Relationship Specialty Start Date End Date Demetra Bear APRN PCP - General 07/01/10 02/11/18 documented as of this encounter
--- OUTSIDE RECORDS SUMMARY | 2023-10-13 16:11 | XMS_ITS | Encounter Summary ---
Author Organization [facility] Address [place] [address] Care Team Providers Care Clerical Aide Teacher Name Role Phone Demetra Bear EUSEBIA Primary Care Provider [phone] Reason for Visit * Reason Comments Skin Check Encounter Details Date Type Department Care Team (Late st Contact Info) Description 09/17/2016 3:30 PM EDT Office Visit Dermatology at [address] [phone] Zach Meek MD [address] [facility] [place], [place] [id number] Viral warts, unspecified type Social History Tobacco [...] Progress Notes * Zach Meek MD - 09/17/2016 3:30 PM EDT PROBLEM: Scalp lesion. Bonnie is a 66-year-old woman from [place], [place], who has noted a relatively recent development of a firm papule in the posterior parietal scalp. Her hairdresser noticed it first, referred her to oRbby Diaz, who referred her on to me. Physical examination reveals a verrucous 6-8 mm papule in the mid central posterior parietal scalp. It is consistent with verruca vulgaris. She has no other skin lesions of concern on exposed skin on examination of the face, the neck, hands, arms, forearms. A/P: Verruca vulgaris, posterior parietal scalp. a. No surrounding erythema or induration. b. No other warts noted on examination of her hands. She denies warts present on her feet. c. Recommended we treat this with LN2, and after obtaining informed consent this was done. LN2 x3 applied to this single wart site. d. Recommend I see her again in another 3 weeks for repeat check. May consider shave biopsy with C and D removal if LN2 is not effective. Return to clinic in 3 weeks. CC: Robby Diaz PA-C documented in this encounter Plan of Treatment Not on file documented as of this encounter Visit Diagnoses Diagnosis Viral warts, unspecified type documented in this encounter Care Teams Clerical Aide Teacher Relationship Specialty Start Date End Date Demetra Bear APRN PCP - General 07/01/10 02/11/18 documented as of this encounter
--- OUTSIDE RECORDS SUMMARY | 2023-10-13 16:11 | XMS_ITS | Encounter Summary ---
Author Organization [facility] Address [facility] [place] [address] Care Team Providers Care See Wheeler Name Role Phone [place] brewer Albert LAWS Primary Care Provider [phone] Reason for Visit * Reason Comments Post Op 10/16/10 left carpal tunnel release,feeling well now,did develope infection about 5 days post op after dog dug nail and pulled on stitch Encounter Details Date Type Department Care Team (Late st Contact Info) Description 10/31/2010 10:30 AM EDT Office Visit [place] [address] CLINIC, DR BALL Carpal tunnel syndrome (Primary Dx) Discharge Disposition: [...] as of this encounter Progress Notes * Yue Young RN - 10/31/2010 10:33 AM EDT POST-OP ENDOSCOPIC CARPAL TUNNEL RELEASE Date of Surgery:10/16/10 Side/Site:left Suture removed:% days post op dog jumped and pulled at [facility] which then came out. She did have residual redness and indicated some green pus . She did wash out with hydrogen peroxide and did so daily.She had not called here. It currently showing sign of healing, It is scabbed over. Steri strip applied. 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 She knows to call us if her site does not progress in healing. Incision Assessment: as noted Light activity,progress to full activity by 30 days after surgery. Resolution of nocturnal dysthesia: YES Or NO yes If NO is Surgeon aware: Instructions for messaging boogie surface of hand twice daily.Use general purpose lotion,cocoa butter or Vitamin E oil. Return to work: YES/NO will have follow up in approximately 4 weeks Return to work one hand: Return to work two hand: Patient to call if further follow up is needed. Patient reminded numbness may persist up to one year.If numbness was severe pre- op,it may never resolve. documented in this encounter Plan of Treatment Not on file documented as of this encounter Visit Diagnoses Diagnosis Carpal tunnel syndrome- Primary documented in this encounter Care Teams See Wheeler Relationship Specialty Start Date End Date Demetra Bear APRN PCP - General 07/01/10 02/11/18 documented as of this encounter
--- OUTSIDE RECORDS SUMMARY | 2023-10-13 16:11 | XMS_ITS | Encounter Summary ---
[place] [address] Care Team Providers Care Skimmer Name Role Phone Demetra Bear APRN Primary Care Provider [phone] Encounter Details Date Type Department Care Team (Late st Contact Info) Description 08/27/2010 [place] [address] Kassandra Allen RN Social History Tobacco Use Types Packs/Day [...] on filedocumented in this encounter Care Teams Skimmer Relationship Specialty Start Date End Date Demetra Bear APRN PCP - General 07/01/10 02/11/18 documented as of this encounter
== END 2023-10-13 16:10 | disposition home or self-care (01) ==
LOC: NCHCN 16:09
PROVIDERS: PCP Physician Assistant Medical; Visit Provider Physician Assistant Medical
DX: E03.9 Hypothyroidism, unspecified (principal); E78.5 Hyperlipidemia, unspecified; E87.1 Hypo-osmolality and hyponatremia
CPT/HCPCS: 80053; 80061; 84443

== ENCOUNTER → 2023-12-29 08:40 | Outpatient (BNVA) | payer OTHER, SELFPAY | PROVIDERS: PCP Physician Assistant Medical; Visit Provider Urology | DX: C67.9 Malignant neoplasm of bladder, unspecified (principal); D09.0 Carcinoma in situ of bladder | CPT/HCPCS: 52000; 81003 ==

== ENCOUNTER 2023-12-29 09:26 | Outpatient (REF) | payer OTHER, SELFPAY ==
--- NOTE | 2023-12-29 09:00 | PAPNONF_PTH ---
PATIENT: Bonnie Marks LOC: [facility] U#:[id number] AGE/SX: 73/F ROOM: RE12/29/[address]: Amanuel Gallegos MD : 1950 BED: DIS: 12/29/2023 SPEC #: [id number] RECD: 12/29/23 12:58 STATUS: RYAN RECamille #: [id number] KASSANDRA: 12/29/23 09:[address]: Amanuel Gallegos DEPT: [facility] Cytology RECD BY: Mary Levy ENTERED: 12/29/23 12:59 SP TYPE: AMBER TOBAR DR: Magui Carrillo Tissues: 1 - BODY FLUID CYTO(SPUTUM/URINE)[facility] Procedures: BODY FLUID CYTO(URINE/SPUTUM) Comments: [id number] (TV = 50 ml, 30 ml CYTOLYT ADDED) (REFRIGERATED)
== END 2023-12-29 09:27 | disposition home or self-care (01) ==
LOC: LBN 09:26
PROVIDERS: PCP Physician Assistant Medical; Visit Provider Urology
DX: Z13.6 Encounter for screening for cardiovascular disorders (principal)
CPT/HCPCS: 88104

== ENCOUNTER 2024-04-05 09:19 | Outpatient (REF) | payer MEDICARE, SELFPAY ==
--- NOTE | 2024-04-05 09:15 | PAPNONF_PTH ---
PATIENT: Bonnie Marks LOC: [facility] U#:[id number] AGE/SX: 73/F ROOM: RE04/05/[address]: Amanuel Gallegos MD : 1950 BED: DIS: 04/05/2024 SPEC #: [id number] RECD: 04/05/24 12:50 STATUS: RYAN REQ #: [id number] KASSANDRA: 04/05/24 09:[address]: Amanuel Gallegos DEPT: [facility]END[facility] TO [facility] Cytology RECD BY: Mary Levy ENTERED: 04/05/24 12:50 SP TYPE: AMBER TOBAR DR: Magui Carrillo Tissues: 1 - BODY FLUID CYTO(SPUTUM/URINE)[facility] Procedures: BODY FLUID CYTO(URINE/SPUTUM) Comments: [id number] (TV = 70 ml, 30 ml CYTOLYT ADDED) (REFRIGERATED)
== END 2024-04-05 09:20 | disposition home or self-care (01) ==
LOC: LBN 09:19
PROVIDERS: PCP Physician Assistant Medical; Visit Provider Urology
DX: C67.9 Malignant neoplasm of bladder, unspecified (principal); D09.0 Carcinoma in situ of bladder
CPT/HCPCS: 88104

== ENCOUNTER → 2024-07-12 08:46 | Outpatient (BNVA) | payer MEDICARE, SELFPAY | PROVIDERS: PCP Physician Assistant Medical; Referring Provider Physician Assistant Medical; Visit Provider Urology | DX: C67.9 Malignant neoplasm of bladder, unspecified (principal) | CPT/HCPCS: 52000; 81003 ==

== ENCOUNTER 2024-07-12 12:53 | Outpatient (REF) | payer MEDICARE, SELFPAY ==
--- NOTE | 2024-07-12 09:00 | PAPNONF_PTH ---
PATIENT: Bonnie Marks LOC: [facility] U#:[id number] AGE/SX: 74/F ROOM: RE07/12/[address]: Amanuel Gallegos MD : 1950 BED: DIS: 07/12/2024 SPEC #: [id number] RECD: 07/12/24 13:02 STATUS: RYAN RECamille #: [id number] KASSANDRA: 07/12/24 09:[address]: Amanuel Gallegos DEPT: [facility] Cytology RECD BY: Mary Levy ENTERED: 07/12/24 13:03 SP TYPE: AMBER TOBAR DR: Magui Carrillo Tissues: 1 - BODY FLUID CYTO(SPUTUM/URINE)[facility] Procedures: BODY FLUID CYTO(URINE/SPUTUM) Comments: [id number] (TV = 35 ml, 30 ml CYTOLYT ADDED) (REFRIGERATED) (URINE LEAKED, POURED BACK IN CONTAINER FOR PROCESSING)
== END 2024-07-12 12:54 | disposition home or self-care (01) ==
LOC: LBN 12:53
PROVIDERS: PCP Physician Assistant Medical; Referring Provider Physician Assistant Medical; Visit Provider Urology
DX: D09.0 Carcinoma in situ of bladder (principal); C67.9 Malignant neoplasm of bladder, unspecified
CPT/HCPCS: 88104

== ENCOUNTER 2024-07-25 15:01 | Outpatient (REF) | payer MEDICARE, SELFPAY ==
[2024-07-25 19:31] LABS: Abs Immature Grans 0.03 10^3/uL (0.0-0.06); Absolute Basophil Count 0.04 10^3/uL (0.0-0.2); Absolute Eosinophil Count 0.04 10^3/uL (0.0-0.7); Absolute Lymphocyte Count 1.76 10^3/uL (1.2-3.4); Absolute Monocyte Count 0.56 10^3/uL (0.1-0.8); Absolute Neutrophil Count 5.59 10^3/uL (1.2-6.7); Basophils % 0.5 %; Eosinophils % 0.5 %; HCT 41.6 % (36.0-46.0); HGB 14.6 g/dL (11.2-15.7); Immature Grans % 0.4 %; Lymphocytes % 21.9 %; MCH 30.2 pg (27.0-33.0); MCHC 35.1 % (32.0-36.0); MCV 86 fL (80-95); MPV 11.4 fL (8.0-11.0); Neutrophils % 69.7 %; Platelet Count 218 10^3/uL (130-400); RBC 4.84 10^6/uL (3.93-5.22); RDW 15.2 % (11.7-14.6); RDW-SD 47.9 fL; WBC 8.02 10^3/uL (4.4-10.8)
[2024-07-25 20:34] LABS: Anion Gap 11.5 mmol/L (3-11); BUN 11 mg/dL (7-18); CO2 27.5 mmol/L (21.0-32.0); CREATININE 0.9 mg/dL (0.55-1.02); Calcium 9.4 mg/dL (8.5-10.1); Calculated LDL 53 mg/dL (<100); Chloride 93 mmol/L (98-107); Cholesterol 121 mg/dL (<200); Folate 10.3 ng/mL (8.6-20.0); Glucose 86 mg/dL (74-106); HDL Cholesterol 59 mg/dL (>or=50); Potassium 3.3 mmol/L (3.5-5.1); Sodium 132 mmol/L (136-145); TSH (W/Ref FT4) 1.52 uIU/mL (0.36-3.74); Triglyceride 45 mg/dL (<150); Vitamin B12 480 pg/mL (193-986)
[2024-07-26 01:37] LABS: Vitamin D 25 Total 48 ng/mL (30-100)
[2024-07-27 11:49] LABS: Syphilis Serology (RPR) Negative (Negative)
== END 2024-07-25 15:02 | disposition home or self-care (01) ==
LOC: NCHCN 15:01
PROVIDERS: PCP Physician Assistant Medical; Visit Provider Physician Assistant Medical
DX: I25.10 Atherosclerotic heart disease of native coronary artery without angina pectoris (principal); E03.9 Hypothyroidism, unspecified; Z71.1 Person with feared health complaint in whom no diagnosis is made
CPT/HCPCS: 80048; 80061; 82306; 82607; 82746; 84443; 85025; 86592

== ENCOUNTER 2024-08-01 07:55 | Day surgery (SDC) | payer MEDICARE, SELFPAY ==
[2024-08-01 08:08] VITALS: BP 158/85; PULSE 116; RESP 17; TEMP 37.3; O2SAT 98
[2024-08-01] MEDS: Lactated Ringers 1,000 ML 80 ML IV (09:05)
--- NOTE | 2024-08-01 10:21 | W.PM.HP.N ---
Date of service: 08/01/24 Time of Service: 10:21 Assessment and Plan Assessment and plan (1) Bladder cancer: Status: Acute Assessment and plan: We will we will plan to do a cystoscopy, biopsy and fulguration of the abnormality seen on cystoscopy. Our follow-up and recommendations will depend on the surgical pathology. History of Present Illness History of Present Illness Chief Complaint: Bladder cancer Narrative: This is a 74-year-old woman who has a history of carcinoma in situ of the bladder. She was treated with transurethral resection followed by an induction series of gemcitabine (BCG was not available at that time). On recent cystoscopy, she was found to have a very small recurrence up toward the dome of the bladder. She presents now for cystoscopy, biopsy and fulguration of the area. She is not having any gross hematuria. Review of Systems Narrative: No fevers or chills No vision change or dysphasia Hypothyroidism. No diabetes No shortness of breath, cough or hemoptysis No chest pain or palpitations GERD. No hepatitis, ulcers, jaundice No seizures, strokes or peripheral neuropathy No bleeding disorders or anemia No gout PFSH All Active Problems Bladder cancer (Acute) Carcinoma in situ of bladder (Acute) COVID-19 (Acute) Medical History Acid reflux High cholesterol Hx of anxiety disorder Bladder mass Myocardial infarction Per pt. states it was 20+ years ago HTN (hypertension) Surgical History History of cholecystectomy H/O thyroidectomy History of hysterectomy Social History Smoking/Tobacco Use Status: Current every day Tobacco Type: cigarettes Smoking risk assessment performed?: Yes Alcohol Intake: current Alcohol Intake frequency: a few times a week Alcohol type: beer Drug use: Never Substance use type: does not use Details: 2 cigarettes this morning Housing: house Do you feel safe at home: Yes Do you feel safe in your relationship?: Yes Meds Allergies and Home Medications Allergies Allergy/AdvReac Type Severity Reaction Status Date / Time furosemide (From Lasix) Allergy Intermediate FACE SWELLS Verified 08/01/24 08:17 azithromycin (From Zithromax) AdvReac Intermediate VOMITS Verified 08/01/24 08:17 ketorolac tromethamine (From AdvReac Intermediate VOMITS Verified 08/01/24 08:17 Toradol) hydrocodone bitartrate (From AdvReac Mild GI UPSET Verified 08/01/24 08:17 Vicodin) Home Medications ?Medication ?Instructions ?Recorded ?Confirmed ?Type aspirin,buffered (calcium 325 mg PO DAILY 08/09/12 07/29/24 History carbonate-magnesium) 325 mg tablet atenolol 100 mg tablet 200 mg PO BID 08/09/12 08/01/24 History atorvastatin 20 mg tablet (Lipitor) 40 mg PO DAILY 08/09/12 08/01/24 History hydrochlorothiazide 50 mg tablet 50 mg PO DAILY 08/09/12 08/01/24 History nitroglycerin 0.4 mg sublingual 0.4 mg sublingual ONCE 03/28/13 08/01/24 History tablet ezetimibe 10 mg tablet 10 mg PO DAILY 01/08/22 08/01/24 History omeprazole 20 mg capsule,delayed 20 mg PO DAILY 01/08/22 08/01/24 History release ramipril 10 mg capsule 10 mg PO BID 01/08/22 08/01/24 History buspirone 7.5 mg tablet 7.5 mg PO BID 09/29/22 08/01/24 History cholecalciferol (vitamin D3) 50 50 mcg PO DAILY 09/29/22 08/01/24 History mcg (2,000 unit) capsule levothyroxine 137 mcg capsule 137 mcg PO DAILY 09/29/22 08/01/24 History melatonin 10 mg capsule 10 mg PO HS PRN 09/29/22 08/01/24 History meloxicam 15 mg tablet 15 mg PO DAILY 09/29/22 08/01/24 History lidocaine 5 % topical patch 1 patch topical DAILY #15 ea 01/28/23 08/01/24 Rx (Lidoderm) tramadol 50 mg tablet 50 - 100 mg (1 - 2 x 50 mg) PO Q6H 05/28/23 08/01/24 Rx PRN pain #20 tabs Exam Const General: cooperative Neck Neck: supple Resp Effort & Inspection: normal respiratory effort Auscultation: wheezes expiratory wheezes Cardio Rate: regular rate Rhythm: regular rhythm GI Palpation: soft and no masses Neuro General: patient alert, patient awake and patient oriented x3 Results Last Vital Signs Temp 37.3 C 08/01/24 08:08 Pulse 116 H 08/01/24 08:08 Resp 17 08/01/24 08:08 BP 158/85 H 08/01/24 08:08 Pulse Ox 98 08/01/24 08:08 Time Spent Time spent with Patient: <40 minutes Time was spent: other
--- NOTE | 2024-08-01 10:31 | W.ANESPRE ---
General Info Date of Service Date Performed: 08/01/24 Height: 5 ft Weight: 76 kg Body Mass Index (BMI): 32.7 Surgical Procedure: Operation Date: 08/01/24 10:10 Proposed Procedure Side Surgeon p Cystoscopy/ Bladder Biopsy w Fulguration Amanuel Gallegos MD Meds Allergies and Home Medications Allergies Allergy/AdvReac Type Severity Reaction Status Date / Time furosemide (From Lasix) Allergy Intermediate FACE SWELLS Verified 08/01/24 08:17 azithromycin (From Zithromax) AdvReac Intermediate VOMITS Verified 08/01/24 08:17 ketorolac tromethamine (From AdvReac Intermediate VOMITS Verified 08/01/24 08:17 Toradol) hydrocodone bitartrate (From AdvReac Mild GI UPSET Verified 08/01/24 08:17 Vicodin) Home Medication ?Medication ?Instructions ?Recorded aspirin,buffered (calcium 325 mg PO DAILY 08/09/12 carbonate-magnesium) 325 mg tablet atenolol 100 mg tablet 200 mg PO BID 08/09/12 atorvastatin 20 mg tablet (Lipitor) 40 mg PO DAILY 08/09/12 hydrochlorothiazide 50 mg tablet 50 mg PO DAILY 08/09/12 nitroglycerin 0.4 mg sublingual 0.4 mg sublingual ONCE 03/28/13 tablet ezetimibe 10 mg tablet 10 mg PO DAILY 01/08/22 omeprazole 20 mg capsule,delayed 20 mg PO DAILY 01/08/22 release ramipril 10 mg capsule 10 mg PO BID 01/08/22 buspirone 7.5 mg tablet 7.5 mg PO BID 09/29/22 cholecalciferol (vitamin D3) 50 50 mcg PO DAILY 09/29/22 mcg (2,000 unit) capsule levothyroxine 137 mcg capsule 137 mcg PO DAILY 09/29/22 melatonin 10 mg capsule 10 mg PO HS PRN 09/29/22 meloxicam 15 mg tablet 15 mg PO DAILY 09/29/22 lidocaine 5 % topical patch 1 patch topical DAILY #15 ea 01/28/23 (Lidoderm) tramadol 50 mg tablet 50 - 100 mg (1 - 2 x 50 mg) PO Q6H 05/28/23 PRN pain #20 tabs Current Visit Medications: Current Medications Generic Name Dose Route Start Last Admin Trade Name Freq PRN Reason Stop Dose Admin Ringer's Solution 1,000 mls @ 80 mls/hr 08/01/24 06:00 08/01/24 09:05 IV 08/01/24 23:59 80 mls/hr INFUSION LILLIAN Administration Cefazolin Sodium/Dextrose 2 gm in 50 mls @ 100 mls/hr 08/01/24 06:00 Ancef Duplex IVPB 08/01/24 23:59 PREOP LILLIAN IV Miscellaneous Supplies 1 each 08/01/24 06:00 Iv Access IV 08/01/24 23:59 DIRECTED LILLIAN Sodium Chloride 0 ml 08/01/24 06:00 Normal Saline Flush 10 Ml Syr IV 08/01/24 23:59 PRN PRN Sodium Chloride 0 ml 08/01/24 06:00 Normal Saline 10 Ml Vial IJ 08/01/24 23:59 DIRECTED PRN Sterile Water 0 ml 08/01/24 06:00 Water,Injection,Sterile 10 Ml Vial IJ 08/01/24 23:59 DIRECTED PRN PFSH Active Problems Active Problems: Problem Status Onset Code Bladder cancer Acute C67.9 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 states it was 20+ years ago HTN (hypertension) Medical History Comments:: States her daughter has an issue with anesthesia (pt. states she has MS), they have a hard time waking her up Surgical History Surgical History History of cholecystectomy H/O thyroidectomy History of hysterectomy Tobacco Smoking/Tobacco Use Status: Current every day Tobacco Type: cigarettes Passive smoking exposure: Yes Alcohol Alcohol Intake: current Alcohol intake frequency: a few times a week Alcohol type: beer Details: Occasional Substance Use Substance use: Never Substance use type: does not use Details: 2 cigarettes this morning Vital Signs and Lab Results Vital Signs Most Recent Vital Signs in EMR: Most Recent Vital Signs Temp Pulse Resp BP Pulse Ox 37.3 C 116 H 17 158/85 H 98 08/01/24 08:08 08/01/24 08:08 08/01/24 08:08 08/01/24 08:08 08/01/24 08:08 Lab Results Blood Type / Crossmatch: No Data to Display Complete Blood Count: White Blood Count 8.02 10^3/uL (4.4-10.8) 07/25/24 13:55 Red Blood Count 4.84 10^6/uL (3.93-5.22) 07/25/24 13:55 Hemoglobin 14.6 g/dL (11.2-15.7) 07/25/24 13:55 Hematocrit 41.6 % (36.0-46.0) 07/25/24 13:55 Platelet Count 218 10^3/uL (130-400) 07/25/24 13:55 Complete Metabolic Panel: Sodium 132 mmol/L (136-145) L 07/25/24 13:55 Potassium 3.3 mmol/L (3.5-5.1) L 07/25/24 13:55 Chloride 93 mmol/L (98-107) L 07/25/24 13:55 Carbon Dioxide 27.5 mmol/L (21.0-32.0) 07/25/24 13:55 BUN 11 mg/dL (7-18) 07/25/24 13:55 Creatinine 0.9 mg/dL (0.55-1.02) 07/25/24 13:55 Est GFR (CKD-EPI 2020) 67.50 (mL/min/1.73m2) 07/25/24 13:55 Calcium 9.4 mg/dL (8.5-10.1) 07/25/24 13:55 Glucose 86 mg/dL (74-106) 07/25/24 13:55 Liver Function Panel: No Data to Display Coagulation Panel: No Data to Display Cardiac Panel: No Data to Display Arterial Blood Gas: No Data to Display Venous Blood Gas: No Data to Display Pancreas Panel: No Data to Display Thyroid Panel: Thyroid Stimulating Hormone (TSH) 1.52 uIU/mL (0.36-3.74) 07/25/24 13:55 Infectious Disease: Syphilis Serology Negative (Negative) 07/25/24 13:55 Blood Cultures: No Data to Display Toxicology Panel: No Data to Display Anesthesia Assessment and Plan Anesthesia History Personal History: No History of Anesthesia Complications Family History: No Family History of Anesthesia Complications Exercise Tolerance Exercise Tolerance: Metabolic Equivalents>4 Pertinent Negatives Pertinent Negatives: No Symptoms of GERD and No History of CVA/TIA Cardiac & Pulmonary Exam Cardiac Exam: Normal S1/S2 Heart Sounds Pulmonary Exam: Clear Bilateral Breath Sounds and Seasonal Allergies Cardiac and Pulmonary Comment:: Question of wheezing; on exam patient has slight crackles on the upper lobes; no acute distress Implantable Cardiac Device Does patient have a Pacemaker or an ICD?: No Airway Exam Known Difficult Airway: No Mallampati Class: 2 Mouth Opening: Normal (> 3cm) Thyromental Distance: Greater than 3 cm Neck Range of Motion: Full ROM Neck Circumference: Normal Teeth Condition: Generalized Poor Dentition, Loose or Chipped and Removable Dentures/Plates Upper ASA Classification ASA Score: ASA 3 Emergency Case?: No NPO Status NPO Status: NPO Clears >2 hours, Solids >8 hours Anesthesia Plan Resuscitation Status: Full Code Anesthesia Technique: General Anesthesia Airway Planned: Natural Airway Pain Management: Surgeon and patient request nerve block Monitors Used: Standard Monitors
[2024-08-01 10:34] VITALS: BMI 32.7
[2024-08-01] MEDS: ceFAZolin 2 GM/50 ML BAG IVPB (11:14)
[2024-08-01] MEDS: Lidocaine 2% Jelly 6 ML SYR (11:35)
--- NOTE | 2024-08-01 11:35 | BLADDER_PTH ---
PATIENT: Bonnie Marks LOC: [facility] U#:[id number] AGE/SX: 74/F ROOM: RE08/01/[address]: Amanuel Gallegos MD : [id number] BED: DIS: 08/01/2024 SPEC #: [id number] RECD: 08/01/24 12:47 STATUS: RYAN RE #: [id number] KASSANDRA: 08/01/24 11:[address]: Amanuel Gallegos DEPT: Surgical Specimen RECD BY: Mary Levy ENTERED: 08/01/24 12:47 SP TYPE: Bladder OTHR DR: Magui Carrillo Tissues: 1 - BLADDER BIOPSY Procedures: GROSS AND MICRO LEVEL 4 Comments: [id number]
--- NOTE | 2024-08-01 11:48 | W.PM.DSUDISC ---
Date of service: 08/01/24 Discharge Plan Disposition Patient Disposition: Home Condition: Stable Discharge Details Reason For Visit: bladder biopsy Attending Provider: Amanuel Gallegos Primary Care Provider: Magui Carrillo Home Meds and New Rx's Prescriptions: No Action melatonin 10 mg capsule 10 mg PO HS PRN cholecalciferol (vitamin D3) 50 mcg (2,000 unit) capsule 50 mcg PO DAILY levothyroxine 137 mcg capsule 137 mcg PO DAILY buspirone 7.5 mg tablet 7.5 mg PO BID meloxicam 15 mg tablet 15 mg PO DAILY tramadol 50 mg tablet 50 - 100 mg PO Q6H PRN (Reason: pain) Qty: 20 0RF Rx Instructions: may take along with Tylenol nitroglycerin 0.4 MG tablet, sublingual 0.4 mg Sublingual ONCE Patient Comments: has never used atorvastatin [Lipitor] 20 MG tablet 40 mg PO DAILY atenolol 100 MG tablet 200 mg PO BID hydrochlorothiazide 50 MG tablet 50 mg PO DAILY aspirin,buffd-calcium carb-mag 325 MG tablet 325 mg PO DAILY omeprazole 20 mg capsule,delayed release(DR/EC) 20 mg PO DAILY Patient Comments: TAKE ONE CAPSULE BY MOUTH EVERY DAY ramipril 10 mg capsule 10 mg PO BID Patient Comments: TAKE ONE CAPSULE BY MOUTH EVERY DAY ezetimibe 10 mg tablet 10 mg PO DAILY Patient Comments: TAKE ONE TABLET BY MOUTH EVERY DAY lidocaine [Lidoderm] 5 % adhesive patch,medicated 1 patch topical DAILY Qty: 15 0RF Rx Instructions: leave on most painful area for up to 12 hrs Discharge Instructions Additional Instructions: Follow-up in 1 to 2 weeks for pathology results Activity:: Activity as Tolerated Shower/Bathe:: 24 hours Diet:: As Tolerated Discharge Orders Discharge Orders: Discharge Order (Routine); Ordered 08/01/24 Ordered By: Amanuel Gallegos DS: Diagnosis Discharge Diagnosis (1) Bladder cancer: Status: Acute
[2024-08-01 11:50] VITALS: BP 93/67; PULSE 96; RESP 16; TEMP 36.7; O2SAT 96
[2024-08-01] MEDS: Phenazopyridine 200 MG TAB PO (12:13)
[2024-08-01 12:47] VITALS: BP 103/65; PULSE 83; RESP 17; TEMP 36.3; O2SAT 95
--- NOTE | 2024-08-01 13:36 | W.PM.OP ---
Operative Note Operative Note PRE-OP DIAGNOSIS: Bladder cancer POST-OP DIAGNOSIS: same PROCEDURE: Cystoscopy, bladder biopsy and fulguration SURGEON: Amanuel Gallegos ANESTHESIA TYPE: General:No Airway Refer to Anesthesia Record ESTIMATED BLOOD LOSS: 5 PATHOLOGY: other (Bladder biopsy) COMPLICATIONS: None Patient was transported to: same day Patient's condition: stable Indications: This is a 74-year-old woman who has a history of bladder cancer and carcinoma in situ. She was treated with an induction series of intravesical gemcitabine (BCG was not available at that time). On surveillance cystoscopy, we identified a small papillary lesion at the dome. She presents for cystoscopy, biopsy of the lesion and fulguration. Findings: The patient was given antibiotics and brought to the operating room on 08/01/2024. After successful induction of general anesthesia, she was placed in the dorsal lithotomy position. Her genitalia was prepped and draped. 2% Xylocaine jelly was then instilled into the urethra. A 22 [place] rigid cystoscope was passed through the urethra into the bladder. The bladder was inspected using both a 30 and 70 degree lens. A very small (1 to 2 mm) papillary lesion was identified at the dome of the bladder out toward the bladder neck. No additional papillary lesions were identified. Using a cold cup biopsy forceps, I was able to biopsy the area and send the biopsies to the lab for permanent section. I then used bipolar cautery and a Bugbee electrode to cauterize the biopsy site and the surrounding mucosa. The patient tolerated this procedure with no complications. She was taken to the recovery room in stable condition. Date of Procedure: 08/01/24
--- NOTE | 2024-08-01 13:44 | W.ANESPOSTOP ---
Postoperative Evaluation Date, Time and Location Date Performed: 08/01/24 Time Performed: 13:44 Patient Location: Day Surgery Unit Vital Signs Most Recent Imported Vital Signs: Most Recent Vital Signs Temp Pulse Resp BP Pulse Ox 36.3 C L 83 17 103/65 95 08/01/24 12:47 08/01/24 12:47 08/01/24 12:47 08/01/24 12:47 08/01/24 12:47 Pain Score Most Recent Pain Score: Most Recent Pain Score Pain Level 5 08/01/24 12:47 Assessment Mental Status: Awake (Alert & Oriented to Patient Baseline) Airway and Respiratory Function: Patent airway with normal (patient baseline) respiratory exam Cardiovascular Function: Hemodynamically Stable Hydration Status: Adequately Hydrated Nausea & Vomiting: No Nausea or Vomiting Pain: Pt. Denies Any Pain Peripheral Nerve Block: Patient did not receive a nerve block
== END 2024-08-01 12:45 | disposition home or self-care (01) ==
PROVIDERS: PCP Physician Assistant Medical; Visit Provider Urology
PROC: 0TBB8ZX Excision of Bladder, Via Natural or Artificial Opening Endoscopic, Diagnostic (ICD-10-PCS; CPT 52204; principal; 2024-08-01 10:00)
DX: C67.1 Malignant neoplasm of dome of bladder (principal); K21.9 Gastro-esophageal reflux disease without esophagitis; E78.00 Pure hypercholesterolemia, unspecified; I10 Essential (primary) hypertension
CPT/HCPCS: 52204; 88305; J0131; J0690; J1100; J2003; J2405; J2704

== ENCOUNTER 2024-08-12 19:13 | Outpatient (REF) | payer MEDICARE, SELFPAY ==
[2024-08-12 16:34] LABS: Anion Gap 8.2 mmol/L (3-11); BUN 12 mg/dL (7-18); CO2 30.8 mmol/L (21.0-32.0); CREATININE 0.9 mg/dL (0.55-1.02); Calcium 9.6 mg/dL (8.5-10.1); Chloride 95 mmol/L (98-107); Glucose 98 mg/dL (74-106); Potassium 3.7 mmol/L (3.5-5.1); Sodium 134 mmol/L (136-145)
== END 2024-08-12 19:14 | disposition home or self-care (01) ==
LOC: NCHCN 19:13
PROVIDERS: PCP Physician Assistant Medical; Visit Provider Physician Assistant Medical
DX: E87.6 Hypokalemia (principal)
CPT/HCPCS: 80048

== ENCOUNTER → 2024-08-19 09:52 | Outpatient (BNVA) | payer MEDICARE, SELFPAY | PROVIDERS: PCP Physician Assistant Medical; Referring Provider Physician Assistant Medical; Visit Provider Urology | DX: D09.0 Carcinoma in situ of bladder (principal) | CPT/HCPCS: 99214 ==

== ENCOUNTER → 2024-09-27 08:42 | Outpatient (BNVA) | payer MEDICARE, SELFPAY | PROVIDERS: PCP Physician Assistant Medical; Referring Provider Physician Assistant Medical; Visit Provider Nurse Practitioner Gerontology | DX: C67.9 Malignant neoplasm of bladder, unspecified (principal); D09.0 Carcinoma in situ of bladder | CPT/HCPCS: 81002; 51720; J9030 ==

== ENCOUNTER → 2024-10-04 08:45 | Outpatient (BNVA) | payer MEDICARE, SELFPAY | PROVIDERS: PCP Physician Assistant Medical; Referring Provider Physician Assistant Medical; Visit Provider Nurse Practitioner Gerontology | DX: D09.0 Carcinoma in situ of bladder (principal); C67.9 Malignant neoplasm of bladder, unspecified | CPT/HCPCS: 81002; 51720; J9030 ==

== ENCOUNTER → 2024-10-12 08:39 | Outpatient (BNVA) | payer MEDICARE, SELFPAY | PROVIDERS: PCP Physician Assistant Medical; Referring Provider Physician Assistant Medical; Visit Provider Nurse Practitioner Gerontology | DX: D09.0 Carcinoma in situ of bladder (principal); C67.9 Malignant neoplasm of bladder, unspecified | CPT/HCPCS: 81002; 51720; J9030 ==

== ENCOUNTER 2024-10-18 03:37 | Outpatient (CLI) | payer MEDICARE, SELFPAY ==
--- NOTE | 2024-10-18 | DI.RAD_ITS ---
Exam(s) XR LUMBAR SPINE COMPLETE EXAM: XR LUMBAR SPINE COMPLETE CLINICAL HISTORY: LUMBAR DISC DISEASE WITH RADICULOPATHY, M51.16. TECHNIQUE: 2D digital imaging was performed. COMPARISON: CR XR LUMBAR SPINE COMPLETE from 10/08/2021 FINDINGS: Five views No evidence of acute fracture. There is mild degenerative anterolisthesis of L4 upon L5 related to facet arthropathy at this level. Facet joints at other levels exhibit only mild degenerative changes. There degenerative scoliosis convex left which has increased when compared to 3 years ago. There has been further increase in degenerative disc disease at multiple levels. There is asymmetric right-sided disc space narrowing at L2-3 and left-sided disc space narrowing at L4-5 which has increased from previous. There is relatively uniform advanced disc space narrowing at L3-4 level again noted. There is preservation of disc height at L5-S1 level. Moderate disc space narrowing at L1-2. Some degenerative changes are evident in the right sacroiliac joint. No osseous lesions. Heavy calcification is noted in the abdominal aorta and iliac arteries. IMPRESSION: Progression of multilevel degenerative disc disease when compared to September 2021 images. There is now asymmetric narrowing of the left side of the disc space at L4-5 and right side of the disc space at L2-3. There is also mild degenerative anterolisthesis of L4 upon L5. DATA REPOSITORY: RADIATION DOSE DELIVERED:
== END 2024-10-18 03:57 ==
PROVIDERS: PCP Physician Assistant Medical; Visit Provider Family Medicine
DX: D09.0 Carcinoma in situ of bladder (principal); C67.9 Malignant neoplasm of bladder, unspecified
CPT/HCPCS: 51720; 81002; J9030; 72110

== ENCOUNTER → 2024-10-27 08:45 | Outpatient (BNVA) | payer MEDICARE, SELFPAY | PROVIDERS: PCP Physician Assistant Medical; Visit Provider Urology | DX: D09.0 Carcinoma in situ of bladder (principal) | CPT/HCPCS: J9030; 51720; 81002 ==

== ENCOUNTER 2024-10-31 13:49 | Emergency (ER) | payer MEDICARE, SELFPAY ==
[2024-10-31 13:53] VITALS: BP 165/89; PULSE 69; RESP 18; TEMP 36.3; O2SAT 96
[2024-10-31 15:08] VITALS: BP 146/96; PULSE 67; RESP 20; O2SAT 97
--- NOTE | 2024-10-31 15:26 | W.ED.GENAD ---
Discharge Plan Disposition Patient Disposition: Home Condition: Stable Discharge Details Clinical Impression: Back pain Primary Care Provider: Magui Carrillo ED Provider: Josef Mckeon Home Meds and New Rx's Prescriptions: New morphine 15 mg tablet 15 mg PO Q8H PRN (Reason: pain) Qty: 10 0RF Continued melatonin 10 mg capsule 10 mg PO HS PRN cholecalciferol (vitamin D3) 50 mcg (2,000 unit) capsule 50 mcg PO DAILY levothyroxine 137 mcg capsule 137 mcg PO DAILY buspirone 7.5 mg tablet 7.5 mg PO BID meloxicam 15 mg tablet 15 mg PO DAILY tramadol 50 mg tablet 50 - 100 mg PO Q6H PRN (Reason: pain) Qty: 20 0RF Rx Instructions: may take along with Tylenol nitroglycerin 0.4 MG tablet, sublingual 0.4 mg Sublingual ONCE Patient Comments: has never used atorvastatin [Lipitor] 20 MG tablet 40 mg PO DAILY atenolol 100 MG tablet 200 mg PO BID hydrochlorothiazide 50 MG tablet 50 mg PO DAILY aspirin,buffd-calcium carb-mag 325 MG tablet 325 mg PO DAILY omeprazole 20 mg capsule,delayed release(DR/EC) 20 mg PO DAILY Patient Comments: TAKE ONE CAPSULE BY MOUTH EVERY DAY ramipril 10 mg capsule 10 mg PO BID Patient Comments: TAKE ONE CAPSULE BY MOUTH EVERY DAY ezetimibe 10 mg tablet 10 mg PO DAILY Patient Comments: TAKE ONE TABLET BY MOUTH EVERY DAY lidocaine [Lidoderm] 5 % adhesive patch,medicated 1 patch topical DAILY Qty: 15 0RF Rx Instructions: leave on most painful area for up to 12 hrs methocarbamol 750 mg tablet 750 mg PO HS Patient Comments: TAKE ONE TABLET BY MOUTH AT BEDTIME NEEDED FOR MUSCLE SPASM naproxen 375 mg tablet 375 mg PO Q12H Patient Comments: TAKE ONE TABLET BY MOUTH EVERY 12 HOURS NEEDED FOR MILD TO MODERATE PAIN WITH FOOD AVOID TAKING MELOXICAM WHILE TAKING THIS MEDICATION gabapentin 100 mg capsule 200 mg PO BID Patient Comments: TAKE 2 CAPSULES BY MOUTH IN THE MORNING AND 2 CAPSULE AT MIDDAY (CONTINUE 300MG DOSE AT BEDTIME) Discharge Instructions Additional Instructions: Your x-ray read just over a week ago showed you have degenerative disc disease which is likely causing your pain. Continue your current medications. If you have uncontrolled pain you can take the morphine. I would not recommend taking this within 2 hours of the tramadol. Follow-up with your primary care provider within 1 to 2 weeks. If you feel significantly more ill or have new symptoms such as high fevers return to emergency department for reevaluation. You can also take an [id number] magnesium and potassium supplement as your lab values today were low HPI General Mode of arrival: ambulatory. Date/Time Provider Initiated Documentation: 10/31/24 14:04. Limitations to Documentation: no limitations. Information obtained by: patient. History of Present Illness 74 year old F presents to the emergency department with the chief complaint of lower back pain, described as moderate, Quality is described as aching, and is localized to the back. Patient reports no radiation. Patient started experiencing this week(s) (3) and it has been constant. No relieving factors improve symptom(s), No exacerbating factors reported . Patient notes denies fever/chills and weakness. Related Data Home Medications ?Medication ?Instructions ?Recorded ?Confirmed aspirin,buffered (calcium 325 mg PO DAILY 08/09/12 10/31/24 carbonate-magnesium) 325 mg tablet atenolol 100 mg tablet 200 mg PO BID 08/09/12 10/31/24 atorvastatin 20 mg tablet (Lipitor) 40 mg PO DAILY 08/09/12 10/31/24 hydrochlorothiazide 50 mg tablet 50 mg PO DAILY 08/09/12 10/31/24 nitroglycerin 0.4 mg sublingual 0.4 mg sublingual ONCE 03/28/13 10/31/24 tablet ezetimibe 10 mg tablet 10 mg PO DAILY 01/08/22 10/31/24 omeprazole 20 mg capsule,delayed 20 mg PO DAILY 01/08/22 10/31/24 release ramipril 10 mg capsule 10 mg PO BID 01/08/22 10/31/24 buspirone 7.5 mg tablet 7.5 mg PO BID 09/29/22 10/31/24 cholecalciferol (vitamin D3) 50 50 mcg PO DAILY 09/29/22 10/31/24 mcg (2,000 unit) capsule levothyroxine 137 mcg capsule 137 mcg PO DAILY 09/29/22 10/31/24 melatonin 10 mg capsule 10 mg PO HS PRN 09/29/22 10/31/24 meloxicam 15 mg tablet 15 mg PO DAILY 09/29/22 10/31/24 lidocaine 5 % topical patch 1 patch topical DAILY #15 ea 01/28/23 10/31/24 (Lidoderm) tramadol 50 mg tablet 50 - 100 mg (1 - 2 x 50 mg) PO Q6H 05/28/23 10/31/24 PRN pain #20 tabs gabapentin 100 mg capsule 200 mg PO BID 10/31/24 10/31/24 methocarbamol 750 mg tablet 750 mg PO HS 10/31/24 10/31/24 morphine 15 mg immediate release 15 mg PO Q8H PRN pain #10 tabs 10/31/24 tablet naproxen 375 mg tablet 375 mg PO Q12H 10/31/24 10/31/24 Previous Rx's ?Medication ?Instructions ?Recorded lidocaine 5 % topical patch 1 patch topical DAILY #15 ea 01/28/23 (Lidoderm) tramadol 50 mg tablet 50 - 100 mg (1 - 2 x 50 mg) PO Q6H 05/28/23 PRN pain #20 tabs morphine 15 mg immediate release 15 mg PO Q8H PRN pain #10 tabs 10/31/24 tablet Allergies Allergy/AdvReac Type Severity Reaction Status Date / Time furosemide (From Lasix) Allergy Intermediate FACE SWELLS Verified 10/31/24 13:59 azithromycin (From Zithromax) AdvReac Intermediate VOMITS Verified 10/31/24 13:59 ketorolac tromethamine (From AdvReac Intermediate VOMITS Verified 10/31/24 13:59 Toradol) hydrocodone bitartrate (From AdvReac Mild GI UPSET Verified 10/31/24 13:59 Vicodin) General Stated Complaint: Orthopedic GERMAIN: 3 Review of Systems All systems reviewed & are unremarkable except as noted in HPI and below Constitutional Constitutional: Denies chills, Denies fever(s) and Denies weakness Cardiovascular Cardiovascular: Denies chest pain and Denies dyspnea Respiratory Respiratory: Denies cough and Denies dyspnea Gastrointestinal Gastrointestinal: Denies abdominal pain, Denies nausea and Denies vomiting Musculoskeletal Musculoskeletal: Reports back pain Neurologic Neurologic: Denies weakness Exam Const General: no acute distress Orientation: alert [facility] Head: normal to inspection Ears: external ears normal General nose exam: external nose normal Mouth: moist mucous membranes Eyes General: appearance normal, both eyes and all related structures Neck Neck: normal visual inspection Resp Effort & Inspection: normal respiratory effort and able to speak in complete sentences Cardio Rate: regular rate GI Palpation: soft, not firm, no guarding and nontender Back/Spine/Pelvis Back: no CVA tenderness Thoracic/Lumbar Spine: No thoracic spinal tenderness and No lumbar spinal tenderness Skin General skin exam: no rashes or lesions noted Neuro General: patient alert and patient oriented x3 Extrem General: normal to inspection Psych Mental Status: mental status grossly normal Course Vital Signs Vital signs: Vital Signs Temperature 36.3 C L 10/31/24 13:53 Pulse 69 10/31/24 13:53 Respiratory Rate 18 10/31/24 13:53 Blood Pressure 165/89 H 10/31/24 13:53 Pulse Oximetry 96 10/31/24 13:53 Temperature 36.3 C L 10/31/24 13:53 Temperature Source Oral 10/31/24 13:53 Pulse 67 10/31/24 15:08 Respiratory Rate 20 10/31/24 15:08 Blood Pressure 146/96 H 10/31/24 15:08 Blood Pressure Mean 112 10/31/24 15:08 Blood Pressure Position Sitting 10/31/24 13:53 Pulse Oximetry 97 10/31/24 15:08 Oxygen Delivery Method Room Air 10/31/24 15:08 Oxygen Flow Rate 0 10/31/24 15:08 Pain Level 8 10/31/24 13:53 Comment difficulty sitting still 10/31/24 13:53 Medical Decision Making 74-year-old female who is currently getting treatment for bladder cancer and has chronic issues with low back pain comes in with 3 weeks of worsening left-sided lower back pain. She had an x-ray on September 18 through this pain which showed progression of multilevel degenerative disc disease when compared to September 2021 images. There is now asymmetric narrowing of the left side of the disc space at L4-5 and right side of the disc space at L2-3. There is also mild degenerative anterolisthesis of L4 upon L5. She is taking gabapentin, cyclobenzaprine and tramadol without significant relief. She denies any changes in bladder or bowel habits. Denies any weakness or abdominal pain. No fevers or IV drug use. she is localizing the pain to the left lower back. There is no midline tenderness. There is no visible or palpable deformities. She has no saddle anesthesia. She has no leg swelling. She has intact distal sensation and pulses. Suspect the pain is due to her degenerative disc disease. She has no findings on exam or history to suggest cauda equina or spinal epidural abscess. I will check basic labs and treat her with morphine and reassess Labs showed low magnesium and potassium which was repleted orally. She feels significantly better after 1 dose of morphine. She was no concerning findings on exam. I recommended she follow-up with her primary care provider and also discuss having physical therapy and possibly pain clinic referral. Return precautions given PFSH All Active Problems (Updated 10/31/24 @ 16:56 by Josef Mckeon MD) Back pain (Acute) Bladder cancer (Acute) Carcinoma in situ of bladder (Acute) COVID-19 (Acute) Medical History Acid reflux High cholesterol Hx of anxiety disorder Bladder mass Myocardial infarction Per pt. states it was 20+ years ago HTN (hypertension) Surgical History History of cholecystectomy H/O thyroidectomy History of hysterectomy Social History Smoking/Tobacco Use Status: Current every day Tobacco Type: cigarettes Smoking risk assessment performed?: Yes Alcohol Intake: current Alcohol Intake frequency: a few times a week Alcohol type: beer Details: Occasional Drug use: Never Substance use type: does not use Details: 2 cigarettes this morning Housing: house Do you feel safe at home: Yes Do you feel safe in your relationship?: Yes
[2024-10-31] MEDS: MORPHine 4 MG/ML SYR IM (15:34)
[2024-10-31] MEDS: predniSONE 20 MG TAB 60 MG PO (15:35)
[2024-10-31 15:37] VITALS: BP 166/84; PULSE 64; RESP 16; O2SAT 98
[2024-10-31 15:47] LABS: Abs Immature Grans 0.04 10^3/uL (0.0-0.06); HCT 41.5 % (36.0-46.0); HGB 14.8 g/dL (11.2-15.7); Immature Grans % 0.5 %; MCH 30.0 pg (27.0-33.0); MCHC 35.7 % (32.0-36.0); MCV 84 fL (80-95); MPV 10.3 fL (8.0-11.0); Platelet Count 247 10^3/uL (130-400); RBC 4.94 10^6/uL (3.93-5.22); RDW 15.7 % (11.7-14.6); RDW-SD 47.8 fL; WBC 8.49 10^3/uL (4.4-10.8)
[2024-10-31 16:11] LABS: ALT 20 U/L (14-59); AST 20 U/L (15-37); Albumin 3.9 g/dL (3.4-5.0); Alkaline Phosphatase 76 U/L (46-116); Anion Gap 8.3 mmol/L (3-11); BUN 13 mg/dL (7-18); Bilirubin, Total 0.7 mg/dL (0.2-1.0); CO2 29.7 mmol/L (21.0-32.0); Calcium 9.2 mg/dL (8.5-10.1); Chloride 91 mmol/L (98-107); Estimated GFR 77.75 (mL/min/1.73m2); Glucose 90 mg/dL (74-106); Magnesium 1.2 mg/dL (1.8-2.4); Potassium 3.2 mmol/L (3.5-5.1); Sodium 129 mmol/L (136-145); Total Protein 7.8 g/dL (6.4-8.2)
[2024-10-31] MEDS: Magnesium Oxide 400 MG TAB 800 MG PO (16:45)
[2024-10-31] MEDS: Potassium Chloride 20 MEQ TABCR 40 MEQ PO (16:45)
[2024-10-31 16:47] VITALS: BP 138/68; PULSE 67; RESP 16; O2SAT 97
== END 2024-10-31 17:34 | disposition home or self-care (01) ==
PROVIDERS: Emergency Provider Emergency Medicine; PCP Physician Assistant Medical
DX: M54.50 Low back pain, unspecified (principal); M79.605 Pain in left leg
CPT/HCPCS: 99284; 99283; 96372; 80053; 83735; 85025; J2270; J7512

== ENCOUNTER → 2024-11-01 08:45 | Outpatient (BNVA) | payer MEDICARE, SELFPAY | PROVIDERS: PCP Physician Assistant Medical; Visit Provider Nurse Practitioner Gerontology | DX: D09.0 Carcinoma in situ of bladder (principal); C67.9 Malignant neoplasm of bladder, unspecified | CPT/HCPCS: 51720; J9030 ==

== ENCOUNTER 2024-11-22 16:01 | Outpatient (REF) | payer MEDICARE, SELFPAY ==
[2024-11-22 17:01] LABS: Anion Gap 6.6 mmol/L (3-11); BUN 18 mg/dL (7-18); CO2 32.4 mmol/L (21.0-32.0); Calcium 9.6 mg/dL (8.5-10.1); Chloride 94 mmol/L (98-107); Estimated GFR 77.75 (mL/min/1.73m2); Glucose 117 mg/dL (74-106); Magnesium 1.4 mg/dL (1.8-2.4); Potassium 3.7 mmol/L (3.5-5.1); Sodium 133 mmol/L (136-145)
== END 2024-11-22 16:02 | disposition home or self-care (01) ==
LOC: NCHCN 16:01
PROVIDERS: PCP Physician Assistant Medical; Visit Provider Physician Assistant Medical
DX: E87.1 Hypo-osmolality and hyponatremia (principal); E83.42 Hypomagnesemia
CPT/HCPCS: 80048; 83735

== ENCOUNTER 2024-12-19 16:39 | Outpatient (REF) | payer MEDICARE, SELFPAY ==
[2024-12-19 17:39] LABS: Anion Gap 9.4 mmol/L (3-11); BUN 12 mg/dL (7-18); CO2 26.6 mmol/L (21.0-32.0); Calcium 9.5 mg/dL (8.5-10.1); Chloride 102 mmol/L (98-107); Estimated GFR 77.75 (mL/min/1.73m2); Glucose 96 mg/dL (74-106); Magnesium 1.8 mg/dL (1.8-2.4); Potassium 4.2 mmol/L (3.5-5.1); Sodium 138 mmol/L (136-145)
== END 2024-12-19 16:40 | disposition home or self-care (01) ==
LOC: NCHCN 16:39
PROVIDERS: PCP Physician Assistant Medical; Visit Provider Physician Assistant Medical
DX: E87.1 Hypo-osmolality and hyponatremia (principal); E83.42 Hypomagnesemia
CPT/HCPCS: 80048; 83735

== ENCOUNTER 2024-12-27 01:29 | Outpatient (CLI) | payer MEDICARE, SELFPAY ==
--- NOTE | 2024-12-27 | DI.MRI_ITS ---
Exam(s) MR LUMBAR SPINE WO EXAM: MR LUMBAR SPINE WO CLINICAL HISTORY: LOW BACK PAIN M54.50 CHRONIC PAIN G89.29 XR 10/18/24 ENGAGED W/PT. TECHNIQUE: Multiplanar multisequence MRI of the Lumbar spine was performed. COMPARISON: CT CT ABDOMEN PELVIS WO/W from 01/28/2023 CR XR LUMBAR SPINE COMPLETE from 10/18/2024 FINDINGS: Bones: The last intervertebral disc space is designated the L5/S1 level for the numbering purpose of this examination. The vertebral body heights are well maintained. There is a left convex scoliosis. Degenerative endplate signal changes are seen in the lumbar spine particularly from L1-2 through L4-L5. Cord: It is of normal size and signal intensity. T12-L1: No disc herniations or bulges are present. No central spinal canal or neural foraminal stenosis. L1-2: There is a small left paracentral disc herniation. No significant neural foraminal or central spinal canal stenosis results. L2-3: There is a diffuse disc bulge. There are degenerative changes of the facets. There is mild narrowing of the central spinal canal. There is extension of disc material into the right neural foramen causing mild right neural foraminal stenosis. There is no significant left neural foraminal steno sis. L3-4: There is a diffuse disc bulge. There are degenerative changes of facets and hypertrophy of the ligamentum flavum. These all contribute to cause moderately severe central spinal canal stenosis. There is extension of disc material into both neural foramen. There is resultant marked right neural foraminal stenosis. There is [id number] left neural foraminal stenosis. L4-5: There is a diffuse disc bulge at this level. There is extension of the disc material into the left neural foramen. There are hypertrophic changes of the facets and ligamentum flavum. There is a 1.1 x 0.9 cm synovial cyst arising from the left facet joint and projecting into the spinal canal. These all contribute to cause marked central spinal canal stenosis. There is no significant right neural foraminal stenosis. There is marked left neural foraminal stenosis. L5-S1: There is a small left paracentral disc herniation with extrusion posterior to the S1 vertebral body. There is mild impression upon the right S1 nerve root. There are hypertrophic changes of the ligamentum flavum, left greater than right. There is no significant central spinal canal stenosis.There is no significant neural foraminal stenosis. Soft tissues: The visualized SI joints and sacrum are well maintained. The paraspinal soft tissues are unremarkable. Visualized abdominal organs: The left kidney appears smaller than the right. This is unchanged. IMPRESSION: 1. Degenerative changes seen at L4-L5 causing marked central spinal canal stenosis and marked left neural foraminal stenosis. 2. Degenerative changes at L3-L4 causing moderately severe central spinal canal stenosis, [id number] left neural foraminal stenosis and marked right neural foraminal stenosis. 3. Left paracentral disc herniation at L5-S1 with extrusion causing mild impression upon the right S1 nerve root. 4. Small left paracentral disc herniation at L1-L2 without significant central spinal canal or nerve root compression. 5. Multilevel degenerative changes seen in the lumbar spine as described above. DATA REPOSITORY:
== END 2024-12-27 01:49 ==
LOC: DI 01:29
PROVIDERS: PCP Physician Assistant Medical; Visit Provider Physician Assistant Medical
DX: M54.50 Low back pain, unspecified (principal); G89.29 Other chronic pain
CPT/HCPCS: 72148

== ENCOUNTER → 2025-01-24 12:45 | Outpatient (BNVA) | payer MEDICARE, SELFPAY | PROVIDERS: PCP Physician Assistant Medical; Referring Provider Physician Assistant Medical; Visit Provider Urology | DX: D09.0 Carcinoma in situ of bladder (principal) | CPT/HCPCS: 81002; 52000 ==

== ENCOUNTER 2025-01-24 13:16 | Outpatient (REF) | payer MEDICARE, SELFPAY ==
--- NOTE | 2025-01-24 13:00 | PAPNONF_PTH ---
PATIENT: Bonnie Marks LOC: [facility] U#:[id number] AGE/SX: 74/F ROOM: RE01/24/[address]: Amanuel Gallegos MD : [id number] BED: DIS: 01/24/2025 SPEC #: [id number] RECD: 01/24/25 18:10 STATUS: RYAN RECamille #: [id number] KASSANDRA: 01/24/25 13:[address]: Amanuel Gallegos DEPT: COUNT INCLUDES THE [facility] Cytology RECD BY: Mary Levy ENTERED: 01/24/25 18:10 SP TYPE: AMBER TOBAR DR: Magui Carrillo Tissues: 1 - BODY FLUID CYTO(SPUTUM/URINE)[facility] Procedures: BODY FLUID CYTO(URINE/SPUTUM) Comments: [id number] (TV = 35 ml, 30 ml CYTOLYT ADDED) (REFRIGERATED)
== END 2025-01-24 13:17 | disposition home or self-care (01) ==
LOC: LBN 13:16
PROVIDERS: PCP Physician Assistant Medical; Visit Provider Urology
DX: C67.9 Malignant neoplasm of bladder, unspecified (principal)
CPT/HCPCS: 88104

== ENCOUNTER 2025-02-13 11:41 | Outpatient (CLI) | payer MEDICARE, SELFPAY ==
[2025-02-13 12:12] VITALS: BP 160/87; PULSE 93; RESP 16; TEMP 36.2; O2SAT 96
--- NOTE | 2025-02-13 12:18 | PDOC.PAIN_ITS ---
Date of service: 02/13/25 Time of Service: 13:05 Pain Managment Procedure Note Procedure Note Procedure Note: Lumbar Transforaminal Epidural Steroid Injection ? Location: RIGHT L3 and LEFT L4 ? Pre-procedure Diagnosis: M54.17-Radiculopathy, lumbosacral region M54.16 Radiculopathy, lumbar region ? Post-procedure Diagnosis:? The same as above ? Sedation:? none ? Estimated blood loss:? less than 2 cc ? Surgeon:? 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 ? Procedure Detail:?? The procedure and potential risks were explained to the patient and informed written consent was obtained. The patient was escorted to the procedure room and placed in the prone position. Pillows were utilized for proper positioning and comfort. Time out was performed in the procedure room with nursing staff confirming the patient's identity, procedure to be performed, allergies, and any blood thinning or anti-platelet medications. The patient's lower back was prepped with ChloraPrep and draped in a sterile fashion. Sterile gloves were used, a face mask was worn, and new single dose vials of all medications were used with the top being swabbed with alcohol and given time to dry prior to withdrawal of medication. A right-sided oblique fluoroscopic view was obtained, with visualization of L3. Lidocaine 1% was used to anesthetize the skin. The tip of a 22-gauge, Quincke needle was advanced toward the 6 o'clock position of the superior pedicle at the target level.? It was advanced just under the pedicle to the neural foramen L3-4. Correct needle placement was confirmed through review of the fluoroscopy. Next, following negative aspiration, 1cc's of Omnipaque 240 contrast was injected under live fluoroscopy which showed good flow throughout the epidural space and no evidence of vascular flow or flow into adjacent compartments. Next, following negative aspiration, 40mg Depo-Medrol and 0.5ml of 0.5% bupivacaine was injected. The needle was gen tly removed.? The procedure was also performed in the same fashion at L4-5.? The patient tolerated the procedure well and was discharged home with instructions.? Permanent images saved and recorded. Plan:? Follow up prn PAIN: PRE PROCEDURE 07/30 POST PROCEDURE COMMENT: Repeat as needed if she gets long-term relief. She has a consultation with Dr. Gonzalez at pending Coding Conscious Sedation used for procedure: No CPT Codes: Transforaminal Lumbar/Sacral (includes Fluoro) each add'l - 82403 ([id number] ~G) Transforaminal Lumbar/Sacral (includes fluoro) - [id number] ([id number] ~G) Additional Codes: Date of Service () Diagnoses: M54.17-Radiculopathy, lumbosacral region M54.16 Radiculopathy, lumbar region
[2025-02-13 12:38] VITALS: PULSE 100; O2SAT 96
[2025-02-13 12:40] VITALS: PULSE 93; O2SAT 96
--- NOTE | 2025-02-13 12:45 | DI.RAD_ITS ---
Exam(s) XR PAIN CLINIC LUMBAR SP 2V EXAM: XR PAIN CLINIC LUMBAR SP 2V CLINICAL HISTORY: DX: Lumbar Radiculopathy TECHNIQUE: 2D and realtime digital imaging was performed. CONTRAST MATERIAL: Refer to procedure report. COMPARISON: No exams were available for comparison FINDINGS: Fluoroscopy was provided for Dr. Flood during the performance of a bilateral transforaminal epidural steroid injection. Please refer to the procedure report for complete details. Ka,r=15.4 mGy IMPRESSION: RADIATION DOSE DELIVERED: 0.0 0.0 0
[2025-02-13 12:50] VITALS: PULSE 93; O2SAT 96
[2025-02-13] MEDS: Bupivacaine 0.5% Pres-Free 10 ML VIAL IJ (13:02)
[2025-02-13] MEDS: Nerve Block Tray 1 EACH MC (13:02)
[2025-02-13] MEDS: methylPREDNISolone ACETATE 40 MG/ML VIAL IJ (13:02)
[2025-02-13] MEDS: Omnipaque 240 MG/ML 50 ML BTL IJ (13:02)
== END 2025-02-13 11:42 | disposition home or self-care (01) ==
LOC: PC 11:42
PROVIDERS: PCP Physician Assistant Medical; Visit Provider Anesthesiology Pain Medicine
DX: M54.50 Low back pain, unspecified (principal); M54.16 Radiculopathy, lumbar region; M54.17 Radiculopathy, lumbosacral region
CPT/HCPCS: 64483; 64484; 72100; J0665; J1010; Q9967